=== PATIENT | female | born 1945 | race Caucasian/White ===

== ENCOUNTER 2021-03-17 15:59 | Emergency (ER) | payer MEDICARE, OTHER, SELFPAY ==
[2021-03-17 17:10] VITALS: BP 126/67; PULSE 88; RESP 16; TEMP 36.6; O2SAT 97; BMI 28.0
--- NOTE | 2021-03-17 17:10 | XR_ITS ---
PROCEDURE INFORMATION: Exam: XR Left Wrist Exam date and time: 03/17/2021 5:10 PM Age: 76 years old Clinical indication: Pain; Wrist; Bilateral TECHNIQUE: Imaging protocol: XR Left wrist. Views: 3 or more views. COMPARISON: No relevant prior studies available. FINDINGS: Bones/joints: There is no evidence of acute fracture. There is no evidence of joint malalignment or dislocation. Degenerative changes of the wrist present. Soft tissues: There are no soft tissue masses or fluid collections. IMPRESSION: 1. No evidence of acute fracture. 2. No evidence of acute dislocation. 3. Degenerative changes of the wrist present.
--- NOTE | 2021-03-17 17:46 | HMH.EDUTC ---
[facility] [place] Disposition Clinical Impression: Wrist pain Qualifiers: Laterality: left Qualified Code(s): M25.532 - Pain in left wrist Disposition: Home, Self-Care Condition on Discharge: Good Instructions: DI for Wrist Pain, How To Perform RICE (Rest, Ice, Compress, Elevate) Additional Instructions: *RICE, Rest the extremity, Ice 15-20 minutes 3-4 times daily, Compress- wear the steven wrap as discussed as much as possible to help reduce swelling and pain, Elevate the extremity when at rest *Steven wrap is for support and help control swelling, use it except in the shower. Be sure that is not to tight but not to loose either *Elevate when resting *Ibuprofen every 6-8 hours as needed for pain an inflammation. If need something more can take Tylenol in between doses of Ibuprofen to help Immediately follow up with your family doctor for new or worsening of symptoms, or no noticeable improvement over the next 3-5 days Follow up with your Family Doctor if no improvement or any worsening of symptoms Return if needed Straight to ER if any life threatening symptoms Referrals: Lala Bowedn [Primary Care Provider] - As needed Time of Disposition: 17:59 Medical Decision Making - Gumaro Inquiry Pt receiving controlled substance: No Gumaro was queried for this patient: No Vital Signs: 03/17/21 17:10 Temperature 97.8 F Temperature Source Oral Pulse Rate [Right Brachial] 88 Respiratory Rate 16 Blood Pressure [Right Arm] 126/67 Blood Pressure Mean [Right Arm] 86 Blood Pressure Source [Right Arm] Automatic Cuff Blood Pressure Position [Right Arm] Sitting 02 Sat by Pulse Oximetry 97 Oxygen Delivery Method Room Air - Radiology Data #1 Image(s): Wrist Image Reviewed: Yes I have reviewed radiologist's interpretation IMPRESSION: 1. No evidence of acute fracture. 2. No evidence of acute dislocation. 3. Degenerative changes of the wrist present. [facility] [place] HPI - General Stated complaint: swollen/painful L wrist no accident Time Seen by Provider: 03/17/21 17:46 Mode of Arrival: Ambulatory Source of Information: Patient Limitations: No Limitations Description of Symptoms (Recalled from Triage Doc. by RN): PATIENT C/O PAIN TO LEFT WRIST SINCE LAST NIGHT. NO KNOWN INJURY HEENT Symptoms (Recalled from RN notes): No Resp Symptoms (Recalled from RN notes): No Skin Symptoms (Recalled from RN notes): No MS Symptoms (Recalled from RN notes): Yes Functional Status (Recalled from RN notes): WNL - History of Present Illness Provider Complaint: Patient states that she noticed she was having a little pain in her left wrist last night States that she woke up this morning still having pain in her wrist and has continued to have pain all day today States that she doesnt remember doing anything to hurt but she may have bumped it or something that she dont remember - Related Data Allergies Allergy/AdvReac Type Severity Reaction Status Date / Time No Known Allergies Allergy Verified 03/17/21 17:35 - Worker's Comp Is this a Worker's Comp case?: No [facility] History - Hepatitis A Screen Drug use history?: No High risk sexual behaviors?: No History of sexually transmitted infection?: No Currently employed?: No Childcare worker?: No Do you have indoor plumbing?: Yes Do you have electricity?: Yes Attestation statement:: This patient has been screened for Hepatitis A risk factors. I have reviewed the patient's past medical history: Yes ROS Obtained: Yes All systems reviewed & no additional complaints, Yes Systems reviewed as appropriate & no additional complaints - Constitutional Constitutional: Reports system reviewed and no additional complaints, except as docu, Denies body ache, Denies chills, Denies fever(s) - Cardiovascular Cardiovascular: Reports system reviewed and no additional complaints, except as docu - Respiratory Respiratory: Reports system reviewed and no additional complaints, except as docu - Gastrointestinal Gastroi
[2021-03-17 18:00] VITALS: BP 126/67; PULSE 88; RESP 16; TEMP 36.6; O2SAT 97
== END 2021-03-17 18:09 | disposition home or self-care (01) ==
PROVIDERS: Emergency Provider Nurse Practitioner; PCP Nurse Practitioner Family
DX: M25.532 Pain in left wrist (principal)
CPT/HCPCS: G0463; 73110; 99202

== ENCOUNTER 2025-03-01 13:49 | Outpatient (CLI) | payer MEDICARE, OTHER, SELFPAY ==
--- OUTSIDE RECORDS SUMMARY | 2024-08-03 09:00 | XMS_ITS ---
Author Organization [facility] damir [facility] Address [address] [place] [address] Care Team Providers Care Real Estate Office Manager Name Role Phone Marquise Antonio Unavailable [phone] Encounters Encounter Location Date Provider Diagnosis [facility] Care [facility] [address] [place] [address] 08/03/2024 Antonio Camarillo Plan Of Treatment Next Appt Details Provider Name:Antonio Camarillo, 04/05/2025 01:40:00 PM[facility] [address], [place], [address], Progress Notes * Stef MITCHELL ADOB:1945 (80 yo F)Acc No.[id number]:08/03/2024 progress note Patient: Stef ROD Provider: Miguel A Camarillo MD :1945 A ge:79 Y S ex:Female Date:08/03/2024 Address:[facility] [address] [facility] , [place], [place] Subjective: * Chief Complaints: * * Medical History: Objective: * Vitals: Assessment: Plan: * Treatment: * Billing Information: * Visit Code: * Procedure Codes: * Electronic signature of Jennifer Camarillo M.D. on 03/01/2025 at 01:55 PM EDT Sign off status: Pending * Provider: Miguel A Camarillo MD Date: 0 08/03/2024 Generated for Printi ng/Fasandrag/eTransmitting on: 0 03/01/2025 01:55 PM EDT
--- OUTSIDE RECORDS SUMMARY | 2024-12-07 10:20 | XMS_ITS ---
Author Organization [facility] damir [facility] Address [address] [place] [address] Care Team Providers Care Senior Art Director Name Role Phone Marquise Antonio Unavailable [phone] Encounters Encounter Location Date Provider Diagnosis [facility] Care [facility] [address] [place] [address] 12/07/2024 Antonio Camarillo Plan Of Treatment Next Appt Details Provider Name:Antonio Camarillo, 04/05/2025 01:40:00 PM, [facility] [address], [place], [address], Progress Notes * Stef MITCHELL ADOB:1945 (80 yo F)Acc No.[id number]:12/07/2024 progress note Patient: Stef ROD Provider: Miguel A Camarillo MD :1945 A ge:79 Y S ex:Female Date:12/07/2024 Address:[facility] [address] [facility] , [place], [place] Subjective: * Chief Complaints: * * Medical History: Objective: * Vitals: Assessment: Plan: * Treatment: * Billing Information: * Visit Code: * Procedure Codes: * Electronic signature of Jennifer Camarillo M.D. on 03/01/2025 at 01:55 PM EDT Sign off status: Pending * Provider: Miguel A Camarillo MD Date: 0 12/07/2024 Generated for Printi ng/Fasandrag/eTransmitting on: 0 03/01/2025 01:55 PM EDT
--- OUTSIDE RECORDS SUMMARY | 2025-01-23 04:20 | XMS_ITS ---
Author Organization [facility] Address [address] [address] Care Team Providers Care Embedded Firmware Developer Name Role Phone Antonio Camarillo [phone] Medications Medication SIG (Take, Route, Frequency, Duration) Notes Start Date End Date Status Loperamide HCl 2 MG 1 capsule as needed Orally Four times a day Active Lipitor 40 MG 1 tablet Orally Once a day Active Magnesium 400 MG as directed Orally Active Lomotil 2.5-0.025 MG 1 tablet as needed Orally Four times a day Active Levocetirizine Dihydrochloride 5 MG 1 tablet in the evening Orally Once a day; Duration: 30 day(s) Active Gabapentin 600 MG 1 tablet Orally twice a day Active Ferrous Sulfate 325 (65 Fe) MG 1 tablet Orally Once a day; Duration: 30 day(s) Active Lantus SoloStar 100 UNIT/ML Subcutaneous Active Escitalopram Oxalate 10 MG 1 tablet Orally Once a day; Duration: 30 day(s) Active Ergocalciferol 34869 UNIT 1 capsule Orally weekly; Duration: 90 days Sundays *Pick strength-form from [employer] for eRX* Active Calcium 600 MG 1 tablet with meals Orally Once a day Active Budesonide 3 MG 2 capsules Orally Once a day Active ClobetaPlus Cream *Reorder from [employer] for eRx and Interaction Alerts* Active Ciprofloxacin HCl 500 MG 1 tablet Orally Once daily; Duration: 10 days 10/18/2023 Active Eliquis 2.5 MG 1 tablet Orally twice a day Active Allergy Relief 10 MG 1 tablet Orally Once a day; Duration: 30 day(s) Active Albuterol Sulfate HFA 108 (90 Base) MCG/ACT 1 puff as needed Inhalation every 4 hrs Active Aspirin 81 MG 1 tablet Orally Once a day; Duration: 30 day(s) Active Amiodarone HCl 100 MG 1 tablet Orally Once a day; Duration: 30 day(s) 07/16/2022 Active Vitamin B-6 100 MG 1 tablet Orally Once a day; Duration: 30 day(s) Active rOPINIRole HCl 0.5 MG 1 tablet 1 to 3 hours before bedtime Orally Once a day; Duration: 30 day(s) Active Pantoprazole Sodium 20 MG TAKE 1 TABLET EVERY DAY IN THE EVENING Active Synthroid 100 MCG 1 tablet on an empty stomach in the morning Orally Once a day Active Ozempic (2 MG/DOSE) 8 MG/3ML as directed Subcutaneous Sundays Active NovoLOG FlexPen 100 UNIT/ML Subcutaneous Active Nitroglycerin 0.4 MG Sublingual Active Metoprolol Succinate 25 MG 1 capsule Orally Once a day; Duration: 30 day(s) Active Encounters Encounter Location Date Provider Diagnosis [facility] [address] [place] [address] 01/23/2025 Antonio Camarillo Plan Of Treatment Next Appt Details Provider Name:Antonio Camarillo, 04/05/2025 01:40:00 PM, [address] [facility] [address], [place], [address], Progress Notes * Stef MITCHELL ADOB:1945 (80 yo F)Acc No.[id number]:01/23/2025 progress note Patient: Stef ROD Provider: Miguel A Camarillo MD :1945 A ge:79 Y S ex:Female Date:01/23/2025 Address:[address] [place] [address] , [facility] Subjective: * Chief Complaints: * * Medical History: * Medications: T aking Albuterol Sulfate HFA 108 (90 Base) MCG/ACT Aerosol Solution 1 puff as needed Inhalation every 4 hrs , Taking Allergy Relief 10 MG Tablet 1 tablet Orally Once a day , Taking Amiodarone HCl 100 MG Tablet 1 tablet Orally Once a day , Taking Aspirin 81 MG Tablet Chewable 1 tablet Orally Once a day , Taking Budesonide 3 MG Capsule Delayed Release Particles 2 capsules Orally Once a day , Taking Calcium 600 MG Tablet 1 tablet with meals Orally Once a day , Taking Ciprofloxacin HCl 500 MG Tablet 1 tablet Orally Once daily , Taking ClobetaPlus Cream , Notes to Pharmacist: *Reorder from [facility] for eRx and Interaction Alerts*, Taking Eliquis 2.5 MG Tablet 1 tablet Orally twice a day , Taking Ergocalciferol 12038 UNIT Capsule 1 capsule Orally weekly , Notes to Pharmacist: Sundays *Pick strength-form from [facility] for eRX*, Taking Escitalopram Oxalate 10 MG Tablet 1 tablet Orally Once a day , Taking Ferrous Sulfate 325 (65 Fe) MG Tablet 1 tablet Orally Once a day , Taking Gabapentin 600 MG Tablet 1 tablet Orally twice a day , Taking Lantus SoloStar 100 UNIT/ML Solution Pen- injector Subcutaneous , Taking Levocetirizine Dihydrochloride 5 MG Tablet 1 tablet in the evening Orally Once a day , Taking Lipitor 40 MG Tablet 1 tablet Orally Once a day , Taking Loperamide HCl 2 MG Capsule 1 capsule as needed Orally Four times a day , Taking Lomotil 2.5-0.025 MG Tablet 1 tablet as needed Orally Four times a day , Taking Magnesium 400 MG Capsule as directed Orally , Taking Metoprolol Succinate 25 MG Capsule ER 24 Hour Sprinkle 1 capsule Orally Once a day , Taking Nitroglycerin 0.4 MG Tablet Sublingual Sublingual , Taking NovoLOG FlexPen 100 UNIT/ML Solution Pen-injector Subcutaneous , Taking Ozempic (2 MG/DOSE) 8 MG/3ML Solution Pen- injector as directed Subcutaneous , Notes to Pharmacist: Sundays, Taking Pantoprazole Sodium 20 MG Tablet Delayed Release TAKE 1 TABLET EVERY DAY IN THE EVENING , Taking rOPINIRole HCl 0.5 MG Tablet 1 tablet 1 to 3 hours before bedtime Orally Once a day , Taking Synthroid 100 MCG Tablet 1 tablet on an empty stomach in the morning Orally Once a day , Taking Vitamin B-6 100 MG Tablet 1 tablet Orally Once a day Objective: * Vitals: Assessment: Plan: * Treatment: * Billing Information: * Visit Code: * Procedure Codes: * Electronic signature of Jennifer Camarillo M.D. on 03/01/2025 at 01:54 PM EDT Sign off status: Pending * Provider: Miguel A Camarillo MD Date: 0 01/23/2025 Generated for Db hunter/Giovanna/Ahsanitting on: 0 03/01/2025 01:54 PM EDT
--- OUTSIDE RECORDS SUMMARY | 2025-02-04 23:44 | XMS_ITS | Encounter Summary ---
Author Organization [facility] Address [address] [place] [address] Care Team Providers Care Cloth Doubling Machine Operator Name Role Phone Robb Cartagena MD Primary Care Provider [phone] Sophia Horne MD Unavailable [phone] Zheng Iglesias MD Unavailable Kristian Prado MD Unavailable [phone] Antonio Camarillo MD Unavailable [phone] Meera Ruiz HARNESSMAKER APPRENTICE Unavailable [phone] Asad Arevalo MD Unavailable [phone] Oscar Murphy MD Unavailable [phone] Maria C Parra Unavailable [phone] Reason for Referral * Consultation (Routine) - Authorized Specialty Diagnoses / Procedures Referred By Contac t Referred To Contact Physical Therapy Diagnoses Closed bilateral fracture of pubic rami, initial encounter (CMS/[facility]) Closed fracture of sacrum, unspecified portion of sacrum, initial encounter ([facility]) Rg Lua MD [address] [place] [address] Phone: tel: fax: [facility] [address] [place] [address] Phone: tel: Referral ID Status Reason Start Date Expiration Date Visits Requested Visits Authorized [id number] Authorized Consult and Treat 02/07/2025 08/09/2026 1 1 * Consultation (Routine) - Authorized Specialty Diagnoses / Procedures Referred By Contac t Referred To Contact Internal Medicine Diagnoses Closed bilateral fracture of pubic rami, initial encounter ([facility]) Closed fracture of sacrum, unspecified portion of sacrum, initial encounter ([facility]) Rg Lua MD [address] [place] [address] Phone: tel: fax: [facility] [address] [place] [address] Phone: tel: fax: Referral ID Status Reason Start Date Expiration Date Visits Requested Visits Authorized [id number] Authorized Specialty Services Required 02/07/2025 08/09/2026 1 1 * Consultation (Routine) - Authorized Specialty Diagnoses / Procedures Referred By Dario t Referred To Contact Family Medicine Diagnoses Closed bilateral fracture of pubic rami, initial encounter ([facility]) Closed fracture of sacrum, unspecified portion of sacrum, initial encounter ([facility]) Rg Lua MD [address] [place] [address] Phone: tel: fax: Referral ID Status Reason Start Date Expiration Date V isits Requested Visits Authorized [id number] Authorized 02/07/2025 08/09/2026 1 1 * Home Health (Routine) - Authorized Specialty Diagnoses / Procedures Referred By Contac t Referred To Contact Home Health Services / Case Management Diagnoses Closed bilateral fracture of pubic rami, initial encounter ([facility]) Rg Lua MD [address] [place] [address] Phone: tel: fax: Referral ID Status Reason Start Date Expiration Date Visits Requested Visits Authorized [id number] Authorized Specialty Services Required 02/07/2025 08/09/2026 999 999 Reason for Visit * Reason Comments Pelvic Pain * Auth/Cert (Routine) Specialty Diagnoses / Procedures Referred By Contac t Referred To Contact Diagnoses History of pelvic fracture Closed bilateral fracture of pubic rami, initial encounter ([facility]) Closed fracture of sacrum, unspecified portion of sacrum, initial encounter ([facility]) Fall on 01/19 Pelvic fracture with hematoma Vinicio Lowe MD [address] [place] [address] Phone: tel: fax: [facility] [address] [place] [address] Phone: tel: Referral ID Status Reason Start Date Expiration Date Visits Re quested Visits Authorized [id number] 1 1 Encounter Details Date Type Department Care Team (Latest Contact Info) Description 02/04/2025 11:44 PM EDT - 02/07/2025 3:14 PM EDT Hospital Encounter [facility] [address] [place] [address] Herb Moreira MD [address] [place] [id number] Sunil Abdi MD [address] [place] [address] Vinicio Lowe MD [address] [place] [address] Rg Lua MD [address] [place] [address] Closed bilateral fracture of pubic rami, initial encounter ([facility]) (Primary Dx); Closed fracture of sacrum, unspecified portion of sacrum, initial encounter ([facility]) Discharge Disposition: Home or Self Care Social History Tobacco Use Types Packs/Day Years Used Date Smoking Tobacco: Former Cigarettes 967 - 1991 Passive Smoke Exposure: Never Smokeless Tobacco: Never Alcohol Use Standard Drinks/Week Comments No 0 (1 standard drink = 0.6 oz pur e alcohol) PHQ-2 Answer Date Recorded Patient Health Questionnaire-2 Score 0 07/24/2024 Humiliation, Afraid, Rape, and Kick questionnair e Answer Date Recorded Within the last year, have y ou been afraid of your partner or ex-partner? No 02/07/2025 Within the last year, have y ou been humiliated or emotionally abused in other ways by your partner or ex-partner? No Within the last year, have y ou been kicked, hit, slapped, or otherwise physically hurt by your partner or ex-partner? No 02/07/2025 Within the last year, have y ou been raped or forced to have any kind of sexual activity by your partner or ex-partner? No 02/07/2025 Hunger Vital Sign Answer Date Recorded Within the past 12 months, y ou worried that your food would run out before you got the money to buy more. Never true 02/08/20 25 Within the past 12 months, t he food you bought just didn't last and you didn't have money to get more. Never true 02/07/2025 PRAPARE - Transportation Answer Date Re corded In the past 12 months, has l ack of transportation kept you from medical appointments or from getting medications? No 04/2025 In the past 12 months, has l ack of transportation kept you from meetings, work, or from getting things needed for daily living? No 02/07/2025 Housing Stability Vital Sign Answer Wong e Recorded In the last 12 months, was t here a time when you were not able to pay the mortgage or rent on time? No 02/07/2025 In the past 12 months, how m any times have you moved where you were living? 0 02/07/2025 At any time in the past 12 m [facility], were you homeless or living in a halfway (including now)? No 02/07/2025 CAGE ASSESSMENT Answer Date Recorded Cage unable to access Not on file 02/05/2025 Cage max number of drinks Not on file 2024 Cage Beverages a week Not on file 02/05/2025 Have you ever felt you should CUT down on your d rinking? 0 02/05/2025 Have you been ANNOYED by people criticizing your drinking? 0 02/05/2025 Have you felt GUILTY about your drinking? 0 02/05/2025 Have you had a drink first t marycarmen in the morning ([employer]) to steady your nerves or to get rid of a hangover? 0 02/05/2025 CAGE Questionnaire Score 0 025 Utilities Answer Date Recorded In the past 12 months has th [employer], gas, oil, or water company threatened to shut off services in your home? No 02/07/2025 PHQ-2A Answer Date Recorded Depression Risk 0 06/02/2024 Comments No Sex and Gender Information Value Date Recorded Sex Assigned at Female 02/05/2025 4:17 PM EDT Legal Sex Female 8:16 PM EDT Gender Identity Female 02/05/2025 4:17 PM EDT Sexual Orientation Not on file documented as of this encounter Last Filed Vital Signs Vital Sign Reading Time Taken Comments Blood Pressure 134/68 02/07/2025 11:57 AM EDT Pulse 63 02/07/2025 11:57 AM EDT Temperature 36.3 C (97.3 F) 02/07/2025 11:57 AM EDT Respiratory Rate 18 02/06/2025 3:12 AM EDT Oxygen Saturation 94% 02/07/2025 11:57 AM EDT Inhaled Oxygen Concentration - - Weight 68 kg (150 lb) 02/05/2025 4:05 PM EDT Height 175.3 cm (5' 9 ) 02/04/2025 11:52 PM EDT Body Mass Index 22.15 02/04/2025 11:52 PM EDT documented in this encounter Functional Status * Calculated C-SSRS Risk Score (Lifetime/Recent) Answer Date of Assessment Author No Risk Indicated 02/07/2025 8:00 AM EDT Micheline Stokes RN * Question Answer Date of Assessment Author 1. Wish to be (Past 1 Month) No 025 8:00 AM EDT Micheline Stokes RN 2. Non-Specific Active Suici tia Thoughts (Past 1 Month) No 02/07/2025 8:00 AM EDT Christiano Stokes RN 6. Suicidal Behavior (Lifetime) No 5 8:00 AM EDT Micheline Stokes RN documented as of this encounter Discharge Instructions * Discharge Instructions* Rg Lua MD - 02/07/2025 1:50 PM EDT Please take all of your medications as prescribed Please use Tylenol 650 mg ER every 8 hours for pain. You can use Oxycodone every 6 hours, 5 mg for break through pain Dont lift heavy weight and dont bend. As advised, if you have a fall and you have persistent swelling or bleeding and since you are taking Eliquis, please reach out to nearest ED Please engage yourself into physical therapy Please make sure to follow up with outpatient physical therapy Please make sure to follow up with your PCP. Orthopedics and other subspeciality as appropriate If you are having sudden pain,febrile illness, chills or weakness, please come to nearest ED as soon as possible or call 911 documented in this encounter Medications at Time of Discharge Accu-Chek FastClix Lancets misc 1 acetaminophen (Tylenol 8 Hour) 650 MG ER tablet Take 1 tablet by mouth every 8 hours as needed for mild pain. Do not crush, chew, or split. 120 tablet 2 5 06/07/20 25 albuterol 108 (90 Base) MCG/ACT inhaler Inhale 2 puffs every 6 hours as needed. 1 amiodarone (Pacerone) 100 MG tabletIndications:L ongstanding persistent atrial fibrillation (CMS/HCC) TAKE 1 TABLET ONE TIME DAILY 90 tablet 3 5 atorvastatin (Lipitor) 40 MG tabletIndications:M ixed hyperlipidemia TAKE 1 TABLET EVERY DAY 90 tablet 3 5 biotin 1000 MCG tablet Take 1 tablet by mouth daily. budesonide EC (Entocort EC) 3 MG 24 hr capsule Take 2 capsules by mouth daily. 4 calcium citrate (Calcitrate) 950 (200 Ca) MG tabletIndications:A ge-related osteoporosis without current pathological fracture Take 1 tablet (950 mg) by mouth 1 (one) time each day. 90 tablet 3 4 cetirizine (ZyrTEC) 10 MG tabletIndications:N on-seasonal allergic rhinitis, unspecified trigger Take 1 tablet (10 mg) by mouth 1 (one) time each day. 90 tablet 3 4 clobetasol (Temovate) 0.05 % cream APPLY TOPICALLY TO AFFECTED AREA 2 TIMES A WEEK NEEDED 30 g 11 4 diphenoxylate-atrop ine (Lomotil) 2.5-0.025 MG tabletIndications:D iarrhea, unspecified type Take 1 tablet by mouth every 6 (six) hours if needed for diarrhea. 90 tablet 3 4 Droplet Pen [place] 32G X 4 MM [facility] Eliquis 2.5 MG tabletIndications:L ongstanding persistent atrial fibrillation (CMS/HCC) TAKE 1 TABLET TWICE DAILY 180 tablet 3 5 ergocalciferol 1.25 MG (17471 UT) capsuleIndications: Malignant neoplasm of upper-outer quadrant of right breast in female, estrogen receptor positive Take 1 capsule (50,000 Units) by mouth 1 (one) time per week. 12 capsule 3 4 escitalopram (Lexapro) 10 MG tabletIndications:D epressive disorder Take 1 tablet (10 mg) by mouth 1 (one) time each day. 90 tablet 3 4 ferrous sulfate 325 (65 Fe) MG tabletIndications:H istory of iron deficiency anemia Take 1 tablet (325 mg) by mouth 1 (one) time each day with breakfast. 90 tablet 3 4 fluticasone (Flonase) 50 MCG/ACT nasal spray Administer 2 sprays into each nostril daily. Shake gently. Before first use, prime pump. After use, clean tip and replace cap. 16 g 6 5 08/06/19 26 gabapentin (Neurontin) 600 MG tablet Take 1 tablet by mouth 2 times a day. glucagon (Baqsimi Two Pack) 3 MG/DOSE powder Nasal Powder USE 1 DOSE IN 1 NOSTRIL FOR LOW BLOOD SUGAR, THEN SEEK MEDICAL HELP . REPEAT DOSE AFTER 15 MINS IF NO RESPONSE 2 each 3 4 glucose blood (Accu-Chek SmartView) test strip 9 insulin aspart (NovoLOG FLEXPEN) 100 UNIT/ML injection penIndications:Type 2 diabetes mellitus with diabetic neuropathy, with long-term current use of insulin ([facility]) Inject subcutaneous 10 units BID w/ meals plus 1:50>150 SS, max dose 50u/day 45 mL 3 4 insulin glargine (Lantus SoloStar) 100 UNIT/ML injection penIndications:Type 2 diabetes mellitus with diabetic neuropathy, with long-term current use of insulin ([facility]) Inject 15 Units under the skin every night. 15 mL 3 4 05/16/20 25 Jardiance 10 MGIndications:Type 2 diabetes mellitus with diabetic neuropathy, with long-term current use of insulin (CMS/[facility]) TAKE 1 TABLET ONE TIME DAILY 90 tablet 3 5 levothyroxine (Synthroid, Levoxyl) 100 MCG tabletIndications:A cquired hypothyroidism Take 1 tablet (100 mcg) by mouth 1 (one) time each day. 90 tablet 3 4 loperamide (Imodium) 2 MG capsule Take 1 capsule by mouth daily as needed for diarrhea. 1 LORazepam (Ativan) 0.5 MG tablet Take 1 tablet (0.5 mg) by mouth 3 (three) times a day if needed for anxiety. 270 tablet 1 4 magnesium oxide (Mag-Ox) 400 (240 Mg) MG tablet Take 1 tablet by mouth daily. metoprolol succinate XL (Toprol-XL) 25 MG 24 hr tabletIndications:P rimary hypertension TAKE 1 TABLET EVERY DAY 90 tablet 3 5 naloxone (Narcan) 4 mg/0.1 mL nasal spray 1. Give 1 spray in nostril for no/slow breathing or cannot wake after opioid use 2. Call 911 3. Repeat in other nostril if symptoms continue 1 each 5 nitroglycerin (Nitrostat) 0.[address] 1 tablet under the tongue. PRN 8 pantoprazole (ProtoNix) 20 MG EC tabletIndications:G astroesophageal reflux disease without esophagitis Take 1 tablet (20 mg) by mouth 1 (one) time each day. 90 tablet 3 4 pyridoxine (B-6) 100 MG tablet Take 1 tablet by mouth daily. rOPINIRole (Requip) 0.5 MG tabletIndications:R estless leg syndrome TAKE 1 TABLET (0.5 MG) BY MOUTH 1 (ONE) TIME EACH DAY IN THE EVENING. 90 tablet 3 5 Semaglutide, 2 MG/DOSE, (Ozempic, 2 MG/DOSE,) 8 MG/3ML solution pen-injector Inject 2 mg under the skin 1 (one) time per week. 9 mL 3 4 05/16/20 25 oxyCODONE (Roxicodone) 5 MG immediate release tablet Take 1 tablet by mouth every 6 hours as needed for severe pain for up to 5 days. 20 tablet 5 02/15/20 25 documented as of this encounter Miscellaneous Notes * Care Plan - Micheline Stokes RN - 02/07/2025 2:15 PM EDT Problem: Adult Inpatient Plan of Care Goal: Plan of Care Review Outcome: Ongoing, Progressing Flowsheets (Taken 02/07/2025 1411) Progress: improving Outcome Evaluation: Patient and family understood the plan of care of the shift Plan of Care Reviewed With: patient family Goal: Patient-Specific Goal (Individualized) Outcome: Ongoing, Progressing Flowsheets (Taken 02/07/2025 0800) Patient/Family-Specific Goals (Include Timeframe): pt will report pain level of less than 2 during the shift Individualized Care Needs: pain mangement Anxieties, Fears or Concerns: pain Goal: Absence of Hospital-Acquired Illness or Injury Outcome: Ongoing, Progressing Intervention: Identify and Manage Fall Risk Flowsheets (Taken 02/07/2025 1400) Safety Promotion/Fall Prevention: activity supervised assistive device/personal items within reach clutter-free environment maintained fall prevention program maintained lighting adjusted mobility aid in reach nonskid shoes/slippers when out of bed room organization consistent safety round/check completed toileting scheduled Intervention: Prevent Skin Injury Flowsheets Taken 02/07/2025 1411 Skin Protection: incontinence pads utilized Taken 02/07/2025 1400 Body Position: weight shifting Intervention: Prevent and Manage VTE (Venous Thromboembolism) Risk Flowsheets (Taken 02/07/2025 0800) VTE Prevention/Management: SCDs (sequential compression devices) off education provided Intervention: Prevent Infection Flowsheets (Taken 02/07/2025 1411) Infection Prevention: hand hygiene promoted equipment surfaces disinfected environmental surveillance performed personal protective equipment utilized Goal: Optimal Comfort and Wellbeing Outcome: Ongoing, Progressing Intervention: Monitor Pain and Promote Comfort Flowsheets (Taken 02/07/2025 1402) Pain Management Interventions: medication (see MAR) Intervention: Provide Person-Centered Care Flowsheets (Taken 02/07/2025 1411) Trust Relationship/Rapport: care explained emotional support provided empathic listening provided questions encouraged reassurance provided Goal: Readiness for Transition of Care Outcome: Ongoing, Progressing Intervention: Mutually Develop Transition Plan Flowsheets (Taken 02/07/2025 1411) Discharge Facility/Level of Care Needs: 1-Home or Self Care Equipment Needed After Discharge: none Equipment Currently Used at Home: walker, rollator Anticipated Changes Related to Illness: none Transportation Anticipated: family or friend will provide Transportation Concerns: none Current Discharge Risk: lives alone Concerns to be Addressed: no discharge needs identified Readmission Within the Last 30 Days: no previous admission in last 30 days Patient/Family Anticipated Services at Transition: none Patient/Family Anticipates Transition to: home with family Problem: Fall Injury Risk Goal: Absence of Fall and Fall-Related Injury Outcome: Ongoing, Progressing Intervention: Identify and Manage Contributors Flowsheets (Taken 02/07/2025 1411) Medication Review/Management: medications reviewed Self-Care Promotion: BADL personal objects within reach Intervention: Promote Injury-Free Environment Flowsheets (Taken 02/07/2025 1400) Safety Promotion/Fall Prevention: activity supervised assistive device/personal items within reach clutter-free environment maintained fall prevention program maintained lighting adjusted mobility aid in reach nonskid shoes/slippers when out of bed room organization consistent safety round/check completed toileting scheduled Problem: Skin Injury Risk Increased Goal: Skin Health and Integrity Outcome: Ongoing, Progressing Intervention: Optimize Skin Protection Flowsheets Taken 02/07/2025 1411 Pressure Reduction Techniques: frequent weight shift encouraged Skin Protection: incontinence pads utilized Taken 02/07/2025 1400 Activity Management: activity encouraged Taken 02/07/2025 0800 Head of Bed (HOB) Positioning: HOB elevated Intervention: Promote and Optimize Oral Intake Flowsheets (Taken 02/07/2025 1411) Oral Nutrition Promotion: physical activity promoted Nutrition Interventions: frequent small meals provided * Discharge Summary - Rg Lua MD - 02/07/2025 2:04 PM EDT Hospitalization Admit Date/Time: 02/04/2025 11:44 PM Admitting Attending: Vinicio Lowe Discharge Date: 02/07/2025 Discharge Attending Physician: Rg Lua MD PCP name and Address: Robb Cartagena MD [address] [place] [address] / [facility] [id number] Referring provider name and address: Isabel Munguia MD [address] [id number] Chief Concern, Brief History of Present Illness, and Hospital Course Stef Mitchell is a 79 y.o. female presenting after a prior fall with pelvic fracture on January 17. She had been admitted to an outside hospital following that fall, with imaging that showed bilateral superior and inferior pubic rami fractures. However, she was sent home at the time. She now reports increasing pain over the past day. She describes pain in the front of her pelvis that goes down her left leg, is sharp, and worse with standing. She did not have any remaining pain medications available at home. She was evaluated by our Trauma surgery and Orthopedic surgery teams, who are anticipating non-operative management. She had conservative management with Pain control and participated in physical therapy really well. She was stable at discharge Surgeries and Procedures None Medication List .. Accu-Chek FastClix Lancets misc Accu-Chek SmartView test strip Generic drug: glucose blood acetaminophen 650 MG ER tablet Commonly known as: Tylenol 8 Hour Take 1 tablet by mouth every 8 hours as needed for mild pain. Do not crush, chew, or split. albuterol 108 (90 Base) MCG/ACT inhaler Inhale 2 puffs every 6 hours as needed. amiodarone 100 MG tablet Commonly known as: Pacerone TAKE 1 TABLET ONE TIME DAILY atorvastatin 40 MG tablet Commonly known as: Lipitor TAKE 1 TABLET EVERY DAY Baqsimi Two Pack 3 MG/DOSE powder Nasal Powder Generic drug: glucagon USE 1 DOSE IN 1 NOSTRIL FOR LOW BLOOD SUGAR, THEN SEEK MEDICAL HELP . REPEAT DOSE AFTER 15 MINS IF NO RESPONSE biotin 1000 MCG tablet Take 1 tablet by mouth daily. budesonide EC 3 MG 24 hr capsule Commonly known as: Entocort EC Take 2 capsules by mouth daily. calcium citrate 950 (200 Ca) MG tablet Commonly known as: Calcitrate Take 1 tablet (950 mg) by mouth 1 (one) time each day. cetirizine 10 MG tablet Commonly known as: ZyrTEC Take 1 tablet (10 mg) by mouth 1 (one) time each day. clobetasol 0.05 % cream Commonly known as: Temovate APPLY TOPICALLY TO AFFECTED AREA 2 TIMES A WEEK NEEDED diphenoxylate-atropine 2.5-0.025 MG tablet Commonly known as: Lomotil Take 1 tablet by mouth every 6 (six) hours if needed for diarrhea. Droplet Pen [place] 32G X 4 MM misc Generic drug: Insulin Pen Needle Eliquis 2.5 MG tablet Generic drug: apixaban TAKE 1 TABLET TWICE DAILY ergocalciferol 1.25 MG (08613 UT) capsule Commonly known as: Vitamin D-2 Take 1 capsule (50,000 Units) by mouth 1 (one) time per week. escitalopram 10 MG tablet Commonly known as: Lexapro Take 1 tablet (10 mg) by mouth 1 (one) time each day. ferrous sulfate 325 (65 Fe) MG tablet Take 1 tablet (325 mg) by mouth 1 (one) time each day with breakfast. fluticasone 50 MCG/ACT nasal spray Commonly known as: Flonase Administer 2 sprays into each nostril daily. Shake gently. Before first use, prime pump. After use,clean tip and replace cap. gabapentin 600 MG tablet Commonly known as: Neurontin Take 1 tablet by mouth 2 times a day. Jardiance 10 MG Generic drug: empagliflozin TAKE 1 TABLET ONE TIME DAILY Lantus SoloStar 100 UNIT/ML injection pen Generic drug: insulin glargine Inject 15 Units under the skin every night. levothyroxine 100 MCG tablet Commonly known as: Synthroid, Levoxyl Take 1 tablet (100 mcg) by mouth 1 (one) time each day. loperamide 2 MG capsule Commonly known as: Imodium Take 1 capsule by mouth daily as needed for diarrhea. LORazepam 0.5 MG tablet Commonly known as: Ativan Take 1 tablet (0.5 mg) by mouth 3 (three) times a day if needed for anxiety. magnesium oxide 400 (240 Mg) MG tablet Commonly known as: Mag-Ox Take 1 tablet by mouth daily. metoprolol succinate XL 25 MG 24 hr tablet Commonly known as: Toprol-XL TAKE 1 TABLET EVERY DAY naloxone 4 mg/0.1 mL nasal spray Commonly known as: Narcan 1. Give 1 spray in nostril for no/slow breathing or cannot wake after opioid use 2. Call 911 3. Repeat in other nostril if symptoms continue nitroglycerin 0.4 MG SL tablet Commonly known as: Nitrostat Place 1 tablet under the tongue. PRN NovoLOG FLEXPEN 100 UNIT/ML injection pen Generic drug: insulin aspart Inject subcutaneous 10 units BID w/ meals plus 1:50>150 SS, max dose 50u/day oxyCODONE 5 MG immediate release tablet Commonly known as: Roxicodone Take 1 tablet by mouth every 6 hours as needed for severe pain for up to 5 days. Ozempic (2 MG/DOSE) 8 MG/3ML solution pen-injector Generic drug: semaglutide Inject 2 mg under the skin 1 (one) time per week. pantoprazole 20 MG EC tablet Commonly known as: ProtoNix Take 1 tablet (20 mg) by mouth 1 (one) time each day. pyridoxine 100 MG tablet Commonly known as: B-6 Take 1 tablet by mouth daily. rOPINIRole 0.5 MG tablet Commonly known as: Requip TAKE 1 TABLET (0.5 MG) BY MOUTH 1 (ONE) TIME EACH DAY IN THE EVENING. Where to Get Your Medications These medications were sent to [facility] [place] [address] acetaminophen 650 MG ER tablet fluticasone 50 MCG/ACT nasal spray naloxone 4 mg/0.1 mL nasal spray oxyCODONE 5 MG immediate release tablet Discharge Diagnosis Medical Problems Active and Resolved Hospital Problems Hospital Atrial fibrillation ([facility]) Overview Addendum 12/23/2022 7:27 AM by Jamison Albert PA Resume home meds Holding anticoagulation in setting of bleed CTM rate control CAD (coronary artery disease) Overview Signed 12/23/2022 7:26 AM by Jamison Albert PA Resume home meds, outpatient management Hypertension Overview Signed 12/23/2022 7:27 AM by Jamison Albert PA Resume home meds Stage 3 chronic kidney disease ([facility]) Overview Signed 12/23/2022 7:25 AM by Jamison Albert PA Hx of Scr on admission 1.89 , continue IVF and CTM Baseline appears to be about 1.6 based on previous labs Type 2 diabetes mellitus with diabetic neuropathy, with long-term current use of insulin ([facility]) Overview Addendum 12/23/2022 7:28 AM by Jamison Albert PA CTM BG SSI Hypothyroidism Neuropathy * (Principal) History of pelvic fracture Closed bilateral fracture of pubic rami ([facility]) Post Discharge Instructions Please take all of your medications as prescribed Please use Tylenol 650 mg ER every 8 hours for pain. You can use Oxycodone every 6 hours, 5 mg for break through pain Dont lift heavy weight and dont bend. As advised, if you have a fall and you have persistent swelling or bleeding and since you are taking Eliquis, please reach out to nearest ED Please engage yourself into physical therapy Please make sure to follow up with outpatient physical therapy Please make sure to follow up with your PCP. Orthopedics and other subspeciality as appropriate If you are having sudden pain,febrile illness, chills or weakness, please come to nearest ED as soon as possible or call 911 Outpatient Follow-Up Future Appointments Date Time Provider Department Center 04/17/2025 11:30 AM [facility] 04/25/2025 12:00 PM CHAIR 2 [facility] 05/01/2025 11:40 AM Marla Hilton APRN [facility] 05/08/2025 2:40 PM Meera Ruiz APRN ENDOTFBNBR [facility] 07/18/2025 12:00 PM CHAIR 1 [facility] Test Results Pending At Discharge Pertinent Physical Exam At Time of Discharge Physical Exam Constitutional: General: She is not in acute distress. Appearance: She is not ill-appearing. HENT: Head: Normocephalic and atraumatic. Nose: Nose normal. Eyes: General: No scleral icterus. Cardiovascular: Rate and Rhythm: Normal rate and regular rhythm. Pulmonary: Effort: Pulmonary effort is normal. Abdominal: General: Bowel sounds are normal. There is no distension. Tenderness: There is no abdominal tenderness. Musculoskeletal: Right lower leg: No edema. Left lower leg: No edema. Skin: General: Skin is warm. Neurological: General: No focal deficit present. Mental Status: She is alert and oriented to person, place, and time. Mental status is at baseline. Psychiatric: Mood and Affect: Mood normal. Behavior: Behavior normal. Discharge Disposition/Condition Disposition: Home Condition: Stable (s/sx potential problems absent or manageable) I spent >30 minutes of patient care and instruction time in preparation for this discharge. * Progress Notes - Lalitha Jeffrey RN - 02/07/2025 11:59 AM EDT Case Management Discharge Note Stef Mitchell 79 y.o. female CSN: [id number] Admission: 02/04/2025 11:44 PM Primary Problem: History of pelvic fracture Primary Graphic Arts Instructor: Primary Caregiver: Self Assistance Available at Discharge: Current Outpatient/Agency/Support Group: DME, clinic(s) Availability of Care Givers (#Hours): 24 hours Family/Graphic Arts Instructor(s) Willingness Assessed to care for patient at home: Yes Family/Graphic Arts Instructor(s) Readiness Assessed to care for patient at home: Yes Housing Circumstances-Z Codes: Housing Circumstances (select all that apply): None Applicable Patient Referred to Financial or Community Resources: Discharge Facility/Level of Care Needs: Discharge Facility/Level of Care Needs: 1-Home or Self Care Patient's Choice of Community Agency(s): Patient/Family Anticipated Services at Transition: Patient/Family Anticipated Services at Transition: none DME/Equipment Needed after Discharge: Equipment Currently Used at Home: walker, rollator, walker, rolling, cane, straight, wheelchair, manual (owns DME, does not use at this time.) Equipment Needed After Discharge: none Readmission Within the Last 30 Days: Readmission Within the Last 30 Days: no previous admission in last 30 days Medicare Documentation: Medicare Second Notice?: Comment (patient is admitted as Observation status and IMM not indicated.) Follow-up: No follow-up provider specified. Discharge Transportation: Transportation Anticipated: family or friend will provide Transportation Home at Discharge: Family/Friend will Provide Has discharge transport been arranged?: No What day is the transport expected?: 02/07/25 Follow Up Transport: Transportation Needed to Follow up Appoinments: Family/Friend will Provide Additional Comments: POC reviewed with patient care team during morning huddle. Per attending MD, patient is medically ready to discharge home today. Current therapy recommendation are for both HHPT and OP PT. CM met with patient to discuss overall dc needs. Patient prefers Home Health PT. Referral sent to several [facility] ies near patient's home town. If no accepting HH, patient ok going to out patient PT clinic as well. Patient daughter will provide transportation home. Daughter lives next door to patient and is available to assist patient as needed. CM will continue to follow. Lalitha Jeffrey RN * Elisabeth Crain, PharmD - 02/07/2025 11:49 AM EDT Images from the original note were not included. [id number] Apixaban Brand Name(s): Eliquis? This branded product is no longer on the market. Generic alternatives may be available. IMPORTANT WARNING: If you have atrial fibrillation (a condition in which the heart beats irregularly, increasing the chance of clots forming in the body, and possibly causing strokes) and are taking apixaban to help prevent strokes or serious blood clots, you are at a higher risk of having a stroke after you stop taking this medication. Do not stop taking apixaban without talking to your doctor. Continue to take apixaban even if you feel well. Be sure to refill your prescription before you run out of medication so that you will not miss any doses of apixaban. If you need to stop taking apixaban, your doctor mayprescribe another anticoagulant ('blood thinner') to help prevent a blood clot from forming and causing you to have a stroke. If you have epidural or spinal anesthesia or a spinal puncture while taking a 'blood thinner' such as apixaban, you are at risk of having a blood clot form in or around your spine that could cause you to become paralyzed. Tell your doctor if you have an epidural catheter that is left in your body or have or have ever had repeated epidural or spinal punctures, spinal deformity, or spinal surgery. Tell your doctor and pharmacist if you are taking any of the following: anagrelide (Agrylin??); aspirin and other nonsteroidal anti-inflammatory drugs (NSAIDs) such as ibuprofen (Advil??, Motrin??, others), indomethacin (Indocin??, Tivorbex??), ketoprofen, and naproxen (Aleve??, Anaprox??, others); cilostazol (Pletal??); clopidogrel (Plavix??); dipyridamole (Persantine??); eptifibatide (Integrilin??); heparin; prasugrel (Effient??); ticagrelor (Brilinta??); ticlopidine; tirofiban (Aggrastat??), and warfarin (Coumadin??, Jantoven??). If you experience any of the following symptoms, call your doctor immediately: muscle weakness (especially in your legs and feet), numbness or tingling (especially in your legs), or loss of control of your bowels or bladder. Your doctor or pharmacist will give you the ice rink attendant's patient information sheet (Medication Guide) when you begin treatment with apixaban and each time you refill your prescription. Read the information carefully and ask your doctor or pharmacist if you have any questions. You can also visit the Food and Drug Administration (FDA) website (https://www.fda.gov/Drugs/DrugSafety/nmo844389.htm) or the ice rink attendant's website to obtain the Medication Guide. Talk to your doctor about the risks of taking apixaban. WHY is this medicine prescribed? Apixaban is used to help prevent strokes or blood clots in people who have atrial fibrillation (a condition in which the heart beats irregularly, increasing the chance of clots forming in the body and possibly causing strokes) that is not caused by heart valve disease. Apixaban is also used to prevent deep vein thrombosis (DVT; a blood clot, usually in the leg) and pulmonary embolism (PE; a bloodclot in the lung) in people who are having hip replacement or knee replacement surgery. Apixaban isalso used to treat DVT and PE and may be continued to prevent DVT and PE from happening again afterthe initial treatment is completed. Apixaban is in a class of medications called factor Xa inhibitors. It works by blocking the action of a certain natural substance that helps blood clots to form. HOW should this medicine be used? Apixaban comes as a tablet to take by mouth. It is usually taken with or without food twice a day. When apixaban is taken to prevent DVT and PE after hip or knee replacement surgery, the first dose should be taken at least 12 to 24 hours after surgery. Apixaban is usually taken for 35 days after a hip replacement surgery and for 12 days after knee replacement surgery. Take apixaban at around the same times every day. Follow the directions on your prescription label carefully, and ask your doctor or pharmacist to explain any part you do not understand. Take apixaban exactly as directed. Do nottake more or less of it or take it more often than prescribed by your doctor. If you are unable to swallow the tablets, you can crush them and mix with water, apple juice, or applesauce. Swallow the mixture right after you prepare it. Apixaban can also be given in certain types of feeding tubes. Ask your doctor if you should take this medication in your feeding tube. Follow your doctor's directions carefully. Continue to take apixaban even if you feel well. Do not stop taking apixaban without talking to your doctor. If you stop taking apixaban, your risk of a blood clot may increase. Are there OTHER USES for this medicine? This medication may be prescribed for other uses; ask your doctor or pharmacist for more information. What SPECIAL PRECAUTIONS should I follow? Before taking apixaban, ?? tell your doctor and pharmacist if you are allergic to apixaban, any other medications, or any of the ingredients in apixaban tablets. Ask your pharmacist or check the Medication Guide for a list of the ingredients. ?? Tell your doctor and pharmacist what prescription and nonprescription medications, vitamins, nutritional supplements, and herbal products you are taking or plan to take while taking apixaban. Yourdoctor may need to change the doses of your medications or monitor you carefully for side effects. ?? The following nonprescription or herbal products may interact with apixaban: Helmetta's wort; aspirin; NSAIDs (such as ibuprofen [Advil??, Motrin??] and naproxen [Aleve??, Naprosyn??]). Be sure tolet your doctor and pharmacist know that you are taking these medications before you start taking apixaban. Do not start any of these medications while taking apixaban without discussing with your healthcare provider. ?? you should know that apixaban may interact with certain medications that may be used to treat you if you have a stroke or other medical emergency. In case of an emergency, you or a family member should tell the doctor or emergency room staff who treat you that you are taking apixaban. ?? tell your doctor if you have an artificial heart valve or if you have heavy bleeding anywhere inyour body that cannot be stopped. Your doctor will probably tell you not to take apixaban. ?? tell your doctor if you have or have ever had any type of bleeding problem, antiphospholipid syndrome (APS; a condition that causes blood clots), or kidney or liver disease. ?? tell your doctor if you are , plan to become , or are . If you become while taking apixaban, call your doctor. ?? if you are having surgery, including dental surgery, tell the doctor or dentist that you are taking apixaban. Your doctor may tell you to stop taking apixaban before the surgery or procedure. If you need to stop taking apixaban because you are having surgery, your doctor may prescribe a different medication to prevent blood clots during this time. Your doctor will tell you when you should start taking apixaban again after your surgery. Follow these directions carefully. ?? Call your doctor right away if you fall or injure yourself, especially if you hit your head. Your doctor may need to check you. What SPECIAL DIETARY instructions should I follow? Unless your doctor tells you otherwise, continue your normal diet. What should I do IF I FORGET to take a dose? Take the missed dose as soon as you remember it. However, if it is almost time for the next dose, skip the missed dose and continue your regular dosing schedule. Do not take a double dose to make up for a missed one. What SIDE EFFECTS can this medicine cause? Some side effects can be serious. If you experience any of these symptoms, call your doctor immediately or get emergency medical treatment: ?? bleeding gums ?? nosebleeds ?? heavy vaginal bleeding ?? red, pink, or brown urine ?? red or black, tarry stools ?? coughing up or vomiting blood or material that looks like coffee grounds ?? swelling or joint pain ?? headache ?? rash ?? chest pain or tightness ?? swelling of the face or tongue ?? trouble breathing ?? wheezing ?? feeling dizzy or faint Apixaban prevents blood from clotting normally, so it may take longer than usual for you to stop bleeding if you are cut or injured. This medication may also cause you to bruise or bleed more easily.Call your doctor right away if bleeding or bruising is unusual, severe, or cannot be controlled. Apixaban may cause other side effects. Call your doctor if you have any unusual problems while taking this medication. If you experience a serious side effect, you or your doctor may send a report to the Food and Drug Administration's (FDA) MedWatch Adverse Event Reporting program online (https://www.fda.gov/Safety/MedWatch) or by phone ( ). What should I know about STORAGE and DISPOSAL of this medication? Keep this medication in the container it came in, tightly closed, and out of reach of children. Store it at room temperature and away from light, excess heat and moisture (not in the bathroom). Dispose of unneeded medications in a way so that pets, children, and other people cannot take them.Do not flush this medication down the toilet. Use a medicine take-back program. Talk to your pharmacist about take-back programs in your community. Visit the FDA's Safe Disposal of Medicines website h ttps://goo.gl/c4Rm4p for more information. Keep all medication out of sight and reach of children as many containers are not child-resistant. Always lock safety caps. Place the medication in a safe location - one that is up and away and out of their sight and reach. https://www.[employer]daway.org What should I do in case of OVERDOSE? In case of overdose, call the poison control helpline at . Information is also available online at https://www.poisonhelp.org/help. If the victim has collapsed, had a seizure, has trouble breathing, or can't be awakened, immediately call emergency services at 911. Symptoms of overdose may include the following: ?? unusual bleeding or bruising ?? red, brown, or pink urine ?? red or black, tarry stools ?? coughing up or vomiting blood or material that looks like coffee grounds What OTHER INFORMATION should I know? Keep all appointments with your doctor. Do not let anyone else take your medication. Ask your pharmacist any questions you have about refilling your prescription. Keep a written list of all of the prescription and nonprescription (azxi-uyi-kkbyfig) medicines, vitamins, minerals, and dietary supplements you are taking. Bring this list with you each time you visit a doctor or if you are admitted to the hospital. You should carry the list with you in case of miguel rgencies. This report on medications is for your information only, and is not considered individual patient advice. Because of the changing nature of drug information, please consult your physician or pharmacist about specific clinical use. The [employer] represents that the information provided hereunder was formulated with a reasonable standard of care, and in conformity with professional standards in the field. The [employer] makes no representations or warranties, express or implied, including, but not limited to, any implied warranty of merchantability and/or fitness for a particular purpose, with respect to such information and specifically disclaims all such warranties. Users are advised that decisions regarding drug therapy are complex medical decisions requiring the independent, informed decision of an appropriate health healthcare associate, and the information is provided for informational purposes only. The entire monograph for a drug should be reviewed for a thorough understanding of the drug's actions, uses and side effects. The [employer] does not endorse or recommend the use of any drug.The information is not a substitute for medical care. AHFS?? Patient Medication Information?. ?? Copyright, 2023. The [employer]??, [address], [address], [place], [place]. All Rights Reserved. Duplication for commercial use must be authorized by [facility]. Selected Revisions: September 16, 2024. AHFS?? Patient Medication Information?. ?? Copyright, 2024 * Progress Notes - Henry Roque MD - 02/07/2025 11:30 AM EDT ORTHOPAEDIC SURGERY PROGRESS NOTE 02/07/2025 SUBJECTIVE No acute events overnight. Doing well. Pain controlled. Tolerating diet. No nausea, vomiting, fevers or chills. Patient ambulating around the room with walker. States that her pain in her pelvis continues to improve. OBJECTIVE PHYSICAL EXAMINATION Body mass index is 22.15 kg/m??. Vitals: 02/07/25 0728 BP: (!) 158/81 Pulse: 64 Resp: Temp: 36.4 ??C (97.6 ??F) SpO2: 92% No acute distress Non labored breathing Peripheral perfusion intact FOCUSED MUSCULOSKELETAL EXAM: FOCUSED MUSCULOSKELETAL EXAM right lower extremity Inspection: skin intact, no obvious deformity Motor Exam: TA, GSC, EHL, FHL intact Sensory Exam: SILT DP, SP, Benoit, Sa, and Tib nerve distributions Vascular Exam: Palpable DP pulse, Cap refill <2 seconds, Toes WWP Compartment soft and compressible No pain with passive stretch of the toes left lower extremity Inspection: skin intact, no obvious deformity Motor Exam: TA, GSC, EHL, FHL intact Sensory Exam: SILT DP, SP, Benoit, Sa, and Tib nerve distributions Vascular Exam: Palpable DP pulse, Cap refill <2 seconds, Toes WWP Compartment soft and compressible No pain with passive stretch of the toes ASSESSMENT AND PLAN Stef Mitchell is a 79 y.o. female patient with Closed subacute traumatic bilateral inferior pubic rami fractures Closed subacute right pubic root fracture Closed subacute left parasymphyseal fracture Closed subacute S4 fracture Patient evaluated today for tertiary exam. Reported pain on exam in cervical spine, right shoulder and left elbow. Xrs obtained showed no acute fracture. - DVT prophylaxis - Pain control - PT/OT recommendations: HWA - Disposition: Per primary team - Follow up: OSH Mobility Orders Mobility Protocol: General - Mobility Guidelines Extremity Precautions: Extremity Precautions Extremity: LLE RLE Mobility Restrictions (LLE): Protected Weight Bearing Type of Brace (LLE): None Mobility Restrictions (RLE): Protected Weight Bearing Type of Brace (RLE): None Other mobility precautions: No other precautions required Narendra Roque MD PGY-1, Orthopaedic Surgery [facility] Cosigned by Ben García MD at 2025 11:13 AM EDT * Progress Notes - Lalitha Jeffrey RN - 02/07/2025 7:23 AM EDT Case Management Adult Initial Progress Note Stef Mitchell 79 y.o. female CSN: [id number] Admission: 02/04/2025 11:44 PM Primary Problem: History of pelvic fracture Concrete Smoother reviewed chart and spoke with patient to complete this Initial Case Management Assessment. PCP: Robb Cartagena MD, last office visit approximately 1 year ago. Emergency Contact: Extended Emergency Contact Information Primary Emergency Contact: yessenia reyes Mobile Relation: Daughter Preferred language: Georgian Medical Affairs Manager needed? No Insurance: Primary Visit Coverage Payer Plan Sponsor Code Group Number Group Name HU[employer]NA MEDICARE HU[employer] MEDICARE [id number] [employer] [employer] Primary Visit Coverage Subscriber Subscriber ID Subscriber Name Subscriber SSN Subscriber Address [id number] STEF MITCHELL Denis [id number] [place] [id number] Patient information: Primary Caregiver: Self Support System: Immediate family Daily Living Activities: Functional Status: Independent Living Arrangements: Spouse/Significant other Type of Residence: Private residence, Single Level [address] [facility] [address] Smoker in the Home?: No Current DME: Equipment Currently Used at Home: walker, rolling, walker, rollator, cane, straight, wheelchair, manual (Owns all DME, does not currently use.) Income Information: Income Source: Retired Income/Expense Information: Income meets expenses Housing Circumstances-Z Codes: Housing Circumstances (select all that apply): None Applicable Patient Referred to: Anticipated Discharge Date: TBD pending medical needs. Patient's Discharge Goal: Patient/Family Anticipates Transition to: inpatient rehabilitation facility Assistance Available at Discharge: Current Outpatient/Agency/Support Group: inpatient rehabilitation facility Discharge Transport: Transportation Anticipated: family or friend will provide Follow Up Transport: Home Health / Home Infusion / Outpatient Dialysis Services: Living Will/Advance Directive/Power of Roofer Metal /Guardian: Unable to assess: No Have you reviewed your Advance Directive and is it valid for this stay?: No Advance Directive: Patient would like information Information Provided on Healthcare Directives: Other (Comment) (Will let day shift/social service assistant know need) Pre-existing DNR/DNI Order: No Patient Requests Assistance: Yes, referral made to social service assistant Additional Comments: Pt confirmed address, EC, PCP, and insurance. Pt lives part-time in a with her significant other. Pt states she lives in a one level home with 3 steps for entry. Patients daughter lives next door andwill be available to assist patient if should be needed. Pt is retired and is able to drive herselfto appointments, daughter will transport home. Pt denies HH, O2, and HD. She owns DME but not currently needed. Patient receives infusion for bones every 3 months at [facility]. Patient denies POA/LW. Role of the catalytic case operator explained to patient and daughter, both verbalizes understanding. Case management will continue to follow. Lalitha Jeffrey RN * Care Plan - Stephanie Linn RN - 02/06/2025 9:23 PM EDT Problem: Adult Inpatient Plan of Care Goal: Plan of Care Review Outcome: Ongoing, Progressing Flowsheets (Taken 02/06/20252117) Progress: improving Outcome Evaluation: Patient will be free of falls throughout shift Plan of Care Reviewed With: patient Goal: Patient-Specific Goal (Individualized) Outcome: Ongoing, Progressing Flowsheets Taken 02/06/20252117 by Stephanie Linn RN Individualized Care Needs: Fall prevention Anxieties, Fears or Concerns: Patient concerned about availability of walker Taken 02/06/2025 1012 by Benita Garcia RN Patient/Family-Specific Goals (Include Timeframe): Patient will remain free from falls and injury during shift Note: Only bariatric walkers available at this time per [employer]. Goal: Absence of Hospital-Acquired Illness or Injury Outcome: Ongoing, Progressing Intervention: Prevent Skin Injury Flowsheets (Taken 02/06/20252117) Body Position: weight shifting Skin Protection: protective footwear used Intervention: Prevent and Manage VTE (Venous Thromboembolism) Risk Flowsheets (Taken 02/06/20252117) VTE Prevention/Management: education provided Goal: Optimal Comfort and Wellbeing Outcome: Ongoing, Progressing Intervention: Provide Person-Centered Care Flowsheets (Taken 02/06/20252117) Trust Relationship/Rapport: care explained choices provided emotional support provided Goal: Readiness for Transition of Care Outcome: Ongoing, Progressing Intervention: Mutually Develop Transition Plan Flowsheets (Taken 02/06/20252117) Equipment Needed After Discharge: walker, standard Equipment Currently Used at Home: none Current Outpatient/Agency/Support Group: inpatient rehabilitation facility Anticipated Changes Related to Illness: none Transportation Anticipated: family or friend will provide Transportation Concerns: none Concerns to be Addressed: home safety Readmission Within the Last 30 Days: current reason for admission unrelated to previous admission Patient/Family Anticipated Services at Transition: none Patient/Family Anticipates Transition to: inpatient rehabilitation facility * Progress Notes - Henry Roque MD - 02/06/2025 3:23 PM EDT ORTHOPAEDIC SURGERY PROGRESS NOTE 02/06/2025 SUBJECTIVE No acute events overnight. Doing well. Pain controlled. Tolerating diet. No nausea, vomiting, fevers or chills. Patient ambulating around the room with walker. States that she has baseline pain due to metastatic cancer and radiation, but is improved. OBJECTIVE PHYSICAL EXAMINATION Body mass index is 22.15 kg/m??. Vitals: 02/06/25 1155 BP: 127/71 Pulse: 60 Resp: Temp: 36.4 ??C (97.6 ??F) SpO2: 96% No acute distress Non labored breathing Peripheral perfusion intact FOCUSED MUSCULOSKELETAL EXAM: Clavicles non-tender to palpation bilaterally without crepitus Cervical neck tender to palpation on exam Pelvis exam limited by pain and deferred due to known fractures RIGHT UPPER EXTREMITY Inspection: skin intact, no deformity, soft compartments, no pain with passive stretch of digits, tender to palpation along shoulder joint, non-tender to palpation otherwise Range of motion: Full/painless/stable at shoulder, elbow, and wrist Motor: 5/5 motor strength with shoulder ER/IR, Deltoid, Biceps, Triceps, Wrist flexion, Wrist extension, Finger flexion, Finger extension, Finger abduction, EPL, FPL Sensation: Sensation intact to light touch in axillary, radial, median, and ulnar nerve distributions Vascular: 2+ radial pulse, capillary refill <2 seconds, digits warm and well perfused LEFT UPPER EXTREMITY Inspection: skin intact, no deformity, soft compartments, no pain with passive stretch of digits, tender to palpation along elbow joint, non-tender to palpation otherwise Range of motion: Full/painless/stable at shoulder, elbow, and wrist Motor: 5/5 motor strength with ER/IR, Deltoid, Biceps, Triceps, Wrist flexion, Wrist extension, Finger flexion, Finger extension, Finger abduction, EPL, FPL Sensation: Sensation intact to light touch in axillary, radial, median, and ulnar nerve distributions Vascular: 2+ radial pulse, capillary refill <2 seconds, digits warm and well perfused RIGHT LOWER EXTREMITY Inspection: skin intact, no deformity, soft compartments, no pain with passive stretch of digits, non-tender to palpation Range of motion: Full/painless/stable at hip, knee, and ankle Motor: 5/5 motor strength with TA, GSC, EHL, FHL. HAbd, HF, KE, KF limited due to pain in pelvis Sensation: Sensation intact to light touch in superficial and deep peroneal, saphenous, sural, and tibial nerve distributions Vascular: 2+ dorsalis pedis and posterior tibialis pulses, capillary refill <2 seconds, digits warm and well perfused LEFT LOWER EXTREMITY Inspection: skin intact, no deformity, soft compartments, no pain with passive stretch of digits, non-tender to palpation Range of motion: Full/painless/stable at hip, knee, and ankle Motor: 5/5 motor strength with TA, GSC, EHL, FHL HAbd, HF, KE, KF limited due to pain in pelvis Sensation: Sensation intact to light touch in superficial and deep peroneal, saphenous, sural, and tibial nerve distributions Vascular: 2+ dorsalis pedis and posterior tibialis pulses, capillary refill <2 seconds, digits warm and well perfused ASSESSMENT AND PLAN Stef Mitchell is a 79 y.o. female patient with Closed subacute traumatic bilateral inferior pubic rami fractures Closed subacute right pubic root fracture Closed subacute left parasymphyseal fracture Closed subacute S4 fracture Patient evaluated today for tertiary exam. Reported pain on exam in cervical spine, right shoulder and left elbow. Xrs obtained showed no acute fracture. - DVT prophylaxis - Pain control - PT/OT recommendations: HWA - Disposition: Per primary team - Follow up: OSH Mobility Orders Mobility Protocol: General - Mobility Guidelines Extremity Precautions: Extremity Precautions Extremity: LLE RLE Mobility Restrictions (LLE): Protected Weight Bearing Type of Brace (LLE): None Mobility Restrictions (RLE): Protected Weight Bearing Type of Brace (RLE): None Other mobility precautions: No other precautions required Narendra Roque MD PGY-1, Orthopaedic Surgery [facility] Cosigned by Ben García MD at 2025 11:13 AM EDT * Consults - Maripsoa Moe RD - 02/06/2025 10:31 AM EDTAssociated Order(s): IP CONSULT TO NUTRITION SERVICES Adult Nutrition Evaluation Note Stef Mitchell 79 y.o. female CSN: [id number] Room/Bed 720/720A Nutrition evaluation type: assessment Reason for evaluation: nurse consult Hospital course: 79 y.o. female presenting after a prior fall with pelvic fracture on January 17. Plan for non-operative management per surgical services. Past medical/ surgical history: Past Medical History[1] Surgical History[2] Social history: former tobacco use Additional comments: Met with pt and family at bedside. Denied appetite changes. Chronic diarrhea, bowel regimen in place. UBW ~150#, denied wt changes. Denied issues with chew/swallow. Vitals and Basic Assessment: BP: 127/71 Temp: 36.4 ??C (97.6 ??F) Oxygen Therapy: None (Room air) [place] Coma Scale Score: 15 Cesar Scale Score: 18 GI Symptoms: Diarrhea (pt endorses chronic diarrhea since end of radiation treatments in 2019.) Edema: Right lower extremity, Left lower extremity Skin: traumatic face wound Allergies: NKFA Medications: Current Scheduled Medications[3] Current Continuous Medications[4] Current PRN Medications[5] Meds were reviewed: Yes Labs: Lab Results Component Value Date GLUCOSE 195 (H) 02/06/2025 CALCIUM 8.7 (L) 02/06/2025 NA 135 (L) 02/06/2025 K 3.8 02/06/2025 CO2 24 02/06/2025 CL 102 02/06/2025 BUN 20 02/06/2025 CREATININE 1.58 (H) 02/06/2025 PHOS 2.2 (L) 02/05/2025 MG 2.0 02/05/2025 HGBA1C 6.7 (H) 07/24/2024 Anthropometrics: Height: 175.3 cm (5' 9 ) Weight: 68 kg (150 lb) BMI (Calculated): 22.14 Weight Evaluation: Normal (BMI 18.5-24.9) [place] Body Weight (kg): 65.9 Percent [place] Body Weight: 103 Wt Readings from Last 10 Encounters: 02/05/25 68 kg (150 lb) 01/17/25 68 kg (150 lb) 11/08/24 74.3 kg (163 lb 12.8 oz) 08/16/24 69 kg (152 lb 1.9 oz) 07/24/24 67 kg (147 lb 11.3 oz) 07/24/24 66.6 kg (146 lb 13.2 oz) 06/02/24 70.3 kg (155 lb) 05/17/24 70.7 kg (155 lb 13.8 oz) 05/16/24 72.5 kg (159 lb 13.3 oz) 04/24/24 70.7 kg (155 lb 12.8 oz) Estimated Needs: Kcal/ K.3-1.5 x MSJ (1214) Kcal Provided: 6983-6148 Kcal Needs Based On: MSJ/HB/[place] Gm Protein/ Kg : 0.8-1.0 Protein Provided: 54-68 Protein Needs Based On: Current weight Fluid Provided: 1 ml/kcal or per MD team Current Nutrition Intake: Diet Order: Adult Diet Diet Texture: Regular Adult Carbohydrate Restriction: Consistent CHO 2 (6198-4600 Angel, 80 g/meal) Percent Meals Eaten (%): Establishing Diet Experience and Nutrition History: Diet Education Provided: Will monitor Pertinent home medications: Albuterol, Lipitor, Budesonide, Calcitrate, Lomotil, Eliquis, Ergocalciferol, Ferrous Sulfate, Insulin, Jardiance, Synthroid, Imodium, Mag-Ox, Toprol-XL, Nitrostat, Protonix, Vit B6, Ozempic Congregational needs: None Nutrition Focused Physical Exam: Physical exam performed on (date): 02/06 Temples (muscles): None Clavicle (muscle): None Shoulder (muscle): None Orbital (fat): None Triceps (fat): None Assessment of Malnutrition: Malnutrition Identified: No Nutrition Problem: Decreased nutrient needs carbohydrates related to impaired nutrient utilization as evidenced by T2DM. Status of Nutrition Diagnosis: New Nutrition Interventions and Recommendations: Continue Regular, CCHO2 diet as tolerated. Rec MVI with mineral supplementation daily. Rec obtaining weight 1x/week. Monitor and replace electrolytes PRN. Noted low Phos Continue insulin regimen per MD team. Nutrition Monitoring and Goals: - Will monitor PO intake, weight status, lab results, GI tolerance, and skin integrity. - Pt will tolerate >75% avg of meal intakes. - Pt will maintain weight this admission. - Electrolytes WNL. - Glucose <180 mg/dL this admission. 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 ASCVD (arteriosclerotic cardiovascular disease) COVID-19 2019 novel coronavirus?infected pneumonia (NCIP) Essential (primary) hypertension HTN (hypertension) H/O heart artery stent Hyperlipidemia, unspecified Hyperlipidemia Hypomagnesemia 07/22/2018 Hypoparathyroidism Hypothyroidism, unspecified Hypothyroidism Lung nodule 2023 Malignant neoplasm of vulva, unspecified (CMS/HCC) Vulvar cancer Malnutrition (CMS/HCC) 07/22/2018 Other specified health status Non-smoker Personal history of antineoplastic chemotherapy History of chemotherapy Personal history of diseases of the blood and blood-forming organs and certain disorders involving the immune mechanism History of anemia Personal history of irradiation History of radiation therapy Personal history of malignant neoplasm of breast History of malignant neoplasm of breast Personal history of malignant neoplasm of breast History of breast cancer Personal history of malignant neoplasm of other female genital organs History of cancer of vulva Personal history of malignant neoplasm of other parts of uterus History of endometrial cancer Personal history of other diseases of the circulatory system History of coronary artery disease Personal history of other diseases of the circulatory system History of hypertension 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 History of polycystic kidney disease Sacral pain 05/12/2018 Short stature (child) Sleep apnea, obstructive 2016 Type 2 diabetes mellitus without complications Diabetes mellitus [2] Past Surgical History: Procedure Laterality Date BACK SURGERY BIOPSY, THYROID N/A thyroid biopsy from [facility] BREAST LUMPECTOMY N/A lumpectomy from [facility] BREAST LUMPECTOMY N/A Lumpectomy from [facility] CARDIAC CATHETERIZATION 2004 CARPAL TUNNEL RELEASE N/A carpal tunnel surgery from [facility] CHOLECYSTECTOMY HYSTERECTOMY N/A Hysterectomy from [facility] OTHER SURGICAL HISTORY N/A Revision Of Total Knee Arthroplasty, All Components from [facility] SKIN BIOPSY N/A Skin biopsy from [facility] SKIN CANCER EXCISION N/A Skin cancer excision from [facility] SKIN GRAFT N/A Skin graft from [facility] SKIN LESION EXCISION N/A Skin lesion excision from [facility] TOTAL ABDOMINAL HYSTERECTOMY W/ BILATERAL SALPINGOOPHORECTOMY N/A CYRUS-BSO (total abdominal hysterectomy and bilateral salpingo-oophorectomy) from [facility] TOTAL KNEE ARTHROPLASTY N/A Knee surgery from [facility] VULVA SURGERY N/A Vulva surgery from [facility] VULVECTOMY N/A Vulvectomy from [facility] [3] acetaminophen, 1,000 mg, Oral, 3 times per day amiodarone, 100 mg, Oral, Daily atorvastatin, 40 mg, Oral, Daily [START ON 02/07/2025] budesonide EC, 3 mg, Oral, Daily cetirizine, 10 mg, Oral, Daily enoxaparin, 30 mg, Subcutaneous, BID ergocalciferol, 50,000 Units, Oral, Weekly escitalopram, 10 mg, Oral, Daily ferrous sulfate, 324 mg, Oral, Daily with breakfast fluticasone, 2 spray, Each Nostril, Daily gabapentin, 400 mg, Oral, BID insulin glargine-yfgn, 10 Units, Subcutaneous, Nightly insulin lispro, 0-5 Units, Subcutaneous, TID with meals insulin lispro, 0-3 Units, Subcutaneous, Twice at night Insulin Lispro, 5 Units, Subcutaneous, TID with meals levothyroxine, 100 mcg, Oral, Daily loperamide, 2 mg, Oral, Daily magnesium oxide, 400 mg, Oral, Daily metoprolol succinate XL, 25 mg, Oral, Daily Oyster Shell Calcium, 1,000 mg, Oral, Daily pantoprazole, 40 mg, Oral, Daily psyllium, 1 packet, Oral, Daily pyridoxine, 50 mg, Oral, Daily rOPINIRole, 0.5 mg, Oral, q PM sodium chloride, 10 mL, Intravenous, q12h [4] [5] PRN medications: albuterol, glucose OR dextrose 10 % OR dextrose 10 % OR glucagon (human recombinant), diphenoxylate-atropine, LORazepam, oxyCODONE OR oxyCODONE, [COMPLETED] Insert peripheral IV AND [COMPLETED] Saline lock IV AND sodium chloride AND sodium chloride * Progress Notes - Miguel Michael - 02/06/2025 10:30 AM EDT Physical Therapy Evaluation/Discharge Patient Name: Stef Mitchell Today's Date: 02/06/2025 PT Discharge Recommendations: Home with assistance, Home health PT, Outpatient PT (patient preference) Equipment Recommended: Patient owns appropriate equipment History Stef Mitchell is 79 y.o. y/o female admitted 02/04/2025 for work-up of History of pelvic fracture. Problem List Active Hospital Problems Diagnosis Date Noted History of pelvic fracture 02/05/2025 Atrial fibrillation ([facility]) 06/25/2018 CAD (coronary artery disease) 06/25/2018 Hypertension 06/25/2018 Procedures Past Medical History Patient has a past medical history of Adrenal suppression ([facility]), Atherosclerotic heart disease of [place] coronary artery without angina pectoris, COVID-19, Essential (primary) hypertension, H/O heart artery stent, Hyperlipidemia, unspecified, Hypomagnesemia (07/22/2018), Hypoparathyroidism, Hypothyroidism, unspecified, Lung nodule (2023), Malignant neoplasm of vulva, unspecified ([facility]HCC), Malnutrition ([facility]/HCC) (07/22/2018), Other specified health status, Personal history of antineoplasticchemotherapy, Personal history of diseases of the blood and blood-forming organs and certain disorders involving the immune mechanism, Personal history of irradiation, Personal history of malignant neoplasm of breast, Personal history of malignant neoplasm of breast, Personal history of malignant neoplasm of other female genital organs, Personal history of malignant neoplasm of other parts of uterus, Personal history of other diseases of the circulatory system, Personal history of other diseases of the circulatory system, 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 Past Surgical History Patient has a past surgical history that includes Hysterectomy (N/A); Other surgical history (N/A);Breast lumpectomy (N/A); Skin lesion excision (N/A); biopsy, thyroid (N/A); Carpal tunnel release (N/A); Total knee arthroplasty (N/A); Breast lumpectomy (N/A); Skin biopsy (N/A); Skin cancer excision (N/A); Skin graft (N/A); Total abdominal hysterectomy w/ bilateral salpingoophorectomy (N/A); Vulva surgery (N/A); Vulvectomy (N/A); Cholecystectomy; Back surgery; and Cardiac catheterization (2004). Precautions Left Lower Extremity Weight Bearing Status: Protected weight-bearing as tolerated Right Lower Extremity Weight Bearing Status: Protected weight-bearing as tolerated Medical Precautions: Fall precautions Subjective Patient agreeable to PT session. Participants in Care Family/Caregiver Present: Yes Family/Caregiver: Adult Daughter Presentation Oxygen Oxygen Therapy: None (Room air) Lines and Tubes Lines and Tubes: Intravenous access Pre-Session RN and patient gave consent for PT treatment session. Patient received Lines intact. Patient in the bathroom allowed to get up with daughters assistance Post-Session Patient positioned for comfort and pressure relief at end of session, all needs met. Lines intact, RN notified, Call light in reach, Sitting in chair, Head of bed elevated. up ad linda with daughter Home Living/Set-up Lives With: Significant other Home Type: House Home Adaptive Equipment: Rollator, Rolling walker, Cane Home Layout: One level Bathroom: Tub/Shower: Walk-in shower, Built-in shower seat Bathroom: Toilet: Standard Bathroom: Accessibility: Accessible Prior Level of Function Receives Help From: No assist required prior to admission Level of Mobility: Ambulatory- household only Mobility [place]: Independent gait with device History of Falls: Yes ADL Performance: Needs assistance Home Management Skills: Needs assist Patient/Family Goals full recovery Objective Pain Pain Score (0-10): no limiting pain reported Delirium Screening [place] Agitation Sedation Scale (RASS): Alert and calm Confusion Assessment Method-ICU (CAM-ICU/PCAM-ICU) Feature 3: Altered Level of Consciousness: Negative Cognition Cognition Overall Cognitive Status: Within Functional Limits Arousal/Alertness: Appropriate responses to stimuli Mood/Behavior: Alert Orientation Level: Oriented X4 Method of Communication: Verbal Right Upper Extremity Examination RUE ROM Assessment RUE Assessment: Within Functional Limits Manual Muscle Testing - RUE: Within functional limits Left Upper Extremity Examination LUE ROM Assessment LUE Assessment: Within Functional Limits Manual Muscle Testing - LUE: Within functional limits Right Lower Extremity Examination RLE ROM Assessment RLE Assessment: Within Functional Limits Manual Muscle Testing - RLE: Within functional limits Left Lower Extremity Examination LLE ROM Assessment LLE Assessment: Within Functional Limits Manual Muscle Testing - LLE: Within functional limits Therapeutic Activity (8 minutes) Pt performed transitional skills and standing activity to promote functional mobility and progress activity tolerance. Cuing and feedback provided throughout for safe and efficient movement patterns to maximize outcomes. Patient participating in therapeutic activities as described in detail in sections below. Bed Mobility Bed Mobility Exam: Sit to Supine Level of [place]: Stand-by assist Physical/Nonphysical Assist: Supervision Assistive Device: Bed rails Transfers Transfer Exam: Sit to stand Level of [place]: Stand-by assist Physical/Nonphysical Assist: Supervision Transfer Exam: Stand to Sit Level of [place]: Stand-by assist Physical/Nonphysical Assist: Supervision Ambulation Device: Rolling walker Assistance: Standby assist Distance : 15ft Ambulation Comments: no LOB, slowed speed, mild fatigue Extra skilled time required to discuss importance of daily mobility. Current activity and participation modifications and considerations to promote most safe mobility level upon discharge. Standardized Assessments [facility] 6-Clicks Mobility Assessment Difficulty patient has turning over in bed (including adjusting bedclothes, sheets, and blankets)?:None Difficulty patient has sitting down on and standing up from a chair with arms (wheelchair, bedside commode, etc.)?: None Difficulty patient has moving from lying on back to sitting on the side of the bed?: None How much help does the patient need moving to and from a bed to a chair (including a wheelchair)?: None How much help does the patient need to walk in hospital room?: A little How much help does the patient need climbing 3-5 steps with a railing?: A lot [facility] 6-Clicks Mobility Assessment Total : 21 Assessment Patient tolerates session without significant difficulty or adverse events. Patient demonstrates adequate functional mobility to discharge to previous living situation with assistance as needed. No further skilled acute care PT interventions required at this time. Recommend that patient continue tomobilize daily with staff air defense officer to prevent unwanted deconditioning while admitted . Could benefit fromoutpatient or home health PT if requested from patient. Diagnosis: history of pelvic fracture Eval Complexity History Profile: 1 - 2 personal factors and/or comorbidities Clinical Presentation: Stable and/or uncomplicated characteristics Clinical Decision Making: Low complexity PT Recommendations Discharge Destination: Home with assistance, Home health PT, Outpatient PT (patient preference) Discharge Equipment: Patient owns appropriate equipment Plan Patient no longer demonstrates need for inpatient physical therapy services. Patient to be discharged from physical therapy. Written by Miguel Michael on 02/06/25 at 1:18 PM. * Progress Notes - Ara Mina - 02/06/2025 10:29 AM EDT Occupational Therapy Evaluation/Discharge Patient Name: Stef Mitchell Today's Date: 02/06/2025 OT Discharge Recommendations: Home with assistance Equipment Recommended: Patient owns appropriate equipment History Stef Mitchell is 79 y.o. female admitted 02/04/2025 for work-up of History of pelvic fracture. Problem List Active Hospital Problems Diagnosis Date Noted Closed bilateral fracture of pubic rami ([facility]) 02/06/2025 History of pelvic fracture 02/05/2025 Atrial fibrillation ([facility]/HCC) 06/25/2018 CAD (coronary artery disease) 06/25/2018 Hypertension 06/25/2018 Procedures Past Medical History Patient has a past medical history of Adrenal suppression ([facility]), Atherosclerotic heart disease of [place] coronary artery without angina pectoris, COVID-19, Essential (primary) hypertension, H/O heart artery stent, Hyperlipidemia, unspecified, Hypomagnesemia (07/22/2018), Hypoparathyroidism, Hypothyroidism, unspecified, Lung nodule (2023), Malignant neoplasm of vulva, unspecified ([facility]), Malnutrition ([facility]CC) (07/22/2018), Other specified health status, Personal history of antineoplasticchemotherapy, Personal history of diseases of the blood and blood-forming organs and certain disorders involving the immune mechanism, Personal history of irradiation, Personal history of malignant neoplasm of breast, Personal history of malignant neoplasm of breast, Personal history of malignant neoplasm of other female genital organs, Personal history of malignant neoplasm of other parts of uterus, Personal history of other diseases of the circulatory system, Personal history of other diseases of the circulatory system, 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 Past Surgical History Patient has a past surgical history that includes Hysterectomy (N/A); Other surgical history (N/A);Breast lumpectomy (N/A); Skin lesion excision (N/A); biopsy, thyroid (N/A); Carpal tunnel release (N/A); Total knee arthroplasty (N/A); Breast lumpectomy (N/A); Skin biopsy (N/A); Skin cancer excision (N/A); Skin graft (N/A); Total abdominal hysterectomy w/ bilateral salpingoophorectomy (N/A); Vulva surgery (N/A); Vulvectomy (N/A); Cholecystectomy; Back surgery; and Cardiac catheterization (2004). Precautions Left Lower Extremity Weight Bearing Status: Protected weight-bearing as tolerated Right Lower Extremity Weight Bearing Status: Protected weight-bearing as tolerated Medical Precautions: Fall precautions Subjective Pt agreeable to OT eval. Participants in Care Family/Caregiver Present: Yes Family/Caregiver: Adult Daughter Medical Affairs Manager: Not Applicable Presentation Oxygen Therapy: None (Room air) Lines and Tubes: Intravenous access Pre-Session: Lines intact Pre-Session Comments: Patient in the bathroom allowed to get up with daughters assistance Post-Session: Lines intact, RN notified, Call light in reach, Sitting in chair, Head of bed elevated Post-Session Comments: up ad linda with daughter and all needs met Home Living/Set-up Lives With: Significant other Home Type: House Home Adaptive Equipment: Rollator, Rolling walker, Cane Home Layout: One level Bathroom: Tub/Shower: Walk-in shower, Built-in shower seat Bathroom: Toilet: Standard Bathroom: Accessibility: Accessible Prior Level of Function Receives Help From: No assist required prior to admission Level of Mobility: Ambulatory- household only Mobility Preston: Independent gait with device History of Falls: Yes ADL Performance: Needs assistance Home Management Skills: Needs assist Patient/Family Goals Statement Return home with assist Objective Pain No complaints of pain. They gave me pain meds. Delirium Screening Treadwell Agitation Sedation Scale (RASS): Alert and calm Confusion Assessment Method-ICU (CAM-ICU/PCAM-ICU) Feature 3: Altered Level of Consciousness: Negative Cognition Overall Cognitive Status: Within Functional Limits Arousal/Alertness: Appropriate responses to stimuli Mood/Behavior: Alert Orientation Level: Oriented X4 Single Step Commands: Consistently Multi-Step Commands: Consistently Method of Communication: Verbal Right Upper Extremity Examination RUE ROM Assessment RUE Assessment: Within Functional Limits Manual Muscle Testing - RUE: Within functional limits Left Upper Extremity Examination LUE ROM Assessment LUE Assessment: Within Functional Limits Manual Muscle Testing - LUE: Within functional limits Bed Mobility Bed Mobility Exam: Sit to Supine Level of Preston: Stand-by assist Physical/Nonphysical Assist: Supervision Assistive Device: Bed rails Transfers Transfer Exam: Sit to stand Level of Preston: Stand-by assist Physical/Nonphysical Assist: Supervision Assistive Device: Walker, rolling Transfer Exam: Stand to Sit Level of Preston: Stand-by assist Physical/Nonphysical Assist: Supervision Assistive Device: Walker, rolling Toilet Transfer Level of Preston: Stand-by assist Physical/Nonphysical Assist: Supervision, Verbal Cues Type of Transfer: Ambulation, To toilet Assistive Device: Walker, rolling Self-Care Interventions Self Care/Home Management (ADLs) Time Entry: 11 Self-Care Interventions: Pt was seen for evaluation in order to make sure pt is safe to return home. Pt was assessed for balance, activity tolerance, and flexibility demonstrating good participation and increased safety. OT gave cues for safety while using RW in the bathroom. Grooming Grooming Level of Assistance: Independent Grooming Where Assessed: Standing sinkside Grooming Interventions: To wash hands, face, and brush her hair while standing at sink side Bathing UE Bathing Level of Assistance: SBA, Setup LE Bathing Level of Assistance: SBA, Setup Bathing: Where Assessed: Standing sinkside Bathing Interventions: Pt was SBA to clean up following a bowel movement. UE Dressing UE Dressing Level of Assistance: SBA, Setup, Independent UE Dressing Interventions: To was able to manage gown during transitional movements Lower Extremity Dressing Adult Briefs Level of Assistance: Close supervision, Setup LE Dressing Interventions: Pt was able to don her depends while in the bathroom Toileting Toileting Level of Assistance: SBA, Setup Where Assessed: Toilet Standardized Assessments [facility] 6-Click Daily Activities Help from Other: Don/Doff Regular Lower Body Clothings: None Help From Other: Bathing: None Help From Other: Toileting: None Help From Other: Don/Doff Upper Body Clothings: None Help From Other: Grooming: None Help From Other: Eating Meals: None [facility] 6 Click - Daily Activities Score: 24 Assessment Pt demonstrated the ability to complete her ADL's with SBA to IND. Pt was SBA for all functional transfers at RW level. Pt does not require further skilled OT services at this time. OT Findings: Barriers to Discharge: Comorbidities Eval Complexity Occupational Profile: Expanded review of medical/therapy records and additional review of physical,cognitive, or psychosocial history Clinical Decision Making: Low Overall Eval complexity: Low OT Recommendations Discharge Destination: Home with assistance Discharge Equipment: Patient owns appropriate equipment Plan Patient no longer demonstrates need for inpatient occupational therapy services. Patient to be discharged from occupational therapy. Written by Ara Mina on 02/06/25 at 1:55 PM. * Care Plan - Benita Garcia RN - 02/06/2025 10:20 AM EDT Problem: Adult Inpatient Plan of Care Goal: Plan of Care Review Outcome: Ongoing, Progressing Flowsheets (Taken 02/06/2025 101) Plan of Care Reviewed With: patient Goal: Patient-Specific Goal (Individualized) Outcome: Ongoing, Progressing Flowsheets (Taken 02/06/20251011) Patient/Family-Specific Goals (Include Timeframe): Patient will remain free from falls and injury during shift Individualized Care Needs: Safety Anxieties, Fears or Concerns: Addressed Goal: Absence of Hospital-Acquired Illness or Injury Outcome: Ongoing, Progressing Intervention: Identify and Manage Fall Risk Flowsheets (Taken 02/06/2025 101) Safety Promotion/Fall Prevention: activity supervised Intervention: Prevent Skin Injury Flowsheets (Taken 02/06/20251011) Body Position: weight shifting Skin Protection: protective footwear used Intervention: Prevent and Manage VTE (Venous Thromboembolism) Risk Flowsheets (Taken 02/06/2025 101) VTE Prevention/Management: education provided Intervention: Prevent Infection Flowsheets (Taken 02/06/20251011) Infection Prevention: single patient room provided Goal: Optimal Comfort and Wellbeing Outcome: Ongoing, Progressing Intervention: Monitor Pain and Promote Comfort Flowsheets (Taken 02/06/2025 101) Pain Management Interventions: pain management plan reviewed with patient/caregiver Intervention: Provide Person-Centered Care Flowsheets (Taken 02/06/20251011) Trust Relationship/Rapport: care explained choices provided Goal: Readiness for Transition of Care Outcome: Ongoing, Progressing Intervention: Mutually Develop Transition Plan Flowsheets (Taken 02/06/2025 101) Transportation Anticipated: family or friend will provide Transportation Concerns: none Patient/Family Anticipates Transition to: home Problem: Fall Injury Risk Goal: Absence of Fall and Fall-Related Injury Outcome: Ongoing, Progressing Intervention: Identify and Manage Contributors Flowsheets (Taken 02/06/2025 1012) Medication Review/Management: medications reviewed Self-Care Promotion: BADL personal routines maintained Intervention: Promote Injury-Free Environment Flowsheets (Taken 02/06/2025 101) Safety Promotion/Fall Prevention: activity supervised Problem: Skin Injury Risk Increased Goal: Skin Health and Integrity Outcome: Ongoing, Progressing Intervention: Optimize Skin Protection Flowsheets (Taken 02/06/2025 101) Activity Management: activity adjusted per tolerance Pressure Reduction Techniques: frequent weight shift encouraged heels elevated off bed Skin Protection: protective footwear used Head of Bed (HOB) Positioning: (HOBdjusted as patient wishes) other (see comments) Intervention: Promote and Optimize Oral Intake Flowsheets (Taken 02/06/2025 101) Oral Nutrition Promotion: physical activity promoted rest periods promoted social interaction promoted Nutrition Interventions: food preferences provided * Assessment & Plan Note - Rosio Yoder MD - 02/06/2025 8:55 AM EDT Associated Problem(s): History of pelvic fracture Fall 01/17 OSH ED 01/19 - presented and discharged home without ORT eval or follow up OSH ED 02/04 - present due to increased pain and extremity numbness with heart palpitations. Numbnessnow resolved after nitroglycerin. Ortho non op management * Assessment & Plan Note - Rosio Yoder MD - 02/06/2025 8:55 AM EDT Associated Problem(s): Atrial fibrillation (CMS/HCC) Anginal symptoms on 02/03-02/04 at home * Assessment & Plan Note - Rosio Yoder MD - 02/06/2025 8:55 AM EDT Associated Problem(s): CAD (coronary artery disease) Home medications * Assessment & Plan Note - Rosio Yoder MD - 02/06/2025 8:55 AM EDT Associated Problem(s): Hypertension Home medications * Progress Notes - gR Lua MD - 02/06/2025 8:45 AM EDT Subjective Patient examined at bedside She reports improvement in her condition She should that when she went discharge last time, he was only given Tylenol at home. Initially when she was taking her Tylenol, her hip pain and pelvic pain or very much controlled but as her medications ran out, her condition got worse. She states that once she is at home she is very mobile, moves around and that when she experiences pain. She denied any febrile illness, chills, chest pain, shortness of breath, abdominal pain, nausea or vomiting. She had no other acute concerns and complaints. She said it was a mechanical fall. Review of Systems Constitutional: Negative for activity change, appetite change, chills, fatigue and fever. Respiratory: Negative for cough, choking, chest tightness and shortness of breath. Cardiovascular: Negative for chest pain. Gastrointestinal: Negative for blood in stool, constipation, diarrhea and nausea. Musculoskeletal: Positive for arthralgias (pelvic pain and hip pain on movement) and gait problem (due to pain). Negative for back pain. Neurological: Negative for dizziness, syncope, weakness and light-headedness. Psychiatric/Behavioral: Negative for agitation and confusion. The patient is not nervous/anxious. Objective Vitals Temp: [36.3 ??C (97.3 ??F)-36.7 ??C (98 ??F)] 36.4 ??C (97.5 ??F) Heart Rate: [60-71] 65 Resp: [18] 18 BP: (108-155)/(57-82) 151/82 Patient examined at bedside. Labs and charts reviewed. Vitals reviewed. Patient resting comfortably on her bed, saturating well on room air She has facial contusions from her fall She is also accompanied by her daughter who was at bedside She not in any stress. Physical Exam Constitutional: General: She is not in acute distress. Appearance: Normal appearance. She is well-developed. She is not ill-appearing. HENT: Head: Comments: Facial contusion due to fall noted on right side Eyes: General: No scleral icterus. Cardiovascular: Rate and Rhythm: Normal rate. Pulmonary: Effort: Pulmonary effort is normal. Abdominal: General: Bowel sounds are normal. There is no distension. Tenderness: There is no abdominal tenderness. Musculoskeletal: General: No swelling. Right lower leg: No edema. Left lower leg: No edema. Skin: General: Skin is warm and dry. Neurological: General: No focal deficit present. Mental Status: She is alert and oriented to person, place, and time. Mental status is at baseline. Psychiatric: Mood and Affect: Mood normal. Behavior: Behavior normal. Assessment & Plan 79W with pelvic fracture in December, here with worsened pain but plan for non- operative management persurgical services. Principal Problem: History of pelvic fracture Active Problems: Atrial fibrillation (CMS/HCC) CAD (coronary artery disease) Hypertension Stage 3 chronic kidney disease ([facility]) Type 2 diabetes mellitus with diabetic neuropathy, with long-term current use of insulin ([facility]) Hypothyroidism Neuropathy Closed bilateral fracture of pubic rami ([facility]/HCC) Pelvic fracture No New fractures Orthopedic and Trauma Surgery following better Continue conservative management. Continue pain control Atrial fibrillation CAD Hypertension Continue rate and rhythm controlled. Continue anticoagulation with Eliquis Continue with Lipitor Type 2 diabetes mellitus with neuropathy Neuropathy Continue insulin. Continue gabapentin-adjust renal dosage Stage III CKD Appears to be stable, baseline creatinine around 1.5-1.8 Avoid nephrotoxic drugs Hypothyroidism Continue levothyroxine Medically Ready for Discharge:Anticipated in 2-4 Days * Care Plan - Claudette Mallory - 02/06/2025 1:32 AM EDT Problem: Adult Inpatient Plan of Care Goal: Plan of Care Review Outcome: Ongoing, Progressing Flowsheets (Taken 02/06/2025125) Progress: improving Outcome Evaluation: Patient will remain free from fall and injury with use of call light, bed alarmand other safety intervention during my shift Plan of Care Reviewed With: patient Problem: Adult Inpatient Plan of Care Goal: Patient-Specific Goal (Individualized) Outcome: Ongoing, Progressing Flowsheets (Taken 02/05/20251999) Patient/Family-Specific Goals (Include Timeframe): Patient will remain free from fall and injury during my shift. Individualized Care Needs: Safety Anxieties, Fears or Concerns: Addressed Problem: Adult Inpatient Plan of Care Goal: Absence of Hospital-Acquired Illness or Injury Intervention: Identify and Manage Fall Risk Flowsheets (Taken 02/06/2025125) Safety Promotion/Fall Prevention: activity supervised assistive device/personal items within reach clutter-free environment maintained fall prevention program maintained lighting adjusted mobility aid in reach nonskid shoes/slippers when out of bed room organization consistent safety round/check completed toileting scheduled Goal: Optimal Comfort and Wellbeing Intervention: Provide Person-Centered Care Flowsheets (Taken 02/06/2025125) Trust Relationship/Rapport: care explained emotional support provided thoughts/feelings acknowledged Problem: Fall Injury Risk Goal: Absence of Fall and Fall-Related Injury Intervention: Identify and Manage Contributors Flowsheets (Taken 02/06/2025125) Medication Review/Management: medications reviewed Self-Care Promotion: independence encouraged BADL personal objects within reach BADL personal routines maintained adaptive equipment use encouraged Intervention: Promote Injury-Free Environment Flowsheets (Taken 02/06/2025125) Safety Promotion/Fall Prevention: activity supervised assistive device/personal items within reach clutter-free environment maintained fall prevention program maintained lighting adjusted mobility aid in reach nonskid shoes/slippers when out of bed room organization consistent safety round/check completed toileting scheduled Problem: Skin Injury Risk Increased Goal: Skin Health and Integrity Intervention: Promote and Optimize Oral Intake Flowsheets (Taken 02/06/2025125) Oral Nutrition Promotion: adaptive equipment use encouraged rest periods promoted * Discharge Instr - Activity - Wade Quach, RN - 02/05/2025 8:07 PM EDT Move around as you are able. Do not drive while taking narcotic medications. Use assistive equipment as instructed. Protected weight bearing as tolerated through both legs. * Consults - Trent Newton - 02/05/2025 6:40 PM EDT Pastoral Care Note Visited patient and family per spiritual care consult. Patient shared concerns regading to pelvic fracture and possible long stay at hospital. Offered a compassonate listening presence and validationof feelings. Provided spiritual and emotional support. Patient and family are aware of the pastoralcare availability. Referral From: Spiritual consult Pastoral Care Provided For: Patient, Child(anayeli) Patient Profile: Consult Reasons: Initial visit, New Admission, Urgent referral Spiritual Assessment: Support Systems/ Spiritual Resources: Sonia, Family Spiritual Needs: Emotional support, Spiritual support Spiritual Issues: Global/ social concern, Family concerns Interventions: Interventions Provided: Affirm acceptance and gratitude, Emotional support, Family support, Identify mandaeism/ spiritual coping, Spiritual support, Supportive Listening, Introduced Patient/Family toChaplain Services Pastoral Care Outcomes: Patient Outcomes: Is knowledgeable about [employer], Gratitude, Identifies spiritual or mandaeism practices as helpful, Expresses being seen and heard, Appreciative of Commercial Intern Support * H&P - Vinicio Lowe MD - 02/05/2025 12:21 PM EDTAssociated Order(s): Consult to Hospital Medicine Images from the original note were not included. Consult to Hospital Medicine Consult performed by: Vinicio Lowe MD Consult ordered by: Sunil Abdi MD Subjective Chief complaint Pelvic pain due to fracture History Of Present Illness Stef Mitchell is a 79 y.o. female presenting after a prior fall with pelvic fracture on January 17. She had been admitted to an outside hospital following that fall, with imaging that showed bilateral superior and inferior pubic rami fractures. However, she was sent home at the time. She now reports increasing pain over the past day. She describes pain in the front of her pelvis that goes down her left leg, is sharp, and worse with standing. She did not have any remaining pain medications available at home. She was evaluated by our Trauma surgery and Orthopedic surgery teams, who are anticipating non-operative management. Medical/Surgical/Social/Family History I have reviewed and updated the patient history. Travel History Relevant International Travel History: Travel Screening Question Response Have you been in contact with someone who was sick? No / Unsure Do you have any of the following new or worsening symptoms? None of these Have you traveled internationally or domestically in the last month? No Travel History Travel since 01/06/25 No documented travel since 01/06/25 Relevant Domestic Travel History: na Immunizations Not reviewed Allergies Lisinopril Outpatient medications in system Home Medications[1] Medications ordered for hospitalization Current Scheduled Medications[2] Current Continuous Medications[3] Current PRN Medications[4] Objective Review of Systems Constitutional: Positive for chills. Negative for fever. HENT: Negative for rhinorrhea and sore throat. Respiratory: Positive for cough. Negative for shortness of breath. Gastrointestinal: Positive for diarrhea (Chronic) and nausea. Musculoskeletal: Pelvic pain Neurological: Negative for weakness. All other systems reviewed and are negative. Physical Exam Vitals and nursing note reviewed. Constitutional: General: She is not in acute distress. Appearance: Normal appearance. She is ill-appearing (Chronically ill appearing). HENT: Head: Normocephalic and atraumatic. Nose: Nose normal. No congestion or rhinorrhea. Mouth/Throat: Pharynx: No oropharyngeal exudate or posterior oropharyngeal erythema. Eyes: General: No scleral icterus. Conjunctiva/sclera: Conjunctivae normal. Pupils: Pupils are equal, round, and reactive to light. Cardiovascular: Rate and Rhythm: Normal rate and regular rhythm. Pulses: Normal pulses. Heart sounds: Normal heart sounds. No murmur heard. No friction rub. No gallop. Pulmonary: Effort: Pulmonary effort is normal. Breath sounds: Normal breath sounds. Abdominal: General: Bowel sounds are normal. Palpations: Abdomen is soft. Tenderness: There is no abdominal tenderness. There is no rebound. Musculoskeletal: General: No swelling. Right lower leg: No edema. Left lower leg: No edema. Skin: Coloration: Skin is not jaundiced. Findings: Bruising (On face (R>L)) present. No erythema or rash. Neurological: General: No focal deficit present. Mental Status: She is alert. Mental status is at baseline. Motor: No weakness (Moving all extremities). Psychiatric: Mood and Affect: Mood normal. Behavior: Behavior normal. Thought Content: Thought content normal. Last Recorded Vitals Blood pressure 120/66, pulse 77, temperature 36.8 ??C (98.2 ??F), temperature source Oral, resp. rate (!) 27, height 1.753 m (5' 9 ), weight 72 kg (158 lb 11.7 oz), SpO2 93%. Results Review {Vanishing Link Review Results :[id number] I have reviewed the latest lab and imaging results. CBC without leukocytosis, and with mild anemia Coagulation tests/INR normal Renal function panel with hypokalemia Magnesium level at goal Liver tests unremarkable Assessment & Plan History of pelvic fracture 79W with pelvic fracture in December, here with worsened pain but plan for non- operative management persurgical services. Pelvic fracture sustained in December CT pelvis showed the bilateral mildly displaced inferior pubic ramus fractures, left superior pubisramus fracture, and possible right superior pubic ramus fracture Trauma and Ortho consulted, anticipate non-operative management Mobility: Protected weight bearing BLEs PT/OT consulted Pain control Chronic diarrhea (she reports since 2018, sometimes with incontinence): On Entocort per home regimen Plus Psyllium, Imodium, Lomotil PRN Hypokalemia: Trend and replete CAD with history of stents in 2004: Aspirin, atorvastatin AFib: On home amiodarone and metoprolol - Resume apixaban after confirming no surgical plans DM2: Continue insulin regimen, monitor FSGs, adjust regimen as needed CKD: Continue to monitor Hypothyroidism: Levothyroxine History of breast cancer and endometrial cancer Venous thromboembolism prophylaxis Patient on Eliquis tablet enoxaparin currently held Diet Dietary Orders (From admission, onward) Start Ordered 02/05/25 1215 Adult diet Diet texture: Regular; Carbohydrate restriction: Consistent Carb 2 (80 gm max/meal) Diet effective now References: IDDSI Diet Texture Guide Question Answer Comment Diet texture Regular Carbohydrate restriction: Consistent Carb 2 (80 gm max/meal) 02/05/25 1221 Code Status Full Code High complexity: Pelvic fracture impairing ability to ambulate/perform ADLs (threat to bodily function) Discussed management with ER regarding plan for non-operative management Unique labs reviewed: >3 unique labs as discussed above [1] (Not in a hospital admission) [2] amiodarone, 100 mg, Oral, Daily atorvastatin, 40 mg, Oral, Daily budesonide EC, 6 mg, Oral, Daily cetirizine, 10 mg, Oral, Daily enoxaparin, 30 mg, Subcutaneous, BID ergocalciferol, 50,000 Units, Oral, Weekly escitalopram, 10 mg, Oral, Daily [START ON 02/06/2025] ferrous sulfate, 324 mg, Oral, Daily with breakfast fluticasone, 2 spray, Each Nostril, Daily gabapentin, 600 mg, Oral, BID hydroCHLOROthiazide, 12.5 mg, Oral, Daily insulin glargine-yfgn, 10 Units, Subcutaneous, Nightly insulin lispro, 0-5 Units, Subcutaneous, TID with meals insulin lispro, 0-3 Units, Subcutaneous, Twice at night Insulin Lispro, 5 Units, Subcutaneous, TID with meals levothyroxine, 100 mcg, Oral, Daily loperamide, 2 mg, Oral, Daily magnesium oxide, 400 mg, Oral, Daily metoprolol succinate XL, 25 mg, Oral, Daily Oyster Shell Calcium, 1,000 mg, Oral, Daily pantoprazole, 40 mg, Oral, Daily psyllium, 1 packet, Oral, Daily pyridoxine, 50 mg, Oral, Daily rOPINIRole, 0.5 mg, Oral, q PM sodium chloride, 10 mL, Intravenous, q12h [3] [4] PRN medications: albuterol, glucose OR dextrose 10 % OR dextrose 10 % OR glucagon (human recombinant), diphenoxylate-atropine, LORazepam, Insert peripheral IV AND Saline lock IV AND sodium chloride AND sodium chloride * H&P - Corona Hooper MD - 02/05/2025 10:19 AM EDTAssociated Order(s): Consult to Trauma Surgery Trauma Alert? No Consult to Trauma Surgery Consult performed by: Corona Hooper MD Consult ordered by: Sunil Abdi MD Reason for consult: Subacute pelvic fractures Time of Consultation: 8:09 AM Time of Trauma Evaluation: 9:30 AM Arrival Date: 02/04/2025 Arrival Time: 11:44 Referring Hospital: : [facility] [place] Injury Date: 01/17/2025 Injury Time: Daytime Transport Mode: Mode of Arrival: Ambulance Mechanism of Injury Fall Distance Ground Level Farm Related Injury: no Work Related Injury: no History Of Present Illness Stef Mitchell is a 79 y.o. female with PMH of T2DM, CAD s/p stent on eliquis, afib with recent angina, hypothyroidism, CKD, and metastatic vulvar, breast, and endometrial cancer s/p chemoradiation and resection who presents to the ED as transfer from [facility] for worsening pelvic pain. On 01/17 she was walking down a grassy ill when she tripped and fell and immediately and pain in lower back and hips. She was able to continue walking after the fall. She denies presyncopal, chest pain, sweats, vision changes or syncope associated with event. She presented to ED on 620 where she was not evaluated by Orthopedic surgery and simply discharged after x-rays revealed closed pelvic fx per family without follow up. Over the next week until 02/04, family encouraged patient to keep active. She started walking with the rollator since the fall. She denies recurrent falls or trauma. Yesterday 02/04 she presented to outside ED for increased pain. She denies new weakness. She endorses oneday of fevers and chills which resolved today. She had been eating well prior to presentation. Currently she feels well. She is accompanied by 2 male family members. She denies numbness and tingling in her extremities. She denies weakness in her upper and lower extremities. She desires a diet.She hopes to avoid surgical management. Old Chart Reviewed: yes Loss of Consciousness: no Past Medical History She has a past medical history of Adrenal suppression (CMS/HCC), Atherosclerotic heart disease of [place] coronary artery without angina pectoris, COVID-19, Essential (primary) hypertension, H/O heartartery stent, Hyperlipidemia, unspecified, Hypomagnesemia (07/22/2018), Hypoparathyroidism, Hypothyroidism, unspecified, Lung nodule (2023), Malignant neoplasm of vulva, unspecified (CMS/HCC), Malnutrition (CMS/HCC) (07/22/2018), Other specified health status, Personal history of antineoplastic chemotherapy, Personal history of diseases of the blood and blood-forming organs and certain disorders involving the immune mechanism, Personal history of irradiation, Personal history of malignant neopla sm of breast, Personal history of malignant neoplasm of breast, Personal history of malignant neoplasm of other female genital organs, Personal history of malignant neoplasm of other parts of uterus,Personal history of other diseases of the circulatory system, Personal history of other diseases ofthe circulatory system, 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 Reviewed as documented above Surgical History She has a past surgical history that includes Hysterectomy (N/A); Other surgical history (N/A); Breast lumpectomy (N/A); Skin lesion excision (N/A); biopsy, thyroid (N/A); Carpal tunnel release (N/A); Total knee arthroplasty (N/A); Breast lumpectomy (N/A); Skin biopsy (N/A); Skin cancer excision (N/A); Skin graft (N/A); Total abdominal hysterectomy w/ bilateral salpingoophorectomy (N/A); Vulva surgery (N/A); Vulvectomy (N/A); Cholecystectomy; Back surgery; and Cardiac catheterization (2004). Reviewed as documented above Family History Family History[1] Reviewed as documented above Social History She reports that she quit smoking about 33 years ago. Her smoking use included cigarettes. She started smoking about 58 years ago. She has a 25 pack-year smoking history. She has never been exposed to tobacco smoke. She has never used smokeless tobacco. She reports that she does not drink alcohol and does not use drugs. Tobacco: former, not currently EtOH: denies Illicits: denies Lives: [place] Employment: Retired [facility] Review[facility] as documented above Medications Current Medications[2] Reviewed as documented above Occupational History Occupational history[3] Employer: No address on file. Reviewed as documented above Immunizations not reviewed VACCINE / DOSE DATE DATE Flu Tetanus 04/23/2001 12/23/2022 Pneumovax 06/05/2015 Shingles Review of Systems Relevant review of systems was obtained as able and is negative unless stated above in HPI. Physical Exam GEN: no apparent distress female HENT: normocephalic, atraumatic, no obvious lacerations or abrasions EYES: pupils 4mm, equal, round, reactive to light, extraocular motion intact EARS: no hemotympanum, no lacerations FACE: no step off, lacerations, avulsions, or gross deformities. Right malar cheek lightening ecchymosis NOSE: =no septal hematoma, no lacerations, no blood per nares ORAL: no malocclusion, no lacerations NECK: no acute fracture of mal-alignment of cervical spine, no c-collar in place, trachea midline, no masses or lacerations RESP: symmetric chest expansion, breath sounds present bilaterally, no tenderness to the chest wall, no lacerations or abrasions CV: appears well perfused, normocardic rate, 2+ and symmetric radial and DPs ABD: soft, non-tender, non-distended, no penetrating wounds, no abrasions, no seat belt sign BACK: Not assessed PELVIS: stable, tenderness to palpation (left pelvis > right pelvis) EXT: no apparent deformities, stength/tone grossly normal : deferred NEURO: alert and oriented to person, place and time, GCS 4 (Spontaneously) /5 (Oriented) /6 (Obeys Commands) , appropriate logical answers PSYCH: appropriate mood and affect Last Recorded Vitals Blood pressure 101/55, pulse 65, temperature 36.8 ??C (98.2 ??F), temperature source Oral, resp. rate 16, height 1.753 m (5' 9 ), weight 72 kg (158 lb 11.7 oz), SpO2 91%. Mandeep Mandeep Coma Scale Best Eye Response: Spontaneous Best Verbal Response: Oriented Best Motor Response: Follows commands [place] Coma Scale Score: 15 Intubated No Recent Results Labs in last 18 hours CBC WBC 6.44 Hb 10.6 (L) Plt 197 Hct 32.5 (L) ANC ?? INR 1.1, PTT ??, Anti-Xa ?? BMP Na 143 Cl 104 BUN 10 Glu 132 (H) K 3.3 (L) Co2 27 Cr 1.10 Ca 8.8 (L) iCa ?? Mg 2.0, Phos 2.2 (L) Lactate ?? LFT AST 14 AlkPhos 117 T Prot 6.2 (L) ALK 11 Bili 0.7 Alb ?? D.Bili ?? Radiology FAST:Not Done Images associated: N/A Images personally reviewed and consistent with the following: Plain Films: XR R Knee, Hips bilateral, L knee, R femur, L femur CT Scans: CT Bony Pelvis Angiography: none Impression: Closed subacute traumatic bilateral inferior pubic rami fractures Closed subacute right pubic root fracture Closed subacute left parasymphyseal fracture Closed subacute S4 fracture Assessment & Plan History of pelvic fracture Present on Admission: Not Applicable Fall 01/17 OSH ED 01/19 - presented and discharged home without ORT eval or follow up OSH ED 02/04 - present due to increased pain and extremity numbness with heart palpitations. Numbnessnow resolved after nitroglycerin. Ortho non op management Atrial fibrillation (CMS/HCC) Present on Admission: Yes Anginal symptoms on 02/03-02/04 at home CAD (coronary artery disease) Present on Admission: Yes Home medications Hypertension Present on Admission: Yes Home medications Fall 01/17. OSH 01/19 presentation and discharge where pelvic fx noted. 02/04 OSH presentation for worsening pelvic pain without new trauma. Of note, pelvic fx repaired by [facility] 2018 s/p pathologic fracture due to radiation. Maintains ability to walk without new weakness albeit with increased pain. Today CT and XR demonstrate all subacute fractures without new fractures but slight displacement. AFVSS on RA. GCS 15, oriented. Recommended plan: ORT: anticipate non-op Mobility per ORT: Protected weight-bearing bilateral lower extremities PT/OT MMPC CC2 diet SSI Disposition: Admit to Fragility Fx as all fractures are subacute and no new trauma and related to her weakened bone stock s/p chemoradiation for pelvic cancer in 2018. Discussed following consult with Dr. Yoder, Trauma Surgery Attending. Corona Hooper MD [facility] Shun [1] Family History Problem Relation Name Age of Onset Diabetes Mother Cary Colon cancer Mother Veronice FH: colon cancer Heart disease Mother Cary Cancer Mother Cary Diabetes type II Mother Cary Heart attack Father Heart attack Brother Father Narvaez Heart failure Brother Father Wm Narvaez Stomach cancer Maternal Grandmother Winnie Narvaez. Brother FH: stomach cancer Heart failure Maternal Grandmother Winnie Narvaez. Brother Heart attack Other [2] Current Facility-Administered Medications Medication Dose Route Frequency Provider Last Rate Last Admin acetaminophen (Tylenol) tablet 1,000 mg 1,000 mg Oral 3 times per day Vinicio Lowe MD 1,000 mg at02/05/25 1321 albuterol 108 (90 Base) MCG/ACT inhaler 2 puff 2 puff Inhalation q6h PRN Vinicio Lowe MD amiodarone (Pacerone) tablet 100 mg 100 mg Oral Daily Vinicio Lowe MD 100 mg at 02/05/25 1319 atorvastatin (Lipitor) tablet 40 mg 40 mg Oral Daily Vinciio Lowe MD 40 mg at 02/05/25 1320 budesonide EC (Entocort EC) 24 hr capsule 6 mg 6 mg Oral Daily Vinicio Lowe MD 6 mg at 02/05/25 1324 cetirizine (ZyrTEC) tablet 10 mg 10 mg Oral Daily Vinicio Lowe MD 10 mg at 02/05/25 1322 glucose (Glutose) 40 % oral gel 15-30 grams of glucose 15-30 grams of glucose Sublingual q15 min PRN Vinicio Lowe MD Or dextrose 10 % (D10W) bolus 125 mL 125 mL Intravenous q15 min PRN Vinicio Lowe MD Or dextrose 10 % (D10W) bolus 250 mL 250 mL Intravenous q15 min PRN Vinicio Lowe MD Or glucagon (human recombinant) injection 1 mg 1 mg Intramuscular q15 min PRN Vinicio Lowe MD diphenoxylate-atropine (Lomotil) 2.5-0.025 MG per tablet 1 tablet 1 tablet Oral 4x daily PRN Vinicio Lowe MD enoxaparin (Lovenox) syringe 30 mg 30 mg Subcutaneous BID Vinicio Lowe MD 30 mg at 02/05/25 1317 ergocalciferol (Vitamin D-2) capsule 50,000 Units 50,000 Units Oral Weekly Mynor, Vinicio A, MD 50,000Units at 02/05/25 1323 escitalopram (Lexapro) tablet 10 mg 10 mg Oral Daily Vinicio Lowe MD 10 mg at 02/05/25 1320 [START ON 02/06/2025] ferrous sulfate EC tablet 324 mg 324 mg Oral Daily with breakfast Vinicio Lowe MD fluticasone (Flonase) nasal spray 2 spray 2 spray Each Nostril Daily Vinicio Lowe MD 2 spray at 02/05/25 1317 gabapentin (Neurontin) capsule 600 mg 600 mg Oral BID Vinicio Lowe MD 600 mg at 02/05/25 1322 hydroCHLOROthiazide (HYDRODiuril) tablet 12.5 mg 12.5 mg Oral Daily Vinicio Lowe MD 12.5 mg at 02/05/25 1322 insulin glargine-yfgn 100 UNIT/ML injection 10 Units 10 Units Subcutaneous Nightly Vinicio Lowe MD insulin lispro (Admelog) 100 units/mL injection - Correction - Standard Dose 0-5 Units SubcutaneousTID with meals Vinicio Lowe MD insulin lispro (Admelog) injection - Correction - Nighttime Dose 0-3 Units Subcutaneous Twice at night Vinicio Lowe MD Insulin Lispro (Admelog, HumaLOG) 100 UNIT/ML injection 5 Units 5 Units Subcutaneous TID with mealsVinicio Lowe MD 5 Units at 02/05/25 1316 levothyroxine (Synthroid, Levoxyl) tablet 100 mcg 100 mcg Oral Daily Vinicio Lowe MD 100 mcg at 02/05/25 1321 loperamide (Imodium A-D) tablet 2 mg 2 mg Oral Daily Vinicio Lowe MD 2 mg at 02/05/25 1319 LORazepam (Ativan) tablet 0.5 mg 0.5 mg Oral TID PRN Vinicio Lowe MD magnesium oxide (Mag-Ox) tablet 400 mg 400 mg Oral Daily Vinicio Lowe MD 400 mg at 02/05/25 1321 metoprolol succinate XL (Toprol-XL) 24 hr tablet 25 mg 25 mg Oral Daily Vinicio Lowe MD 25 mg at 02/05/25 1323 oxyCODONE (Roxicodone) immediate release tablet 5 mg 5 mg Oral q4h PRN Vinicio Lowe MD Or oxyCODONE (Roxicodone) immediate release tablet 10 mg 10 mg Oral q4h PRN Vinicio Lowe MD Oyster Shell Calcium tablet 1,000 mg 1,000 mg Oral Daily Vinicio Lowe MD 1,000 mg at 02/05/25 1324 pantoprazole (Protonix) EC tablet 40 mg 40 mg Oral Daily Vinicio Lowe MD 40 mg at 02/05/25 1320 psyllium (Metamucil) 60 % packet 1 packet 1 packet Oral Daily Vinicio Lowe MD 1 packet at 02/05/25 1325 pyridoxine (Vitamin B-6) tablet 50 mg 50 mg Oral Daily Vinicio Lowe MD 50 mg at 02/05/25 1321 rOPINIRole (Requip) tablet 0.5 mg 0.5 mg Oral q PM Vinicio Lowe MD sodium chloride 0.9 % flush 10 mL 10 mL Intravenous q12h Vinicio Lowe MD 10 mL at 02/05/25 1316 And sodium chloride 0.9 % flush 10 mL 10 mL Intravenous PRN Vinicio Lowe MD Current Outpatient Medications Medication Sig Dispense Refill Accu-Chek FastClix Lancets misc albuterol 108 (90 Base) MCG/ACT inhaler Inhale 2 puffs every 6 (six) hours if needed. amiodarone (Pacerone) 100 MG tablet TAKE 1 TABLET ONE TIME DAILY 90 tablet 3 atorvastatin (Lipitor) 40 MG tablet TAKE 1 TABLET EVERY DAY 90 tablet 3 biotin 1000 MCG tablet Take 1 tablet (1,000 mcg) by mouth 1 (one) time each day. budesonide EC (Entocort EC) 3 MG 24 hr capsule Take 2 capsules (6 mg) by mouth 1 (one) time each day. calcium citrate (Calcitrate) 950 (200 Ca) MG tablet Take 1 tablet (950 mg) by mouth 1 (one) time each day. 90 tablet 3 cetirizine (ZyrTEC) 10 MG tablet Take 1 tablet (10 mg) by mouth 1 (one) time each day. 90 tablet 3 cholecalciferol (Vitamin D3) 25 MCG (1000 UT) tablet Take 1 tablet (1,000 Units) by mouth 1 (one) time each day. 90 tablet 3 clobetasol (Temovate) 0.05 % cream APPLY TOPICALLY TO AFFECTED AREA 2 TIMES A WEEK NEEDED 30 g 11 diphenoxylate-atropine (Lomotil) 2.5-0.025 MG tablet Take 1 tablet by mouth every 6 (six) hours if needed for diarrhea. 90 tablet 3 Droplet Pen [place] 32G X 4 MM misc Eliquis 2.5 MG tablet TAKE 1 TABLET TWICE DAILY 180 tablet 3 ergocalciferol 1.25 MG (18481 UT) capsule Take 1 capsule (50,000 Units) by mouth 1 (one) time per week. 12 capsule 3 escitalopram (Lexapro) 10 MG tablet Take 1 tablet (10 mg) by mouth 1 (one) time each day. 90 tablet3 ferrous sulfate 325 (65 Fe) MG tablet Take 1 tablet (325 mg) by mouth 1 (one) time each day with breakfast. 90 tablet 3 fluticasone (Flonase) 50 MCG/ACT nasal spray Administer 2 sprays into each nostril 1 (one) time each day. Shake gently. Before first use, prime pump. After use, clean tip and replace cap. 16 g 6 gabapentin (Neurontin) 600 MG tablet Take 1 tablet (600 mg) by mouth 2 (two) times a day. 180 tablet 1 glucagon (Baqsimi Two Pack) 3 MG/DOSE powder Nasal Powder USE 1 DOSE IN 1 NOSTRIL FOR LOW BLOOD SUGAR, THEN SEEK MEDICAL HELP . REPEAT DOSE AFTER 15 MINS IF NO RESPONSE 2 each 3 glucose blood (Accu-Chek SmartView) test strip hydroCHLOROthiazide (Microzide) 12.5 MG capsule Take 1 capsule (12.5 mg) by mouth 1 (one) time eachday in the morning. 90 capsule 3 ibandronate (Boniva) 3 MG/3ML solution Infuse 3 mL (3 mg) into a venous catheter 1 (one) time. insulin aspart (NovoLOG FLEXPEN) 100 UNIT/ML injection pen Inject subcutaneous 10 units BID w/ meals plus 1:50>150 SS, max dose 50u/day 45 mL 3 insulin glargine (Lantus SoloStar) 100 UNIT/ML injection pen Inject 15 Units under the skin every night. 15 mL 3 Jardiance 10 MG TAKE 1 TABLET ONE TIME DAILY 90 tablet 3 levothyroxine (Synthroid, Levoxyl) 100 MCG tablet Take 1 tablet (100 mcg) by mouth 1 (one) time each day. 90 tablet 3 loperamide (Imodium) 2 MG capsule Take 1 capsule (2 mg) by mouth 1 (one) time each day. LORazepam (Ativan) 0.5 MG tablet Take 1 tablet (0.5 mg) by mouth 3 (three) times a day if needed for anxiety. 270 tablet 1 Lutein 20 MG capsule TAKE 1 CAPSULE Daily magnesium oxide (Mag-Ox) 400 (240 Mg) MG tablet Take 1 tablet (400 mg) by mouth 1 (one) time each day. metoprolol succinate XL (Toprol-XL) 25 MG 24 hr tablet TAKE 1 TABLET EVERY DAY 90 tablet 3 nitroglycerin (Nitrostat) 0.[address] 1 tablet (0.4 mg) under the tongue. PRN pantoprazole (ProtoNix) 20 MG EC tablet Take 1 tablet (20 mg) by mouth 1 (one) time each day. 90 tablet 3 potassium chloride CR (Klor-Con M20) 20 MEQ ER tablet pyridoxine (B-6) 100 MG tablet Take 1 tablet (100 mg) by mouth 1 (one) time each day. rOPINIRole (Requip) 0.5 MG tablet TAKE 1 TABLET (0.5 MG) BY MOUTH 1 (ONE) TIME EACH DAY IN THE EVENING. 90 tablet 3 Semaglutide, 2 MG/DOSE, (Ozempic, 2 MG/DOSE,) 8 MG/3ML solution pen-injector Inject 2 mg under the skin 1 (one) time per week. 9 mL 3 [3] Cosigned by Rosio Yoder MD at 02/06/2025 8:55 AM EDT Associated attestation - Rosio Yoder MD - 02/06/2025 8:55 AM EDT I discussed the case with the resident/fellow and agree with the findings and plan as documented. Rosio Yoder MD, FACS biofuels manager Trauma Acute Care Surgery * Consults - Floyd Hernandez MD - 02/05/2025 5:47 AM EDTAssociated Order(s): IP CONSULT TO ORTHOPAEDICS ORTHOPAEDIC SURGERY TRAUMA CONSULT NOTE Consult Received: 5322 Patient Examined: 0435 CHIEF COMPLAINT AND REASON FOR VISIT Pelvic Pain HISTORY OF PRESENT ILLNESS Stef Mitchell is a 79 y.o. female with PMH of T2DM, CAD s/p stent, hypothyroidism, CKD, and metastatic vulvar, breast, and endometrial cancer s/p chemoradiation and resection who presents to the EDas transfer from [facility] for worsening pelvic pain. Patient states she fell on 01/17/25 while walking down a grassy incline. She was able to ambulate at that time and did not present to OSH until 01/19/25. Scans at that time showed bilateral superior and inferior pubic rami fractures.She was sent home at that time with a walker without follow-up. She presented the evening of 02/04 toO with untolerable pelvic pain that now radiates down her left groin area. New scans showed worsening displacement of the fractures. She has still been able to ambulate but less than initially after her injury due to pain and deconditioning. She does report baseline bowel incontinence due to prior radiation. She denies paresthesias or numbness her bilateral lower extremities. Patient previouslyunderwent right sacral cement placement in [address] Gonsalez following a sacral fracture. Prior to her fall, patient ambulating without assistive devices in his cook and care for herself. Since falling she has been using a Rollator to get around the house and has been having extensive help from her daughter for daily activity Reactions to Metal: Denies MRSA Hx: History of cellulitis bilateral lower extemities Prior DVT/PE: Last DVT was in 1978 Anticoagulants: On Eliquis, last dose night of 02/04. PAST MEDICAL HISTORY Past Medical History[1] MEDICATIONS Current Medications[2] ALLERGIES Allergies[3] PAST SURGICAL HISTORY Surgical History[4] FAMILY HISTORY Reviewed, Noncontributory. SOCIAL HISTORY Tobacco: denies EtOH: denies Illicits: denies Lives: [place] Employment: Retired REVIEW OF SYSTEMS 14 point review of systems conducted and was otherwise negative except for mentioned in HPI PHYSICAL EXAMINATION General Physical Exam Constitutional No acute distress, Vitals as below Head Normocephalic and atraumatic, appropriate dentition Cardiovascular Peripheral perfusion intact, pulses as below Pulmonary/Chest Good respiratory effort, symmetric chest expansion, no respiratory difficulty appreciated Neurological Alert and oriented to person, place, and time Psychiatric Normal mood and affect, behavior and judgment Skin No rashes or lesions except as mentioned below, no masses Eyes EOMI, Sclera anicteric Abdomen Soft, nontender, nondistended Body mass index is 23.44 kg/m??. VITALS: Visit Vitals BP (!) 154/85 (BP Location: Left arm, Patient Position: Sitting) Pulse 73 Temp 36.7 ??C (98.1 ??F) (Oral) Resp 15 Ht 1.753 m (5' 9 ) Wt 72 kg (158 lb 11.7 oz) LMP (LMP Unknown) SpO2 95% BMI 23.44 kg/m?? OB Status Hysterectomy Smoking Status Former BSA 1.87 m?? FOCUSED MUSCULOSKELETAL EXAM: Clavicles non-tender to palpation bilaterally without crepitus Pelvis stable to AP and lateral compression RIGHT UPPER EXTREMITY Inspection: skin intact, no deformity, soft compartments, no pain with passive stretch of digits, non-tender to palpation Range of motion: Full/painless/stable at shoulder, elbow, and wrist Motor: motor intact with shoulder ER/IR, Deltoid, Biceps, Triceps, Wrist flexion, Wrist extension, Finger flexion, Finger extension, Finger abduction, EPL, FPL Sensation: Sensation intact to light touch in superficial and deep peroneal, saphenous, sural, and tibial nerve distributions Vascular: 2+ radial pulse, capillary refill <2 seconds, digits warm and well perfused LEFT UPPER EXTREMITY Inspection: skin intact, no deformity, soft compartments, no pain with passive stretch of digits, non-tender to palpation Range of motion: Full/painless/stable at shoulder, elbow, and wrist Motor: motor intact with ER/IR, Deltoid, Biceps, Triceps, Wrist flexion, Wrist extension, Finger flexion, Finger extension, Finger abduction, EPL, FPL Sensation: Sensation intact to light touch in superficial and deep peroneal, saphenous, sural, and tibial nerve distributions Vascular: 2+ radial pulse, capillary refill <2 seconds, digits warm and well perfused RIGHT LOWER EXTREMITY Inspection: skin intact, no deformity, soft compartments, no pain with passive stretch of digits, non-tender to palpation Range of motion: Full/painless/stable at hip, knee, and ankle Motor: motor intact with HAbd, HF, KE, KF, TA, GSC, EHL, FHL Sensation: Sensation intact to light touch in superficial and deep peroneal, saphenous, sural, and tibial nerve distributions Vascular: 2+ dorsalis pedis and posterior tibialis pulses, capillary refill <2 seconds, digits warm and well perfused LEFT LOWER EXTREMITY Inspection: skin intact, no deformity, soft compartments, no pain with passive stretch of digits, non-tender to palpation Range of motion: Full/painless/stable at hip, knee, and ankle Motor: motor intact with HAbd, HF, KE, KF, TA, GSC, EHL, FHL Sensation: Sensation intact to light touch in superficial and deep peroneal, saphenous, sural, and tibial nerve distributions Vascular: 2+ dorsalis pedis and posterior tibialis pulses, capillary refill <2 seconds, digits warm and well perfused IMAGING CT scan of the bony pelvis shows bilateral inferior pubic rami fractures with subacute and healing appearing right pubic root fracture and a subacute left parasymphyseal fracture with subacute sacralfracture. ASSESSMENT AND PLAN Stef Mitchell is a 79 y.o. female patient with Closed subacute traumatic bilateral inferior pubic rami fractures Closed subacute right pubic root fracture Closed subacute left parasymphyseal fracture Closed subacute S4 fracture - Weight bearing restrictions: Protected weight-bearing bilateral lower extremities - ED orthopaedic procedures: None - Pain control per ED/Primary - Anticipate non-operative management - PT/OT Follow-up: Patient may follow up with outside provider for whom she is established with these injuries, pending clinical course. Dispo: Recommend admit per institutional protocol Floyd Hernandez MD Orthopaedic Surgery PGY-3 [facility] Orthopaedic Trauma Service Pager: [phone] Orthopaedic Recon/Spine/Foot and Ankle Service Pager: [phone] [1] Past Medical History: Diagnosis Date Adrenal suppression (CMS/HCC) Atherosclerotic heart disease of [place] coronary artery without angina pectoris ASCVD (arteriosclerotic cardiovascular disease) COVID-19 2019 novel coronavirus?infected pneumonia (NCIP) Essential (primary) hypertension HTN (hypertension) H/O heart artery stent Hyperlipidemia, unspecified Hyperlipidemia Hypomagnesemia 07/22/2018 Hypoparathyroidism Hypothyroidism, unspecified Hypothyroidism Lung nodule 2023 Malignant neoplasm of vulva, unspecified (CMS/HCC) Vulvar cancer Malnutrition (CMS/HCC) 07/22/2018 Other specified health status Non-smoker Personal history of antineoplastic chemotherapy History of chemotherapy Personal history of diseases of the blood and blood-forming organs and certain disorders involving the immune mechanism History of anemia Personal history of irradiation History of radiation therapy Personal history of malignant neoplasm of breast History of malignant neoplasm of breast Personal history of malignant neoplasm of breast History of breast cancer Personal history of malignant neoplasm of other female genital organs History of cancer of vulva Personal history of malignant neoplasm of other parts of uterus History of endometrial cancer Personal history of other diseases of the circulatory system History of coronary artery disease Personal history of other diseases of the circulatory system History of hypertension 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 Current Outpatient Medications: Accu-Chek FastClix Lancets [facility] [place], , Disp: , Rfl: albuterol 108 (90 Base) MCG/ACT inhaler, Inhale 2 puffs every 6 (six) hours if needed., Disp: , Rfl: amiodarone (Pacerone) 100 MG tablet, TAKE 1 TABLET ONE TIME DAILY, Disp: 90 tablet, Rfl: 3 atorvastatin (Lipitor) 40 MG tablet, TAKE 1 TABLET EVERY DAY, Disp: 90 tablet, Rfl: 3 biotin 1000 MCG tablet, Take 1 tablet (1,000 mcg) by mouth 1 (one) time each day., Disp: , Rfl: budesonide EC (Entocort EC) 3 MG 24 hr capsule, Take 2 capsules (6 mg) by mouth 1 (one) time each day., Disp: , Rfl: calcium citrate (Calcitrate) 950 (200 Ca) MG tablet, Take 1 tablet (950 mg) by mouth 1 (one) time each day., Disp: 90 tablet, Rfl: 3 cetirizine (ZyrTEC) 10 MG tablet, Take 1 tablet (10 mg) by mouth 1 (one) time each day., Disp: 90 tablet, Rfl: 3 cholecalciferol (Vitamin D3) 25 MCG (1000 UT) tablet, Take 1 tablet (1,000 Units) by mouth 1 (one) time each day., Disp: 90 tablet, Rfl: 3 clobetasol (Temovate) 0.05 % cream, APPLY TOPICALLY TO AFFECTED AREA 2 TIMES A WEEK NEEDED, Disp: 30 g, Rfl: 11 diphenoxylate-atropine (Lomotil) 2.5-0.025 MG tablet, Take 1 tablet by mouth every 6 (six) hours ifneeded for diarrhea., Disp: 90 tablet, Rfl: 3 Droplet Pen [place] 32G X 4 MM [facility] [place], , Disp: , Rfl: Eliquis 2.5 MG tablet, TAKE 1 TABLET TWICE DAILY, Disp: 180 tablet, Rfl: 3 ergocalciferol 1.25 MG (80268 UT) capsule, Take 1 capsule (50,000 Units) by mouth 1 (one) time per week., Disp: 12 capsule, Rfl: 3 escitalopram (Lexapro) 10 MG tablet, Take 1 tablet (10 mg) by mouth 1 (one) time each day., Disp: 90 tablet, Rfl: 3 ferrous sulfate 325 (65 Fe) MG tablet, Take 1 tablet (325 mg) by mouth 1 (one) time each day with breakfast., Disp: 90 tablet, Rfl: 3 fluticasone (Flonase) 50 MCG/ACT nasal spray, Administer 2 sprays into each nostril 1 (one) time each day. Shake gently. Before first use, prime pump. After use, clean tip and replace cap., Disp: 16 g, Rfl: 6 gabapentin (Neurontin) 600 MG tablet, Take 1 tablet (600 mg) by mouth 2 (two) times a day., Disp: 180 tablet, Rfl: 1 glucagon (Baqsimi Two Pack) 3 MG/DOSE powder Nasal Powder, USE 1 DOSE IN 1 NOSTRIL FOR LOW BLOOD SUGAR, THEN SEEK MEDICAL HELP . REPEAT DOSE AFTER 15 MINS IF NO RESPONSE, Disp: 2 each, Rfl: 3 glucose blood (Accu-Chek SmartView) test strip, , Disp: , Rfl: hydroCHLOROthiazide (Microzide) 12.5 MG capsule, Take 1 capsule (12.5 mg) by mouth 1 (one) time each day in the morning., Disp: 90 capsule, Rfl: 3 ibandronate (Boniva) 3 MG/3ML solution, Infuse 3 mL (3 mg) into a venous catheter 1 (one) time., Disp: , Rfl: insulin aspart (NovoLOG FLEXPEN) 100 UNIT/ML injection pen, Inject subcutaneous 10 units BID w/ meals plus 1:50>150 SS, max dose 50u/day, Disp: 45 mL, Rfl: 3 insulin glargine (Lantus SoloStar) 100 UNIT/ML injection pen, Inject 15 Units under the skin every night., Disp: 15 mL, Rfl: 3 Jardiance 10 MG, TAKE 1 TABLET ONE TIME DAILY, Disp: 90 tablet, Rfl: 3 levothyroxine (Synthroid, Levoxyl) 100 MCG tablet, Take 1 tablet (100 mcg) by mouth 1 (one) time each day., Disp: 90 tablet, Rfl: 3 loperamide (Imodium) 2 MG capsule, Take 1 capsule (2 mg) by mouth 1 (one) time each day., Disp: , Rfl: LORazepam (Ativan) 0.5 MG tablet, Take 1 tablet (0.5 mg) by mouth 3 (three) times a day if needed for anxiety., Disp: 270 tablet, Rfl: 1 Lutein 20 MG capsule, TAKE 1 CAPSULE Daily, Disp: , Rfl: magnesium oxide (Mag-Ox) 400 (240 Mg) MG tablet, Take 1 tablet (400 mg) by mouth 1 (one) time each day., Disp: , Rfl: metoprolol succinate XL (Toprol-XL) 25 MG 24 hr tablet, TAKE 1 TABLET EVERY DAY, Disp: 90 tablet, Rfl: 3 nitroglycerin (Nitrostat) 0.4 MG SL tablet, Place 1 tablet (0.4 mg) under the tongue. PRN, Disp: , Rfl: pantoprazole (ProtoNix) 20 MG EC tablet, Take 1 tablet (20 mg) by mouth 1 (one) time each day., Disp: 90 tablet, Rfl: 3 potassium chloride CR (Klor-Con M20) 20 MEQ ER tablet, , Disp: , Rfl: pyridoxine (B-6) 100 MG tablet, Take 1 tablet (100 mg) by mouth 1 (one) time each day., Disp: , Rfl: rOPINIRole (Requip) 0.5 MG tablet, TAKE 1 TABLET (0.5 MG) BY MOUTH 1 (ONE) TIME EACH DAY IN THE EVENING., Disp: 90 tablet, Rfl: 3 Semaglutide, 2 MG/DOSE, (Ozempic, 2 MG/DOSE,) 8 MG/3ML solution pen-injector, Inject 2 mg under theskin 1 (one) time per week., Disp: 9 mL, Rfl: 3 [3] Allergies Allergen Reactions Lisinopril Cough and Other - please document in the comment field lisinopril [4] Past Surgical History: Procedure Laterality Date BACK SURGERY BIOPSY, THYROID N/A thyroid biopsy from [facility] BREAST LUMPECTOMY N/A lumpectomy from [facility] BREAST LUMPECTOMY N/A Lumpectomy from [facility] CARDIAC CATHETERIZATION 2004 CARPAL TUNNEL RELEASE N/A carpal tunnel surgery from [facility] CHOLECYSTECTOMY HYSTERECTOMY N/A Hysterectomy from [facility] OTHER SURGICAL HISTORY N/A Revision Of Total Knee Arthroplasty, All Components from [facility] SKIN BIOPSY N/A Skin biopsy from [facility] SKIN CANCER EXCISION N/A Skin cancer excision from [facility] SKIN GRAFT N/A Skin graft from [facility] SKIN LESION EXCISION N/A Skin lesion excision from [facility] TOTAL ABDOMINAL HYSTERECTOMY W/ BILATERAL SALPINGOOPHORECTOMY N/A CYRUS-BSO (total abdominal hysterectomy and bilateral salpingo-oophorectomy) from [facility] TOTAL KNEE ARTHROPLASTY N/A Knee surgery from [facility] VULVA SURGERY N/A Vulva surgery from [facility] VULVECTOMY N/A Vulvectomy from [facility] Cosigned by Hayden Hager DO at 02/07/2025 7:36 AM EDT * ED Provider Notes - Ron Mcallister DO - 02/04/2025 11:44 PM EDT - HPI Chief Complaint Patient presents with Pelvic Pain Patient is an 79-year-old female who presents from an outside hospital in [facility] with a previous comminuted pelvic fracture that has worsened in severity. She had a fall on the 15 of January was seen at an outside hospital admitted for a day and then discharge. Since she has been discharge the pain has continued to worsen and then she went to the hospital today because of the pain is new onset numbness in the hands. She was scanned at the outside hospital which showed no acute intracranial abnormalities on head CT, mild pleural effusion on CT angio of the chest. And a worsening of the displacement of the inferior pubic rami bilaterally, with a new hematoma on the left. The patient currently complains of pelvic pain with movement. She still has some numbness in her hands bilaterally.She complains of mild neck pain and decreased range of motion. She denies any difficulty urinating and pain with urination. She complains of chronic diarrhea from previous radiation in 2019 for vulvar cancer. Patient also complains of some pain with inhalation in the left side. Patient History Past Medical History[1] Surgical History[2] Family History[3] Social History[4] Allergies: Allergies[5] Physical Exam ED Triage Vitals [02/04/25 2352] Temp Heart Rate Resp BP 36.6 ??C (97.9 ??F) 89 18 (!) 146/78 SpO2 Temp Source Heart Rate Source Patient Position 98 % Oral Monitor Sitting BP Location FiO2 (%) Left arm -- Physical Exam Vitals and nursing note reviewed. Constitutional: General: She is not in acute distress. Appearance: She is well-developed. HENT: Head: Comments: Patient has a bruise on her right cheek from fall. Nose: Nose normal. Eyes: Extraocular Movements: Extraocular movements intact. Conjunctiva/sclera: Conjunctivae normal. Pupils: Pupils are equal, round, and reactive to light. Neck: Comments: She has mild tenderness lateral aspects of her neck. Cardiovascular: Rate and Rhythm: Normal rate and regular rhythm. Heart sounds: Normal heart sounds. No murmur heard. Pulmonary: Effort: Pulmonary effort is normal. No respiratory distress. Breath sounds: Normal breath sounds. Abdominal: General: Abdomen is flat. Palpations: Abdomen is soft. Tenderness: There is abdominal tenderness. Comments: She complains of mild tenderness suprapubically Musculoskeletal: General: No swelling. Cervical back: Neck supple. Tenderness present. Comments: Patient struggles to let her legs due to pain in her pelvis. She has tenderness on her pelvis Skin: General: Skin is warm and dry. Capillary Refill: Capillary refill takes less than 2 seconds. Neurological: General: No focal deficit present. Mental Status: She is alert and oriented to person, place, and time. Mental status is at baseline. Cranial Nerves: No cranial nerve deficit. Sensory: No sensory deficit. Motor: No weakness. Comments: Patient has no sensory deficits. Has no muscle weakness. Psychiatric: Mood and Affect: Mood normal. Behavior: Behavior normal. Thought Content: Thought content normal. Judgment: Judgment normal. EASI ?? Total Score: 0 Mandeep Coma Scale Score: 15 Mini Nutritional Screening Score : 10 TRST Assessment Total: 4 ED Course & MDM - Assessment: 79 y.o. female presents to ED with complaint of pelvic fracture. On initial arrival the patient didnot seem to be in pain whatsoever. During the physical exam she was in some pain with movement. However when she is at rest she experiences no pain. The symptoms of numbness in her hands seems most likely to be from her pre-existing carpal tunnel syndrome and not an intracranial abnormality given the negative CT scan of the outside hospital. Outside hospital potassium was low so we rechecked it here. Reordered x-ray imaging prior to consulting ortho. Upon exiting the end of my shift patient had off to the oncoming fever shows a moderate. Pending admit to ortho and Trauma no pressure. Or for we had to wait for sensitivities pelvis to different orthotics she will patient. And when we fall to trauma. Transfer of care said that this time to oncoming physician. Differential Diagnosis: Pelvic fracture, carpal tunnel syndrome, stroke, femur fracture, pleural effusion In order to fully explore the differential diagnosis the following treatments and tests were ordered: All Other Orders Ordered Status Ordering Provider 02/05/25 030 XR Femur Right 2+ Views Once In process RON MCALLISTER 02/05/25 0305 XR Knee Left 3 Views Once In process RON MCALLISTER 02/05/25 030 XR Knee Right 3 + Views Once In process RON MCALLISTER 02/05/25 0305 XR Femur Left 2+ Views Once In process RON MCALLISTER 02/05/25 0305 Once Canceled RON MCALLISTER 02/05/25 0305 XR Hips Bilateral W or WO Pelvis 3-4 Views Once In process RON MCALLISTER 02/05/25 0305 Once Canceled RON MCALLISTER 02/05/25 0305 Once Canceled RON MCALLISTER 02/05/25 0301 Magnesium STAT In process RON MCALLISTER Denis 02/05/25 0301 Phosphorus STAT In process RON MCALLISTER Denis 02/05/25 0301 EKG now - STAT (adult) Once Preliminary result RON MCALLISTER Denis 02/05/25 0301 Hepatitis C Antibody - ED Once In process RON MCALLISTER Denis 02/05/25 0301 ED Protocol - HIV 1/2 Antibody/Antigen Screen Once In process RON MCALLISTER 02/05/25 030 ED HIV 1/2 Antibody/Antigen Screen w/Reflex to HIV 1/2 Differentiation PROCEDURE ONCE In process ROSAIROJEFF RON A 02/05/25 0301 CBC STAT Final result ROSARIOJEFF RON Denis 02/05/25 0301 CMP STAT In process ROSARIOJEFF RON A 02/05/25 030 PT-INR STAT Final result RON MCALLISTER Denis 02/05/25 030 Anti Xa Level Unfractionated Heparin STAT Final result RON MCALLISTER ED Course as of 02/05/25 0651 WedFeb 05, 2025 032 EKG now - STAT (adult) No ST changes, normal rate, normal rhythm, 1 PVC noted. [SH] 0359 CBC(!) Mild anemia non actionable [SH] 0359 PT-INR(!) PT mildly elevated [SH] 0408 Potassium(!): 3.3 Potassium increase from previous reading at outside hospital slightly below normal [SH] 0409 Phosphorus(!) Phosphorus mildly decreased [SH] 0419 In reviewing outside hospital records head CT shows no acute intracranial pathology, CT angio chest shows a small pleural effusion, and a pelvis shows worsening of the displacement in the pubic fractures bilaterally and a new hematoma [SH] 0435 I spoke with ortho and they want a CT bony pelvis and to admit to Trauma [SH] 0443 I spoke with Trauma and they will admit her. They said it will be a while so maybe at the shift change. They went away for the image to come back. [SH] ED Course User Index [SH] Ron Mcallister, DO Clinical Impressions as of 02/05/25 0651 Other closed fracture of right pubis with delayed healing, subsequent encounter Social Determinates of Health Risks (including Economic Stability, Education and level of understanding, Healthcare access and quality and concerning social factors): Poor health literacy Ultimately, this patient was was signed out to the oncoming provider (Signed Out) Patient care assumed by oncoming provider, Dr. Abdi, at shift change, tentative plan at the time of sign-out was wait for ortho to see the patient and then call to admit to trauma . 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 ASCVD (arteriosclerotic cardiovascular disease) COVID-19 2019 novel coronavirus?infected pneumonia (NCIP) Essential (primary) hypertension HTN (hypertension) H/O heart artery stent Hyperlipidemia, unspecified Hyperlipidemia Hypomagnesemia 07/22/2018 Hypoparathyroidism Hypothyroidism, unspecified Hypothyroidism Lung nodule 2023 Malignant neoplasm of vulva, unspecified (CMS/HCC) Vulvar cancer Malnutrition (CMS/HCC) 07/22/2018 Other specified health status Non-smoker Personal history of antineoplastic chemotherapy History of chemotherapy Personal history of diseases of the blood and blood-forming organs and certain disorders involving the immune mechanism History of anemia Personal history of irradiation History of radiation therapy Personal history of malignant neoplasm of breast History of malignant neoplasm of breast Personal history of malignant neoplasm of breast History of breast cancer Personal history of malignant neoplasm of other female genital organs History of cancer of vulva Personal history of malignant neoplasm of other parts of uterus History of endometrial cancer Personal history of other diseases of the circulatory system History of coronary artery disease Personal history of other diseases of the circulatory system History of hypertension 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 History of polycystic kidney disease Sacral pain 05/12/2018 Short stature (child) Sleep apnea, obstructive 2017 Type 2 diabetes mellitus without complications Diabetes mellitus [2] Past Surgical History: Procedure Laterality Date BACK SURGERY BIOPSY, THYROID N/A thyroid biopsy from [facility] BREAST LUMPECTOMY N/A lumpectomy from [facility] BREAST LUMPECTOMY N/A Lumpectomy from [facility] CARDIAC CATHETERIZATION 2004 CARPAL TUNNEL RELEASE N/A carpal tunnel surgery from [facility] CHOLECYSTECTOMY HYSTERECTOMY N/A Hysterectomy from [facility] OTHER SURGICAL HISTORY N/A Revision Of Total Knee Arthroplasty, All Components from [facility] SKIN BIOPSY N/A Skin biopsy from [facility] SKIN CANCER EXCISION N/A Skin cancer excision from [facility] SKIN GRAFT N/A Skin graft from [facility] SKIN LESION EXCISION N/A Skin lesion excision from [facility] TOTAL ABDOMINAL HYSTERECTOMY W/ BILATERAL SALPINGOOPHORECTOMY N/A CYRUS-BSO (total abdominal hysterectomy and bilateral salpingo-oophorectomy) from [facility] TOTAL KNEE ARTHROPLASTY N/A Knee surgery from [facility] VULVA SURGERY N/A Vulva surgery from [facility] VULVECTOMY N/A Vulvectomy from [facility] [3] Family History Problem Relation Name Age of Onset Diabetes Mother Cary Colon cancer Mother Cary FH: colon cancer Heart disease Mother Cary Cancer Mother Cary Diabetes type II Mother Cary Heart attack Father Heart attack Brother Father Wm Narvaez Heart failure Brother Father Wm Narvaez Stomach cancer Maternal Grandmother Winnie Narvaez. Brother FH: stomach cancer Heart failure Maternal Grandmother Winnie Narvaez. Brother Heart attack Other [4] Tobacco Use Smoking status: Former Current packs/day: 0.00 Average packs/day: 1 pack/day for 25.0 years (25.0 ttl pk-yrs) Types: Cigarettes Start date: 1966 Quit date: 1991 Years since quittin.5 Passive exposure: Never Smokeless tobacco: Never Vaping Use Vaping status: Never Used Substance Use Topics Alcohol use: No Drug use: Never [5] Allergies Allergen Reactions Lisinopril Cough and Other - please document in the comment field lisinopril Ron Mcallister DO Resident 02/05/25 0653 Cosigned by Herb Moreira MD at 02/05/2025 7:02 AM EDT Associated attestation - Herb Moreira MD - 02/05/2025 7:02 AM EDT I saw and evaluated the patient with the resident/fellow. I discussed the case with the resident/fellow and agree with the findings and plan as documented. * ED Triage Notes - MervinMeme - 02/04/2025 11:44 PM EDT Patient had a ground level fall on 01/12 and is reporting increased left pelvic pain. Known pelvic fx from that fall. AO. Resp even and unlabored. Healing bruising on her right face. * Progress Notes - Chris Abdi, DO - 02/04/2025 11:44 PM EDT Images from the original note were not included. ED TRANSFER OF CARE NOTE Transferring provider: Felipe I received sign-out and accepted care of this patient from the previous ED providers caring for this patient. I reviewed the patient's history, exam, work- up, and treatment plan up to this point. Please see the primary ED Provider Note for complete elements of the history, physical exam, and ED course. PERTINENT HISTORY: In brief, Stef Mitchell is a 79 y.o. female with persistent hip pain and difficulty with ambulation secondary to pain. She was recently admitted to an outside hospital for pelvicfractures in the setting of a fall. In our emergency department we had diagnosed her with bilateralpubic ramus fractures. Orthopedics was consulted and evaluated the patient and recommended no surgical intervention. At the time of shift change I had an interactive discussion with the trauma surgery service who evaluated the patient in the emergency department. They felt that because her fall was 4 weeks ago thatshe did not necessitate admission to the trauma surgery service and recommended medical admission. I have had an interactive discussion with the Internal Medicine Service who has agreed to evaluate the patient in the emergency department. After our discussion and their evaluation they have agreed to admit the patient to their service and accept primary responsibility of the patient moving forward ED Medication Administration from 02/04/2025 2156 to 02/05/2025 1207 Date/Time Order Dose Route Action 02/05/2025 0526 EDT morphine PF 4 mg 4 mg Intravenous Given 02/05/2025 1024 EDT acetaminophen (Tylenol) tablet 650 mg 650 mg Oral Given 02/05/2025 1024 EDT methocarbamol (Robaxin) tablet 1,500 mg 1,500 mg Oral Given 02/05/2025 1024 EDT oxyCODONE (Roxicodone) immediate release tablet 5 mg 5 mg Oral Given ED COURSE: ED Course as of 02/05/25 1207 WedFeb 05, 2025 0327 EKG now - STAT (adult) No ST changes, normal rate, normal rhythm, 1 PVC noted. [SH] 0359 CBC(!) Mild anemia non actionable [SH] 0359 PT-INR(!) PT mildly elevated [SH] 0408 Potassium(!): 3.3 Potassium increase from previous reading at outside hospital slightly below normal [SH] 0409 Phosphorus(!) Phosphorus mildly decreased [SH] 0419 In reviewing outside hospital records head CT shows no acute intracranial pathology, CT angio chest shows a small pleural effusion, and a pelvis shows worsening of the displacement in the pubic fractures bilaterally and a new hematoma [SH] 0435 I spoke with ortho and they want a CT bony pelvis and to admit to Trauma [SH] 0443 I spoke with Trauma and they will admit her. They said it will be a while so maybe at the shift change. They went away for the image to come back. [SH] ED Course User Index [SH] Ron Mcallister DO Clinical Impressions as of 02/05/25 1207 Closed bilateral fracture of pubic rami, initial encounter (CMS/[facility]) Closed fracture of sacrum, unspecified portion of sacrum, initial encounter ([facility]) Ultimately, this patient Was admitted (Admission) The primary encounter diagnosis was Closed bilateral fracture of pubic rami, initial encounter ([facility]). A diagnosis of Closed fracture of sacrum, unspecified portion of sacrum, initial encounter ([facility]) was also pertinent to this visit.. Patient believed to require admission for thelisted diagnoses. The Internal Medicine service was consulted for admission and was agreeable to admit to Acute Floor (Med/Surg). ED Prescriptions None Disposition Admit - Chris Abdi DO Cosigned by Sunil Abdi MD at 02/05/2025 12:43 PM EDT Associated attestation - Sunil Abdi MD - 02/05/2025 12:43 PM EDT I saw and evaluated the patient with the resident/fellow. I discussed the case with the resident/fellow and agree with the findings and plan as documented. documented in this encounter Plan of Treatment Upcoming Encounters Date Type Department Care Team (Late st Contact Info) Description 04/06/2025 9:20 AM EDT Office Visit [facility] [address] [place] [address] (1), Chepe Cobian Fellow 04/17/2025 11:30 AM EDT Clinical Support [facility] [place] [address] [place] [address] 04/25/2025 12:00 PM EDT Appointment [facility] [address] [place] [address] 05/01/2025 11:40 AM EDT Office Visit [facility] [place] [address], [address] [place] [address] Marla Hilton APRN [address] [place] [address] 05/16/2025 1:10 PM EDT Office Visit [facility] [address] [place] [id number] Trent Moon MD [address] [place] [address] Scheduled Referrals Name Type Priority Associated Diagnoses Order Schedule Discharge Ambulatory referral to NON [facility] Outpatient Referral Routine Closed bilateral fracture of pubic rami, initial encounter ([facility]) 1 Occurrences starting 02/07/2025 until 08/11/2026 Ambulatory referral to External PCP Outpatient Referral Routine Closed bilateral fracture of pubic rami, initial encounter ([facility]) Closed fracture of sacrum, unspecified portion of sacrum, initial encounter ([facility]) 1 Occurrences starting 02/07/2025 until 08/11/2026 Ambulatory [facility] Physical Activity & Nutrition Outpatient Referral Routine Closed bilateral fracture of pubic rami, initial encounter ([facility] [facility] Closed fracture of sacrum, unspecified portion of sacrum, initial encounter ([facility] 1 Occurrences starting 02/07/2025 until 02/07/2026 Discharge Ambulatory referral to Physical Therapy Outpatient Referral Routine Closed bilateral fracture of pubic rami, initial encounter ([facility] Closed fracture of sacrum, unspecified portion of sacrum, initial encounter ([facility] 1 Occurrences starting 02/07/2025 until 08/11/2026 documented as of this encounter Procedures Procedure Name Priority Date/Time Associated Diagnosis Comments POCT GLUCOSE METER UNSOLICITED RESULTS Routine 02/07/2025 11:58 AM EDT POCT GLUCOSE METER UNSOLICITED RESULTS Routine 02/07/2025 8:02 AM EDT CBC WITH AUTO DIFFERENTIAL Routine 02/07/2025 2:46 AM EDT BASIC METABOLIC PANEL, PLASMA Routine 02/07/2025 2:46 AM EDT POCT GLUCOSE METER UNSOLICITED RESULTS Routine 02/06/2025 7:55 PM EDT POCT GLUCOSE METER UNSOLICITED RESULTS Routine 02/06/2025 5:16 PM EDT POCT GLUCOSE METER UNSOLICITED RESULTS Routine 02/06/2025 11:57 AM EDT XR ELBOW LEFT 3+ VIEWS Routine 10:56 AM EDT XR SHOULDER RIGHT 2+ VIEWS Routine 02/06/2025 10:56 AM EDT XR CERVICAL SPINE 2 OR 3 VIEWS Routine 02/06/2025 10:56 AM EDT POCT GLUCOSE METER UNSOLICITED RESULTS Routine 02/06/2025 7:34 AM EDT CBC W/O DIFFERENTIAL Routine 02/06/2025 3:39 AM EDT COMPREHENSIVE METABOLIC PANEL, PLASMA Routine 02/06/2025 3:39 AM EDT POCT GLUCOSE METER UNSOLICITED RESULTS Routine 02/05/2025 7:48 PM EDT POCT GLUCOSE METER UNSOLICITED RESULTS Routine 02/05/2025 3:55 PM EDT POCT GLUCOSE METER UNSOLICITED RESULTS Routine 02/05/2025 12:[address] BONY PELVIS STAT 02/05/2025 4:59 AM EDT XR HIPS BILATERAL W OR WO PELVIS 3-4 VIEWS STAT 02/05/2025 4:27 AM EDT XR KNEE RIGHT 3 VIEWS STAT 02/05/2025 4:27 AM EDT XR KNEE LEFT 3 VIEWS STAT 02/05/2025 4:27 AM EDT XR FEMUR RIGHT 2+ VIEWS STAT 02/06/20 4:27 AM EDT XR FEMUR LEFT 2+ VIEWS STAT 4:27 AM EDT ED HIV 1/2 ANTIBODY/ANTIGEN SCREEN WITH REFLEX TO HIV I/II DIFFERENTIATION STAT 02/05/2025 3:21 AM EDT ED PROTOCOL HIV 1/2 ANTIBODY/ANTIGEN SCREEN W/REFLEX TO HIV 1/2 ANTIBODY DIFFERENTIATION STAT 02/05/2025 3:21 AM EDT HEPATITIS C ANTIBODY - ED W/REFLEX TO HCV QUANT PCR STAT 02/05/2025 3:21 AM EDT PROTHROMBIN TIME(PT) / INR STAT 02/05/2025 3:21 AM EDT ANTI XA LEVEL UNFRACTIONATED HEPARIN STAT 02/05/2025 3:21 AM EDT CBC W/O DIFFERENTIAL STAT 02/05/2025 3:21 AM EDT PHOSPHORUS, PLASMA STAT 02/05/2025 3: 21 AM EDT MAGNESIUM, PLASMA STAT 02/05/2025 3:2 1 AM EDT COMPREHENSIVE METABOLIC PANEL, PLASMA STAT 02/05/2025 3:21 AM EDT ECG ADULT STAT 02/05/2025 3:04 AM EDT documented in this encounter Results * (ABNORMAL) POCT glucose meter (02/07/2025 11:58 AM EDT) POCT Glucose 125(H) 74 - 99 mg/dL 02/07/2025 12:00 PM EDT [facility] Comment:Accuracy of a glucos e result obtained from a capillary whole blood specimen relies upon adequate, non-compromised capillary blood flow. If the capillary glucose result is not consistent with the patient's clinical signs and symptoms, glucose testing should be repeated with either an arterial or venous sample on the glucometer or sent to the main labortory for testing. Comment 02/07/2025 12:00 PM EDT [facility] Digital Sales Director ID Juanjo Lozano 02/07/2025 12:00 PM EDT [facility] Device ID [id number] 02/07/2025 12:00 PM EDT [facility] Specimen Type POC Capillary 02/07/2025 12:00 PM EDT [facility] Blood Capillary blood specimen / Unknown 02/07/2025 11:58 AM EDT 02/07/2025 12:00 PM EDT us Rg Lua MD LAB POINT OF CARE TE ST DOCKED DEVICE UNSOLICITED RESULTS Final Result [facility] [address] [place] [address] * (ABNORMAL) POCT glucose meter (02/07/2025 8:02 AM EDT) [facility] POCT Glucose 138(H) 74 - 99 mg/dL 02/07/2025 8:04 AM EDT [facility] Comment:Accuracy of a glucos e result obtained from a capillary whole blood specimen relies upon adequate, non-compromised capillary blood flow. If the capillary glucose result is not consistent with the patient's clinical signs and symptoms, glucose testing should be repeated with either an arterial or venous sample on the glucometer or sent to the main labortory for testing. Comment 02/07/2025 8:04 AM EDT [facility] Digital Sales Director ID [email or web address] 02/07/2025 8:04 AM EDT [facility] Device ID [id number] 02/07/2025 8:04 AM EDT [facility] Specimen Type POC Capillary 02/07/2025 8:04 AM EDT [facility] Blood Capillary blood specimen / Unknown 02/07/2025 8:02 AM EDT 02/07/2025 8:04 AM EDT us Rg Lua MD LAB POINT OF CARE TE ST DOCKED DEVICE UNSOLICITED RESULTS Final Result Performing Organization Address City/State/[place] Co de Phone Number [facility] [address] [place] [address] * (ABNORMAL) CBC and differential (02/07/2025 2:46 AM EDT) [facility] WBC Count 8.12 3.70 - 10.30 10*3/uL LAB HEMATOLOGY METHOD 02/07/2025 3:31 AM EDT [facility] RBC Count 3.10(L) 3.90 - 5.20 10*6/uL LAB HEMATOLOGY METHOD 02/07/2025 3:31 AM EDT [facility] HGB 10.0(L) 11.2 - 15.7 g/dL LAB HEMATOLOGY METHOD 02/07/2025 3:31 AM EDT [facility] HCT 31.5(L) 34.0 - 45.0 % LAB HEMATOLOGY METHOD 02/07/2025 3:31 AM EDT [facility] Platelet Count 180 155 - 369 10*3/uL LAB HEMATOLOGY METHOD 02/07/2025 3:31 AM EDT [facility] MCV 102(H) 79 - 98 fL LAB HEMATOLOGY METHOD 02/07/2025 3:31 AM EDT [facility] MCH 32.3(H) 26.0 - 32.0 pg LAB HEMATOLOGY METHOD 02/07/2025 3:31 AM EDT [facility] MCHC 31.7 30.7 - 35.5 g/dL LAB HEMATOLOGY METHOD 02/07/2025 3:31 AM EDT [facility] RDW 13.3 11.5 - 14.5 % LAB HEMATOLOGY METHOD 02/07/2025 3:31 AM EDT [facility] MPV 9.9 8.8 - 12.5 fL LAB HEMATOLOGY METHOD 02/07/2025 3:31 AM EDT [facility] nRBC 0.0 <=0.0 per 100 WBCs LAB HEMATOLOGY METHOD 02/07/2025 3:31 AM EDT [facility] Differential Type Automated LAB HEMATOLOGY METHOD 02/07/2025 3:31 AM EDT [facility] Neutrophils % 77 % LAB HEMATOLOGY METHOD 02/07/2025 3:31 AM EDT [facility] Lymphocytes % 13 % LAB HEMATOLOGY METHOD 02/07/2025 3:31 AM EDT [facility] Monocytes % 7 % LAB HEMATOLOGY METHOD 02/07/2025 3:31 AM EDT [facility] Eosinophils % 1 % LAB HEMATOLOGY METHOD 02/07/2025 3:31 AM EDT [facility] Basophils % 1 % LAB HEMATOLOGY METHOD 02/07/2025 3:31 AM EDT [facility] Immature Granulocytes % 1 % LAB HEMATOLOGY METHOD 02/07/2025 3:31 AM EDT [facility] Neutrophils Absolute 6.31(H) 1.60 - 6.10 10*3/uL LAB HEMATOLOGY METHOD 02/07/2025 3:31 AM EDT [facility] Lymphocytes Absolute 1.02(L) 1.20 - 3.90 10*3/uL LAB HEMATOLOGY METHOD 02/07/2025 3:31 AM EDT [facility] Monocytes Absolute 0.59 0.30 - 0.90 10*3/uL LAB HEMATOLOGY METHOD 02/07/2025 3:31 AM EDT [facility] Eosinophils Absolute 0.06 0.00 - 0.50 10*3/uL LAB HEMATOLOGY METHOD 02/07/2025 3:31 AM EDT [facility] Basophils Absolute 0.06 0.00 - 0.10 10*3/uL LAB HEMATOLOGY METHOD 02/07/2025 3:31 AM EDT [facility] Immature Granulocytes Absolute 0.08(H) 0.00 - 0.06 10*3/uL LAB HEMATOLOGY METHOD 02/07/2025 3:31 AM EDT [facility] Blood Venous blood specimen / Unknown Venipuncture / Unknown 02/07/2025 2:46 AM EDT 02/07/2025 3:21 AM EDT Narrative [facility] - 02/07/2025 3:31 AM EDT Therapeutic decision making should be based on absolute values, rather than percentages. us Rg Lua MD LAB BLOOD ORDERABLES Final Re sult [facility] [address] [place] [id number] * (ABNORMAL) Basic metabolic panel (02/07/2025 2:46 AM EDT) Glucose, Plasma 145(H) 74 - 99 mg/dL 02/07/2025 3:48 AM EDT [facility] BUN, Plasma 22 8 - 23 mg/dL 02/07/2025 3:48 AM EDT [facility] Creatinine, Plasma 1.48(H) 0.60 - 1.10 mg/dL 02/07/2025 3:48 AM EDT [facility] BUN/Creatinine Ratio 15 02/07/2025 3:48 AM EDT [facility] Sodium, Plasma 139 136 - 145 mmol/L 02/07/2025 3:48 AM EDT [facility] Potassium, Plasma 3.4(L) 3.6 - 4.9 mmol/L 02/07/2025 3:48 AM EDT [facility] Chloride, Plasma 105 97 - 107 mmol/L 02/07/2025 3:48 AM EDT [facility] CO2, Plasma 25 22 - 29 mmol/L 02/07/2025 3:48 AM EDT [facility] Anion Gap 9 6 - 16 mmol/L 02/07/2025 3:48 AM EDT [facility] Total Calcium, Plasma 8.6(L) 8.9 - 10.2 mg/dL 02/07/2025 3:48 AM EDT [facility] eGFRcr 35.7 mL/min/1.7 3m*2 02/07/2025 3:48 AM EDT [facility] Comment:Reported eGFRcr in m L/min/1.73m2 is based the CKD-EPI 2020 equation that does not use a race coefficient. Blood Venous blood specimen / Unknown Venipuncture / Unknown 02/07/2025 2:46 AM EDT 02/07/2025 3:24 AM EDT us Rg Lua MD LAB BLOOD ORDERABLES Final Re sult Performing Organization Address [facility]/[place] Co de Phone Number [facility] [address] [place] [address] * (ABNORMAL) POCT glucose meter (02/06/2025 7:55 PM EDT) [facility] POCT Glucose 191(H) 74 - 99 mg/dL 02/06/2025 7:56 PM EDT [facility] Comment:Accuracy of a glucos e result obtained from a capillary whole blood specimen relies upon adequate, non-compromised capillary blood flow. If the capillary glucose result is not consistent with the patient's clinical signs and symptoms, glucose testing should be repeated with either an arterial or venous sample on the glucometer or sent to the main labortory for testing. Comment 02/06/2025 7:56 PM EDT [facility] Digital Sales Director ID [email or web address] 02/06/2025 7:56 PM EDT [facility] Device ID [id number] 02/06/2025 7:56 PM EDT [facility] Specimen Type POC Capillary 02/06/2025 7:56 PM EDT [facility] Blood Capillary blood specimen / Unknown 02/06/2025 7:55 PM EDT 02/06/2025 7:56 PM EDT us Rg Lua MD LAB POINT OF CARE TE ST DOCKED DEVICE UNSOLICITED RESULTS Final Result Performing Organization Address City/[facility]/ZIP Co de Phone Number [facility] [address] [place] [address] * (ABNORMAL) POCT glucose meter (02/06/2025 5:16 PM EDT) [facility] POCT Glucose 193(H) 74 - 99 mg/dL 02/06/2025 5:17 PM EDT [facility] Comment:Accuracy of a glucos e result obtained from a capillary whole blood specimen relies upon adequate, non-compromised capillary blood flow. If the capillary glucose result is not consistent with the patient's clinical signs and symptoms, glucose testing should be repeated with either an arterial or venous sample on the glucometer or sent to the main labortory for testing. Comment 02/06/2025 5:17 PM EDT [facility] Digital Sales Director ID Christine Torrez 5:17 PM EDT [facility] Device ID [id number] 02/06/2025 5:17 PM EDT [facility] Specimen Type POC Capillary 02/06/2025 5:17 PM EDT [facility] Blood Capillary blood specimen / Unknown 02/06/2025 5:16 PM EDT 02/06/2025 5:17 PM EDT Rg Lua MD LAB POINT OF CARE TE ST DOCKED DEVICE UNSOLICITED RESULTS Final Result Performing Organization Address City/State/[place] Co de Phone Number [facility] [address] [place] [address] * (ABNORMAL) POCT glucose meter (02/06/2025 11:57 AM EDT) [facility] POCT Glucose 141(H) 74 - 99 mg/dL 02/06/2025 11:59 AM EDT [facility] Comment:Accuracy of a glucos e result obtained from a capillary whole blood specimen relies upon adequate, non-compromised capillary blood flow. If the capillary glucose result is not consistent with the patient's clinical signs and symptoms, glucose testing should be repeated with either an arterial or venous sample on the glucometer or sent to the main labortory for testing. Comment 02/06/2025 11:59 AM EDT [facility] Digital Sales Director ID Christine Torrez 11:59 AM EDT [facility] Device ID [id number] 02/06/2025 11:59 AM EDT [facility] Specimen Type POC Capillary 02/06/2025 11:59 AM EDT [facility] Blood Capillary blood specimen / Unknown 02/06/2025 11:57 AM EDT 02/06/2025 11:59 AM EDT us Rg Lua MD LAB POINT OF CARE TE ST DOCKED DEVICE UNSOLICITED RESULTS Final Result [facility] [address] [place] [address] * XR Elbow Left 3+ Views (02/06/2025 10:56 AM EDT) Anatomical Region Laterality Modality Upper Extremities, Elbow Left Digital Radiography Impressions 02/06/2025 11:03 AM EDT 1. Unchanged moderate degenerative disc findings at C3-C4. Crowned dens associated with calcium pyrophosphate crystal deposition at C1-C2 is better appreciated on prior CT. 2. Chronic right rotator cuff tear. 3. Small olecranon enthesophyte. Otherwise normal evaluation of the left elbow. CRITICAL RESULT: No. COMMUNICATION: Per this written report. Drafted by Asad Hansen MD on 02/06/2025 10:57 AM Final report signed by Asad Hansen MD on 02/06/2025 11:03 AM Narrative 02/06/2025 11:03 AM EDT CLINICAL INDICATION: pain on exam TECHNIQUE: XR CERVICAL SPINE 2 OR 3 VIEWS, XR SHOULDER RIGHT 2+ VIEWS, XR ELBOW LEFT 3+ VIEWS COMPARISON: Right shoulder radiograph dated December 23, [address] of the cervical spine dated December 22, 2022 FINDINGS: 2 views of the cervical spine show disc space narrowing and disc calcification at C3-C4. Hypertrophic degenerative changes in the facets from C4-C5 through C6-C7. No fracture or bone destruction. Prevertebral soft tissues are normal. Surgical clips in the left paratracheal neck soft tissues. Atherosclerotic calcification in the bilateral carotid artery. Prominence of interstitial markings in the bilateral upper lung. 3 views of the right shoulder show findings of chronic rotator cuff tear with superior subluxation of the humeral head such that it abuts the undersurface of the acromion with remodeling of the undersurface of the acromion. 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 Surgical clips in the right axilla. 3 views of the left elbow show normal joint space and alignment. No fracture or effusion. Soft tissues are normal. Small olecranon enthesophyte. Procedure Note Asad Hansen MD - 02/06/2025 CLINICAL INDICATION: pain on exam TECHNIQUE: XR CERVICAL SPINE 2 OR 3 VIEWS, XR SHOULDER RIGHT 2+ VIEWS, XR ELBOW LEFT3+ VIEWS COMPARISON: Right shoulder radiograph dated December 23, [address] of the cervical spinedated December 22, 2022 FINDINGS: 2 views of the cervical spine show disc space narrowing and disccalcification at C3-C4. Hypertrophic degenerative changes in the facetsfrom C4-C5 through C6-C7. No fracture or bone destruction. Prevertebralsoft tissues are normal. Surgical clips in the left paratracheal neck softtissues. Atherosclerotic calcification in the bilateral carotid artery.Prominence of interstitial markings in the bilateral upper lung. 3 views of the right shoulder show findings of chronic rotator cuff tearwith superior subluxation of the humeral head such that it abuts theundersurface of the acromion with remodeling of the undersurface of theacromion. Osteoarthritis of the acromioclavicular joint and superiorglenohumeral joint. Surgical clips in the right axilla. 3 views of the left elbow show normal joint space and alignment. Nofracture or effusion. Soft tissues are normal. Small olecranonenthesophyte. IMPRESSION: 1.Unchanged moderate degenerative disc findings at C3-C4. Crowned densassociated with calcium pyrophosphate crystal deposition at C1-C2 isbetter appreciated on prior CT. 2.Chronic right rotator cuff tear. 3.Small olecranon enthesophyte. Otherwise normal evaluation of the leftelbow. CRITICAL RESULT: No. COMMUNICATION: Per this written report. Drafted by Asad Hansen MD on 02/06/2025 10:57 AM Final report signed by Asad Hansen MD on 02/06/2025 11:03 AM Rg Lua MD IMG XR PROCEDURES Final Resul t * XR Cervical Spine 2 or 3 Views (02/06/2025 10:56 AM EDT) Anatomical Region Laterality Modality Spine, C-spine Digital Radiogra phy Impressions 02/06/2025 11:03 AM EDT 1. Unchanged moderate degenerative disc findings at C3-C4. Crowned dens associated with calcium pyrophosphate crystal deposition at C1-C2 is better appreciated on prior CT. 2. Chronic right rotator cuff tear. 3. Small olecranon enthesophyte. Otherwise normal evaluation of the left elbow. CRITICAL RESULT: No. COMMUNICATION: Per this written report. Drafted by Asad Hansen MD on 02/06/2025 10:57 AM Final report signed by Asad Hansen MD on 02/06/2025 11:03 AM Narrative 02/06/2025 11:03 AM EDT CLINICAL INDICATION: pain on exam TECHNIQUE: XR CERVICAL SPINE 2 OR 3 VIEWS, XR SHOULDER RIGHT 2+ VIEWS, XR ELBOW LEFT 3+ VIEWS COMPARISON: Right shoulder radiograph dated December 23, [address] of the cervical spine dated December 22, 2022 FINDINGS: 2 views of the cervical spine show disc space narrowing and disc calcification at C3-C4. Hypertrophic degenerative changes in the facets from C4-C5 through C6-C7. No fracture or bone destruction. Prevertebral soft tissues are normal. Surgical clips in the left paratracheal neck soft tissues. Atherosclerotic calcification in the bilateral carotid artery. Prominence of interstitial markings in the bilateral upper lung. 3 views of the right shoulder show findings of chronic rotator cuff tear with superior subluxation of the humeral head such that it abuts the undersurface of the acromion with remodeling of the undersurface of the acromion. 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 Surgical clips in the right axilla. 3 views of the left elbow show normal joint space and alignment. No fracture or effusion. Soft tissues are normal. Small olecranon enthesophyte. Procedure Note Asad Hansen MD - 02/06/2025 CLINICAL INDICATION: pain on exam TECHNIQUE: XR CERVICAL SPINE 2 OR 3 VIEWS, XR SHOULDER RIGHT 2+ VIEWS, XR ELBOW LEFT3+ VIEWS COMPARISON: Right shoulder radiograph dated December 23, [address] of the cervical spinedated December 22, 2022 FINDINGS: 2 views of the cervical spine show disc space narrowing and disccalcification at C3-C4. Hypertrophic degenerative changes in the facetsfrom C4-C5 through C6-C7. No fracture or bone destruction. Prevertebralsoft tissues are normal. Surgical clips in the left paratracheal neck softtissues. Atherosclerotic calcification in the bilateral carotid artery.Prominence of interstitial markings in the bilateral upper lung. 3 views of the right shoulder show findings of chronic rotator cuff tearwith superior subluxation of the humeral head such that it abuts theundersurface of the acromion with remodeling of the undersurface of theacromion. Osteoarthritis of the acromioclavicular joint and superiorglenohumeral joint. Surgical clips in the right axilla. 3 views of the left elbow show normal joint space and alignment. Nofracture or effusion. Soft tissues are normal. Small olecranonenthesophyte. IMPRESSION: 1.Unchanged moderate degenerative disc findings at C3-C4. Crowned densassociated with calcium pyrophosphate crystal deposition at C1-C2 isbetter appreciated on prior CT. 2.Chronic right rotator cuff tear. 3.Small olecranon enthesophyte. Otherwise normal evaluation of the leftelbow. CRITICAL RESULT: No. COMMUNICATION: Per this written report. Drafted by Asad Hansen MD on 02/06/2025 10:57 AM Final report signed by Asad Hansen MD on 02/06/2025 11:03 AM Rg Lua MD IMG XR PROCEDURES Final Resul t * XR Shoulder Right 2+ Views (02/06/2025 10:56 AM EDT) Anatomical Region Laterality Modality Upper Extremities, Shoulder Right Digi jerrica Radiography Impressions 02/06/2025 11:03 AM EDT 1. Unchanged moderate degenerative disc findings at C3-C4. Crowned dens associated with calcium pyrophosphate crystal deposition at C1-C2 is better appreciated on prior CT. 2. Chronic right rotator cuff tear. 3. Small olecranon enthesophyte. Otherwise normal evaluation of the left elbow. CRITICAL RESULT: No. COMMUNICATION: Per this written report. Drafted by Asad Hansen MD on 02/06/2025 10:57 AM Final report signed by Asad Hansen MD on 02/06/2025 11:03 AM Narrative 02/06/2025 11:03 AM EDT CLINICAL INDICATION: pain on exam TECHNIQUE: XR CERVICAL SPINE 2 OR 3 VIEWS, XR SHOULDER RIGHT 2+ VIEWS, XR ELBOW LEFT 3+ VIEWS COMPARISON: Right shoulder radiograph dated December 23, [address] of the cervical spine dated December 22, 2022 FINDINGS: 2 views of the cervical spine show disc space narrowing and disc calcification at C3-C4. Hypertrophic degenerative changes in the facets from C4-C5 through C6-C7. No fracture or bone destruction. Prevertebral soft tissues are normal. Surgical clips in the left paratracheal neck soft tissues. Atherosclerotic calcification in the bilateral carotid artery. Prominence of interstitial markings in the bilateral upper lung. 3 views of the right shoulder show findings of chronic rotator cuff tear with superior subluxation of the humeral head such that it abuts the undersurface of the acromion with remodeling of the undersurface of the acromion. 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 Surgical clips in the right axilla. 3 views of the left elbow show normal joint space and alignment. No fracture or effusion. Soft tissues are normal. Small olecranon enthesophyte. Procedure Note Asad Hansen MD - 02/06/2025 CLINICAL INDICATION: pain on exam TECHNIQUE: XR CERVICAL SPINE 2 OR 3 VIEWS, XR SHOULDER RIGHT 2+ VIEWS, XR ELBOW LEFT3+ VIEWS COMPARISON: Right shoulder radiograph dated December 23, [address] of the cervical spinedated December 22, 2022 FINDINGS: 2 views of the cervical spine show disc space narrowing and disccalcification at C3-C4. Hypertrophic degenerative changes in the facetsfrom C4-C5 through C6-C7. No fracture or bone destruction. Prevertebralsoft tissues are normal. Surgical clips in the left paratracheal neck softtissues. Atherosclerotic calcification in the bilateral carotid artery.Prominence of interstitial markings in the bilateral upper lung. 3 views of the right shoulder show findings of chronic rotator cuff tearwith superior subluxation of the humeral head such that it abuts theundersurface of the acromion with remodeling of the undersurface of theacromion. Osteoarthritis of the acromioclavicular joint and superiorglenohumeral joint. Surgical clips in the right axilla. 3 views of the left elbow show normal joint space and alignment. Nofracture or effusion. Soft tissues are normal. Small olecranonenthesophyte. IMPRESSION: 1.Unchanged moderate degenerative disc findings at C3-C4. Crowned densassociated with calcium pyrophosphate crystal deposition at C1-C2 isbetter appreciated on prior CT. 2.Chronic right rotator cuff tear. 3.Small olecranon enthesophyte. Otherwise normal evaluation of the leftelbow. CRITICAL RESULT: No. COMMUNICATION: Per this written report. Drafted by Asad Hansen MD on 02/06/2025 10:57 AM Final report signed by Asad Hansen MD on 02/06/2025 11:03 AM us Rg Lua MD IMG XR PROCEDURES Final Resul t * (ABNORMAL) POCT glucose meter (02/06/2025 7:34 AM EDT) POCT Glucose 140(H) 74 - 99 mg/dL 02/06/2025 7:36 AM EDT [facility] Comment:Accuracy of a glucos e result obtained from a capillary whole blood specimen relies upon adequate, non-compromised capillary blood flow. If the capillary glucose result is not consistent with the patient's clinical signs and symptoms, glucose testing should be repeated with either an arterial or venous sample on the glucometer or sent to the main labortory for testing. Comment 02/06/2025 7:36 AM EDT [facility] Digital Sales Director ID Christine Torrez 7:36 AM EDT [facility] Device ID [id number] 02/06/2025 7:36 AM EDT [facility] Specimen Type POC Capillary 02/06/2025 7:36 AM EDT [facility] Blood Capillary blood specimen / Unknown 02/06/2025 7:34 AM EDT 02/06/2025 7:36 AM EDT us Vinicio Lowe MD LAB POINT OF CARE TE ST DOCKED DEVICE UNSOLICITED RESULTS Final Result [facility] [address] [place] [address] * (ABNORMAL) Comprehensive Metabolic Panel, Plasma (02/06/2025 3:39 AM EDT) [facility] Glucose, Plasma 195(H) 74 - 99 mg/dL 02/06/2025 5:05 AM EDT [facility] BUN, Plasma 20 8 - 23 mg/dL 02/06[facility]25 [facility] Creatinine, Plasma 1.58(H) 0.60 - 1.10 mg/dL 02/06/2025 5:05 AM EDT [facility] BUN/Creatinine Ratio 13 02/06[facility]2025 [facility] Sodium, Plasma 135(L) 136 - 145 mmol/L 02/06/2025 5:[facility] Potassium, Plasma 3.8 3.6 - 4.9 mmol/L 02/06/2025 5:05 AM [facility] Chloride, Plasma 102 97 - 107 mmol/L 02/06/2025 5:05 AM [facility] CO2, Plasma 24 22 - 29 mmol/L 02/06/2025 5:05 [facility] Anion Gap 9 6 - 16 mmol/L 02/06/2025 5:05 AM [facility] Total Calcium, Plasma 8.7(L) 8.9 - 10.2 mg/dL 02/06/2025 5:05 AM [facility] Total Protein 5.6(L) 6.3 - 7.9 g/dL 02/06/2025 5:05 AM [facility] Albumin, Plasma 3.0(L) 3.5 - 5.2 g/dL 02/06/2025 5:05 [facility] AST, Plasma 14 10 - 35 U/L 02/06/2025 5:05 AM [facility] ALT, Plasma <5(L) 10 - 35 U/L 02/06/2025 5:05 AM [facility] Alkaline Phosphatase, Plasma 115 46 - 142 U/L 02/06/2025 5:05 AM [facility] Total Bilirubin, Plasma 0.4 0.2 - 1.1 mg/dL 02/06/2025 5:05 AM EDT [facility] eGFRcr 33.0 mL/min/1.7 3m*2 02/06/2025 5:05 AM EDT [facility] Comment:Reported eGFRcr in m L/min/1.73m2 is based the CKD-EPI 2020 equation that does not use a race coefficient. Blood Venous blood specimen / Unknown Venipuncture / Unknown 02/06/2025 3:39 AM EDT 02/06/2025 4:29 AM EDT Yesi Meeks MD LAB BLOOD ORDERABLES Final Re sult [facility] [address] [place] [address] * (ABNORMAL) CBC W/O Differential (02/06/2025 3:39 AM EDT) WBC Count 8.32 3.70 - 10.30 10*3/uL LAB HEMATOLOGY METHOD 02/06/2025 4:33 AM EDT [facility] RBC Count 3.07(L) 3.90 - 5.20 10*6/uL LAB HEMATOLOGY METHOD 02/06/2025 4:33 AM EDT [facility] HGB 10.0(L) 11.2 - 15.7 g/dL LAB HEMATOLOGY METHOD 02/06/2025 4:33 AM EDT [facility] HCT 31.7(L) 34.0 - 45.0 % LAB HEMATOLOGY METHOD 02/06/2025 4:33 AM EDT [facility] Platelet Count 181 155 - 369 10*3/uL LAB HEMATOLOGY METHOD 02/06/2025 4:33 AM EDT [facility] MCV 103(H) 79 - 98 fL LAB HEMATOLOGY METHOD 02/06/2025 4:33 AM EDT [facility] MCH 32.6(H) 26.0 - 32.0 pg LAB HEMATOLOGY METHOD 02/06/2025 4:33 AM EDT [facility] MCHC 31.5 30.7 - 35.5 g/dL LAB HEMATOLOGY METHOD 02/06/2025 4:33 AM EDT [facility] RDW 13.7 11.5 - 14.5 % LAB HEMATOLOGY METHOD 02/06/2025 4:33 AM EDT [facility] MPV 10.2 8.8 - 12.5 fL LAB HEMATOLOGY METHOD 02/06/2025 4:33 AM EDT [facility] nRBC 0.0 <=0.0 per 100 WBCs LAB HEMATOLOGY METHOD 02/06/2025 4:33 AM EDT [facility] Blood Venous blood specimen / Unknown Venipuncture / Unknown 02/06/2025 3:39 AM EDT 02/06/2025 4:30 AM EDT us Yesi Meeks MD LAB BLOOD ORDERABLES Final Re sult Performing Organization Address City/[facility]/ZIP Co de Phone Number [facility] [address] [place] [address] * (ABNORMAL) POCT glucose meter (02/05/2025 7:48 PM EDT) POCT Glucose 173(H) 74 - 99 mg/dL 02/05/2025 7:50 PM EDT [facility] Comment:Accuracy of a glucos e result obtained from a capillary whole blood specimen relies upon adequate, non-compromised capillary blood flow. If the capillary glucose result is not consistent with the patient's clinical signs and symptoms, glucose testing should be repeated with either an arterial or venous sample on the glucometer or sent to the main labortory for testing. Comment 02/05/2025 7:50 PM EDT [facility] Digital Sales Director ID Luiz Parr 025 7:50 PM EDT [facility] Device ID [id number] 02/05/2025 7:50 PM EDT [facility] Specimen Type POC Capillary 02/05/2025 7:50 PM EDT [facility] Blood Capillary blood specimen / Unknown 02/05/2025 7:48 PM EDT 02/05/2025 7:50 PM EDT us Vinicio Lowe MD LAB POINT OF CARE TE ST DOCKED DEVICE UNSOLICITED RESULTS Final Result Performing Organization Address City/[facility]/ZIP Co de Phone Number [facility] [address] [place] [address] * (ABNORMAL) POCT glucose meter (02/05/2025 3:55 PM EDT) POCT Glucose 186(H) 74 - 99 mg/dL 02/05/2025 3:57 PM EDT [facility] Comment:Accuracy of a glucos e result obtained from a capillary whole blood specimen relies upon adequate, non-compromised capillary blood flow. If the capillary glucose result is not consistent with the patient's clinical signs and symptoms, glucose testing should be repeated with either an arterial or venous sample on the glucometer or sent to the main labortory for testing. Comment 02/05/2025 3:57 PM EDT [facility] Digital Sales Director ID Christine Torrez 3:57 PM EDT [facility] Device ID [id number] 02/05/2025 3:57 PM EDT [facility] Specimen Type POC Capillary 02/05/2025 3:57 PM EDT [facility] Blood Capillary blood specimen / Unknown 02/05/2025 3:55 PM EDT 02/05/2025 3:57 PM EDT Vinicio Lowe MD LAB POINT OF CARE TE ST DOCKED DEVICE UNSOLICITED RESULTS Final Result Performing Organization Address City/State/[place] Co de Phone Number [facility] [address] [place] [address] * (ABNORMAL) POCT glucose meter (02/05/2025 12:49 PM EDT) [facility] POCT Glucose 136(H) 74 - 99 mg/dL 02/05/2025 12:51 PM EDT [facility] Comment:Accuracy of a glucos e result obtained from a capillary whole blood specimen relies upon adequate, non-compromised capillary blood flow. If the capillary glucose result is not consistent with the patient's clinical signs and symptoms, glucose testing should be repeated with either an arterial or venous sample on the glucometer or sent to the main labortory for testing. Comment 02/05/2025 12:51 PM EDT [facility] Digital Sales Director ID Ashlyn Cardona 025 12:51 PM EDT [facility] Device ID [id number] 02/05/2025 12:51 PM EDT [facility] Specimen Type POC Capillary 02/05/2025 12:51 PM EDT [facility] Blood Capillary blood specimen / Unknown 02/05/2025 12:49 PM EDT 02/05/2025 12:51 PM EDT us Vinicio Lowe MD LAB POINT OF CARE TE ST DOCKED DEVICE UNSOLICITED RESULTS Final Result [facility] [address] [place] [address] * CT Bony Pelvis (02/05/2025 4:59 AM EDT) Anatomical Region Laterality Modality Pelvis Computed Tomogra phy Impressions 02/05/2025 6:11 AM EDT Bilateral inferior pubic rami fractures. Left superior pubic ramus fracture and possible right superior pubic ramus fracture. Fluid collection directly posterior to the pubic symphysis likely represents hematoma. Attending comment: Also sacral fracture at the S4 level. CRITICAL RESULT: No. COMMUNICATION: Per this written report. By electronically signing this report, I, the attending physician, attest that I have personally reviewed the images/data for the above examination(s) and agree with the final edited report. Drafted by Donato Rodriguez MD on 02/05/2025 5:26 AM Final report signed by Khanh Fishman MD on 02/05/2025 6:11 AM Narrative 02/05/2025 6:11 AM EDT CLINICAL INDICATION: Pelvic fracture TECHNIQUE: Multiple axial CT images were obtained through level of pelvis per CT Bony Pelvis protocol. The axial CT data set was used to generate high resolution reformatted images in the coronal and sagittal planes to facilitate diagnostic accuracy and treatment planning. Total DLP (Dose-Length Product): 499.14 mGy.cm. Please note: The reported value represents the total of one or more individual components during the CT acquisition on this date and at this time, and as such, the same value may appear in more than one CT report depending on the interpreting/reporting physicians. COMPARISON: None. FINDINGS: Bilateral mildly displaced inferior pubic ramus fractures. Left superior pubic ramus fracture. Possible right superior pubic ramus fracture. 31 mm fluid collection posterior to the left side of the pubic symphysis. No femoral fracture. Contrast material within the bladder. Calcified aortic atherosclerosis. Procedure Note Khanh Fishman MD - 02/05/2025 CLINICAL INDICATION: Pelvic fracture TECHNIQUE: Multiple axial CT images were obtained through level of pelvis per CT BonyPelvis protocol. The axial CT data set was used to generate highresolution reformatted images in the coronal and sagittal planes tofacilitate diagnostic accuracy and treatment planning. Total DLP (Dose-Length Product): 499.14 mGy.cm. Please note: The reportedvalue represents the total of one or more individual components during theCT acquisition on this date and at this time, and as such, the same valuemay appear in more than one CT report depending on theinterpreting/reporting physicians. COMPARISON: None. FINDINGS: Bilateral mildly displaced inferior pubic ramus fractures. Left superiorpubic ramus fracture. Possible right superior pubic ramus fracture. 31 mmfluid collection posterior to the left side of the pubic symphysis. Nofemoral fracture. Contrast material within the bladder. Calcified aorticatherosclerosis. IMPRESSION: Bilateral inferior pubic rami fractures. Left superior pubic ramus fracture and possible right superior pubic ramusfracture. Fluid collection directly posterior to the pubic symphysis likelyrepresents hematoma. Attending comment: Also sacral fracture at the S4 level. CRITICAL RESULT: No. COMMUNICATION: Per this written report. By electronically signing this report, I, the attending physician, attestthat I have personally reviewed the images/data for the aboveexamination(s) and agree with the final edited report. Drafted by Donato Rodriguez MD on 02/05/2025 5:26 AM Final report signed by Khanh Fishman MD on 02/05/2025 6:11 AM us Herb Moreira MD IMG CT PROCEDURES Final Resul t * XR Hips Bilateral W or WO Pelvis 3-4 Views (02/05/2025 4:27 AM EDT) Anatomical Region Laterality Modality Hip, Pelvis Bilateral Digital Radiogra phy Impressions 02/05/2025 4:48 AM EDT Mildly displaced bilateral superior and inferior pubic rami fractures. No acute fracture or dislocation of the right femur or knee. No acute fracture or dislocation of the left femur or knee. CRITICAL RESULT: No. COMMUNICATION: Per this written report. Preliminary report signed by Ivy Tay MD on 02/05/2025 4:32 AM By electronically signing this report, I, the attending physician, attest that I have personally reviewed the images/data for the above examination(s) and agree with the final edited report. Drafted by Ivy Tay MD on 02/05/2025 4:28 AM Final report signed by Khanh Fishman MD on 02/05/2025 4:48 AM Narrative 02/05/2025 4:48 AM EDT CLINICAL INDICATION: pubic fracture TECHNIQUE: XR HIPS BILATERAL W OR WO PELVIS 3-4 VIEWS, XR KNEE RIGHT 3 VIEWS, XR KNEE LEFT 3 VIEWS, XR FEMUR RIGHT 2+ VIEWS, XR FEMUR LEFT 2+ VIEWS COMPARISON: Outside CT pelvis, 7 hours prior. FINDINGS: Bilateral hips: Mildly displaced bilateral superior and inferior pubic rami fractures. The femoral heads are seated within the acetabula bilaterally. No widening of the pubic symphysis. The sacroiliac joints are well aligned. Right femur: No acute fracture or dislocation. Vascular calcifications. Right knee: No acute fracture or dislocation. Moderate to severe tricompartmental osteoarthritis. Chondrocalcinosis within the medial lateral joint space. Trace suprapatellar fluid. Superior patellar enthesopathy. Left femur: No acute fracture or dislocation. Vascular calcifications. Left knee: No acute fracture or dislocation. Moderate tricompartmental osteoarthritis. No significant joint effusion. Patellar enthesopathy. Vascular calcifications. Procedure Note Khanh Fishman MD - 02/05/2025 CLINICAL INDICATION: pubic fracture TECHNIQUE: XR HIPS BILATERAL W OR WO PELVIS 3-4 VIEWS, XR KNEE RIGHT 3 VIEWS, XR KNEELEFT 3 VIEWS, XR FEMUR RIGHT 2+ VIEWS, XR FEMUR LEFT 2+ VIEWS COMPARISON: Outside CT pelvis, 7 hours prior. FINDINGS: Bilateral hips: Mildly displaced bilateral superior and inferior pubicrami fractures. The femoral heads are seated within the acetabulabilaterally. No widening of the pubic symphysis. The sacroiliac joints arewell aligned. Right femur: No acute fracture or dislocation. Vascular calcifications. Right knee: No acute fracture or dislocation. Moderate to severetricompartmental osteoarthritis. Chondrocalcinosis within the mediallateral joint space. Trace suprapatellar fluid. Superior patellarenthesopathy. Left femur: No acute fracture or dislocation. Vascular calcifications. Left knee: No acute fracture or dislocation. Moderate tricompartmentalosteoarthritis. No significant joint effusion. Patellar enthesopathy.Vascular calcifications. IMPRESSION: Mildly displaced bilateral superior and inferior pubic rami fractures. No acute fracture or dislocation of the right femur or knee. No acute fracture or dislocation of the left femur or knee. CRITICAL RESULT: No. COMMUNICATION: Per this written report. Preliminary report signed by Ivy Tay MD on 02/05/2025 4:32 AM By electronically signing this report, I, the attending physician, attestthat I have personally reviewed the images/data for the aboveexamination(s) and agree with the final edited report. Drafted by Ivy Tay MD on 02/05/2025 4:28 AM Final report signed by Khanh Fishman MD on 02/05/2025 4:48 AM us Herb Moreira MD IMG XR PROCEDURES Final Resul t * XR Knee Right 3 + Views (02/05/2025 4:27 AM EDT) Anatomical Region Laterality Modality Lower Extremities, Knee Right Digital Radiography Impressions 02/05/2025 4:48 AM EDT Mildly displaced bilateral superior and inferior pubic rami fractures. No acute fracture or dislocation of the right femur or knee. No acute fracture or dislocation of the left femur or knee. CRITICAL RESULT: No. COMMUNICATION: Per this written report. Preliminary report signed by Ivy Tay MD on 02/05/2025 4:32 AM By electronically signing this report, I, the attending physician, attest that I have personally reviewed the images/data for the above examination(s) and agree with the final edited report. Drafted by Ivy Tay MD on 02/05/2025 4:28 AM Final report signed by Khanh Fishman MD on 02/05/2025 4:48 AM Narrative 02/05/2025 4:48 AM EDT CLINICAL INDICATION: pubic fracture TECHNIQUE: XR HIPS BILATERAL W OR WO PELVIS 3-4 VIEWS, XR KNEE RIGHT 3 VIEWS, XR KNEE LEFT 3 VIEWS, XR FEMUR RIGHT 2+ VIEWS, XR FEMUR LEFT 2+ VIEWS COMPARISON: Outside CT pelvis, 7 hours prior. FINDINGS: Bilateral hips: Mildly displaced bilateral superior and inferior pubic rami fractures. The femoral heads are seated within the acetabula bilaterally. No widening of the pubic symphysis. The sacroiliac joints are well aligned. Right femur: No acute fracture or dislocation. Vascular calcifications. Right knee: No acute fracture or dislocation. Moderate to severe tricompartmental osteoarthritis. Chondrocalcinosis within the medial lateral joint space. Trace suprapatellar fluid. Superior patellar enthesopathy. Left femur: No acute fracture or dislocation. Vascular calcifications. Left knee: No acute fracture or dislocation. Moderate tricompartmental osteoarthritis. No significant joint effusion. Patellar enthesopathy. Vascular calcifications. Procedure Note Khanh Fishman MD - 02/05/2025 CLINICAL INDICATION: pubic fracture TECHNIQUE: XR HIPS BILATERAL W OR WO PELVIS 3-4 VIEWS, XR KNEE RIGHT 3 VIEWS, XR KNEELEFT 3 VIEWS, XR FEMUR RIGHT 2+ VIEWS, XR FEMUR LEFT 2+ VIEWS COMPARISON: Outside CT pelvis, 7 hours prior. FINDINGS: Bilateral hips: Mildly displaced bilateral superior and inferior pubicrami fractures. The femoral heads are seated within the acetabulabilaterally. No widening of the pubic symphysis. The sacroiliac joints arewell aligned. Right femur: No acute fracture or dislocation. Vascular calcifications. Right knee: No acute fracture or dislocation. Moderate to severetricompartmental osteoarthritis. Chondrocalcinosis within the mediallateral joint space. Trace suprapatellar fluid. Superior patellarenthesopathy. Left femur: No acute fracture or dislocation. Vascular calcifications. Left knee: No acute fracture or dislocation. Moderate tricompartmentalosteoarthritis. No significant joint effusion. Patellar enthesopathy.Vascular calcifications. IMPRESSION: Mildly displaced bilateral superior and inferior pubic rami fractures. No acute fracture or dislocation of the right femur or knee. No acute fracture or dislocation of the left femur or knee. CRITICAL RESULT: No. COMMUNICATION: Per this written report. Preliminary report signed by Ivy Tay MD on 02/05/2025 4:32 AM By electronically signing this report, I, the attending physician, attestthat I have personally reviewed the images/data for the aboveexamination(s) and agree with the final edited report. Drafted by Ivy Tay MD on 02/05/2025 4:28 AM Final report signed by Khanh Fishman MD on 02/05/2025 4:48 AM us Herb Moreira MD IMG XR PROCEDURES Final Resul t * XR Knee Left 3 Views (02/05/2025 4:27 AM EDT) Anatomical Region Laterality Modality Lower Extremities, Knee Left Digital Radiography Impressions 02/05/2025 4:48 AM EDT Mildly displaced bilateral superior and inferior pubic rami fractures. No acute fracture or dislocation of the right femur or knee. No acute fracture or dislocation of the left femur or knee. CRITICAL RESULT: No. COMMUNICATION: Per this written report. Preliminary report signed by Ivy Tay MD on 02/05/2025 4:32 AM By electronically signing this report, I, the attending physician, attest that I have personally reviewed the images/data for the above examination(s) and agree with the final edited report. Drafted by Ivy Tay MD on 02/05/2025 4:28 AM Final report signed by Khanh Fishman MD on 02/05/2025 4:48 AM Narrative 02/05/2025 4:48 AM EDT CLINICAL INDICATION: pubic fracture TECHNIQUE: XR HIPS BILATERAL W OR WO PELVIS 3-4 VIEWS, XR KNEE RIGHT 3 VIEWS, XR KNEE LEFT 3 VIEWS, XR FEMUR RIGHT 2+ VIEWS, XR FEMUR LEFT 2+ VIEWS COMPARISON: Outside CT pelvis, 7 hours prior. FINDINGS: Bilateral hips: Mildly displaced bilateral superior and inferior pubic rami fractures. The femoral heads are seated within the acetabula bilaterally. No widening of the pubic symphysis. The sacroiliac joints are well aligned. Right femur: No acute fracture or dislocation. Vascular calcifications. Right knee: No acute fracture or dislocation. Moderate to severe tricompartmental osteoarthritis. Chondrocalcinosis within the medial lateral joint space. Trace suprapatellar fluid. Superior patellar enthesopathy. Left femur: No acute fracture or dislocation. Vascular calcifications. Left knee: No acute fracture or dislocation. Moderate tricompartmental osteoarthritis. No significant joint effusion. Patellar enthesopathy. Vascular calcifications. Procedure Note Khanh Fishman MD - 02/05/2025 CLINICAL INDICATION: pubic fracture TECHNIQUE: XR HIPS BILATERAL W OR WO PELVIS 3-4 VIEWS, XR KNEE RIGHT 3 VIEWS, XR KNEELEFT 3 VIEWS, XR FEMUR RIGHT 2+ VIEWS, XR FEMUR LEFT 2+ VIEWS COMPARISON: Outside CT pelvis, 7 hours prior. FINDINGS: Bilateral hips: Mildly displaced bilateral superior and inferior pubicrami fractures. The femoral heads are seated within the acetabulabilaterally. No widening of the pubic symphysis. The sacroiliac joints arewell aligned. Right femur: No acute fracture or dislocation. Vascular calcifications. Right knee: No acute fracture or dislocation. Moderate to severetricompartmental osteoarthritis. Chondrocalcinosis within the mediallateral joint space. Trace suprapatellar fluid. Superior patellarenthesopathy. Left femur: No acute fracture or dislocation. Vascular calcifications. Left knee: No acute fracture or dislocation. Moderate tricompartmentalosteoarthritis. No significant joint effusion. Patellar enthesopathy.Vascular calcifications. IMPRESSION: Mildly displaced bilateral superior and inferior pubic rami fractures. No acute fracture or dislocation of the right femur or knee. No acute fracture or dislocation of the left femur or knee. CRITICAL RESULT: No. COMMUNICATION: Per this written report. Preliminary report signed by Ivy Tay MD on 02/05/2025 4:32 AM By electronically signing this report, I, the attending physician, attestthat I have personally reviewed the images/data for the aboveexamination(s) and agree with the final edited report. Drafted by Ivy Tay MD on 02/05/2025 4:28 AM Final report signed by Khanh Fishman MD on 02/05/2025 4:48 AM us Herb Moreira MD IMG XR PROCEDURES Final Resul t * XR Femur Right 2+ Views (02/05/2025 4:27 AM EDT) Anatomical Region Laterality Modality Lower Extremities, Femur Right Digital Radiography Impressions 02/05/2025 4:48 AM EDT Mildly displaced bilateral superior and inferior pubic rami fractures. No acute fracture or dislocation of the right femur or knee. No acute fracture or dislocation of the left femur or knee. CRITICAL RESULT: No. COMMUNICATION: Per this written report. Preliminary report signed by Ivy Tay MD on 02/05/2025 4:32 AM By electronically signing this report, I, the attending physician, attest that I have personally reviewed the images/data for the above examination(s) and agree with the final edited report. Drafted by Ivy Tay MD on 02/05/2025 4:28 AM Final report signed by Khanh Fishman MD on 02/05/2025 4:48 AM Narrative 02/05/2025 4:48 AM EDT CLINICAL INDICATION: pubic fracture TECHNIQUE: XR HIPS BILATERAL W OR WO PELVIS 3-4 VIEWS, XR KNEE RIGHT 3 VIEWS, XR KNEE LEFT 3 VIEWS, XR FEMUR RIGHT 2+ VIEWS, XR FEMUR LEFT 2+ VIEWS COMPARISON: Outside CT pelvis, 7 hours prior. FINDINGS: Bilateral hips: Mildly displaced bilateral superior and inferior pubic rami fractures. The femoral heads are seated within the acetabula bilaterally. No widening of the pubic symphysis. The sacroiliac joints are well aligned. Right femur: No acute fracture or dislocation. Vascular calcifications. Right knee: No acute fracture or dislocation. Moderate to severe tricompartmental osteoarthritis. Chondrocalcinosis within the medial lateral joint space. Trace suprapatellar fluid. Superior patellar enthesopathy. Left femur: No acute fracture or dislocation. Vascular calcifications. Left knee: No acute fracture or dislocation. Moderate tricompartmental osteoarthritis. No significant joint effusion. Patellar enthesopathy. Vascular calcifications. Procedure Note Khanh Fishman MD - 02/05/2025 CLINICAL INDICATION: pubic fracture TECHNIQUE: XR HIPS BILATERAL W OR WO PELVIS 3-4 VIEWS, XR KNEE RIGHT 3 VIEWS, XR KNEELEFT 3 VIEWS, XR FEMUR RIGHT 2+ VIEWS, XR FEMUR LEFT 2+ VIEWS COMPARISON: Outside CT pelvis, 7 hours prior. FINDINGS: Bilateral hips: Mildly displaced bilateral superior and inferior pubicrami fractures. The femoral heads are seated within the acetabulabilaterally. No widening of the pubic symphysis. The sacroiliac joints arewell aligned. Right femur: No acute fracture or dislocation. Vascular calcifications. Right knee: No acute fracture or dislocation. Moderate to severetricompartmental osteoarthritis. Chondrocalcinosis within the mediallateral joint space. Trace suprapatellar fluid. Superior patellarenthesopathy. Left femur: No acute fracture or dislocation. Vascular calcifications. Left knee: No acute fracture or dislocation. Moderate tricompartmentalosteoarthritis. No significant joint effusion. Patellar enthesopathy.Vascular calcifications. IMPRESSION: Mildly displaced bilateral superior and inferior pubic rami fractures. No acute fracture or dislocation of the right femur or knee. No acute fracture or dislocation of the left femur or knee. CRITICAL RESULT: No. COMMUNICATION: Per this written report. Preliminary report signed by Ivy Tay MD on 02/05/2025 4:32 AM By electronically signing this report, I, the attending physician, attestthat I have personally reviewed the images/data for the aboveexamination(s) and agree with the final edited report. Drafted by Ivy Tay MD on 02/05/2025 4:28 AM Final report signed by Khanh Fishman MD on 02/05/2025 4:48 AM us Herb Moreira MD IMG XR PROCEDURES Final Resul t * XR Femur Left 2+ Views (02/05/2025 4:27 AM EDT) Anatomical Region Laterality Modality Lower Extremities, Femur Left Digital Radiography Impressions 02/05/2025 4:48 AM EDT Mildly displaced bilateral superior and inferior pubic rami fractures. No acute fracture or dislocation of the right femur or knee. No acute fracture or dislocation of the left femur or knee. CRITICAL RESULT: No. COMMUNICATION: Per this written report. Preliminary report signed by Ivy Tay MD on 02/05/2025 4:32 AM By electronically signing this report, I, the attending physician, attest that I have personally reviewed the images/data for the above examination(s) and agree with the final edited report. Drafted by Ivy Tay MD on 02/05/2025 4:28 AM Final report signed by Khanh Fishman MD on 02/05/2025 4:48 AM Narrative 02/05/2025 4:48 AM EDT CLINICAL INDICATION: pubic fracture TECHNIQUE: XR HIPS BILATERAL W OR WO PELVIS 3-4 VIEWS, XR KNEE RIGHT 3 VIEWS, XR KNEE LEFT 3 VIEWS, XR FEMUR RIGHT 2+ VIEWS, XR FEMUR LEFT 2+ VIEWS COMPARISON: Outside CT pelvis, 7 hours prior. FINDINGS: Bilateral hips: Mildly displaced bilateral superior and inferior pubic rami fractures. The femoral heads are seated within the acetabula bilaterally. No widening of the pubic symphysis. The sacroiliac joints are well aligned. Right femur: No acute fracture or dislocation. Vascular calcifications. Right knee: No acute fracture or dislocation. Moderate to severe tricompartmental osteoarthritis. Chondrocalcinosis within the medial lateral joint space. Trace suprapatellar fluid. Superior patellar enthesopathy. Left femur: No acute fracture or dislocation. Vascular calcifications. Left knee: No acute fracture or dislocation. Moderate tricompartmental osteoarthritis. No significant joint effusion. Patellar enthesopathy. Vascular calcifications. Procedure Note Khanh Fishman MD - 02/05/2025 CLINICAL INDICATION: pubic fracture TECHNIQUE: XR HIPS BILATERAL W OR WO PELVIS 3-4 VIEWS, XR KNEE RIGHT 3 VIEWS, XR KNEELEFT 3 VIEWS, XR FEMUR RIGHT 2+ VIEWS, XR FEMUR LEFT 2+ VIEWS COMPARISON: Outside CT pelvis, 7 hours prior. FINDINGS: Bilateral hips: Mildly displaced bilateral superior and inferior pubicrami fractures. The femoral heads are seated within the acetabulabilaterally. No widening of the pubic symphysis. The sacroiliac joints arewell aligned. Right femur: No acute fracture or dislocation. Vascular calcifications. Right knee: No acute fracture or dislocation. Moderate to severetricompartmental osteoarthritis. Chondrocalcinosis within the mediallateral joint space. Trace suprapatellar fluid. Superior patellarenthesopathy. Left femur: No acute fracture or dislocation. Vascular calcifications. Left knee: No acute fracture or dislocation. Moderate tricompartmentalosteoarthritis. No significant joint effusion. Patellar enthesopathy.Vascular calcifications. IMPRESSION: Mildly displaced bilateral superior and inferior pubic rami fractures. No acute fracture or dislocation of the right femur or knee. No acute fracture or dislocation of the left femur or knee. CRITICAL RESULT: No. COMMUNICATION: Per this written report. Preliminary report signed by Ivy Tay MD on 02/05/2025 4:32 AM By electronically signing this report, I, the attending physician, attestthat I have personally reviewed the images/data for the aboveexamination(s) and agree with the final edited report. Drafted by Ivy Tay MD on 02/05/2025 4:28 AM Final report signed by Khanh Fishman MD on 02/05/2025 4:48 AM us Herb Moreira MD IMG XR PROCEDURES Final Resul t * ED HIV 1/2 Antibody/Antigen Screen w/Reflex to HIV 1/2 Differentiation (02/05/2025 3:21 AM EDT) [facility] HIV 1 & 2 Antibody/Antigen Screen Non Reactive Non Reactive 02/05/2025 4:23 AM EDT [facility] Comment:Screening for HIV 1 & 2 antibodies, and P24 antigen is NONREACTIVE. No confirmatory testing is required. Blood Venous blood specimen / Unknown Venipuncture / Unknown 02/05/2025 3:21 AM EDT 02/05/2025 3:33 AM EDT us Herb Moreira MD LAB BLOOD ORDERABLES Final Re sult Performing Organization Address [facility] Co de Phone Number [facility] [address] [place] [address] * Hepatitis C Antibody - ED (02/05/2025 3:21 AM EDT) Pathologist [facility] Hepatitis C Antibody Negative Negative 02/05/2025 4:23 AM EDT [facility] Blood Venous blood specimen / Unknown Venipuncture / Unknown 02/05/2025 3:21 AM EDT 02/05/2025 3:32 AM EDT us Herb Moreira MD LAB BLOOD ORDERABLES Final Re sult Performing Organization Address City/[facility]/ZIP Co de Phone Number [facility] [address] [place] [address] * (ABNORMAL) Phosphorus (02/05/2025 3:21 AM EDT) Phosphorus, Plasma 2.2(L) 2.5 - 4.5 mg/dL 02/05/2025 4:03 AM EDT [facility] Blood Venous blood specimen / Unknown Venipuncture / Unknown 02/05/2025 3:21 AM EDT 02/05/2025 3:32 AM EDT us Herb Moreira MD LAB BLOOD ORDERABLES Final Re sult [facility] [address] [place] [address] * Magnesium (02/05/2025 3:21 AM EDT) Magnesium, Plasma 2.0 1.9 - 2.4 mg/dL 02/05/2025 4:[address] [facility] Blood Venous blood specimen / Unknown Venipuncture / Unknown 02/05/2025 3:21 AM EDT 02/05/2025 3:32 AM EDT us Herb Moreira MD LAB BLOOD ORDERABLES Final Re sult [facility] [address] [place] [address] * Anti Xa Level Unfractionated Heparin (02/05/2025 3:21 AM EDT) Anti Xa Level Unfractionated Heparin <0.11 <1.00 IU/mL 02/05/2025 3:48 AM EDT [facility] Blood Venous blood specimen / Unknown Venipuncture / Unknown 02/05/2025 3:21 AM EDT 02/05/2025 3:27 AM EDT Narrative [facility] - 02/05/2025 3:48 AM EDT Therapeutic Range: UFH Full Dose and ACS/TN protocols*: 0.30 - 0.70 IU/mL UFH Low Dose protocol*: 0.25 - 0.50 IU/mL UFH prophylaxis: Not established Herb Moreira MD LAB BLOOD ORDERABLES Final Re sult [facility] [address] [place] [address] * (ABNORMAL) PT-INR (02/05/2025 3:21 AM EDT) Prothrombin Time 14.5(H) 12.0 - 14.3 sec 02/05/2025 3:39 AM EDT [facility] INR 1.1 0.9 - 1.1 02/05/2025 3:39 AM EDT [facility] Blood Venous blood specimen / Unknown Venipuncture / Unknown 02/05/2025 3:21 AM EDT 02/05/2025 3:27 AM EDT Narrative [facility] - 02/05/2025 3:39 AM EDT OPTIMAL INR RANGES FOR PATIENT ON ORAL ANTICOAGULANT THERAPY Prevention of venous thromboembolism INR 2.0 to 3.0 In patients with heart disease: Atrial fibrillation INR 2.0 to 3.0 Valvular heart disease INR 2.0 to 3.0 Tissue heart valves INR 2.0 to 3.0 Mechanical prosthetic valves INR 2.5 to 3.5 Prevention of recurrent TN INR 2.5 to 3.5 Herb Moreira MD LAB BLOOD ORDERABLES Final Re sult Performing Organization Address City/[facility]/ZIP Co de Phone Number [facility] [address] [place] [address] * (ABNORMAL) CMP (02/05/2025 3:21 AM EDT) Glucose, Plasma 132(H) 74 - 99 mg/dL 02/05/2025 4:03 AM EDT [facility] BUN, Plasma 10 8 - 23 mg/dL 02/05/2025 4:03 AM EDT [facility] Creatinine, Plasma 1.10 0.60 - 1.10 mg/dL 02/05/2025 4:03 AM EDT [facility] BUN/Creatinine Ratio 9 02/05/2025 4:03 AM EDT [facility] Sodium, Plasma 143 136 - 145 mmol/L 02/05/2025 4:03 AM EDT [facility] Potassium, Plasma 3.3(L) 3.6 - 4.9 mmol/L 02/05/2025 4:03 AM EDT [facility] Chloride, Plasma 104 97 - 107 mmol/L 02/05/2025 4:03 AM EDT [facility] CO2, Plasma 27 22 - 29 mmol/L 02/05/2025 4:03 AM EDT [facility] Anion Gap 12 6 - 16 mmol/L 02/05/2025 4:03 AM EDT [facility] Total Calcium, Plasma 8.8(L) 8.9 - 10.2 mg/dL 02/05/2025 4:03 AM EDT [facility] Total Protein 6.2(L) 6.3 - 7.9 g/dL 02/05/2025 4:03 AM EDT [facility] Albumin, Plasma 3.3(L) 3.5 - 5.2 g/dL 02/05/2025 4:03 AM EDT [facility] AST, Plasma 14 10 - 35 U/L 02/05/2025 4:03 AM EDT [facility] ALT, Plasma 11 10 - 35 U/L 02/05/2025 4:03 AM EDT [facility] Alkaline Phosphatase, Plasma 117 46 - 142 U/L 02/05/2025 4:03 AM EDT [facility] Total Bilirubin, Plasma 0.7 0.2 - 1.1 mg/dL 02/05/2025 4:03 AM EDT [facility] eGFRcr 50.9 mL/min/1.7 3m*2 02/05/2025 4:03 AM EDT [facility] Comment:Reported eGFRcr in m L/min/1.73m2 is based the CKD-EPI 2020 equation that does not use a race coefficient. Blood Venous blood specimen / Unknown Venipuncture / Unknown 02/05/2025 3:21 AM EDT 02/05/2025 3:32 AM EDT us Herb Moreira MD LAB BLOOD ORDERABLES Final Re sult [facility] [address] [place] [address] * (ABNORMAL) CBC (02/05/2025 3:21 AM EDT) WBC Count 6.44 3.70 - 10.30 10*3/uL LAB HEMATOLOGY METHOD 02/05/2025 3:29 AM EDT [facility] RBC Count 3.27(L) 3.90 - 5.20 10*6/uL LAB HEMATOLOGY METHOD 02/05/2025 3:29 AM EDT [facility] HGB 10.6(L) 11.2 - 15.7 g/dL LAB HEMATOLOGY METHOD 02/05/2025 3:29 AM EDT [facility] HCT 32.5(L) 34.0 - 45.0 % LAB HEMATOLOGY METHOD 02/05/2025 3:29 AM EDT [facility] Platelet Count 197 155 - 369 10*3/uL LAB HEMATOLOGY METHOD 02/05/2025 3:29 AM EDT [facility] MCV 99(H) 79 - 98 fL LAB HEMATOLOGY METHOD 02/05/2025 3:29 AM EDT [facility] MCH 32.4(H) 26.0 - 32.0 pg LAB HEMATOLOGY METHOD 02/05/2025 3:29 AM EDT [facility] MCHC 32.6 30.7 - 35.5 g/dL LAB HEMATOLOGY METHOD 02/05/2025 3:29 AM EDT [facility] RDW 13.5 11.5 - 14.5 % LAB HEMATOLOGY METHOD 02/05/2025 3:29 AM EDT [facility] MPV 8.9 8.8 - 12.5 fL LAB HEMATOLOGY METHOD 02/05/2025 3:29 AM EDT [facility] nRBC 0.0 <=0.0 per 100 WBCs LAB HEMATOLOGY METHOD 02/05/2025 3:29 AM EDT [facility] Blood Venous blood specimen / Unknown Venipuncture / Unknown 02/05/2025 3:21 AM EDT 02/05/2025 3:27 AM EDT Herb Moreira MD LAB BLOOD ORDERABLES Final Re sult [facility] [address] [place] [address] * EKG now - STAT (adult) (02/05/2025 3:04 AM EDT) EKG DIAGNOSIS CLASS Abnormal MUSE ECG Ventricular Rate 77 BPM MUSE ECG Atrial Rate 77 BPM MUSE ECG NC Interval 164 ms MUSE ECG QRSD Interval 84 ms MUSE ECG QT Interval 436 ms MUSE ECG QTC Interval 493 ms MUSE ECG P Goldsmith 58 degrees MUSE ECG R Goldsmith -15 degrees MUSE ECG T Wave Goldsmith 7 degrees MUSE ECG Diagnosis Sinus rhythm with occasional premature ventricular complexes MUSE ECG Diagnosis Septal infarct , age undetermined MUSE ECG Diagnosis QTcB >= 480 msec MUSE ECG Diagnosis Abnormal ECG MUSE ECG Diagnosis MUSE ECG Diagnosis Confirmed by Fredo Daniels ([id number]) on 02/05/2025 10:42:52 AM MUSE ECG 02/05/2025 3:04 AM EDT 02/05/2025 10:42 AM EDT Herb Moreira MD ECG ORDERABLES Final Result Performing Organization Address City/[facility]/ZIP Co de Phone Number MUSE ECG documented in this encounter Visit Diagnoses Diagnosis History of pelvic fracture- Primary Closed bilateral fracture of pubic rami, initial encounter ([facility]) Closed fracture of sacrum, unspecified portion of sacrum, initial encounter ([facility]) Atrial fibrillation ([facility]) Atrial fibrillation CAD (coronary artery disease) Coronary atherosclerosis of unspecified type of vessel, [place] or graft Hypertension Unspecified essential hypertension Closed bilateral fracture of pubic rami ([facility]) Stage 3 chronic kidney disease ([facility]) Type 2 diabetes mellitus with diabetic neuropathy, with long-term current use of insulin ([facility]) Hypothyroidism Unspecified hypothyroidism Neuropathy Mononeuritis of unspecified site documented in this encounter Admitting Diagnoses Diagnosis History of pelvic fracture Closed bilateral fracture of pubic rami ([facility]) documented in this encounter Administered Medications Inactive Administered Medications - up to 3 most recent administrations Medication Order MAR Action Action Date Dose Rate Site acetaminophen (Tylenol) tablet 1,000 mg 1,000 mg, Oral, User specified (3 times per day), First dose on Wed02/05/25 at 1400, Until Discontinued, Routine Given 02/07/2025 1:50 PM EDT 1,000 mg Given 02/07/2025 9:00 AM EDT 1,000 mg Given 02/06/2025 8:04 PM EDT 1,000 mg acetaminophen (Tylenol) tablet 650 mg 650 mg, Oral, Once, 1 dose, On Wed02/05/25 at 1015, STAT Given 02/05/2025 10:24 AM EDT 650 mg amiodarone (Pacerone) tablet 100 mg 100 mg, Oral, Daily, First dose on Wed02/05/25 at 1225, Until Discontinued Given 02/07/2025 9:13 AM EDT 100 mg Given 02/06/2025 8:46 AM EDT 100 mg Given 02/05/2025 1:19 PM EDT 100 mg apixaban (Eliquis) tablet 2.5 mg 2.5 mg, Oral, 2 times daily, First dose on Wed02/06/25 at 2100, Until Discontinued, Routine Given 02/07/2025 9:13 AM EDT 2.5 mg Given 02/06/2025 8:04 PM EDT 2.5 mg atorvastatin (Lipitor) tablet 40 mg 40 mg, Oral, Daily, First dose on Wed02/05/25 at 1225, Until Discontinued, Routine Given 02/07/2025 9:13 AM EDT 40 mg Given 02/06/2025 8:47 AM EDT 40 mg Given 02/05/2025 1:20 PM EDT 40 mg budesonide EC (Entocort EC) 24 hr capsule 3 mg 3 mg, Oral, Daily, First dose (after last modification) on Wed02/07/25 at 0900, Until Discontinued, Routine Given 02/07/2025 9:13 AM EDT 3 mg budesonide EC (Entocort EC) 24 hr capsule 6 mg 6 mg, Oral, Daily, First dose on Wed02/05/25 at 1225, Until Discontinued, Routine Given 02/06/2025 8:46 AM EDT 6 mg Given 02/05/2025 1:24 PM EDT 6 mg cetirizine (ZyrTEC) tablet 10 mg 10 mg, Oral, Daily, First dose on Wed02/05/25 at 1225, Until Discontinued, Routine Given 02/07/2025 9:13 AM EDT 10 mg Given 02/06/2025 8:48 AM EDT 10 mg Given 02/05/2025 1:22 PM EDT 10 mg dextrose 10 % (D10W) bolus 125 mL 125 mL, Intravenous, Every 15 min PRN, Starting on Wed02/05/25 at 1215, Until Wed02/07/25 at 1714, Administer over 15 Minutes, Routine, low blood sugar BG 51-89 mg/dL dextrose 10 % (D10W) bolus 250 mL 250 mL, Intravenous, Every 15 min PRN, Starting on Wed02/05/25 at 1215, Until Wed02/07/25 at 1714, Administer over 15 Minutes, Routine, PRN low blood sugar BG =/<50 mg/dL diphenoxylate-atropine (Lomotil) 2.5-0.025 MG per tablet 1 tablet 1 tablet, Oral, 4 times daily PRN, Starting on Wed02/05/25 at 1218, Until Wed02/07/25 at 1714, Routine, diarrhea enoxaparin (Lovenox) syringe 30 mg 30 mg, Subcutaneous, 2 times daily, First dose on Wed02/05/25 at 1225, Until Discontinued, Routine Given 02/06/2025 8:46 AM EDT 30 mg Left Lower Abdomen Given 02/05/2025 8:36 PM EDT 30 mg Ri ght Upper Arm (Back) Given 02/05/2025 1:17 PM EDT 30 mg Ri ght Lower Abdomen ergocalciferol (Vitamin D-2) capsule 50,000 Units 50,000 Units, Oral, Weekly, First dose on Wed02/05/25 at 1225, Until Discontinued, Routine Given 02/05/2025 1:23 PM EDT 50,000 Units escitalopram (Lexapro) tablet 10 mg 10 mg, Oral, Daily, First dose on Wed02/05/25 at 1225, Until Discontinued, Routine Given 02/07/2025 9:14 AM EDT 10 mg Given 02/06/2025 8:47 AM EDT 10 mg Given 02/05/2025 1:20 PM EDT 10 mg ferrous sulfate EC tablet 324 mg 324 mg, Oral, Daily with breakfast, First dose on Wed02/06/25 at 0800, Until Discontinued Given 02/07/2025 9:00 AM EDT 324 mg Given 02/06/2025 8:47 AM EDT 324 mg fluticasone (Flonase) nasal spray 2 spray 2 spray, Each Nostril, Daily, First dose on Wed02/05/25 at 1225, Until Discontinued, Routine Given 02/07/2025 9:16 AM EDT 2 sprays Given 02/06/2025 8:44 AM EDT 2 sprays Given 02/05/2025 1:17 PM EDT 2 sprays gabapentin (Neurontin) capsule 400 mg 400 mg, Oral, 2 times daily, First dose (after last modification) on Wed02/06/25 at 2100, Until Discontinued Given 02/07/2025 9:13 AM EDT 400 mg Given 02/06/2025 8:04 PM EDT 400 mg gabapentin (Neurontin) capsule 600 mg 600 mg, Oral, 2 times daily, First dose on Wed02/05/25 at 1225, Until Discontinued Given 02/06/2025 8:46 AM EDT 600 m g Given 02/05/2025 8:36 PM EDT 600 mg Given 02/05/2025 1:22 PM EDT 600 mg glucagon (human recombinant) injection 1 mg 1 mg, Intramuscular, Every 15 min PRN, Starting on Wed02/05/25 at 1215, Until Wed02/07/25 at 1714, Routine, low blood sugar per Hypoglycemia Prevention and Treatment protocol glucose (Glutose) 40 % oral gel 15-30 grams of glucose 15-30 grams of glucose, Sublingual, Every 15 min PRN, Starting on Wed02/05/25 at 1215, Until Wed02/07/25 at 1714, Routine, low blood sugar, per Hypoglycemia Prevention and Treatment protocol hydroCHLOROthiazide (HYDRODiuril) tablet 12.5 mg 12.5 mg, Oral, Daily, First dose on Wed02/05/25 at 1225, Until Discontinued Given 02/06/2025 8:47 AM EDT 12.5 mg Given 02/05/2025 1:22 PM EDT 12.5 mg insulin glargine-yfgn 100 UNIT/ML injection 10 Units 10 Units, Subcutaneous, Nightly, First dose on Wed02/05/25 at 2100, Until Discontinued, Routine Given 02/06/2025 8:04 PM EDT 10 Units Left Lower Abdomen Given 02/05/2025 8:36 PM EDT 10 Units Ri ght Lower Abdomen insulin glargine-yfgn 100 UNIT/ML injection 12 Units 12 Units, Subcutaneous, Nightly, First dose (after last modification) on Wed02/07/25 at 2100, Until Discontinued, Routine insulin lispro (Admelog) 100 units/mL injection - Correction - Standard Dose 0-5 Units, Subcutaneous, 3 times daily with meals, First dose on Wed02/05/25 at 1230, Until Discontinued, Routine Given 02/06/2025 5:19 PM EDT 1 Units Left Upper Arm (Back ) Insulin Lispro (Admelog, HumaLOG) 100 UNIT/ML injection 10 Units 10 Units, Subcutaneous, 3 times daily with meals, First dose (after last modification) on Wed02/07/25 at 0830, Until Discontinued, Routine Given 02/07/2025 1:30 PM EDT 10 Units Right Lower Abdomen Given 02/07/2025 9:16 AM EDT 10 Units Le ft Upper Abdomen Insulin Lispro (Admelog, HumaLOG) 100 UNIT/ML injection 5 Units 5 Units, Subcutaneous, 3 times daily with meals, First dose on Wed02/05/25 at 1230, Until Discontinued, Routine Given 02/06/2025 5:18 PM EDT 5 Units Left Upper Arm (Back ) Given 02/06/2025 1:41 PM EDT 5 Units Le ft Upper Arm (Back) Given 02/06/2025 8:54 AM EDT 5 Units Le ft Upper Arm (Back) levothyroxine (Synthroid, Levoxyl) tablet 100 mcg 100 mcg, Oral, Daily, First dose on Wed02/05/25 at 1225, Until Discontinued, Routine Given 02/07/2025 9:13 AM EDT 100 mcg Given 02/06/2025 8:47 AM EDT 100 mcg Given 02/05/2025 1:21 PM EDT 100 mcg loperamide (Imodium A-D) tablet 2 mg 2 mg, Oral, Daily, First dose on Wed02/05/25 at 1225, Until Discontinued Given 02/07/2025 9:13 AM EDT 2 mg Given 02/06/2025 8:47 AM EDT 2 mg Given 02/05/2025 1:19 PM EDT 2 mg magnesium oxide (Mag-Ox) tablet 400 mg 400 mg, Oral, Daily, First dose on Wed02/05/25 at 1225, Until Discontinued Given 02/07/2025 9:14 AM EDT 400 mg Given 02/06/2025 8:46 AM EDT 400 mg Given 02/05/2025 1:21 PM EDT 400 mg methocarbamol (Robaxin) tablet 1,500 mg 1,500 mg, Oral, Once, 1 dose, On Wed02/05/25 at 1015, STAT Given 02/05/2025 10:24 AM EDT 1,500 mg metoprolol succinate XL (Toprol-XL) 24 hr tablet 25 mg 25 mg, Oral, Daily, First dose on Wed02/05/25 at 1225, Until Discontinued, Routine Given 02/07/2025 9:13 AM EDT 25 mg Given 02/06/2025 8:47 AM EDT 25 mg Given 02/05/2025 1:23 PM EDT 25 mg morphine PF 4 mg 4 mg, Intravenous, Once, 1 dose, On Wed02/05/25 at 0520, STAT Given 02/05/2025 5:26 AM EDT 4 mg oxyCODONE (Roxicodone) immediate release tablet 10 mg 10 mg, Oral, Every 4 hours PRN, Starting on Wed02/07/25 at 0927, Until Wed02/07/25 at 1714, Routine, moderate pain Given 02/07/2025 2:02 PM EDT 10 mg oxyCODONE (Roxicodone) immediate release tablet 15 mg 15 mg, Oral, Every 4 hours PRN, Starting on Wed02/07/25 at 0927, Until Wed02/07/25 at 1714, Routine, severe pain oxyCODONE (Roxicodone) immediate release tablet 5 mg 5 mg, Oral, Once, 1 dose, On Wed02/05/25 at 1015, STAT Given 02/05/2025 10:24 AM EDT 5 mg oxyCODONE (Roxicodone) immediate release tablet 5 mg 5 mg, Oral, Every 4 hours PRN, Starting on Wed02/05/25 at 1225, Until Wed02/07/25 at 0928, Routine, moderate pain Given 02/07/2025 9:11 AM EDT 5 mg Given 02/07/2025 2:30 AM EDT 5 mg Given 02/06/2025 11:21 PM EDT 5 mg Oyster Shell Calcium tablet 1,000 mg 1,000 mg, Oral, Daily, First dose on Wed02/05/25 at 1225, Until Discontinued Given 02/07/2025 9:27 AM EDT 1,000 mg Given 02/06/2025 8:58 AM EDT 1,000 mg Given 02/05/2025 1:24 PM EDT 1,000 mg pantoprazole (Protonix) EC tablet 40 mg 40 mg, Oral, Daily, First dose on Wed02/05/25 at 1225, Until Discontinued Given 02/07/2025 9:14 AM EDT 40 mg Given 02/06/2025 8:47 AM EDT 40 mg Given 02/05/2025 1:20 PM EDT 40 mg psyllium (Metamucil) 60 % packet 1 packet 1 packet, Oral, Daily, First dose on Wed02/05/25 at 1225, Until Discontinued, Routine Given 02/07/2025 9:15 AM EDT 1 packet Given 02/06/2025 8:46 AM EDT 1 packet Given 02/05/2025 1:25 PM EDT 1 packet pyridoxine (Vitamin B-6) tablet 50 mg 50 mg, Oral, Daily, First dose on Wed02/05/25 at 1225, Until Discontinued Given 02/07/2025 9:13 AM EDT 50 mg Given 02/06/2025 9:42 AM EDT 50 mg Given 02/05/2025 1:21 PM EDT 50 mg rOPINIRole (Requip) tablet 0.5 mg 0.5 mg, Oral, Every evening, First dose on Wed02/05/25 at 1700, Until Discontinued, Routine Given 02/06/2025 5:17 PM EDT 0.5 mg Given 02/05/2025 5:14 PM EDT 0.5 mg sodium chloride 0.9 % flush 10 mL 10 mL, Intravenous, Every 12 hours, First dose on Wed02/05/25 at 1225, Until Discontinued, Routine Given 02/07/2025 1:51 PM EDT 10 mL Given 02/06/2025 11:26 PM EDT 10 mL Given 02/06/2025 1:48 PM EDT 10 mL sodium chloride 0.9 % flush 10 mL 10 mL, Intravenous, As needed, Starting on Wed02/05/25 at 1212, Until Wed02/07/25 at 1714, Routine, line care documented in this encounter Active and Recently Administered Medications Times are shown in EDT. Scheduled Medication Order 02/05/2025 02/06/2025 02/07/2025 acetaminophen (Tylenol) tablet 1,000 mg 1,000 mg, Oral, User specified (3 times per day), First dose on Wed02/05/25 at 1400, Until Discontinued, Routine 1321 (Given - Provider: Erna Cuevas RN)2035 (Given - Provider: Claudette Mallory) 0847 (Given - Provider: Benita Garcia, LEO)1341 (Given - Provider: Benita Garcia, LEO)2003 (Given - Provider: Stephanie Linn RN) 09 (Given - Provider: Micheline Stokes RN)1350 (Given - Provider: Micheline Stokes RN) acetaminophen (Tylenol) tablet 650 mg (COMPLETED) 650 mg, Oral, Once, 1 dose, On Wed02/05/25 at 1015, STAT 1024 (Given - Provider: Erna Cuevas RN) amiodarone (Pacerone) tablet 100 mg 100 mg, Oral, Daily, First dose on Wed02/05/25 at 1225, Until Discontinued 1319 (Given - Provider: Erna Cuevas RN) 0846 (Given - Provider: Benita Garcia, LEO) 0913 (Given - Provider: Micheline Stokes RN) apixaban (Eliquis) tablet 2.5 mg 2.5 mg, Oral, 2 times daily, First dose on Wed02/06/25 at 2100, Until Discontinued, Routine 2003 (Given - Provider: Stephanie Linn RN) 09 (Given - Provider: Micheline Stokes RN) atorvastatin (Lipitor) tablet 40 mg 40 mg, Oral, Daily, First dose on Wed02/05/25 at 1225, Until Discontinued, Routine 1320 (Given - Provider: Erna Cuevas RN) 0847 (Given - Provider: Benita Garcia RN) 0913 (Given - Provider: Micheline Stokes RN) budesonide EC (Entocort EC) 24 hr capsule 3 mg 3 mg, Oral, Daily, First dose (after last modification) on Wed02/07/25 at 0900, Until Discontinued, Routine 09 (Given - Provider: Micheline Stokes RN) budesonide EC (Entocort EC) 24 hr capsule 6 mg (CANCELED) 6 mg, Oral, Daily, First dose on Wed02/05/25 at 1225, Until Discontinued, Routine 1324 (Given - Provider: Erna Cuevas RN) 0846 (Given - Provider: Benita Garcia, LEO) cetirizine (ZyrTEC) tablet 10 mg 10 mg, Oral, Daily, First dose on Wed02/05/25 at 1225, Until Discontinued, Routine 1322 (Given - Provider: Erna Cuevas RN) 0848 (Given - Provider: Benita Garcia RN) 0913 (Given - Provider: Micheline Stokes RN) enoxaparin (Lovenox) syringe 30 mg (CANCELED) 30 mg, Subcutaneous, 2 times daily, First dose on Wed02/05/25 at 1225, Until Discontinued, Routine 1317 (Given - Provider: Erna Cuevas RN)203 (Given - Provider: Claudette Mallory) 0846 (Given - Provider: Benita Garcia RN) ergocalciferol (Vitamin D-2) capsule 50,000 Units 50,000 Units, Oral, Weekly, First dose on Wed02/05/25 at 1225, Until Discontinued, Routine 1323 (Given - Provider: Erna Cuevas RN) escitalopram (Lexapro) tablet 10 mg 10 mg, Oral, Daily, First dose on Wed02/05/25 at 1225, Until Discontinued, Routine 1320 (Given - Provider: Erna Cuevas RN) 0847 (Given - Provider: Benita Garcia RN) 0914 (Given - Provider: Micheline Stokes RN) ferrous sulfate EC tablet 324 mg 324 mg, Oral, Daily with breakfast, First dose on Wed02/06/25 at 0800, Until Discontinued 0847 (Given - Provider: Benita Garcia RN) 0900 (Given - Provider: Micheline Stokes RN) fluticasone (Flonase) nasal spray 2 spray 2 spray, Each Nostril, Daily, First dose on Wed02/05/25 at 1225, Until Discontinued, Routine 1317 (Given - Provider: Erna Cuevas RN) 0844 (Given - Provider: Benita Garcia, LEO) 0916 (Given - Provider: Micheline Stokes RN) gabapentin (Neurontin) capsule 400 mg 400 mg, Oral, 2 times daily, First dose (after last modification) on Wed02/06/25 at 2100, Until Discontinued 2003 (Given - Provider: Stephanie Linn, LEO) 0913 (Given - Provider: Micheline Stokes RN) gabapentin (Neurontin) capsule 600 mg (CANCELED) 600 mg, Oral, 2 times daily, First dose on Wed02/05/25 at 1225, Until Discontinued 132 (Given - Provider: Erna Cuevas RN)2035 (Given - Provider: Claudette Mallory) 0846 (Given - Provider: Benita Garcia RN) hydroCHLOROthiazide (HYDRODiuril) tablet 12.5 mg (CANCELED) 12.5 mg, Oral, Daily, First dose on Wed02/05/25 at 1225, Until Discontinued 132 (Given - Provider: Erna Cuevas RN) 0847 (Given - Provider: Benita Garcia, LEO) insulin glargine-yfgn 100 UNIT/ML injection 10 Units (CANCELED) 10 Units, Subcutaneous, Nightly, First dose on Wed02/05/25 at 2100, Until Discontinued, Routine 2035 (Given - Provider: Claudette Mallory) 2003 (Given - Provider: Stephanie Linn, LEO) insulin glargine-yfgn 100 UNIT/ML injection 12 Units 12 Units, Subcutaneous, Nightly, First dose (after last modification) on Wed02/07/25 at 2100, Until Discontinued, Routine insulin lispro (Admelog) 100 units/mL injection - Correction - Standard Dose 0-5 Units, Subcutaneous, 3 times daily with meals, First dose on Wed02/05/25 at 1230, Until Discontinued, Routine 1251 (Not Given - Provider: Erna Cuevas RN - Reason: Order parameters not met)1730 (Canceled Entry - Provider: Automatic Discharge Provider - Comment: Automatically canceled at discontinue of medication order) 0853 (Not Given - Provider: Benita Garcia RN - Reason: Order parameters not met)1342 (Not Given - Provider: Benita Garcia RN - Reason: Order parameters not met)1719 (Given - Provider: Benita Garcia, LEO) 0916 (Not Given - Provider: Micheline Stokes RN - Reason: Order parameters not met)1351 (Not Given - Provider: Micheline Stokes RN - Reason: Order parameters not met) insulin lispro (Admelog) injection - Correction - Nighttime Dose 0-3 Units, Subcutaneous, 2 times nightly (2099 & 0300), First dose on Wed02/05/25 at 2100, Until Discontinued, Routine 2020 (Not Given - Provider: Claudette Mallory - Reason: Order parameters not met) 022 (Not Given - Provider: Claudette Mallory - Reason: Order parameters not met)2005 (Not Given - Provider: Stephanie Linn RN - Reason: Order parameters not met - Comment: blood sugar below 250) 021 (Not Given - Provider: Stephanie Linn RN - Reason: Order parameters not met - Comment: Blood sugar below 250) Insulin Lispro (Admelog, HumaLOG) 100 UNIT/ML injection 10 Units 10 Units, Subcutaneous, 3 times daily with meals, First dose (after last modification) on Wed02/07/25 at 0830, Until Discontinued, Routine 0916 (Given - Provider: Micheline Stokes RN)1330 (Given - Provider: Micheline Stokes RN) Insulin Lispro (Admelog, HumaLOG) 100 UNIT/ML injection 5 Units (CANCELED) 5 Units, Subcutaneous, 3 times daily with meals, First dose on Wed02/05/25 at 1230, Until Discontinued, Routine 1316 (Given - Provider: Erna Cuevas RN)1730 (Due) 0854 (Given - Provider: Benita Garcia, LEO)1341 (Given - Provider: Benita Garcia, LEO)1718 (Given - Provider: Benita Garcia, LEO) levothyroxine (Synthroid, Levoxyl) tablet 100 mcg 100 mcg, Oral, Daily, First dose on Wed02/05/25 at 1225, Until Discontinued, Routine 1321 (Given - Provider: Erna Cuevas RN) 0847 (Given - Provider: Benita Garcia, LEO) 0913 (Given - Provider: Micheline Stokes RN) loperamide (Imodium A-D) tablet 2 mg 2 mg, Oral, Daily, First dose on Wed02/05/25 at 1225, Until Discontinued 1319 (Given - Provider: Erna Cuevas RN) 0847 (Given - Provider: Benita Garcia, LEO) 0913 (Given - Provider: Micheline Stokes RN) magnesium oxide (Mag-Ox) tablet 400 mg 400 mg, Oral, Daily, First dose on Wed02/05/25 at 1225, Until Discontinued 1321 (Given - Provider: Erna Cuevas RN) 0846 (Given - Provider: Benita Garcia, LEO) 0914 (Given - Provider: Micheline Stokes RN) methocarbamol (Robaxin) tablet 1,500 mg (COMPLETED) 1,500 mg, Oral, Once, 1 dose, On Wed02/05/25 at 1015, STAT 1024 (Given - Provider: Erna Cuevas RN) metoprolol succinate XL (Toprol-XL) 24 hr tablet 25 mg 25 mg, Oral, Daily, First dose on Wed02/05/25 at 1225, Until Discontinued, Routine 1323 (Given - Provider: Erna Cuevas RN) 0847 (Given - Provider: Benita Garcia RN) 0913 (Given - Provider: Micheline Stokes RN) morphine PF 4 mg (COMPLETED) 4 mg, Intravenous, Once, 1 dose, On Wed02/05/25 at 0520, STAT 0526 (Given - Provider: Meme Jeffries) oxyCODONE (Roxicodone) immediate release tablet 5 mg (COMPLETED) 5 mg, Oral, Once, 1 dose, On Wed02/05/25 at 1015, STAT 1024 (Given - Provider: Erna Cuevas RN) Oyster Shell Calcium tablet 1,000 mg 1,000 mg, Oral, Daily, First dose on Wed02/05/25 at 1225, Until Discontinued 1324 (Given - Provider: Erna Cuevas RN) 0858 (Given - Provider: Benita Garcia RN) 0927 (Given - Provider: Micheline Stokes, LEO) pantoprazole (Protonix) EC tablet 40 mg 40 mg, Oral, Daily, First dose on Wed02/05/25 at 1225, Until Discontinued 1320 (Given - Provider: Erna Cuevas RN) 0847 (Given - Provider: Benita Garcia, LEO) 0914 (Given - Provider: Micheline Stokes RN) psyllium (Metamucil) 60 % packet 1 packet 1 packet, Oral, Daily, First dose on Wed02/05/25 at 1225, Until Discontinued, Routine 1325 (Given - Provider: Erna Cuevas RN) 0846 (Given - Provider: Benita Garcia RN) 0915 (Given - Provider: Micheline Stokes RN) pyridoxine (Vitamin B-6) tablet 50 mg 50 mg, Oral, Daily, First dose on Wed02/05/25 at 1225, Until Discontinued 1321 (Given - Provider: Erna Cuevas RN) 0942 (Given - Provider: Benita Garcia, LEO) 0913 (Given - Provider: Micheline Stokes RN) rOPINIRole (Requip) tablet 0.5 mg 0.5 mg, Oral, Every evening, First dose on Wed02/05/25 at 1700, Until Discontinued, Routine 1714 (Given - Provider: Benita Garcia, LEO) 1717 (Given - Provider: Benita Garcia, LEO) 1700 (Canceled Entry - Provider: Automatic Discharge Provider - Comment: Automatically canceled at discontinue of medication order) sodium chloride 0.9 % flush 10 mL(Linked Group 1) 10 mL, Intravenous, Every 12 hours, First dose on Wed02/05/25 at 1225, Until Discontinued, Routine 1316 (Given - Provider: Erna Cuevas RN) 0339 (Given - Provider: Claudette Mallory)1348 (Given - Provider: Benita Garcia, LEO)2326 (Given - Provider: Stephanie Linn RN) 1351 (Given - Provider: Micheline Stokes, LEO) PRN Medication Order 02/05/2025 02/06/2025 02/07/2025 albuterol 108 (90 Base) MCG/ACT inhaler 2 puff 2 puff, Inhalation, Every 6 hours PRN, Starting on Wed02/05/25 at 1219, Until Wed02/07/25 at 1714, Routine, wheezing, shortness of breath dextrose 10 % (D10W) bolus 125 mL(Linked Group 2) 125 mL, Intravenous, Every 15 min PRN, Starting on Wed02/05/25 at 1215, Until Wed02/07/25 at 1714, Administer over 15 Minutes, Routine, low blood sugar BG 51-89 mg/dL dextrose 10 % (D10W) bolus 250 mL(Linked Group 2) 250 mL, Intravenous, Every 15 min PRN, Starting on Wed02/05/25 at 1215, Until Wed02/07/25 at 1714, Administer over 15 Minutes, Routine, PRN low blood sugar BG =/<50 mg/dL diphenoxylate-atropine (Lomotil) 2.5-0.025 MG per tablet 1 tablet 1 tablet, Oral, 4 times daily PRN, Starting on Wed02/05/25 at 1218, Until Wed02/07/25 at 1714, Routine, diarrhea glucagon (human recombinant) injection 1 mg(Linked Group 2) 1 mg, Intramuscular, Every 15 min PRN, Starting on Wed02/05/25 at 1215, Until Wed02/07/25 at 1714, Routine, low blood sugar per Hypoglycemia Prevention and Treatment protocol glucose (Glutose) 40 % oral gel 15-30 grams of glucose(Linked Group 2) 15-30 grams of glucose, Sublingual, Every 15 min PRN, Starting on Wed02/05/25 at 1215, Until Wed02/07/25 at 1714, Routine, low blood sugar, per Hypoglycemia Prevention and Treatment protocol LORazepam (Ativan) tablet 0.5 mg 0.5 mg, Oral, 3 times daily PRN, Starting on Wed02/05/25 at 1219, Until Wed02/07/25 at 1714, Routine, anxiety 1404 (Not Given - Provider: Micheline Stokes RN - Reason: Order parameters not met) oxyCODONE (Roxicodone) immediate release tablet 10 mg(Linked Group 3) 10 mg, Oral, Every 4 hours PRN, Starting on Wed02/07/25 at 0927, Until Wed02/07/25 at 1714, Routine, moderate pain 1402 (Given - Provid er: Micheline Stokes, RN) oxyCODONE (Roxicodone) immediate release tablet 15 mg(Linked Group 3) 15 mg, Oral, Every 4 hours PRN, Starting on Wed02/07/25 at 0927, Until Wed02/07/25 at 1714, Routine, severe pain 1402 (See Alternativ e - Provider: Micheline Stokes RN) oxyCODONE (Roxicodone) immediate release tablet 5 mg (CANCELED) 5 mg, Oral, Every 4 hours PRN, Starting on Wed02/05/25 at 1225, Until Wed02/07/25 at 0928, Routine, moderate pain 2006 (Not Given - Provider: Stephanie Linn RN - Reason: Patient/family refused)2321 (Given - Provider: Stephanie Linn, RN) 0230 (Given - Provider: Stephanie Linn, RN)0911 (Given - Provider: Micheline Stokes RN) sodium chloride 0.9 % flush 10 mL(Linked Group 1) 10 mL, Intravenous, As needed, Starting on Wed02/05/25 at 1212, Until Wed02/07/25 at 1714, Routine, line care Linked Groups Order Group 1: Insert peripheral IV (COMPLETED) Once, On Wed02/05/25 at 1213, For 1 occurrence And Saline lock IV (COMPLETED) Once, On Wed02/05/25 at 1213, For 1 occurrence And sodium chloride 0.9 % flush 10 mLJump to med 10 mL, Intravenous, Every 12 hours, First dose on Wed02/05/25 at 1225, Until Discontinued, Routine And sodium chloride 0.9 % flush 10 mLJump to med 10 mL, Intravenous, As needed, Starting on Wed02/05/25 at 1212, Until Wed02/07/25 at 1714, Routine, line care Group 2: glucose (Glutose) 40 % oral gel 15-30 grams of glucoseJump to med 15-30 grams of glucose, Sublingual, Every 15 min PRN, Starting on Wed02/05/25 at 1215, Until Wed02/07/25 at 1714, Routine, low blood sugar, per Hypoglycemia Prevention and Treatment protocol Or dextrose 10 % (D10W) bolus 125 mLJump to med 125 mL, Intravenous, Every 15 min PRN, Starting on Wed02/05/25 at 1215, Until Wed02/07/25 at 1714, Administer over 15 Minutes, Routine, low blood sugar BG 51-89 mg/dL Or dextrose 10 % (D10W) bolus 250 mLJump to med 250 mL, Intravenous, Every 15 min PRN, Starting on Wed02/05/25 at 1215, Until Wed02/07/25 at 1714, Administer over 15 Minutes, Routine, PRN low blood sugar BG =/<50 mg/dL Or glucagon (human recombinant) injection 1 mgJump to med 1 mg, Intramuscular, Every 15 min PRN, Starting on Wed02/05/25 at 1215, Until Wed02/07/25 at 1714, Routine, low blood sugar per Hypoglycemia Prevention and Treatment protocol Group 3: oxyCODONE (Roxicodone) immediate release tablet 10 mgJump to med 10 mg, Oral, Every 4 hours PRN, Starting on Wed02/07/25 at 0927, Until Wed02/07/25 at 171, Routine, moderate pain Or oxyCODONE (Roxicodone) immediate release tablet 15 mgJump to med 15 mg, Oral, Every 4 hours PRN, Starting on Wed02/07/25 at 09, Until Wed02/07/25 at 1714, Routine, severe pain documented in this encounter Additional Health Concerns Assessment Noted Time A fall risk assessment has been complete d for the patient 01/17/2025 10:49 AM EDT A Body Mass Index follow-up plan has been documented for the patient 02/07/2025 2:23 PM EDT documented as of this encounter Care Teams Cloth Doubling Machine Operator Relationship Specialty Start Date End Date Robb Cartagena MD [address] [place] [id number] PCP - General 02/10/21 Sophia Horne MD [address] [place] [phone] Referring Physician Hematology and Oncology 04/15/21 Zheng Iglesias MD [address] [facility] [address] [place], [place] [phone] Cardiology 07/24/24 Kristian Prado MD [address] [facility] [address] [place] [address] Consulting Physician Gynecologic Oncology 07/24/24 Antonio Camarillo MD [address] [place], [place] [phone] Nephrology 07/24/24 Meera Ruiz APRN [address] [facility] [address] [place] [address] Nurse Practitioner Endocrinology 07/24/24 Asad Arevalo MD [address] [place] [address] [address] [place] [address] Referring Physician Gastroenterology 07/24/24 Oscar Murphy MD [address] [facility] [address] [place] [address] Consulting Physician Nephrology 07/24/24 Maria C Parra PA [address] [place] [phone] Pulmonary Disease 07/24/24 documented as of this encounter
--- OUTSIDE RECORDS SUMMARY | 2025-02-14 14:30 | XMS_ITS | Encounter Summary ---
Author Organization [facility] Address [address] [place] [address] Care Team Providers Care Hr Assistant Name Role Phone Robb Cartagena MD Primary Care Provider [phone] Sophia Horne MD Unavailable [phone] Zheng Iglesias MD Unavailable Kristian Prado MD Unavailable [phone] Antonio Camarillo MD Unavailable [phone] Meera Ruiz SPRAY BOOTH OPERATOR Unavailable [phone] Asad Arevalo MD Unavailable [phone] Oscar Murphy MD Unavailable [phone] Maria C Parra Unavailable [phone] Encounter Details Date Type Department Care Team (Latest Contact Info) Description 02/14/2025 2:30 PM EDT - 02/14/2025 11:59 PM EDT [facility] [address] [place] [phone] Pain in pelvis Discharge Disposition: Home or Self Care Social History Tobacco Use Types Packs/Day Years Used Date Smoking Tobacco: Former Cigarettes - 1991 Passive Smoke Exposure: Never Smokeless [...] any time in the past 12 m [facility], were you homeless or living in a care home (including now)? No 02/07/2025 CAGE ASSESSMENT Answer [...] drink first t marycarmen in the morning (EYE-MORTGAGE LOAN COMPUTATION CLERK) to steady your nerves or to get rid of a hangover? 0 02/05/2025 CAGE Questionnaire Score 0 025 Utilities Answer Date Recorded In the past 12 months has th e [employer], gas, oil, or water [employer] threatened to shut off services in your home? No 02/07/2025 PHQ-2A Answer Date Recorded Depression Risk 0 06/02/2024 Comments No Sex and Gender Information Value Date Recorded Sex Assigned at Female 02/05/2025 4:17 PM EDT Legal Sex Female 8:16 PM EDT Gender Identity Female 02/05/2025 4:17 PM EDT Sexual Orientation Not on file documented as of this encounter Medications at Time of Discharge [...] Take 2 capsules by mouth daily. 4 calcitriol (Rocaltrol) 0.25 MCG capsule Take 1 capsule by mouth daily. 30 capsule 2 5 calcium citrate (Calcitrate) 950 (200 Ca) MG [...] diarrhea. 90 tablet 3 4 Droplet Pen [place] 32G X 4 MM misc 0 Eliquis 2.5 MG tabletIndications:L ongstanding persistent atrial fibrillation (CMS/HCC) TAKE 1 TABLET TWICE DAILY 180 tablet 3 5 ergocalciferol 1.25 MG (11142 UT) capsuleIndications: Malignant neoplasm of upper-outer quadrant [...] neuropathy, with long-term current use of insulin (CMS/HCC) Inject subcutaneous 10 units BID w/ meals plus 1:50>150 SS, max dose 50u/day 45 mL 3 4 insulin glargine (Lantus SoloStar) 100 UNIT/ML injection penIndications:Type 2 diabetes mellitus with diabetic neuropathy, with long-term current use of insulin ([facility]) Inject 15 Units under the skin every night. 15 mL 3 4 05/16/20 25 Jardiance 10 MGIndications:Type 2 diabetes mellitus with diabetic neuropathy, with long-term current use of insulin ([facility]) TAKE 1 TABLET ONE TIME DAILY 90 [...] week. 9 mL 3 4 05/16/20 25 documented as of this encounter Plan of Treatment Upcoming Encounters Date Type Department Care Team (Late st Contact Info) Description 04/06/2025 9:20 AM EDT Office Visit [facility] Endocrinology [address] [place] [phone] (1), Chepe Cobian Fellow 04/17/2025 11:30 AM EDT Clinical Support [facility] Laboratory Services [address] [facility], 1[address] [place] [address] 04/25/2025 12:00 PM EDT Appointment [facility] [address] [place] [phone] 05/01/2025 11:40 AM EDT Office Visit [facility] Bone & Mineral Metabolism [address] [facility], [address] [place] [address] Marla Hilton APRN [address] [facility] [address] [place] [address] 05/16/2025 1:10 PM EDT Office Visit [facility] Orthopaedic Surgery & Sports Medicine [address] [place] [phone] Trent Moon MD [address] [facility] [address] [place] [address] documented as of this encounter Procedures Procedure Name Priority Date/Time Associated Diagnosis Comments XR PELVIS 3+ VIEWS Routine 02/14/2025 2: 51 PM EDT Pain in pelvis documented in this encounter Results * XR Pelvis 3+ Views (02/14/2025 2:51 PM EDT) Anatomical Region Laterality Modality Body, Pelvis Digital Radiogra phy Impressions 02/14/2025 4:54 PM EDT Redemonstration of bilateral obturator ring fractures in grossly unchanged alignment. Known sacral fracture is not well-visualized. CRITICAL RESULT: No. COMMUNICATION: Per this written report. By electronically signing this report, I, the attending physician, attest that I have personally reviewed the images/data for the above examination(s) and agree with the final edited report. Drafted by Lyly Bailey MD on 02/14/2025 3:40 PM Final report signed by Amaury Gill on 02/14/2025 4:54 PM Narrative 02/14/2025 4:54 PM EDT CLINICAL INDICATION: pain TECHNIQUE: XR PELVIS 3+ VIEWS COMPARISON: CT pulmonary pelvis 02/05/2025. FINDINGS: Redemonstration of fracture of the left pubic bone/superior pubic ramus and the left inferior pubic ramus. Mildly displaced fractures of the right inferior pubic ramus and breakthrough acetabular junction. Known sacral fracture is not well- visualized likely grossly unchanged alignment. Femoral heads are well-seated within the acetabulum. 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 Procedure Note Amaury Gill MD - 02/14/2025 CLINICAL INDICATION: pain TECHNIQUE: XR PELVIS 3+ VIEWS COMPARISON: CT pulmonary pelvis 02/05/2025. FINDINGS: Redemonstration of fracture of the left pubic bone/superior pubic ramusand the left inferior pubic ramus. Mildly displaced fractures of the rightinferior pubic ramus and breakthrough acetabular junction. Known sacralfracture is not well-visualized likely grossly unchanged alignment.Femoral heads are well-seated within the acetabulum. Moderateosteoarthrosis of the hips similar prior. IMPRESSION: Redemonstration of bilateral obturator ring fractures in grossly unchangedalignment. Known sacral fracture is not well-visualized. CRITICAL RESULT: No. COMMUNICATION: Per this written report. By electronically signing this report, I, the attending physician, attestthat I have personally reviewed the images/data for the aboveexamination(s) and agree with the final edited report. Drafted by Lyly Bailey MD on 02/14/2025 3:40 PM Final report signed by Amaury Gill on 02/14/2025 4:54 PM us Trent Moon MD IMG XR PROCEDURES Final Result documented in this encounter Visit Diagnoses Diagnosis Pain in pelvis documented in this encounter Additional Health Concerns Assessment Noted Time A fall risk assessment has been complete d for the patient 02/14/2025 3:30 PM EDT A Body Mass Index follow-up plan has been documented for the patient 02/14/2025 4:01 PM EDT documented as of this encounter Care Teams Hr Assistant Relationship Specialty Start Date End Date Robb Cartagena MD [address] [place] [address] PCP - General 02/10/21 Sophia Horne MD [address] [place] [phone] Referring Physician Hematology and Oncology 04/15/21 Zheng Iglesias MD [address] [facility] [address] [place] [phone] Cardiology 07/24/24 Kristian Prado MD [address] [facility] [address] [place] [phone] Consulting Physician Gynecologic Oncology 07/24/24 Antonio Camarillo MD [address] [place], [place] [phone] Nephrology 07/24/24 Meera Ruiz APRN [address] [facility] [address] [place] [phone] Nurse Practitioner Endocrinology 07/24/24 Asad Arevalo MD [address] [place] [address] [address] [place], [place] [phone] Referring Physician Gastroenterology 07/24/24 Oscar Murphy MD [address] [facility] [address] [place] [address] Consulting Physician Nephrology 07/24/24 Maria C Parra PA [address] [facility] [address] [place] [address] Pulmonary Disease 07/24/24 documented as of this encounter
--- OUTSIDE RECORDS SUMMARY | 2025-02-14 15:20 | XMS_ITS | Encounter Summary ---
Author Organization [facility] Address [address] [place] [address] Care Team Providers Care Salvage Machine Operator Name Role Phone Robb Cartagena MD Primary Care Provider Sophia Horne MD Unavailable [phone] Zheng Iglesias MD Unavailable Kristian Prado MD Unavailable [phone] Antonio Camarillo MD Unavailable [phone] Meera Ruiz OR ASSISTANT Unavailable [phone] Asad Arevalo MD Unavailable [phone] Oscar Murphy MD Unavailable [phone] Maria C Parra Unavailable [phone] Reason for Visit * Reason Comments Consult * Consultation (Routine) - Closed Specialty Diagnoses / Procedures Referred By Contac t Referred To Contact Orthopaedic Surgery Diagnoses History of pelvic fracture Miguel Linn MD [address] [place] [address] Phone: tel: fax: Clifton Gonsalez MD [address] [facility] [address] [place] [address] Phone: tel: fax: Referral ID Status Reason Start Date Expiration Date V isits Requested Visits Authorized [id number] Closed Specialty Services Required 02/01/2025 08/03/2026 1 1 Encounter Details Date Type Department Care Team (Late st Contact Info) Description 02/14/2025 3:20 PM EDT Office Visit [facility] [address] [place] [address] Trent Moon MD [address] [place] [address] History of pelvic fracture (Primary Dx) Social History Tobacco Use Types Packs/Day Years Used Date Smoking Tobacco: Former Cigarettes 1 25 1 967 - 1991 Passive Smoke Exposure: Never [...] any time in the past 12 m [facility], were you homeless or living in a group home (including now)? No 02/07/2025 CAGE ASSESSMENT [...] drink first t marycarmen in the morning ([employer] REPRESENTATIVE) to steady your nerves or to get rid of a hangover? 0 02/05/2025 CAGE Questionnaire Score 0 025 Utilities Answer Date Recorded In the past 12 months has th e electric, gas, oil, or water company threatened to [...] Sign Reading Time Taken Comments Blood Pressure 123/72 02/14/2025 3:32 PM EDT Pulse 69 02/14/2025 3:32 PM EDT Temperature 36.6 C (97.9 F) 02/14/2025 3:32 PM EDT Respiratory Rate - - Oxygen Saturation 96% 02/14/2025 3:32 PM EDT Inhaled Oxygen Concentration - - Weight 68 kg (150 lb) 02/14/2025 3:32 PM EDT Height 175.3 cm (5' 9 ) 02/14/2025 3:32 PM EDT Body Mass Index 22.15 02/14/2025 3:32 PM EDT documented in this encounter Miscellaneous Notes * Patient Instructions - Simon Alexander MD - 02/14/2025 3:20 PM EDT Weight bear as tolerated. Please contact the clinic if you would like an order for physical or occupational therapy. You will have a follow-up visit scheduled for 3-months post injury. Please contactthe clinic if you would like to be seen sooner. * Progress Notes - Simon Alexander MD - 02/14/2025 3:20 PM EDT 02/14/2025 ORTHOPEDIC TRAUMA CLINIC NOTE Injury/Tx: HPI: Stef Jimenez 80 y.o. female with PMH of T2DM, CAD s/p stent, hypothyroidism, CKD, and metastaticvulvar, breast, and endometrial cancer s/p chemoradiation and resection, and recent fall on 01/17 with pelvic fractures. Patient was evaluated in the [facility] ED on 02/04/25 as a transfer from [facility] for pelvic fractures. CT scan identified bilateral inferior pubic rami fractures with subacute and healing appearing right pubic root fracture and a subacute left parasymphyseal fracture with subacute sacral fracture. The patient was advised that this was a non-operative injury and to follow-up inan outpatient setting. Today she presents ~4wks after initial injury. She reports that she has beenambulating without assistance, does not have new numbness/tingling distally, and her pain remains noticeable but stable. The patient has questions about expected course of injury, restrictions on weightbearing, and the possibility of receiving pain medication. PAST MEDICAL HISTORY: Past Medical History[1] Past Surgical History: Surgical History[2] Review of Systems: General: no fatigue, no weakness, no fevers, no chills, no night sweats Skin:no rashes, no sores, no lumps Head: no recent trauma Eyes:no blurring, no tearing, no itching Nose: no sneezing, no itching, no epistaxis Mouth: no hoarseness, no sore throat, no neck swelling Cardiac: no HTN, no palpitations, no dyspnea on exertion, no PND Respiratory: no shortness of air, no coughing, no wheezing, no sputum production GI: no loss of appetite, no nausea,no vomiting, no constipation, no diarrhea, no blood per rectum, no abdominal pain, no jaundice Urinary: no dysuria, no hematuria, no polyuria, no incontinence Vascular: no leg edema, no claudication Neurologic: no loss of sensation, no tingling, no numbness, no fainting, no blackouts, no seizures Family History: Family History[3] Medications: Current Medications[4] Allergies: Allergies[5] Social History Social History Occupational History Not on file Tobacco Use Smoking status: Former Current packs/day: 0.00 Average packs/day: 1 pack/day for 25.0 years (25.0 ttl pk-yrs) Types: Cigarettes Start date: 1966 Quit date: 1991 Years since quittin.5 Passive exposure: Never Smokeless tobacco: Never Vaping Use Vaping status: Never Used Substance and Sexual Activity Alcohol use: No Drug use: Never Sexual activity: Defer Vital signs: Visit Vitals BP 123/72 (BP Location: Right arm, Patient Position: Sitting, BP Cuff Size: Adult) Pulse 69 Temp 36.6 ??C (97.9 ??F) (Oral) Ht 1.753 m (5' 9 ) Wt 68 kg (150 lb) LMP (LMP Unknown) SpO2 96% BMI 22.15 kg/m?? OB Status Hysterectomy Smoking Status Former BSA 1.82 m?? Constitutional: Well developed. Well nourished. Psychologic: Mood is appropriate. Appropriate affect. Head and Face: Normocephalic. No obvious deformities. Eyes: Extraocular movements intact Pulmonary: Unlabored, normal effort. Cardiac: well perfused, extremities pink. Skin: No rashes on exposed skin surface. Neuro: No focal neuro deficit, normal coordination, normal muscle tone MUSCULOSKELETAL EXAM: Pelvis stable to AP and lateral compression RIGHT LOWER EXTREMITY Inspection: skin intact, no [...] <2 seconds, digits warm and well perfused IMAGING: I have personally reviewed, and interpreted the patients imaging: Bilateral mildly displaced inferior pubic ramus fractures. Left superior pubic ramus fracture. Right superior pubic ramus fracture. All appear to be stable when compared to imaging obtained on 02/05/25. ASSESSMENT: Stfe Jimenez is a 79 y.o. female patient with Closed subacute traumatic bilateral inferior pubic rami fractures Closed subacute right pubic root fracture Closed subacute left parasymphyseal fracture All injuries remain stable as observed on x-ray. PLAN: - No surgical intervention indicated at this time - Will follow-up in 3 months with repeat pelvic x-rays - Weight bearing restrictions: WBAT - Pain control per primary physician - Outpatient PT/OT Simon Alexander MD Orthopedic Surgery PGY-1 [facility] Personal Pager: [phone] [1] Past Medical History: Diagnosis Date Adrenal suppression (CMS/HCC) Atherosclerotic heart disease of [place] coronary artery without angina pectoris ASCVD (arteriosclerotic [...] SURGERY BIOPSY, THYROID N/A thyroid biopsy from [facility] BREAST LUMPECTOMY N/A lumpectomy from [facility] BREAST LUMPECTOMY N/A Lumpectomy from [facility] CARDIAC CATHETERIZATION 2004 CARPAL TUNNEL RELEASE N/A carpal tunnel surgery from [facility] CHOLECYSTECTOMY HYSTERECTOMY N/A Hysterectomy from [facility] OTHER SURGICAL HISTORY N/A Revision Of Total Knee Arthroplasty, All Components from [facility] SKIN BIOPSY N/A Skin biopsy from [facility] SKIN CANCER EXCISION N/A Skin cancer excision from [facility] SKIN GRAFT N/A Skin graft from [facility] SKIN LESION EXCISION N/A Skin lesion excision from [facility] TOTAL ABDOMINAL HYSTERECTOMY W/ BILATERAL SALPINGOOPHORECTOMY N/A CYRUS-BSO (total abdominal hysterectomy and bilateral salpingo-oophorectomy) from [facility] TOTAL KNEE ARTHROPLASTY N/A Knee surgery from [facility] VULVA SURGERY N/A Vulva surgery from [facility] VULVECTOMY N/A Vulvectomy from [facility] [3] Family History Problem Relation Name [...] Winnie Narvaez. Brother Heart attack Other [4] Current Outpatient Medications: Accu-Chek FastClix Lancets misc, , Disp: , Rfl: acetaminophen (Tylenol 8 Hour) 650 MG ER tablet, Take 1 tablet by mouth every 8 hours as needed formild pain. Do not crush, chew, or split., Disp: 120 tablet, Rfl: 2 albuterol 108 (90 Base) MCG/ACT inhaler, Inhale 2 puffs every 6 hours as needed., Disp: , Rfl: amiodarone (Pacerone) 100 MG tablet, TAKE 1 TABLET ONE TIME DAILY, Disp: 90 tablet, Rfl: 3 atorvastatin (Lipitor) 40 MG tablet, TAKE 1 TABLET EVERY DAY, Disp: 90 tablet, Rfl: 3 biotin 1000 MCG tablet, Take 1 tablet by mouth daily., Disp: , Rfl: budesonide EC (Entocort EC) 3 MG 24 hr capsule, Take 2 capsules by mouth daily., Disp: , Rfl: calcitriol (Rocaltrol) 0.25 MCG capsule, Take 1 capsule by mouth daily., Disp: 30 capsule, Rfl: 2 calcium citrate (Calcitrate) 950 (200 Ca) MG [...] Disp: 90 tablet, Rfl: 3 Droplet [place] 32G X 4 MM [facility] [place], , Disp: , Rfl: Eliquis 2.5 MG tablet, TAKE 1 TABLET TWICE DAILY, Disp: 180 tablet, Rfl: 3 ergocalciferol 1.25 MG (48542 UT) capsule, Take 1 capsule (50,000 Units) [...] spray, Administer 2 sprays into each nostril daily. Shake gently. Before first use, prime pump. After use, clean tip and replace cap., Disp: 16 g, Rfl: 6 gabapentin (Neurontin) 600 MG tablet, Take 1 tablet by mouth 2 times a day., Disp: , Rfl: glucagon (Baqsimi Two Pack) 3 MG/DOSE powder Nasal Powder, USE 1 DOSE IN 1 NOSTRIL FOR LOW BLOOD SUGAR, THEN SEEK MEDICAL HELP . REPEAT DOSE AFTER 15 MINS IF NO RESPONSE, Disp: 2 each, Rfl: 3 glucose blood (Accu-Chek SmartView) test strip, , Disp: , Rfl: insulin aspart (NovoLOG FLEXPEN) [...] (Imodium) 2 MG capsule, Take 1 capsule by mouth daily as needed for diarrhea., Disp: , Rfl: LORazepam (Ativan) 0.5 MG tablet, Take 1 tablet (0.5 mg) by mouth 3 (three) times a day if needed for anxiety., Disp: 270 tablet, Rfl: 1 magnesium oxide (Mag-Ox) 400 (240 Mg) MG tablet, Take 1 tablet by mouth daily., Disp: , Rfl: metoprolol succinate XL (Toprol-XL) 25 MG 24 hr tablet, TAKE 1 TABLET EVERY DAY, Disp: 90 tablet, Rfl: 3 naloxone (Narcan) 4 mg/0.1 mL nasal spray, 1. Give 1 spray in nostril for no/slow breathing or cannot wake after opioid use 2. Call 911 3. Repeat in other nostril if symptoms continue, Disp: 1 each, Rfl: 0 nitroglycerin (Nitrostat) 0.4 MG SL tablet, Place 1 tablet under the tongue. PRN, Disp: , Rfl: oxyCODONE (Roxicodone) 5 MG immediate release tablet, Take 1 tablet by mouth every 6 hours as needed for severe pain for up to 5 days., Disp: 20 tablet, Rfl: 0 pantoprazole (ProtoNix) 20 MG EC tablet, Take 1 tablet (20 mg) by mouth 1 (one) time each day., Disp: 90 tablet, Rfl: 3 pyridoxine (B-6) 100 MG tablet, Take 1 tablet by mouth daily., Disp: , Rfl: rOPINIRole (Requip) 0.5 MG tablet, TAKE 1 TABLET (0.5 MG) BY MOUTH 1 (ONE) TIME EACH DAY IN THE EVENING., Disp: 90 tablet, Rfl: 3 Semaglutide, 2 MG/DOSE, (Ozempic, 2 MG/DOSE,) 8 MG/3ML solution pen-injector, Inject 2 mg under theskin 1 (one) time per week., Disp: 9 mL, Rfl: 3 [5] Allergies Allergen Reactions Lisinopril Cough lisinopril Cosigned by Trent Moon MD at 02/16/2025 10:30 AM EDT Associated attestation - Trent Moon MD - 02/16/2025 10:30 AM EDT I saw and evaluated the patient with the resident/fellow. I discussed the case with the resident/fellow and agree with the findings and plan as documented. documented in this encounter Plan of Treatment Upcoming Encounters Date Type Department Care Team (Late st Contact Info) Description 04/06/2025 9:20 AM EDT Office Visit [facility] Endocrinology [address] [place] [address] (1), Chepe Cobian Fellow 04/17/2025 11:30 AM EDT Clinical Support [facility] Services [address] [place] [address] 04/25/2025 12:00 PM EDT Appointment [facility] [address] [facility] [address] [place] [address] 05/01/2025 11:40 AM EDT Office Visit [facility] [address], [address] [place] [address] Marla Hilton, OR ASSISTANT [address] [place] [address] 05/16/2025 1:10 PM EDT Office Visit [facility] [address] [place] [address] Trent Moon MD [address] [facility] [address] [place] [address] documented as of this encounter Visit Diagnoses Diagnosis History of pelvic fracture- Primary documented in this encounter Additional Health Concerns Assessment Noted Time A fall risk assessment has been complete d for the patient 02/14/2025 3:30 PM EDT A Body Mass Index follow-up plan has been documented for the patient 02/14/2025 4:01 PM EDT documented as of this encounter Care Teams Salvage Machine Operator Relationship Specialty Start Date End Date Robb Cartagena MD [address] [place] [id number] PCP - General 02/10/21 Sophia Horne MD [address] [place] [id number] Referring Physician Hematology and Oncology 04/15/21 Zheng Iglesias MD [address] [facility] [address] [place] [address] Cardiology 07/24/24 Kristian Prado MD [address] [facility] [address] [place] [address] Consulting Physician Gynecologic Oncology 07/24/24 Antonio Camarillo MD [address] [place] [address] Nephrology 07/24/24 Meera Ruiz APRN [address] [facility] [address] [place] [address] Nurse Practitioner Endocrinology 07/24/24 Asad Arevalo MD [address] [place] [address] [address] [place], [place] [id number] Referring Physician Gastroenterology 07/24/24 Oscar Murphy MD [address] [facility] [address] [place] [address] Consulting Physician Nephrology 07/24/24 Maria C Parra PA [address] [place] [address] Pulmonary Disease 07/24/24 documented as of this encounter
--- OUTSIDE RECORDS SUMMARY | 2025-03-01 13:54 | XMS_ITS | Patient Health Record ---
Author Organization [facility] Address [address] [place] [address] Care Team Providers Care Fire Extinguisher Mechanic Name Role Phone Antonio Camarillo [phone] Allergies No Known Allergies Reason For Referral No Information Medications Medication SIG (Take, Route, Frequency, Duration) Notes Start Date End Date Status Loperamide HCl 2 MG 1 capsule as needed Orally Four times a day Active Lipitor 40 MG 1 tablet Orally Once a day Active Magnesium 400 MG as directed Orally Active Lomotil 2.5-0.025 MG 1 tablet as needed Orally Four times a day Active Gabapentin 600 MG 1 tablet Orally twice a day Active Ferrous Sulfate 325 (65 Fe) MG 1 tablet Orally Once a day; Duration: 30 day(s) Active Levocetirizine Dihydrochloride 5 MG 1 tablet in the evening Orally Once a day; Duration: 30 day(s) Active Lantus SoloStar 100 UNIT/ML Subcutaneous Active Escitalopram Oxalate 10 MG 1 tablet Orally Once a day; Duration: 30 day(s) Active Ergocalciferol 86563 UNIT 1 capsule Orally weekly; Duration: 90 days Sundays *Pick strength-form from [employer] for eRX* Active Calcium 600 MG 1 tablet with meals Orally Once a day Active Budesonide 3 MG 2 capsules Orally Once a day Active ClobetaPlus Cream *Reorder from [employer] for eRx and Interaction Alerts* Active Ciprofloxacin HCl 500 MG 1 tablet Orally Once daily; Duration: 10 days 10/18/2023 Active Allergy Relief 10 MG 1 tablet Orally Once a day; Duration: 30 day(s) Active Albuterol Sulfate HFA 108 (90 Base) MCG/ACT 1 puff as needed Inhalation every 4 hrs Active Aspirin 81 MG 1 tablet Orally Once a day; Duration: 30 day(s) Active Amiodarone HCl 100 MG 1 tablet Orally Once a day; Duration: 30 day(s) 07/16/2022 Active rOPINIRole HCl 0.5 MG 1 tablet 1 to 3 hours before bedtime Orally Once a day; Duration: 30 day(s) Active Pantoprazole Sodium 20 MG TAKE 1 TABLET EVERY DAY IN THE EVENING Active Vitamin B-6 100 MG 1 tablet Orally Once a day; Duration: 30 day(s) Active Synthroid 100 MCG 1 tablet on an empty stomach in the morning Orally Once a day Active Nitroglycerin 0.4 MG Sublingual Active Eliquis 2.5 MG 1 tablet Orally twice a day Active Metoprolol Succinate 25 MG 1 capsule Orally Once a day; Duration: 30 day(s) Active Ozempic (2 MG/DOSE) 8 MG/3ML as directed Subcutaneous Sundays Active NovoLOG FlexPen 100 UNIT/ML Subcutaneous Active Problems Problem Type SNOMED Code ICD Code Onset Dates Problem Status W/U Status Risk Notes Problem Chronic kidney disease stage 3 (disorder) (958957956) Chronic kidney disease, stage 3 unspecified (N18.30) Active confirmed Problem Hyperlipidemia (76110553) Hyperlipidemia (E78.5) Active confirmed Problem Ulcerative colitis (31657550) Ulcerative colitis (K51.90) Active confirmed Problem Malignant hypertensive chronic kidney disease (747672220993965) 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) Active confirmed Problem Chronic kidney disease stage 3A (disorder) (788976935) Chronic kidney disease (CKD) stage G3a/A1, moderately decreased glomerular filtration rate (GFR) between 45-59 mL/min/1.73 square meter and albuminuria creatinine ratio less than 30 mg/g (N18.3) Active confirmed Problem Gastroesophageal reflux disease (325623221) GERD (gastroesophageal reflux disease) (K21.9) Active confirmed Problem Diabetic renal disease (817505332) 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) Active confirmed Problem Anemia of chronic renal failure (67171312) Anemia with chronic kidney disease (D63.1) Active confirmed Problem Lymphedema of leg (256558939) Lymphedema of leg (I89.0) Active confirmed Vital Signs Heart Rate 70 /min 04/24/2024 Temperature 97.4 degrees Fahrenheit 04/24/2024 Respiratory Rate 20 /min 04/24/2024 Height-cm 175.26 cm 04/24/2024 Oximetry 94 % 04/24/2024 Blood pressure diastolic 73 mm Hg 04/24/2024 Weight-kg 71.21 kg 04/24/2024 Height 69 in 04/24/2024 Blood pressure systolic 141 mm Hg 04/24/2024 Weight 157 lbs 04/24/2024 BMI 23.18 kg/m2 04/24/2024 Encounters Encounter Location Date Provider Diagnosis [facility] [address] [place] [address] 12/07/[address] [facility] [address] [place] [address] [address] [place] [address] 04/24/2024 Antonio Camarillo Chronic kidney disease, stage 3 unspecified N18.30 ; Hypertensive chronic kidney disease w stg 1-4/unsp chr kdny I12.9 ; Diabetes mellitus with kidney disease E11.21 ; Hyperlipidemia E78.5 and Anemia with chronic kidney disease D63.1 [facility] [address] [address] [address] [place] [address] 04/28/2024 Antonio Camarillo Assessments Encounter Date Diagnosis (ICD Code) Assessment Notes Treatment Notes Treatment Clinical Notes Section Notes 04/24/2024 Chronic kidney disease, stage 3 unspecified (ICD-10 - N18.30) I went over today's findings with Stef. Of course, I had to point out that her kidney function parameters have worsened considerably over the last 6 months and the only thing we can associate this with is her weight gain. However, she appears to be well-nourished and certainly not overweight. She also appears to be well-hydrated. We agreed not to make any significant changes in her medications but I would like to see her again in 3 months with repeat labs and she is agreeable. She knows full well that she must avoid certain medications such as NSAIDs. When her urine culture results are available we will contact her about appropriate treatment. 04/24/2024 Hypertensive chronic kidney disease w stg 1-4/unsp chr kdny (ICD-10 - I12.9) I went over today's findings with Stef. Of course, I had to point out that her kidney function parameters have worsened considerably over the last 6 months and the only thing we can associate this with is her weight gain. However, she appears to be well-nourished and certainly not overweight. She also appears to be well-hydrated. We agreed not to make any significant changes in her medications but I would like to see her again in 3 months with repeat labs and she is agreeable. She knows full well that she must avoid certain medications such as NSAIDs. When her urine culture results are available we will contact her about appropriate treatment. 04/24/2024 Diabetes mellitus with kidney disease (ICD-10 - E11.21) I went over today's findings with Stef. Of course, I had to point out that her kidney function parameters have worsened considerably over the last 6 months and the only thing we can associate this with is her weight gain. However, she appears to be well-nourished and certainly not overweight. She also appears to be well-hydrated. We agreed not to make any significant changes in her medications but I would like to see her again in 3 months with repeat labs and she is agreeable. She knows full well that she must avoid certain medications such as NSAIDs. When her urine culture results are available we will contact her about appropriate treatment. 04/24/2024 Hyperlipidemia (ICD-10 - E78.5) I went over today's findings with Stef. Of course, I had to point out that her kidney function parameters have worsened considerably over the last 6 months and the only thing we can associate this with is her weight gain. However, she appears to be well-nourished and certainly not overweight. She also appears to be well-hydrated. We agreed not to make any significant changes in her medications but I would like to see her again in 3 months with repeat labs and she is agreeable. She knows full well that she must avoid certain medications such as NSAIDs. When her urine culture results are available we will contact her about appropriate treatment. 04/24/2024 Anemia with chronic kidney disease (ICD-10 - D63.1) I went over today's findings with Stef. Of course, I had to point out that her kidney function parameters have worsened considerably over the last 6 months and the only thing we can associate this with is her weight gain. However, she appears to be well-nourished and certainly not overweight. She also appears to be well-hydrated. We agreed not to make any significant changes in her medications but I would like to see her again in 3 months with repeat labs and she is agreeable. She knows full well that she must avoid certain medications such as NSAIDs. When her urine culture results are available we will contact her about appropriate treatment. Plan Of Treatment Pending Test Test Name Order Date Hemoglobin A1c 04/24/2024 CBC, Platelet with No Differential 04/24 Comp. Metabolic Panel (14) 04/24/2024 Urinalysis 04/24/2024 PTH, Intact 03/20/2019 Vitamin D, 25 -hydroxy 03/20/2019 CBC WITH DIFF 10/18/2023 CBC WITH DIFF 04/19/2023 IRON, TIBC AND FERRITIN PANEL 01/11/2023 IRON, TIBC AND FERRITIN PANEL 10/18/2023 IRON, TIBC AND FERRITIN PANEL 05/30/2019 IRON, TIBC AND FERRITIN PANEL 01/12/2022 RENAL FUNCTION PANEL 07/15/2020 RENAL FUNCTION PANEL 07/13/2022 CMP14+eGFR 01/12/2022 CMP14+eGFR 01/11/2023 CMP14+eGFR 04/19/2023 CMP14+eGFR 10/18/2023 CMP14+eGFR 01/23/2020 CMP14+eGFR 07/10/2021 CMP14+eGFR 01/27/2021 CMP14+eGFR 05/30/2019 CMP14+eGFR 09/26/2019 CMP14+eGFR 09/12/2018 CMP14+eGFR 03/20/2019 CMP14+eGFR 02/28/2018 URINALYSIS COMPLETE 07/10/2021 URINALYSIS COMPLETE 09/26/2019 URINALYSIS COMPLETE 07/15/2020 URINALYSIS COMPLETE 01/27/2021 URINALYSIS COMPLETE 10/18/2023 URINALYSIS COMPLETE 04/19/2023 URINALYSIS COMPLETE 01/12/2022 URINALYSIS COMPLETE 07/13/2022 URINALYSIS COMPLETE 01/11/2023 CBC W AUTOMATED DIFFERENTIAL 01/11/2023 CBC W AUTOMATED DIFFERENTIAL 07/13/2022 CBC W AUTOMATED DIFFERENTIAL 01/27/2021 CBC W AUTOMATED DIFFERENTIAL 07/15/2020 CBC W AUTOMATED DIFFERENTIAL 07/10/2021 CBC W AUTOMATED DIFFERENTIAL 01/12/2022 CBC W AUTOMATED DIFFERENTIAL 09/12/2018 CBC W AUTOMATED DIFFERENTIAL 02/28/2018 CBC W AUTOMATED DIFFERENTIAL 03/20/2019 CBC W AUTOMATED DIFFERENTIAL 01/23/2020 CBC W AUTOMATED DIFFERENTIAL 09/26/2019 CBC W AUTOMATED DIFFERENTIAL 05/30/2019 HGB A1C (GLYCOHEMOGLOBIN) 05/30/2019 HGB A1C (GLYCOHEMOGLOBIN) 01/23/2020 HGB A1C (GLYCOHEMOGLOBIN) 02/28/2018 HGB A1C (GLYCOHEMOGLOBIN) 09/12/2018 HGB A1C (GLYCOHEMOGLOBIN) 01/12/2022 HGB A1C (GLYCOHEMOGLOBIN) 07/10/2021 HGB A1C (GLYCOHEMOGLOBIN) 07/15/2020 HGB A1C (GLYCOHEMOGLOBIN) 07/13/2022 HGB A1C (GLYCOHEMOGLOBIN) 01/11/2023 HGB A1C (GLYCOHEMOGLOBIN) 04/19/2023 Next Appt Details Provider Name:Antonio Camarillo, 04/05/2025 01:40:00 PM, [address] [facility] [address], [place], [address], Insurance Providers Payer Name Payer Address Payer Phone Subscriber Number Group Number Insured Name Patient Relationship to Insured Coverage Start Date Coverage End Date [employer] [address] [address] [place] [id number] Stef Jimenez Self - patient is the insured Medical (General) History Medical History History ICD Code Anemia associated with chronic renal alen lure D63.1 Chronic kidney disease, stage III (moder ate) N18.3 Hypertensive chronic kidney disease with stage 1 through stage 4 chronic kidney disease, or unspecified chronic kidney disease I12.9 Hyperlipidemia E78.5 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
--- OUTSIDE RECORDS SUMMARY | 2025-03-01 13:55 | XMS_ITS | Encounter Summary ---
Author Organization [facility] Address [address] [place] [address] Care Team Providers Care After School Program Teacher Name Role Phone Robb Cartagena MD Primary Care Provider Sophia Horne MD Unavailable [phone] Kirby Kern MD Unavailable [phone] Zheng Iglesias MD Unavailable Kristian Prado MD Unavailable [phone] Antonio Camarillo MD Unavailable [phone] Meera Ruiz CANDY COOKER HELPER Unavailable [phone] Asad Arevalo MD Unavailable [phone] Oscar Murphy MD Unavailable [phone] Maria C Parra Unavailable [phone] Encounter Details Date Type Department Care Team (Late st Contact Info) Description 02/03/2024 Orders Only External Location [address] [place] [address] Provider, External Social History Tobacco Use Types Packs/Day Years Used Date Smoking Tobacco: Former Cigarettes 967 - 1991 Passive Smoke Exposure: Never Smokeless Tobacco: Never Alcohol Use Standard Drinks/Week Comments No 0 (1 standard drink = 0.6 oz pur e alcohol) PHQ-2 Answer Date Recorded Patient Health Questionnaire-2 Score 0 01/24/2024 PHQ-2A Answer Date Recorded Depression Risk 0 01/24/2024 Comments No Sex and Gender Information Value Date Recorded Sex Assigned at Female 02/05/2025 4:17 PM EDT Legal Sex Female 8:16 PM EDT Gender Identity Female 02/05/2025 4:17 PM EDT Sexual Orientation Not on file documented as of this encounter Plan of Treatment Upcoming Encounters Date Type Department Care Team (Late st Contact Info) Description 04/06/2025 9:20 AM EDT Office Visit [facility] Endocrinology [address] [place] [address] (1), Chepe Cobian Fellow 04/17/2025 11:30 AM EDT Clinical Support [facility] Laboratory Services [address] 1st [place] [address] 04/25/2025 12:00 PM EDT Appointment [facility] [address] [place] [address] 05/01/2025 11:40 AM EDT Office Visit [facility] Bone & Mineral Metabolism [address], [address] [place] [address] Marla Hilton APRN [address] [place] [address] 05/16/2025 1:10 PM EDT Office Visit [facility] Orthopaedic Surgery & Sports Medicine [address], 1st [address] [place] [address] Trent Moon MD [address] [place] [address] documented as of this encounter Procedures Procedure Name Priority Date/Time Associated Diagnosis Comments CT MSK OUTSIDE IMAGES 02/03/2024 10:26 AM EDT documented in this encounter Results * CT MSK OUTSIDE IMAGES (02/03/2024 10:26 AM EDT) Anatomical Region Laterality Modality Computed Tomogra phy 02/03/2024 10:2 6 AM EDT us External Provider IMG CT PROCEDURES Final Result documented in this encounter Visit Diagnoses Not on filedocumented in this encounter Additional Health Concerns Assessment Noted Time A fall risk assessment has been complete d for the patient 01/24/2024 2:09 PM EDT A Body Mass Index follow-up plan has been documented for the patient 01/24/2024 4:04 PM EDT documented as of this encounter Care Teams After School Program Teacher Relationship Specialty Start Date End Date Robb Cartagena MD [address] [place] [address] PCP - General 02/10/21 Sophia Horne MD [address] [place] [address] Referring Physician Hematology and Oncology 04/15/21 Kirby Kern MD [address] [facility] [address] [place] [address] Consulting Physician Radiation Oncology 03/24/2207/23 Zheng Iglesias MD [address] [facility] [address] [place], [place] [phone] Cardiology 07/24/24 Kristian Prado MD [address] [facility] Jennifer Chawla [facility] [address] [place] [address] Consulting Physician Gynecologic Oncology 07/24/24 Antonio Camarillo MD [address] [place], [place] [phone] Nephrology 07/24/24 Meera Ruiz APRN [address] [facility] [address] [place] [address] Nurse Practitioner Endocrinology 07/24/24 Asad Arevalo MD [address] [place] [address] [address] [place] [address] Referring Physician Gastroenterology 07/24/24 Oscar Murphy MD [address] [facility] [address] [place] [address] Consulting Physician Nephrology 07/24/24 Maria C Parra PA [address] [facility] [address] [facility] [address] [place] [address] Pulmonary Disease 07/24/24 documented as of this encounter
--- OUTSIDE RECORDS SUMMARY | 2025-03-01 13:55 | XMS_ITS | Encounter Summary ---
Author Organization [facility] Address [address] [place] [address] Care Team Providers Care Marine Fisheries Technician Name Role Phone Robb Cartagena MD Primary Care Provider Sophia Horne MD Unavailable [phone] Kirby Kern MD Unavailable [phone] Zheng Iglesias MD Unavailable Kristian Prado MD Unavailable [phone] Antonio Camarillo MD Unavailable [phone] Meera Ruiz [employer] INTER[employer]IP Unavailable [phone] Asad Arevalo MD Unavailable [phone] Oscar Murphy MD Unavailable [phone] Maria C Parra Unavailable [phone] Reason for Visit * Reason Comments Med Refill Encounter Details Date Type Department Care Team (Late st Contact Info) Description 10/14/2022 Refill [facility] Nephrology, Bone & Mineral Metabolism [address] [facility] [place] [address] Oscar Murphy MD [address] [place] [address] Age-related osteoporosis without current pathological fracture Social History Tobacco Use Types Packs/Day Years Used Date Smoking Tobacco: Former Cigarettes 1 1 967 - 1991 Smokeless Tobacco: Never Alcohol Use Standard Drinks/Week Comments No 0 (1 standard drink = 0.6 oz pur e alcohol) PHQ-2 Answer Date Recorded Patient Health Questionnaire-2 Score 1 08/24/2022 Comments No Sex and Gender Information Value Date Recorded Sex Assigned at Female 02/05/2025 4:17 PM EDT Legal Sex Female 8:16 PM EDT Gender Identity Female 02/05/2025 4:17 PM EDT Sexual Orientation Not on file COVID-19 Exposure Response Date Recorded In the last 10 days, have yo u been in contact with someone who was confirmed or suspected to have Coronavirus/COVID-19? No / Unsure 10/06/2022 10:45 AM EST documented as of this encounter Miscellaneous Notes * Telephone Encounter - Mary Dill LPN - 10/14/2022 2:00 PM EDT Medication calcium citrate 950 mg tablet once daily refilled per protocol. #90 with 1 refill sent to [facility]. Follow up scheduled 01/08/23. documented in this encounter Plan of Treatment Upcoming Encounters Date Type Department Care Team (Late st Contact Info) Description 04/06/2025 9:20 AM EDT Office Visit [facility] Endocrinology [address] [place] [address] (1), Chepe Cobian Fellow 04/17/2025 11:30 AM EDT Clinical Support [facility] Laboratory Services [address] [facility], 1st [place] [address] 04/25/2025 12:00 PM EDT Appointment [facility] [address] [place] [address] 05/01/2025 11:40 AM EDT Office Visit [facility] Bone & Mineral Metabolism [address], [address] [place] [address] Marla Hilton APRN [address] [place] [address] 05/16/2025 1:10 PM EDT Office Visit [facility] Orthopaedic Surgery & Sports Medicine [address], 1st [address] [place] [address] Trent Moon MD [address] [facility] [address] [place] [address] documented as of this encounter Visit Diagnoses Diagnosis Age-related osteoporosis without current pathological fracture documented in this encounter Additional Health Concerns Assessment Noted Time A fall risk assessment has been complete d for the patient 10/06/2022 11:44 AM EST A Body Mass Index follow-up plan has been documented for the patient 10/06/2022 2:55 PM EST documented as of this encounter Care Teams Marine Fisheries Technician Relationship Specialty Start Date End Date Robb Cartagena MD [address] [place] [id number] PCP - General 02/10/21 Sophia Horne MD [address] [place] [address] Referring Physician Hematology and Oncology 04/15/21 Kirby Kern MD [address] [facility] [address] [place] [address] Consulting Physician Radiation Oncology 03/24/2207/23 Zheng Iglesias MD [address] [facility] [address] [place] [address] Cardiology 07/24/24 Kristian Prado MD [address] [facility] [facility] [address] [place] [address] Consulting Physician Gynecologic Oncology 07/24/24 Antonio Camarillo MD [address] [place] [address] Nephrology 07/24/24 Meera Ruiz APRN [address] [facility] [address] [place] [address] Nurse Practitioner Endocrinology 07/24/24 Asad Arevalo MD [address] [facility] [address] [place] [address] Referring Physician Gastroenterology 07/24/24 Oscar Murphy MD [address] [facility] [address] [place] [address] Consulting Physician Nephrology 07/24/24 Maria C Parra PA [address] [place] [address] Pulmonary Disease 07/24/24 documented as of this encounter
--- OUTSIDE RECORDS SUMMARY | 2025-03-01 13:55 | XMS_ITS | Encounter Summary ---
Author Organization [facility] Address [address] [place] [address] Care Team Providers Care Drafting Teacher Name Role Phone Per Patient, None Primary Care Provider [phone] Robb Cartagena MD Primary Care Provider [phone] Sophia Horne MD Unavailable [phone] Kirby Kern MD Unavailable [phone] Zheng Iglesias MD Unavailable Kristian Prado MD Unavailable [phone] Antonio Camarillo MD Unavailable [phone] Meera Ruiz APRN Unavailable [phone] Asad Arevalo MD Unavailable [phone] Oscar Murphy MD Unavailable [phone] Maria C Parra Unavailable [phone] Encounter Details Date Type Department Care Team (Late st Contact Info) Description 01/22/2021 Orders Only [facility] @ [facility] [address] [place] [address] Antonio Camarillo MD [address] [place] [address] Social History Tobacco Use Types Packs/Day Years Used Date Smoking Tobacco: Former Alcohol Use Standard Drinks/Week Comments No 0 (1 standard drink = 0.6 oz pur e alcohol) Comments Unknown Sex and Gender Information Value Date Recorded Sex Assigned at Female 02/05/2025 4:17 PM EDT Legal Sex Female 8:16 PM EDT Gender Identity Female 02/05/2025 4:17 PM EDT Sexual Orientation Not on file COVID-19 Exposure Response Date Recorded In the last month, have you been in contact with someone who was confirmed or suspected to have Coronavirus / COVID-19? No / Unsure 01/22/2021 11:04 AM EDT documented as of this encounter Plan of Treatment Upcoming Encounters Date Type Department Care Team (Late st Contact Info) Description 04/06/2025 9:20 AM EDT Office Visit [facility] Endocrinology [address] [place] [address] (1), Chepe Cobian Fellow 04/17/2025 11:30 AM EDT Clinical Support [facility] Laboratory Services [address] [facility] [facility], 1st [place] [address] 04/25/2025 12:00 PM EDT Appointment [facility]fusion [address] [place] [address] 05/01/2025 11:40 AM EDT Office Visit [facility] Bone & Mineral Metabolism [address] [facility] [facility], [address] [place] [address] Marla Hilton APRN [address] [facility] [facility] [address] [place] [address] 05/16/2025 1:10 PM EDT [facility] Medicine [address], 1st Floor [address] [place] [address] Trent Moon MD [address] [facility] 201 [place] [address] documented as of this encounter Procedures Procedure Name Priority Date/Time Associated Diagnosis Comments URINALYSIS WITH REFLEX MICROSCOPIC Routine 01/22/2021 10:47 AM EDT documented in this encounter Results * (ABNORMAL) Urinalysis with reflex microscopic (01/22/2021 10:47 AM EDT) External Urine Color Yellow [facility] External Urine Clarity Clear [facility] External Urine Glucose Normal NORMAL MG/DL [facility] External Urine Bilirubin Negative NEGATIVE MG/DL [facility] External Urine Ketone Negative NEGATIVE MG/DL [facility] External Urine Spec Grav 1.015 1.003 - 1.035 [facility] External Urine Blood 10(A) NEGATIVE /uL [facility] External Ph-Urine Dipstick 5 5.0 - 8.0 [facility] External Urine Protein Negative NEGATIVE MG/DL [facility] External Urine Urobilinogen Normal NORMAL MG/DL [facility] External Urine Nitrite Negative NEGATIVE [facility] External Urine Leukocyte Esterase 100(A) NEGATIVE /ul [facility] External Urine WBC > 30(A) 0-5/HPF [facility] External RBC-Urine 0-2 0-2/HPF [facility] External Squamous Epithelial Cells 0-5 0-5/HPF [facility] External Urine Bacteria 2+(A) /HPF [facility] Comment: @[email or web address] 01/22/2021 10:4 7 AM EDT 01/22/2021 12:58 PM EDT us Antonio Camarillo MD LAB URINE ORDERABLES Final Result Performing Organization Address [facility] Phone Number [facility] [address] [place] [address], documented in this encounter Visit Diagnoses Not on filedocumented in this encounter Care Teams Drafting Teacher Relationship Specialty Start Date End Date Per Patient, None, [address] [place], [place] [id number] PCP - General 01/22/21 02/09/21 Robb Cartagena MD [address] [place] [address] PCP - General 02/10/21 Sophia Horne MD [address] [place] [address] Referring Physician Hematology and Oncology 04/15/21 Kirby Kern MD [address] [facility] [address] [place] [address] Consulting Physician Radiation Oncology 03/24/2207/23 Zheng Iglesias MD 14[address] [facility] [address] [place] [address] Cardiology 07/24/24 Kristian Prado MD 800 [facility] [address] [place] [address] Consulting Physician Gynecologic Oncology 07/24/24 Antonio Camarillo MD [address] [place] [address] Nephrology 07/24/24 Meera Ruiz APRN 2195 [facility] 125 [place] [address] Nurse Practitioner Endocrinology 07/24/24 Asad Arevalo MD 991 [facility] 203 [place] [address] Referring Physician Gastroenterology 07/24/24 Oscar Murphy MD [address] [facility] 401 [place] [address] Consulting Physician Nephrology 07/24/24 Maria C Parra PA [address] [place] [address] Pulmonary Disease 07/24/24 documented as of this encounter
--- OUTSIDE RECORDS SUMMARY | 2025-03-01 13:55 | XMS_ITS | Encounter Summary ---
Author Organization [facility] Address [address] [place] [address] Care Team Providers Care Business Ethics Professor Name Role Phone Per Patient, None Primary Care Provider [phone] Robb Cartagena MD Primary Care Provider Sophia Horne MD Unavailable [phone] Kirby Kern MD Unavailable [phone] Zheng Iglesias MD Unavailable Kristian Prado MD Unavailable [phone] Antonio Camarillo MD Unavailable [phone] Meera Ruiz APRN Unavailable [phone] Asad Arevalo MD Unavailable [phone] Oscar Murphy MD Unavailable [phone] Maria C Parra Unavailable [phone] Encounter Details Date Type Department Care Team (Late st Contact Info) Description 01/22/2021 Orders Only [facility] at [address] [address] Antonio Camarillo MD [address] [place] [id number] Social History Tobacco Use Types Packs/Day Years [...] Description 04/06/2025 9:20 AM EDT Office Visit [facility] Endocrinology [address] [place] [address] (1), Chepe Cobian Fellow 04/17/2025 11:30 AM EDT Clinical Support [facility] Laboratory Services [address] [facility], 1st [place] [address] 04/25/2025 12:00 PM EDT Appointment [facility]fusion [address] [place] [address] 05/01/2025 11:40 AM EDT Office Visit [facility] Bone & Mineral Metabolism [address] [facility], [address] [place] [address] Marla Hilton APRN [address] [facility] [address] [place] [address] 05/16/2025 1:10 PM EDT Office Visit [facility] Orthopaedic Surgery & Sports Medicine [address], 1st Floor [address] [place] [address] Trent Moon MD [address] [facility] 201 [place] [address] documented as of this encounter Procedures Procedure Name Priority Date/Time Associated Diagnosis Comments RENAL FUNCTION PANEL, PLASMA Routine 01/22/2021 10:47 AM EDT documented in this encounter Results * (ABNORMAL) Renal Function Panel, Plasma (01/22/2021 10:47 AM EDT) External Glucose 128(H) 74 - 100 mg/dL [facility] External BUN 28(H) 6 - 20 mg/dL [facility] External Creatinine Blood 1.58(H) 0.50 - 0.95 mg/dL [facility] External BUN/Creat Ratio 18 10 - 20 (calc) [facility] External Sodium 141 136 - 145 mmol/L [facility] External Potassium 3.6 3.4 - 5.0 mmol/L [facility] External Chloride 102 98 - 107 mmol/L [facility] External Carbon Dioxide 28 22 - 31 mmol/L [facility] External Anion Gap (AG) 11 7 - 25 (calc) [facility] External Calcium 10.3(H) 8.6 - 10.2 mg/dL [facility] External Phosphorus 3.8 2.5 - 4.5 mg/dL [facility] External Albumin 4.2 3.5 - 5.2 g/dL [facility] External EGFR (If AFR/AM) 36(A) >=60 [facility] External Estimated GFR 31(A) >=60 [facility] Comment: NOTE Chronic kidney disease is defined as kidney damage for more than 3 months or a GFR less than 60 mL/min/1.73 m2 for greater than 3 months. This calculation has not been validated in women. For pediatric patients refer to National Kidney Foundation https://www.kidney.org/professionals/KDOQI/gfr_calculatorPed 01/22/2021 10:4 7 AM EDT 01/22/2021 10:52 AM EDT us Antonio Camarillo MD LAB BLOOD ORDERABLES Final Result [facility] [address] [place] [address], documented in this encounter Visit Diagnoses Not on filedocumented in this encounter Care Teams Business Ethics Professor Relationship Specialty Start Date End Date Per Patient, Florentino, [address] [place], [place] [phone] PCP - General 01/22/21 02/09/21 Robb Cartagena MD [address] [place], [place] [phone] PCP - General 02/10/21 Sophia Horne MD [address] [place] [address] Referring Physician Hematology and Oncology 04/15/21 Kirby Kern MD 800 [facility] [address] [place] [address] Consulting Physician Radiation Oncology 03/24/2207/23 Zheng Iglesias MD 1401 [facility] [address] [place], [place] [phone] Cardiology 07/24/24 Kristian Prado MD 800 [facility] [address] [place] [address] Consulting Physician Gynecologic Oncology 07/24/24 Antonio Camarillo MD [address] [place] [address] Nephrology 07/24/24 Meera Ruiz APRN 2195 [facility] [address] [place] [address] Nurse Practitioner Endocrinology 07/24/24 Asad Arevalo MD 991 [facility] 203 [place] [address] Referring Physician Gastroenterology 07/24/24 Oscar Murphy MD 135 [address] [facility] 401 [place] [address] Consulting Physician Nephrology 07/24/24 Maria C Parra PA [address] [facility] [address] [facility] [address] [place] [address] Pulmonary Disease 07/24/24 documented as of this encounter
--- OUTSIDE RECORDS SUMMARY | 2025-03-01 13:55 | XMS_ITS | Encounter Summary ---
Author Organization [facility] Address [address] [place] [address] Care Team Providers Care Clinical Informatics Educator Name Role Phone Per Patient, None Primary Care Provider [phone] Robb Cartagena MD Primary Care Provider Sophia Horne MD Unavailable [phone] Kirby Kern MD Unavailable [phone] Zheng Iglesias MD Unavailable Kristian Prado MD Unavailable [phone] Antonio Camarillo MD Unavailable [phone] Meera Ruiz DESK INTERVIEWER Unavailable [phone] Asad Arevalo MD Unavailable [phone] Oscar Murphy MD Unavailable [phone] Maria C Parra Unavailable [phone] Encounter Details Date Type Department Care Team (Late st Contact Info) Description 01/22/2021 Orders Only [facility] at [facility] [address] [place] [address] Sophia Horne MD [address] [address] Social History Tobacco Use Types Packs/Day Years [...] 9:20 AM EDT Office Visit [facility] Endocrinology [address] [place] [address] (1), Chepe Cobian Fellow 04/17/2025 11:30 AM EDT Clinical Support [facility] Laboratory Services [address] [facility], 1st [place] [address] 04/25/2025 12:00 PM EDT Appointment [facility] Infusion [address] [place] [address] 05/01/2025 11:40 AM EDT Office Visit [facility] Bone & Mineral Metabolism [address] [facility], [address] [place] [address] Marla Hilton APRN [address] [facility] [address] [place] [address] 05/16/2025 1:10 PM EDT Office [facility] Orthopaedic Surgery & Sports Medicine [address], 1st [address] [place] [address] Trent Moon MD [address] [facility] 201 [place] [address] documented as of this encounter Procedures Procedure Name Priority Date/Time Associated Diagnosis Comments HEMOGLOBIN A1C Routine 01/22/2021 10:40 AM EDT documented in this encounter Results * (ABNORMAL) Hemoglobin A1c (01/22/2021 10:40 AM EDT) External Glycosylated Hemoglobin (Hgb A1C) 6.1(H) 0.0 - 5.6 % [facility] External Estimated Average Glucose 128 mg/dl (calc) [facility] Comment: A1c values between 5.7% to 6.4% indicate prediabetes. Results 6.5% or greater is diagnostic of diabetes. [place] [employer] (diabetes.org) 01/22/2021 10:4 0 AM EDT 01/22/2021 10:59 AM EDT us Sophia Horne MD LAB BLOOD ORDERABLES Final Res ult [facility] [address] [place] [address], documented in this encounter Visit Diagnoses Not on filedocumented in this encounter Care Teams Clinical Informatics Educator Relationship Specialty Start Date End Date Per Patient, None, [address] [facility] [address] [place] [address] PCP - General 01/22/21 02/09/21 Robb Cartagena MD [address] [place] [address] PCP - General 02/10/21 Sophia Horne MD 800 [place] [address] Referring Physician Hematology and Oncology 04/15/21 Kirby Kern MD [address] [facility] [address] [place] [address] Consulting Physician Radiation Oncology 03/24/2207/23 Zheng Iglesias MD 1401 [facility] [address] [place], [place] [phone] Cardiology 07/24/24 Kristian Prado MD 800 [facility] [address] [place] [address] Consulting Physician Gynecologic Oncology 07/24/24 Antonio Camarillo MD [address] [place], [place] [phone] Nephrology 07/24/24 Meera Ruiz APRN 2195 [facility] [address] [place] [address] Nurse Practitioner Endocrinology 07/24/24 Asad Arevalo MD 991 [facility] 203 [place], [place] [address] Referring Physician Gastroenterology 07/24/24 Oscar Murphy MD [address] [facility] 401 [place] [address] Consulting Physician Nephrology 07/24/24 Maria C Parra PA [address] [place] [address] Pulmonary Disease 07/24/24 documented as of this encounter
--- OUTSIDE RECORDS SUMMARY | 2025-03-01 13:55 | XMS_ITS | Encounter Summary ---
Author Organization [facility] Address [address] [place] [address] Care Team Providers Care Pharmacy Affairs Assistant Name Role Phone Robb Cartagena MD Primary Care Provider Sophia Horne MD Unavailable [phone] Zheng Iglesias MD Unavailable Kristian Prado MD Unavailable [phone] Antonio Camarillo MD Unavailable [phone] Meera Ruiz TIMBER SELECTOR Unavailable [phone] Asad Arevalo MD Unavailable [phone] Oscar Murphy MD Unavailable [phone] Maria C Parra Unavailable [phone] Reason for Visit * Reason Onset Date Comments Med Refill 07/26/2024 Encounter Details Date Type Department Care Team (Late st Contact Info) Description 07/26/2024 Refill [facility] at [facility] [address] [place] [address] Sophia Horne MD [address] [address] History of iron deficiency anemia (Primary Dx); Age-related osteoporosis without current pathological fracture; Non-seasonal allergic rhinitis, unspecified trigger; Diarrhea, unspecified type; Malignant neoplasm of upper-outer quadrant of right breast in female, estrogen receptor positive (CMS/HCC); Depressive disorder; Essential hypertension; Acquired hypothyroidism; Gastroesophageal reflux disease without esophagitis; Restless leg syndrome Social History Tobacco Use Types Packs/Day Years Used Date Smoking Tobacco: Former Cigarettes 1 7 1991 Passive Smoke Exposure: Never Smokeless Tobacco: Never Alcohol Use Standard Drinks/Week Comments No 0 (1 standard drink = 0.6 oz pur e alcohol) PHQ-2 Answer Date Recorded Patient Health Questionnaire-2 Score 0 07/24/2024 PHQ-2A Answer Date Recorded Depression Risk 0 [...] Visit [facility] Endocrinology [facility]5 [place] [address] (1), Chepe Cobian Fellow 04/17/2025 11:30 AM EDT Clinical Support [facility] Laboratory Services [address] [facility], 1st [place] [address] 04/25/2025 12:00 PM EDT Appointment [facility] G Infusion 800 [facility] [address] [place] [address] 05/01/2025 11:40 AM EDT Office Visit [facility] Bone & Mineral Metabolism [address] [facility], [address] [place] [address] Marla Hilton APRN [address] [facility] [address] [place] [address] 05/16/2025 1:10 PM EDT Office Visit [facility] Orthopaedic Surgery & Sports Medicine [address], 1st Floor [address] [place] [address] Trent Moon MD [address] [facility] 201 [place] [address] documented as of this encounter Visit Diagnoses Diagnosis History of iron deficiency anemia- Primary Personal history of diseases of blood and blood-forming organs Age-related osteoporosis without current pathological fracture Non-seasonal allergic rhinitis, unspecified trigger Diarrhea, unspecified type Malignant neoplasm of upper-outer quadrant of right breast in female, estrogen receptor positive Depressive disorder Depressive disorder, not elsewhere classified Essential hypertension Unspecified essential hypertension Acquired hypothyroidism Unspecified hypothyroidism Gastroesophageal reflux disease without esophagitis Esophageal reflux Restless leg syndrome Restless legs syndrome (RLS) documented in this encounter Additional Health Concerns Assessment Noted Time A fall risk assessment has been complete d for the patient 07/24/2024 3:24 PM EST A Body Mass Index follow-up plan has been documented for the patient 07/24/2024 4:01 PM EST documented as of this encounter Care Teams Pharmacy Affairs Assistant Relationship Specialty Start Date End Date Robb Cartagena MD [address] [place] [address] PCP - General 02/10/21 Sophia Horne MD [address] [place] [address] Referring Physician Hematology and Oncology 04/15/21 Zheng Iglesias MD [address] [place] [address] [address] [place], [place] [phone] Cardiology 07/24/24 Kristian Prado MD 800 [facility] [address] [place] [address] Consulting Physician Gynecologic Oncology 07/24/24 Antonio Camarillo MD [address] [place], [place] [phone] Nephrology 07/24/24 Meera Ruiz APRN 2195 [facility] [address] [place] [address] Nurse Practitioner Endocrinology 07/24/24 Asad Arevalo MD [address] [place] [address] [address] [place] [address] Referring Physician Gastroenterology 07/24/24 Oscar Murphy MD [address] [facility] [address] [place] [address] Consulting Physician Nephrology 07/24/24 Maria C Parra PA [address] [place] [address] Pulmonary Disease 07/24/24 documented as of this encounter
--- OUTSIDE RECORDS SUMMARY | 2025-03-01 13:55 | XMS_ITS | Encounter Summary ---
Author Organization [facility] Address [address] [place] [address] Care Team Providers Care Esthetic Dermatologist Name Role Phone Robb Cartagena MD Primary Care Provider Sophia Horne MD Unavailable [phone] iKrby Kern MD Unavailable [phone] Zheng Iglesias MD Unavailable Kristian Prado MD Unavailable [phone] Antonio Camarillo MD Unavailable [phone] Meera Ruiz EMBEDDER Unavailable [phone] Asad Arevalo MD Unavailable [phone] Oscar Murphy MD Unavailable [phone] Maria C Parra Unavailable [phone] Reason for Visit * Reason Comments Med Refill Encounter Details Date Type Department Care Team (Late st Contact Info) Description 07/14/2022 Refill [facility] Nephrology, Bone & Mineral Metabolism [address] [facility] [address], [address] [place] [address] Oscar Murphy MD [address] [place] [address] Age-related osteoporosis without current pathological fracture Social History Tobacco Use Types Packs/Day Years Used Date Smoking Tobacco: Former Smokeless Tobacco: Never Alcohol Use Standard Drinks/Week Comments No 0 (1 standard drink = 0.6 oz pur e alcohol) PHQ-2 Answer Date Recorded Patient Health Questionnaire-2 Score 0 05/21/2022 Comments No Sex and Gender Information Value [...] suspected to have Coronavirus/COVID-19? No / Unsure 07/07/2022 10:47 AM EST documented as of this encounter Miscellaneous Notes * Telephone Encounter - Mary Dill LPN - 07/15/2022 8:24 AM EST Medication cholecalciferol 25 mcg tablet one tablet daily refilled per protocol. #90 with 1 refill sent to [facility]. Follow up scheduled 01/08/2023. documented in this encounter Plan of Treatment Upcoming Encounters Date Type Department Care Team (Late st Contact Info) Description 04/06/2025 9:20 AM EDT Office Visit [facility] Endocrinology [address] [place] [phone] (1), Chepe Cobian Fellow 04/17/2025 11:30 AM EDT Clinical Support [facility] Laboratory Services [address], 1st [place] [address] 04/25/2025 12:00 PM EDT Appointment [facility] [address] [place] [address] 05/01/2025 11:40 AM EDT Office Visit [facility] Bone & Mineral Metabolism [address], [address] [place] [address] Marla Hilton APRN [address] [place] [address] 05/16/2025 1:10 PM EDT Office Visit [facility] Orthopaedic Surgery & Sports Medicine [address], [address] [place] [address] Trent Moon MD [address] [facility] [address] [place] [address] documented as of this encounter Visit Diagnoses Diagnosis Age-related osteoporosis without current pathological fracture documented in this encounter Additional Health Concerns Assessment Noted Time A fall risk assessment has been complete d for the patient 07/07/2022 10:57 AM EST documented as of this encounter Care Teams Esthetic Dermatologist Relationship Specialty Start Date End Date Robb Cartagena MD [address] [place] [address] PCP - General 02/10/21 Sophia Horne MD [address] [place] [phone] Referring Physician Hematology and Oncology 04/15/21 Kirby Kern MD [address] [facility] [address] [place] [address] Consulting Physician Radiation Oncology 03/24/2207/23 Zheng Iglesias MD [address] [place] [address] [address] [place], [place] [id number] Cardiology 07/24/24 Kristian Prado MD [address] [facility] [address] [place] [phone] Consulting Physician Gynecologic Oncology 07/24/24 Antonio Camarillo MD [address] [place] [address] Nephrology 07/24/24 Meera Ruiz APRN [address] [facility] [address] [place] [address] Nurse Practitioner Endocrinology 07/24/24 Asad Arevalo MD [address] [place] [address] [address] [place] [address] Referring Physician Gastroenterology 07/24/24 Oscar Murphy MD [address] [facility] [address] [place] [address] Consulting Physician Nephrology 07/24/24 Maria C Parra PA [address] [facility] [address] [place] [address] Pulmonary Disease 07/24/24 documented as of this encounter
--- OUTSIDE RECORDS SUMMARY | 2025-03-01 13:55 | XMS_ITS | Encounter Summary ---
Author Organization [employer] ([place], [place], [place], [place]) Address [address] [place] [address] Care Team Providers Care Pitching Coach Name Role Phone Robb Cartagena MD Primary Care Provider [phone] Zheng Iglesias MD Unavailable Reason for Visit * Reason Comments Medication Refill Encounter Details Date Type Department Care Team (Late st Contact Info) Description 09/09/2022 Refill [facility] Cardiology [address] [place], [place] [phone] [place] [address] [place] [address] [address] [place] [address] Paroxysmal atrial fibrillation (HCC) Social History Tobacco Use Types Packs/Day Years Used Date Smoking Tobacco: Former Smokeless Tobacco: Never Alcohol Use Standard Drinks/Week Comments Never 0 (1 standard drink = 0.6 oz pur e alcohol) Comments Unknown Sex and Gender Information Value Date Recorded Sex Assigned at Not on file Legal Sex Female 1:29 PM CDT Gender Identity Not on file Sexual Orientation Not on file documented as of this encounter Plan of Treatment Not on file documented as of this encounter Visit Diagnoses Diagnosis Paroxysmal atrial fibrillation (HCC) Atrial fibrillation documented in this encounter Care Teams Pitching Coach Relationship Specialty Start Date End Date Robb Cartagena MD [address] [place] [address] PCP - General Family Medicine 9/29/22 Zheng Iglesias MD [address] [place] [address] Recovery Manager Cardiology 07/07/22 documented as of this encounter
--- OUTSIDE RECORDS SUMMARY | 2025-03-01 13:55 | XMS_ITS | Encounter Summary ---
Author Organization [employer] ([place], [place], [place], [place]) Address [address] [place] [address] Care Team Providers Care Mine Captain Name Role Phone Robb Cartagena MD Primary Care Provider [phone] Zheng Iglesias MD Unavailable Encounter Details Date Type Department Care Team (Late st Contact Info) Description 03/04/2022 Transcribed Document [facility] Family Medicine [address] [place] [address] ProviderGay MD [address] [place] [address] Social History Tobacco Use Types Packs/Day Years Used Date Smoking Tobacco: Never Assessed Family and Community Support Answer Wong e Recorded Help with Day to Day Activities Not on file 08/14/2023 Feeling Lonely or Isolated Not on file 08/14 Educational Attainment Answer Date Anjel rded Speak language other than Zambian at home Not on file 08/14/2023 Want help with school or training Not on file 08/14/2023 Substance Use Answer Date Recorded Used prescription meds for non-medical reasons N ot on file 08/14/2023 Used illegal drugs past 12 months Not on file 08/14/2023 Comments Unknown Sex and Gender Information Value Date Recorded Sex Assigned at Not on file Legal Sex Female 1:29 PM CDT Gender Identity Not on file Sexual Orientation Not on file documented as of this encounter Miscellaneous Notes * Cerner Conversion Note - Historical ProviderMD - 03/04/2022 3:01 PM CDT DATE OF SERVICE: 03/04/2022 LEXISCAN MYOVIEW PERFUSION STUDY INDICATION: Coronary artery disease. REFERRING PHYSICIAN: Dr. Robb Cartagena. RESTING ELECTROCARDIOGRAM: Sinus bradycardia, nonspecific ST-T wave changes. LEXISCAN STRESS: Standard Lexiscan stress protocol. Peak heart rate response of 75 beats per minute and blood pressure response to 146/78 mmHg were achieved. There is no chest discomfort. No arrhythmia. The stress electrocardiogram is negative for ischemic ST changes. 10.8 mCi of Myoview was administered prior to rest scan and 32.7 mCi prior to the post stress scan. MYOVIEW PERFUSION DATA: Reversible defect: There is moderate partially reversible defect involving basal, mid, distal anterior wall. Fixed defects: There is mild fixed defect involving the basal/mid anterior wall. Left ventricular function: Gated management of left ventricular systolic function post-stress 65%. No regional wall motion abnormality. IMPRESSION: Mixture of partially reversible and fixed defect involving the basal, mid, distal anterior wall, suggestive of mixed scar and ischemia in the left anterior descending territory. or chest wall attenuation with slight difference in positioning. Normal left ventricular systolic function post stress. /[id number] Zheng Iglesias MD SSL/AQ / SSL / MODL /[id number] CC: Robb Cartagena MD Electronically signed by [facility] Conversion Shoe Lining Fitter Cerner at 11/19/2022 3:18 PM CDT documented in this encounter Plan of Treatment Not on file documented as of this encounter Visit Diagnoses Not on filedocumented in this encounter Care Teams Mine Captain Relationship Specialty Start Date End Date Robb Caratgena MD [address] [place] [address] PCP - General Family Medicine 04/30/22 Zheng Iglesias MD [address] [facility] [place] [address] Sales Executive Insurance Cardiology 07/07/22 documented as of this encounter
--- OUTSIDE RECORDS SUMMARY | 2025-03-01 13:55 | XMS_ITS | Clinical Summary ---
Author Organization [facility] ([place], [place], [place], [place]) Address [address] [place] [address] Care Team Providers Care Nuclear Reactor Operator Name Role Phone Robb Cartagena MD Primary Care Provider [phone] Zheng Iglesias MD Unavailable Allergies No known active allergies Medications biotin 1 mg tablet Take 1,000 mcg by mouth. Active calcium citrate (CALCITRATE) 200 mg (950 mg) tablet 1 tablet (950 mg total) daily. 04/16/20 22 Active ferrous sulfate 325 (65 FE) MG tablet Take 1 tablet (325 mg total) by mouth. Active insulin aspart U-100 (NovoLOG) 100 unit/mL (3 mL) InPn Inject 12 units BID w/ meals plus titration as advised, Max tdd 50 units 03/16/20 22 Active LORazepam (ATIVAN) 0.5 MG tablet Take 1 tablet (0.5 mg total) by mouth. Active pantoprazole (PROTONIX) 20 MG tablet Take 1 tablet (20 mg total) by mouth. Active gabapentin (NEURONTIN) 600 MG tablet Take 1 tablet (600 mg total) by mouth 2 (two) times daily. Active nitroglycerin (NITROSTAT) 0.[address] 1 tablet (0.4 mg total) under the tongue every 5 (five) minutes as needed for chest pain Put 1 pill under tongue every 5min as needed for chest pain.No more than 3 doses in 15min.Call 911 if pain unrelieved 5min after 1st dose . Active rOPINIRole (REQUIP) 0.5 MG tablet Take 1 tablet (0.5 mg total) by mouth daily. Active levothyroxine (SYNTHROID, LEVOTHROID) 100 MCG tablet Take 1 tablet (100 mcg total) by mouth Every morning on an empty stomach. Active atorvastatin (LIPITOR) 40 MG tabletIndication s:Dyslipidemia Take 1 tablet (40 mg total) by mouth daily. 90 tablet 3 08/18/19 23 Active empagliflozin (JARDIANCE) 10 mg tabletIndication s:Coronary artery disease involving [place] coronary artery of [place] heart, unspecified whether angina present Take 1 tablet (10 mg total) by mouth daily. 30 tablet 11 08/18/19 23 Active metoprolol succinate (TOPROL-XL) 25 MG 24 hr tabletIndication s:Primary hypertension Take 1 tablet (25 mg total) by mouth daily. 90 tablet 3 08/18/19 23 Active ergocalciferol (ERGOCALCIFEROL) 1,250 mcg (50,000 unit) capsule ergocalciferol (vitamin D2) 1,250 mcg (50,000 unit) capsule Active insulin glargine (LANTUS, SEMGLEE) 100 unit/mL (3 mL) InPn Inject 30-40 units daily, titrate as advised, max dose 50u/day 03/16/20 22 Active apixaban (Eliquis) 2.5 mg Tab tabletIndication s:Paroxysmal atrial fibrillation (HCC),Coronary artery disease involving [place] coronary artery of [place] heart, unspecified whether angina present Take 1 tablet (2.5 mg total) by mouth 2 (two) times daily. 180 tablet 3 03/30/20 23 Active amiodarone (PACERONE) 200 MG tabletIndication s:Paroxysmal atrial fibrillation (HCC) Take 0.5 tablets (100 mg total) by mouth daily. 90 tablet 3 03/30/20 23 Active semaglutide (Ozempic) 2 mg/dose (8 mg/3 mL) pnijIndications: Coronary artery disease involving [place] coronary artery of [place] heart, unspecified whether angina present INJECT 2MG UNDER THE SKIN ONE TIME WEEKLY 9 mL 3 04/05/20 24 Active Active Problems Problem Noted Date Diagnosed Date Coronary artery disease invo lving [place] coronary artery of [place] heart, unspecified whether angina present 07/07/2022 Dyslipidemia 07/07/2022 Primary hypertension 07/07/2022 Paroxysmal atrial fibrillation 07/07/2022 Family History Medical History Relation Name Comments Heart attack Brother Heart attack Father Heart disease Mother Relation Name Status Comments Brother Father Mother Social History Tobacco Use Types Packs/Day Years Used Date Smoking Tobacco: Former Smokeless Tobacco: Never Tobacco Cessation:Counseling Given: Yes Alcohol Use Standard Drinks/Week Comments Never 0 (1 standard drink = 0.6 oz pur e alcohol) Family and Community Support Answer Wong e Recorded Help with Day to Day Activities Not on file 08/14/2023 Feeling Lonely or Isolated Not on file 08/14 Educational Attainment Answer Date Anjel rded Speak language other than Ukrainian at home Not on file 08/14/2023 Want [...] on file Sexual Orientation Not on file Last Filed Vital Signs Vital Sign Reading Time Taken Comments Blood Pressure 122/70 06/09/2024 3:25 PM EST Pulse 60 06/09/2024 3:25 PM EST Temperature - - Respiratory Rate - - Oxygen Saturation 98% 03/30/2023 11:36 AM EDT Inhaled Oxygen Concentration - - Weight 69.4 kg (153 lb) 06/09/2024 3:25 PM EST Height 175.3 cm (5' 9 ) 06/09/2024 3:25 PM EST Body Mass Index 22.59 06/09/2024 3:25 PM EST Plan of Treatment Health Maintenance Due Date Last Done Comments DXA SCAN 1945 Depression Screening (12+) 1956 Shingles Vaccine (Zoster) (1 of 2) 02/08/1994 Pneumococcal 50+ years (2 of 2 - PCV) 06/05/201610/2014 Respiratory Syncytial Virus (RSV) Adult or (1 - 1-dose 75+ series) 02/08/2019 Medicare Initial AWV G0438 08/03/2019 COVID-19 VACCINE ( - season) 2024 Falls Risk Screening 08/02/2024 Influenza Vaccine (#1) 2025 Tobacco Cessation Counseling and Screening (12+) 06/09/2025 06/09/2024 DTAP/TDAP/TD VACCINES (3 - Td or Tdap) 12/23/2032, 04/23/2001 Insurance [facility] MEDICARE PPO Advance Directives For more information, please contact: [phone] * Full Code (Latest Code Status on File) Date Activated Date Inactivated Comments 07/13/2022 6:50 AM 07/14/2022 5:01 AM Care Teams Nuclear Reactor Operator Relationship Specialty Start Date End Date Robb Cartagena MD [address] [place] [address] PCP - General Family Medicine 04/30/22 Zheng Iglesias MD [address] [place] [address] [address] [place] [address] Bundle Sorter Cardiology 07/07/22
--- OUTSIDE RECORDS SUMMARY | 2025-03-01 13:55 | XMS_ITS | Encounter Summary ---
Author Organization [facility] Address [address] [place] [address] Care Team Providers Care Jacquard Loom Heddles Tier Name Role Phone Per Patient, None Primary Care Provider [phone] Robb Cartagena MD Primary Care Provider Sophia Horne MD Unavailable [phone] Kirby Kern MD Unavailable [phone] Zheng Iglesias MD Unavailable Kristian Prado MD Unavailable [phone] Antonio Camarillo MD Unavailable [phone] Meera Ruiz TRANSFORMATION LEAD Unavailable [phone] Asad Arevalo MD Unavailable [phone] Oscar Murphy MD Unavailable [phone] Maria C Parra Unavailable [phone] Encounter Details Date Type Department Care Team (Late st Contact Info) Description 01/22/2021 Orders Only [facility] [address] [place] [address] Sophia Horne MD [address] [address] Social History Tobacco Use Types [...] Description 04/06/2025 9:20 AM EDT Office Visit [facility] Endocrinology [address] [place] [phone] (1), Chepe Cobian Fellow 04/17/2025 11:30 AM EDT Clinical Support [facility] Laboratory Services [address] [facility] 1st [place] [address] 04/25/2025 12:00 PM EDT Appointment [facility] Infusion [address] [place] [address] 05/01/2025 11:40 AM EDT Office Visit [facility] Bone & Mineral Metabolism [address] [facility], [address] [place] [address] Marla Hilton APRN [address] [facility] [address] [place] [address] 05/16/2025 1:10 PM EDT Office Visit [facility] Orthopaedic Surgery & Sports Medicine [address], 1[address] [place] [address] Trent Moon MD [address] [facility] [address] [place] [address] documented as of this encounter Procedures Procedure Name Priority Date/Time Associated Diagnosis Comments COMPREHENSIVE METABOLIC PANEL, PLASMA Routine 01/22/2021 10:40 AM EDT documented in this encounter Results * (ABNORMAL) Comprehensive Metabolic Panel, Plasma (01/22/2021 10:40 AM EDT) External Glucose 124(H) 74 - 100 mg/dL [facility] External BUN 27(H) 6 - 20 mg/dL [facility] External Creatinine Blood 1.54(H) 0.50 - 0.95 mg/dL [facility] External BUN/Creat Ratio 18 10 - 20 (calc) [facility] External Sodium 142 136 - 145 mmol/L [facility] External Potassium 3.6 3.4 - 5.0 mmol/L [facility] External Chloride 103 98 - 107 mmol/L [facility] External Carbon Dioxide 28 22 - 31 mmol/L [facility] External Anion Gap (AG) 11 7 - 25 (calc) [facility] External Calcium 10.4(H) 8.6 - 10.2 mg/dL [facility] External Total Protein 7.6 6.4 - 8.3 g/dL [facility] External Albumin 4.2 3.5 - 5.2 g/dL [facility] External Globulin 3.4 1.5 - 4.5 g/dL (calc) [facility] External Albumin/Globulin Ratio 1.2 1.1 - 2.5 (calc) [facility] External Bilirubin Total 0.4 0.1 - 1.2 mg/dL [facility] External Alkaline Phosphatase 78 35 - 106 U/L [facility] External AST (SGOT) 20 0 - 32 U/L [facility] External ALT (SGPT) 15 0 - 33 U/L [facility] External EGFR (If AFR/AM) 37(A) >=60 [facility] External Estimated GFR 32(A) >=60 [facility] Comment: NOTE Chronic kidney disease is defined as kidney damage for more than 3 months or a GFR less than 60 mL/min/1.73 m2 for greater than 3 months. This calculation has not been validated in women. For pediatric patients refer to [employer] https://www.kidney.org/professionals/KDOQI/gfr_calculatorPed 01/22/2021 10:4 0 AM EDT 01/22/2021 10:53 AM EDT Sophia Horne MD LAB BLOOD ORDERABLES Final Res ult [facility] [address] [place] [address], [place] [phone] documented in this encounter Visit Diagnoses Not on filedocumented in this encounter Care Teams Jacquard Loom Heddles Tier Relationship Specialty Start Date End Date Per Patient, None, [address] [place] [address] PCP - General 01/22/21 02/09/21 Robb Cartagena MD [address] [place] [id number] PCP - General 02/10/21 Sophia Horne MD [address] [place] [phone] Referring Physician Hematology and Oncology 04/15/21 Kirby Kern MD [address] [facility] [address] [place] [address] Consulting Physician Radiation Oncology 03/24/2207/23 Zheng Iglesias MD [address] [place] [address] [address] [place] [address] Cardiology 07/24/24 Kristian Prado MD [address] [facility] [address] [place] [address] Consulting Physician Gynecologic Oncology 07/24/24 Antonio Camarillo MD [address] [place], [place] [address] Nephrology 07/24/24 Meera Ruiz APRN [address] [facility] [address] [place] [address] Nurse Practitioner Endocrinology 07/24/24 Asad Arevalo MD [address] [place] [address] [address] [place], [place] [phone] Referring Physician Gastroenterology 07/24/24 Oscar Murphy MD [address] [facility] [address] [place] [address] Consulting Physician Nephrology 07/24/24 Maria C Parra PA [address] [facility] [address] [place] [address] Pulmonary Disease 07/24/24 documented as of this encounter
--- OUTSIDE RECORDS SUMMARY | 2025-03-01 13:55 | XMS_ITS | Encounter Summary ---
Author Organization [facility] Address [address] [place] [address] Care Team Providers Care Gallery Intern Name Role Phone Per Patient, None Primary Care Provider [phone] Robb Cartagena MD Primary Care Provider Sophia Horne MD Unavailable [phone] Kirby Kern MD Unavailable [phone] Zheng Iglesias MD Unavailable Kristian Prado MD Unavailable [phone] Antonio Camarillo MD Unavailable [phone] Meera Ruiz PLATFORM MILL SUPERVISOR Unavailable [phone] Asad Arevalo MD Unavailable [phone] Oscar Murphy MD Unavailable [phone] Maria C Parra Unavailable [phone] Encounter Details Date Type Department Care Team (Late st Contact Info) Description 01/22/2021 Orders Only Quintentxstephie [facility] [address] [place] [address] Sophia Horne MD [address] [address] Social History Tobacco Use Types [...] Description 04/06/2025 9:20 AM EDT Office Visit [facility] Endocrinology [address] [place] [address] (1), Chepe Cobian Fellow 04/17/2025 11:30 AM EDT Clinical Support [facility] Laboratory Services [address] [facility], 1st [place] [address] 04/25/2025 12:00 PM EDT Appointment PAV G Infusion [address] [place] [address] 05/01/2025 11:40 AM EDT Office Visit [facility] Bone & Mineral Metabolism [address] [facility], [address] [place] [address] Marla Hilton APRN [address] [facility] [address] [place] [address] 05/16/2025 1:10 PM EDT Office Visit [facility] Orthopaedic Surgery & Sports Medicine [address], 1st Floor [address] [place] [address] Trent Moon MD [address] [facility] 201 [place] [address] documented as of this encounter Procedures Procedure Name Priority Date/Time Associated Diagnosis Comments LIPID PROFILE, PLASMA Routine 01/22/2021 10:40 AM EDT documented in this encounter Results * Lipid Profile, Plasma (01/22/2021 10:40 AM EDT) External HDL Cholesterol 71 66 - 242 mg/dL [facility] External Triglycerides 70 0 - 149 mg/dL [facility] Comment: TRIGLYCERIDE RANGES NORMAL: < 150 BORDERLINE HIGH: 150 - 199 HIGH: 200 - 499 VERY HIGH: > OR = 500 External Cholesterol 152 0 - 199 mg/dL [facility] Comment: CHOLESTEROL (TOTAL) RANGES DESIRABLE: < 200 BORDERLINE: 200 - 239 HIGHER RISK: > 239 External LDL Cholesterol 67 0 - 99 mg/dl (calc) [facility] Comment: LDL CHOLESTEROL RANGES OPTIMAL: < 100 NEAR/ABOVE OPTIMAL: 100 - 129 BORDERLINE HIGH: 130 - 159 HIGH: 160 - 189 VERY HIGH: > OR = 190 01/22/2021 10:4 0 AM EDT 01/22/2021 10:53 AM EDT us Sophia Horne MD LAB BLOOD ORDERABLES Final Res ult Performing Organization Address City/State/[facility] Co de Phone Number [facility] [address] [place] [address], documented in this encounter Visit Diagnoses Not on filedocumented in this encounter Care Teams Gallery Intern Relationship Specialty Start Date End Date Per Patient, None, [address] [facility] [address] [place] [address] PCP - General 01/22/21 02/09/21 Robb Cartagena MD [address] [place] [address] PCP - General 02/10/21 Sophia Horne MD [address] [place] [address] Referring Physician Hematology and Oncology 04/15/21 Kirby Kern MD [address] [facility] [address] [place] [address] Consulting Physician Radiation Oncology 03/24/2207/23 Zheng Iglesias MD [address] [facility] [address] [place], [place] [phone] Cardiology 07/24/24 Kristian Prado MD [address] [place] [address] Consulting Physician Gynecologic Oncology 07/24/24 Antonio Camarillo MD [address]51 [place] [address] Nephrology 07/24/24 Meera Ruiz, VICKY [address] [facility] [address] [place] [address] Nurse Practitioner Endocrinology 07/24/24 Asad Arevalo MD 991 [facility] 203 [place], [place] [phone] Referring Physician Gastroenterology 07/24/24 Oscar Murphy MD [address] [facility] [address] [place] [address] Consulting Physician Nephrology 07/24/24 Maria C Parra PA [address] [place] [address] Pulmonary Disease 07/24/24 documented as of this encounter
--- OUTSIDE RECORDS SUMMARY | 2025-03-01 13:55 | XMS_ITS | Encounter Summary ---
Author Organization [facility] Address [address] [place] [address] Care Team Providers Care Boarding Specialist Name Role Phone Per Patient, None Primary Care Provider [phone] Robb Cartagena MD Primary Care Provider Sophia Horne MD Unavailable [phone] Kirby Kern MD Unavailable [phone] Zheng Iglesias MD Unavailable Kristian Prado MD Unavailable [phone] Antonio Camarillo MD Unavailable [phone] Meera Ruiz POISING INSPECTOR Unavailable [phone] Asad Arevalo MD Unavailable [phone] Oscar Murphy MD Unavailable [phone] Maria C Parra Unavailable [phone] Encounter Details Date Type Department Care Team (Late st Contact Info) Description 01/22/2021 Orders Only [facility] [address] [place] [address] Sophia Horne MD [address] [address] Social History Tobacco Use Types [...] Description 04/06/2025 9:20 AM EDT Office Visit [facility] Endocrinology [address] [place] [address] (1), Chepe Cobian Fellow 04/17/2025 11:30 AM EDT Clinical Support [facility] Laboratory Services [address] [facility], 1st [place] [address] 04/25/2025 12:00 PM EDT Appointment PAV G Infusion [address] [place] [address] 05/01/2025 11:40 AM EDT Office Visit [facility] Bone & Mineral Metabolism [address] [facility], [address] [place] [address] Marla Hilton APRN [address] [facility] [address] [place] [address] 05/16/2025 1:10 PM EDT Office Visit [facility] Orthopaedic Surgery & Sports Medicine [address], 1st Floor [address] [place] [address] Trent Moon MD [address] [facility] 201 [place] [address] documented as of this encounter Procedures Procedure Name Priority Date/Time Associated Diagnosis Comments CBC WITH AUTO DIFFERENTIAL Routine 01/22/2021 10:40 AM EDT documented in this encounter Results * (ABNORMAL) CBC and Differential (01/22/2021 10:40 AM EDT) External WBC 6.8 3.8 - 10.8 K/uL [facility] External Red Blood Cell (RBC) 3.62(L) 3.80 - 5.20 M/uL [facility] External Hemoglobin 11.6(L) 12.0 - 16.0 G/DL [facility] External Hematocrit 34.8(L) 35.0 - 47.0 % [facility] External MCV 96 80 - 100 fL [facility] External MCH 32 26 - 35 PG [facility] External MCHC 33 32 - 36 G/DL [facility] External RDW 15.3(H) 11.0 - 15.0 % [facility] External Mean Platelet Volume 8.1 6.2 - 10.5 fL [facility] External Platelets 174 130 - 400 K/uL [facility] External Neutrophil# 4.7 1.6 - 8.4 K/uL [facility] External Lymphocyte# 1.5 0.4 - 5.1 K/uL [facility] External Absolute Monocyte (Abs Ector) 0.4 0.0 - 1.2 K/uL [facility] External Eosinophils# 0.1 0.0 - 0.8 K/uL [facility] External Baso# 0.0 0.0 - 0.3 K/uL [facility] External Neutrophils % 69.6 42.0 - 78.0 % [facility] External Lymphocyte % 21.4 11.0 - 47.0 % [facility] External Monocyte % 6.4 0.0 - 11.0 % [facility] External Eosinophil% 2.1 0.0 - 7.0 % [facility] External Basophil % 0.5 0.0 - 3.0 % [facility] External Nucleated RBC%-Auto 0.1 0.0 - 0.9 % [facility] External Nucleated RBC Absolute 0.00 Not Estab. K/uL [facility] 01/22/2021 10:4 0 AM EDT 01/22/2021 10:59 AM EDT Sophia Horne MD LAB BLOOD ORDERABLES Final Res ult [facility] [address] [place] [address], documented in this encounter Visit Diagnoses Not on filedocumented in this encounter Care Teams Boarding Specialist Relationship Specialty Start Date End Date Per Patient, Florentino, [address] [place], [place] [phone] PCP - General 01/22/21 02/09/21 Robb Cartagena MD [address] [place] [phone] PCP - General 02/10/21 Sophia Horne MD [address] [place] [address] Referring Physician Hematology and Oncology 04/15/21 Kirby Kern MD [address] [facility] [address] [place] [address] Consulting Physician Radiation Oncology 03/24/2207/23 Zheng Iglesias MD [address] [place] [address] [address] [place] [phone] Cardiology 07/24/24 Kristian Prado MD [address] [facility] [address] [place] [address] Consulting Physician Gynecologic Oncology 07/24/24 Antonio Camarillo MD [address] [place], [place] [address] Nephrology 07/24/24 Meera Ruiz APRN [address] [facility] [address] [place] [address] Nurse Practitioner Endocrinology 07/24/24 Asad Arevalo MD [address] [place] [facility] 203 [place], [place] [phone] Referring Physician Gastroenterology 07/24/24 Oscar Murphy MD [address] [facility] [address] [place] [address] Consulting Physician Nephrology 07/24/24 Maria C Parra PA [address] [place] [address] Pulmonary Disease 07/24/24 documented as of this encounter
--- OUTSIDE RECORDS SUMMARY | 2025-03-01 13:55 | XMS_ITS | Encounter Summary ---
Author Organization [facility] Address [address] [place] [address] Care Team Providers Care Lease Administration Supervisor Name Role Phone Robb Cartagena MD Primary Care Provider Sophia Horne MD Unavailable [phone] Kirby Kern MD Unavailable [phone] Zheng Iglesias MD Unavailable Kristian Prado MD Unavailable [phone] Antonio Camarillo MD Unavailable [phone] Meera Ruiz ELECTRONEURODIAGNOSTIC TECHNOLOGIST Unavailable [phone] Asad Arevalo MD Unavailable [phone] Oscar Murphy MD Unavailable Maria C Parra Unavailable [phone] Reason for Visit * Reason Comments Med Refill Encounter Details Date Type Department Care Team (Late st Contact Info) Description 04/15/2022 Refill [facility] Nephrology, Bone & Mineral Metabolism [address] [facility], [address] [place] [address] Oscar Murphy MD [address] [place] [address] Age-related osteoporosis without current pathological fracture Social History Tobacco Use Types Packs/Day Years Used Date Smoking Tobacco: Former Smokeless Tobacco: Never Alcohol Use Standard Drinks/Week Comments No 0 (1 standard drink = 0.6 oz pur e alcohol) Comments No Sex and Gender Information Value [...] suspected to have Coronavirus/COVID-19? No / Unsure 04/13/2022 11:30 AM EDT documented as of this encounter Plan of Treatment Upcoming Encounters Date Type Department Care Team (Late st Contact Info) Description 04/06/2025 9:20 AM EDT Office Visit [facility] Endocrinology [address] [place] [phone] (1), Chepe Cobian Fellow 04/17/2025 11:30 AM EDT Clinical Support [facility] Laboratory Services [address] [facility], 1st [place] [address] 04/25/2025 12:00 PM EDT Appointment PAV G Infusion [address] [place] [address] 05/01/2025 11:40 AM EDT Office Visit [facility] [address] [facility], [address] [place] [address] Marla Hilton APRN [address] [facility] [address] [place] [address] 05/16/2025 1:10 PM EDT Office Visit [facility] Orthopaedic Surgery & Sports Medicine [address], 1st Floor [address] [place] [address] Trent Moon MD [address] [facility] [address] [place] [address] documented as of this encounter Visit Diagnoses Diagnosis Age-related osteoporosis without current pathological fracture documented in this encounter Additional Health Concerns Assessment Noted Time A fall risk assessment has been complete d for the patient 04/13/2022 11:41 AM EDT documented as of this encounter Care Teams Lease Administration Supervisor Relationship Specialty Start Date End Date Robb Cartagena MD [address] [place] [phone] PCP - General 02/10/21 Sophia Horne MD 800 [place] [address] Referring Physician Hematology and Oncology 04/15/21 Kirby Kern MD [address] [facility] [address] [place] [address] Consulting Physician Radiation Oncology 03/24/2207/23 Zheng Iglesias MD 14[address] [facility] [address] [place], [place] [address] Cardiology 07/24/24 Kristian Prado MD 800 [facility] [address] [place] [address] Consulting Physician Gynecologic Oncology 07/24/24 Antonio Camarillo MD 1451 [place], [place] [address] Nephrology 07/24/24 Meera Ruiz APRN 2[address] [facility] 125 [place] [address] Nurse Practitioner Endocrinology 07/24/24 Asad Arevalo MD [address] [place] [address] 203 [place] [address] Referring Physician Gastroenterology 07/24/24 Oscar Murphy MD [address] [facility] 401 [place] [address] Consulting Physician Nephrology 07/24/24 Maria C Parra PA [address] [facility] [address] [place] [address] Pulmonary Disease 07/24/24 documented as of this encounter
--- OUTSIDE RECORDS SUMMARY | 2025-03-01 13:55 | XMS_ITS | Encounter Summary ---
Author Organization [facility] Address [address] [place] [address] Care Team Providers Care Caustic Room Operator Name Role Phone Robb Cartagena MD Primary Care Provider Sophia Horne MD Unavailable [phone] Kirby Kern MD Unavailable [phone] Zheng Iglesias MD Unavailable Kristian Prado MD Unavailable [phone] Antonio Camarillo MD Unavailable [phone] Meera Ruiz CRITICAL CARE UNIT NURSE Unavailable [phone] Asad Arevalo MD Unavailable [phone] Oscar Murphy MD Unavailable [phone] Maria C Parra Unavailable [phone] Encounter Details Date Type Department Care Team (Late st Contact Info) Description 03/23/2024 Orders Only External Location 800 [place] [address] Provider, External Social History Tobacco Use Types [...] [facility] Endocrinology [address] [place] [address] (1), Chepe Cobian Fellow 04/17/2025 11:30 AM EDT Clinical Support [facility] Laboratory Services [address] [facility], 1st [place] [address] 04/25/2025 12:00 PM EDT Appointment PAV G Infusion [address] [place] [address] 05/01/2025 11:40 AM EDT Office Visit [facility] Bone & Mineral Metabolism [address], [address] [place] [address] Marla Hilton APRN [address] [place] [address] 05/16/2025 1:10 PM EDT Office Visit [facility] Orthopaedic Surgery & Sports Medicine [address], 1st Floor [address] [place] [address] Trent Moon MD [address] [place] [address] documented as of this encounter Procedures Procedure Name Priority Date/Time Associated Diagnosis Comments CT THORACIC OUTSIDE IMAGES 03/23/2024 6:03 PM EDT documented in this encounter Results * CT THORACIC OUTSIDE IMAGES (03/23/2024 6:03 PM EDT) Anatomical Region Laterality Modality Computed Tomogra phy 03/23/2024 6:03 PM EDT External Provider IMG CT PROCEDURES Final Result documented in this encounter Visit Diagnoses Not on filedocumented in this encounter Additional Health Concerns Assessment Noted Time A fall risk assessment has been complete d for the patient 02/22/2024 12:13 PM EDT A Body Mass Index follow-up plan has been documented for the patient 02/22/2024 12:57 PM EDT documented as of this encounter Care Teams Caustic Room Operator Relationship Specialty Start Date End Date Robb Cartagena MD [address] [place] [address] PCP - General 02/10/21 Sophia Horne MD 800 [place] [address] Referring Physician Hematology and Oncology 04/15/21 Kirby Kern MD 800 [facility] [address] [place] [address] Consulting Physician Radiation Oncology 03/24/2207/23 Zheng Iglesias MD [address] [facility] [address] [place] [phone] Cardiology 07/24/24 Kristian Prado MD 800 [facility] [place] [facility] [address] [place] [address] Consulting Physician Gynecologic Oncology 07/24/24 Antonio Camarillo MD 1451 [place], [place] [address] Nephrology 07/24/24 Meera Ruiz APRN [address] [facility] [address] [place] [address] Nurse Practitioner Endocrinology 07/24/24 Asad Arevalo MD [address] [place] [address] 203 [place], [place] [address] Referring Physician Gastroenterology 07/24/24 Oscar Murphy MD 135 E [facility] 401 [place] [address] Consulting Physician Nephrology 07/24/24 Maria C Parra PA [address] [facility] [address] [place] [address] Pulmonary Disease 07/24/24 documented as of this encounter
--- OUTSIDE RECORDS SUMMARY | 2025-03-01 13:55 | XMS_ITS | Encounter Summary ---
Author Organization [facility] Address [address] [place] [address] Care Team Providers Care Utility Appraiser Name Role Phone Per Patient, None Primary Care Provider [phone] Robb Cartagena MD Primary Care Provider [phone] Sophia Horne MD Unavailable [phone] Kirby Kern MD Unavailable [phone] Zheng Iglesias MD Unavailable Kristian Prado MD Unavailable [phone] Antonio Camarillo MD Unavailable [phone] Meera Ruiz APRN Unavailable [phone] Asad Arevalo MD Unavailable [phone] Oscar Murphy MD Unavailable [phone] Maria C Parra Unavailable [phone] Encounter Details Date Type Department Care Team (Late st Contact Info) Description 01/22/2021 Orders Only [facility] [address] [place] [address] Antonio Camarillo MD [address] [place] [address] Social History Tobacco Use Types Packs/Day Years [...] Visit [facility] Endocrinology [address] [place] [address] (1), Chepe Cobian Fellow 04/17/2025 11:30 AM EDT Clinical Support [facility] Laboratory Services [address] [facility], 1st [place] [address] 04/25/2025 12:00 PM EDT Appointment PAV G Infusion [address] [place] [address] 05/01/2025 11:40 AM EDT Office Visit [facility] Bone & Mineral Metabolism [address] [facility], [address] [place] [address] Marla Hilton APRN [address] [facility] [address] [place] [address] 05/16/2025 1:10 PM EDT Office Visit [facility] Orthopaedic Surgery & Sports Medicine [address], 1st Floor [address] [place] [address] Trent Moon MD [address] [facility] 201 [place] [address] documented as of this encounter Procedures Procedure Name Priority Date/Time Associated Diagnosis Comments CBC W/O DIFFERENTIAL Routine 01/22/2021 10:47 AM EDT documented in this encounter Results * (ABNORMAL) CBC W/O Differential (01/22/2021 10:47 AM EDT) External WBC 6.8 3.8 - 10.8 K/uL [facility] External Red Blood Cell (RBC) 3.64(L) 3.80 - 5.20 M/uL [facility] External Hemoglobin 11.6(L) 12.0 - 16.0 G/DL [facility] External Hematocrit 34.8(L) 35.0 - 47.0 % [facility] External MCV 96 80 - 100 fL [facility] External MCH 32 26 - 35 PG [facility] External MCHC 33 32 - 36 G/DL [facility] External RDW 15.5(H) 11.0 - 15.0 % [facility] External Mean Platelet Volume 8.1 6.2 - 10.5 fL [facility] External Platelets 176 130 - 400 K/uL [facility] 01/22/2021 10:4 7 AM EDT 01/22/2021 10:58 AM EDT Antonio Camarillo MD LAB BLOOD ORDERABLES Final Result Performing Organization Address City/State/[facility] Co de Phone Number [facility] [address] [place] [address], documented in this encounter Visit Diagnoses Not on filedocumented in this encounter Care Teams Utility Appraiser Relationship Specialty Start Date End Date Per Patient, None, [address] [facility] [address] [place] [address] PCP - General 01/22/21 02/09/21 Robb Cartagena MD [address] [place] [address] PCP - General 02/10/21 Sophia Horne MD [address] [place] [address] Referring Physician Hematology and Oncology 04/15/21 Kirby Kern MD 800 [facility] [address] [place] [address] Consulting Physician Radiation Oncology 03/24/2207/23 Zheng Iglesias MD [address] [facility] [address] [place] [address] Cardiology 07/24/24 Kristian Prado MD 800 [facility] [address] [place] [address] Consulting Physician Gynecologic Oncology 07/24/24 Antonio Camarillo MD 14[address] [place] [address] Nephrology 07/24/24 Meera Ruiz APRN 2[address] [facility] [address] [place] [address] Nurse Practitioner Endocrinology 07/24/24 Asad Arevalo MD [address] [place] [address] 203 [place] [address] Referring Physician Gastroenterology 07/24/24 Oscar Murphy MD [address] [facility] 401 [place] [address] Consulting Physician Nephrology 07/24/24 Maria C Parra PA [address] [place] [address] Pulmonary Disease 07/24/24 documented as of this encounter
--- OUTSIDE RECORDS SUMMARY | 2025-03-01 13:55 | XMS_ITS | Encounter Summary ---
Author Organization [facility] Address [address] [place] [address] Care Team Providers Care Non Acoustic Operator Name Role Phone Robb Cartagena MD Primary Care Provider Sophia Horne MD Unavailable [phone] Kirby Kern MD Unavailable [phone] Zheng Iglesias MD Unavailable Kristian Prado MD Unavailable [phone] Antonio Camarillo MD Unavailable [phone] Meera Ruiz PRESIDENT EDUCATIONAL INSTITUTION Unavailable [phone] Asad Aervalo MD Unavailable [phone] Oscar Murphy MD Unavailable [phone] Maria C Parra Unavailable [phone] Encounter Details Date Type Department Care Team (Late st Contact Info) Description 03/22/2024 Orders Only External Location [address] [place] [address] Provider, External Social History Tobacco Use Types [...] Description 04/06/2025 9:20 AM EDT Office Visit [facility] Endocrinology [address] [place] [place] [address] (1), Chepe Cobian Fellow 04/17/2025 11:30 AM EDT Clinical Support [facility] Laboratory Services [address] [facility], 1st [place] [address] 04/25/2025 12:00 PM EDT Appointment PAV G Infusion [address] [place] [address] 05/01/2025 11:40 AM EDT Office Visit [facility] Bone & Mineral Metabolism [address], [address] [place] [address] Marla Hilton APRN [address] [facility] [address] [place] [address] 05/16/2025 1:10 PM EDT Office Visit [facility] Orthopaedic Surgery & Sports Medicine [address], 1st Floor [address] [place] [address] Trent Moon MD [address] [place] [address] documented as of this encounter Procedures Procedure Name Priority Date/Time Associated Diagnosis Comments XR OUTSIDE IMAGES 03/22/2024 12:16 PM EDT documented in this encounter Results * XR OUTSIDE IMAGES (03/22/2024 12:16 PM EDT) Anatomical Region Laterality Modality Radiographic Arianna ging 03/22/2024 12:1 6 PM EDT us External Provider IMG XR PROCEDURES Final Result documented in this encounter Visit Diagnoses Not on filedocumented in this encounter Additional Health Concerns Assessment Noted Time A fall risk assessment has been complete d for the patient 02/22/2024 12:13 PM EDT A Body Mass Index follow-up plan has been documented for the patient 02/22/2024 12:57 PM EDT documented as of this encounter Care Teams Non Acoustic Operator Relationship Specialty Start Date End Date Robb Cartagena MD [address] [place] [address] PCP - General 02/10/21 Sophia Horne MD [address] [place] [address] Referring Physician Hematology and Oncology 04/15/21 Kirby Kern MD 800 [facility] [address] [place] [address] Consulting Physician Radiation Oncology 03/24/2207/23 Zheng Iglesias MD [address] [facility] [address] [place], [place] [address] Cardiology 07/24/24 Kristian Prado MD 800 [facility] [address] [place] [address] Consulting Physician Gynecologic Oncology 07/24/24 Antonio Camarillo MD [address] [place], [place] [address] Nephrology 07/24/24 Meera Ruiz APRN [address] [facility] [address] [place] [address] Nurse Practitioner Endocrinology 07/24/24 Asad Arevalo MD [address] [place] [address] 203 [place] [address] Referring Physician Gastroenterology 07/24/24 Oscar Murphy MD [address] [facility] [address] [place] [address] Consulting Physician Nephrology 07/24/24 Maria C Parra PA [address] [facility] [address] [place] [address] Pulmonary Disease 07/24/24 documented as of this encounter
--- OUTSIDE RECORDS SUMMARY | 2025-03-01 13:55 | XMS_ITS | Encounter Summary ---
Author Organization [facility] Address [address] [place] [address] Care Team Providers Care Entry Rep Name Role Phone Per Patient, None Primary Care Provider [phone] Robb Cartagena MD Primary Care Provider Sophia Horne MD Unavailable [phone] Kirby Kern MD Unavailable [phone] Zheng Iglesias MD Unavailable Kristian Prado MD Unavailable [phone] Antonio Camarillo MD Unavailable [phone] Meera Ruiz APRN Unavailable [phone] Asad Arevalo MD Unavailable [phone] Oscar Murphy MD Unavailable [phone] Maria C Parra Unavailable [phone] Encounter Details Date Type Department Care Team (Late st Contact Info) Description 01/22/2021 Orders Only [facility] at [address] [address] Antonio Camarillo MD [address] [id number] Social History Tobacco Use Types Packs/Day Years [...] 9:20 AM EDT Office Visit [facility] Endocrinology [address] [place] [address] (1), Chepe Cobian Fellow 04/17/2025 11:30 AM EDT Clinical Support [facility] Laboratory Services [address] [facility], 1st [place] [address] 04/25/2025 12:00 PM EDT Appointment P[facility] G Infusion [address] [place] [address] 05/01/2025 11:40 AM EDT Office Visit [facility] Bone & Mineral Metabolism [address] [facility], [address] [place] [address] Marla Hilton APRN [address] [facility] [address] [place] [address] 05/16/2025 1:10 PM EDT [facility] Visit [facility] Orthopaedic Surgery & Sports Medicine [address], 1st Floor [address] [place] [address] Trent Moon MD [address] [facility] [address] [place] [address] documented as of this encounter Procedures Procedure Name Priority Date/Time Associated Diagnosis Comments HEMOGLOBIN A1C Routine 01/22/2021 10:47 AM EDT documented in this encounter Results * (ABNORMAL) Hemoglobin A1c (01/22/2021 10:47 AM EDT) External Glycosylated Hemoglobin (Hgb A1C) 6.1(H) 0.0 - 5.6 % [facility] External Estimated Average Glucose 128 mg/dl (calc) [facility] Comment: A1c values between 5.7% to 6.4% indicate prediabetes. Results 6.5% or greater is diagnostic of diabetes. [employer] [employer] (diabetes.org) 01/22/2021 10:4 7 AM EDT 01/22/2021 10:58 AM EDT Antonio Camarillo MD LAB BLOOD ORDERABLES Final Result Performing Organization Address City/State/[facility] Co de Phone Number [facility] [address] [place] [address], documented in this encounter Visit Diagnoses Not on filedocumented in this encounter Care Teams Entry Rep Relationship Specialty Start Date End Date Per Patient, None, [address] [facility] [address] [place] [address] PCP - General 01/22/21 02/09/21 Robb Cartagena MD [address] [place] [address] PCP - General 02/10/21 Sophia Horne MD [address] [place] [address] Referring Physician Hematology and Oncology 04/15/21 Kirby Kern MD 800 [facility] [address] [place] [address] Consulting Physician Radiation Oncology 03/24/2207/23 Zheng Iglesias MD [address] [facility] [address] [place], [place] [address] Cardiology 07/24/24 Kristian Prado MD 800 [facility] [address] [place] [address] Consulting Physician Gynecologic Oncology 07/24/24 Antonio Camarillo MD [address] [place], [place] [address] Nephrology 07/24/24 Meera Ruiz APRN [address] [facility] [address] [place] [address] Nurse Practitioner Endocrinology 07/24/24 Asad Arevalo MD [address] [facility] 203 [place] [address] Referring Physician Gastroenterology 07/24/24 Oscar Murphy MD [address] [facility] [address] [place] [address] Consulting Physician Nephrology 07/24/24 Maria C Parra PA [address] [place] [address] Pulmonary Disease 07/24/24 documented as of this encounter
--- OUTSIDE RECORDS SUMMARY | 2025-03-01 13:55 | XMS_ITS ---
Author Organization [facility] Address [address] [place] [address] Care Team Providers Care Tractor Expert Name Role Phone Robb Cartagena MD Primary Care Provider Sophia Horne MD Unavailable [phone] Zheng Iglesias MD Unavailable Kristian Prado MD Unavailable [phone] Antonio Camarillo MD Unavailable [phone] Meera Ruiz CATERPILLAR TRACTOR OPERATOR Unavailable [phone] Asad Arevalo MD Unavailable [phone] Oscar Murphy MD Unavailable Maria C Parra Unavailable [phone] Active Problems Problem Noted Date Diagnosed Date Closed bilateral fracture of pubic rami 02/07/20 25 History of pelvic fracture 02/05/2025 Assessment & Plan (02/06/2025 8:55 AM EDT): Fall 01/17 OSH ED 01/19 - presented and discharged home without ORT eval or follow up OSH ED 02/04 - present due to increased pain and extremity numbness with heart palpitations. Numbness now resolved after nitroglycerin. Ortho non op management Sacral insufficiency fracture with routine heali ng 01/01/2024 Cortex (cerebral) contusion, no loss of consciousness, unspecified laterality, initial encounter 12/23/2022 Overview (12/23/2022): Swelling and hematoma within R zygomatic process/orbit Cool compress CTM swelling CTM H&H SAH (subarachnoid hemorrhage) 12/23/2022 Overview (12/23/2022): R parietotemporal SAH No change on repeat NSGY without acute interventions ABLA (acute blood loss anemia) 12/23/2022 Overview (12/23/2022): Hgb 9.1 on admission, likely chronic component CTM Multivitamin Concussion 12/23/2022 Overview (12/23/2022): Symptomatic treatment Follow up with outpatient neurosurgery for concerns in the future Spinal stenosis, lumbar region with neurogenic c laudication 09/09/2022 Gastroesophageal reflux disease without esophagi tis 07/09/2022 Overview (12/23/2022): Resume home meds as able Vitamin D deficiency 07/09/2022 Neuropathy 03/16/2022 Depressive disorder 07/20/2021 Overview (12/23/2022): Resume home meds Iron deficiency 03/19/2019 Pancytopenia 01/25/2019 Atrial fibrillation 06/25/2018 Overview (12/23/2022): Resume home meds Holding anticoagulation in setting of bleed CTM rate control Assessment & Plan (02/06/2025 8:55 AM EDT): Anginal symptoms on 02/03-02/04 at home CAD (coronary artery disease) 06/25/2018 Overview (12/23/2022): Resume home meds, outpatient management Assessment & Plan (02/06/2025 8:55 AM EDT): Home medications Hypertension 06/25/2018 Overview (12/23/2022): Resume home meds Assessment & Plan (02/06/2025 8:55 AM EDT): Home medications Assessment & Plan (02/07/2021 9:42 AM EDT): Reported bp at goal, continue current anti-hypertensives, did not tolerate ACEi per records Stage 3 chronic kidney disease 06/25/2018 Overview (12/23/2022): Hx of Scr on admission 1.89 , continue IVF and CTM Baseline appears to be about 1.6 based on previous labs Assessment & Plan (02/07/2021 9:40 AM EDT): Renally dose meds prn. Sees renal dr. rodas Osteoporosis 06/21/2018 Overview (12/23/2022): Outpatient management Impacts fracture risk Assessment & Plan (04/12/2021 7:17 PM EDT): Therapy plan entered for ibandronate IV Malignant neoplasm of vulva 11/09/2017 Cancer Staging:Clinical stage from 09/30/2012:FIGO Stage IB(cT1b, cN0, cM0) - Signed by Kristian Prado MD on 02/21/2021 Pathologic: Unsigned Overview (12/23/2022): Outpatient management Type 2 diabetes mellitus wit h diabetic neuropathy, with long-term current use of insulin 06/02/2016 Overview (12/23/2022): CTM BG SSI Assessment & Plan (02/07/2021 9:50 AM EDT): a1c below goal. Fear pt having more lows than catching. Reviewed tx for low and s/s . Advise driving safety. Increase fsbg to 4x. Decrease lantus by 20% to 32 units HS and novolog 12 units tid w/ meals. Continue victoza. Labs except umacr utd. rto 3m. Call sooner prn Hyperlipidemia 05/20/2015 Assessment & Plan (02/07/2021 9:38 AM EDT): Continue statin. 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 Other Current Plans Ibandronate (Boniva)* Plan Start Date:08/16/2024 Plan Provider:Oscar Murphy MD Linked Problems Age-related osteoporosis wit hout current pathological fracture Treatment Medications No medications scheduled. LINE CARE* Plan Start Date:10/20/2021 Plan Provider:Oscar Murphy MD Linked Problems Age-related osteoporosis wit hout current pathological fracture Treatment Medications No medications scheduled. Past Treatment and Therapy Plans Resolved Problems Problem Noted Date Diagnosed Date Resolved Date Hypomagnesemia 07/22/2018 12/23/2022 Malnutrition 07/22/2018 12/23/2022 Stress fracture of pelvis 06/21/2018 Sacral pain 05/12/2018 12/23/2022
--- OUTSIDE RECORDS SUMMARY | 2025-03-01 13:55 | XMS_ITS | Referral Summary ---
Author Organization [email or web address] ([place], [place], [place], [place]) Address [address] [place] [address] Care Team Providers Care Leasing Specialist Name Role Phone Robb Cartagena MD Primary Care Provider [phone] Zheng Iglesias MD Unavailable Allergies No known [...] 10 mg tabletIndication s:Coronary artery disease involving inupiat coronary artery of inupiat heart, unspecified whether angina present Take 1 [...] s:Paroxysmal atrial fibrillation (HCC),Coronary artery disease involving inupiat coronary artery of inupiat heart, unspecified whether angina present Take 1 tablet (2.5 mg total) by mouth 2 (two) times daily. 180 tablet 3 03/30/20 23 Active amiodarone (PACERONE) 200 MG tabletIndication s:Paroxysmal atrial fibrillation (HCC) Take 0.5 tablets (100 mg total) by mouth daily. 90 tablet 3 03/30/20 23 Active semaglutide (Ozempic) 2 mg/dose (8 mg/3 mL) pnijIndications: Coronary artery disease involving inupiat coronary artery of inupiat heart, unspecified whether angina present INJECT 2MG UNDER THE SKIN ONE TIME WEEKLY 9 mL 3 04/05/20 24 Active Active Problems Problem Noted Date Diagnosed Date Coronary artery disease invo lving inupiat coronary artery of inupiat heart, unspecified whether angina present 07/07/2022 Dyslipidemia 07/07/2022 Primary hypertension 07/07/2022 Paroxysmal atrial fibrillation 07/07/2022 Social History Tobacco Use Types Packs/Day Years [...] Date Anjel rded Speak language other than [place] at home Not on file 08/14/2023 Want [...] 06/09/2024 3:25 PM EST Plan of Treatment Not on file Insurance [facility] MEDICARE PPO Advance Directives For more information, please contact: [phone] * Full Code (Latest Code Status on File) Date Activated Date Inactivated Comments 07/13/2022 6:50 AM 07/14/2022 5:01 AM Care Teams Leasing Specialist Relationship Specialty Start Date End Date Robb Cartagena MD [address] [place] [address] PCP - General Family Medicine 04/30/22 [place] [address] [place] [address] [address] [place] [address] Video Presentation Operator Cardiology 07/07/22
--- OUTSIDE RECORDS SUMMARY | 2025-03-01 13:55 | XMS_ITS | Clinical Summary ---
Author Organization [facility] Address [address] [place] [address] Care Team Providers Care Fitter Welder Name Role Phone Robb Cartagena MD Primary Care Provider Social History Tobacco Use Types Packs/Day Years Used Date Smoking Tobacco: Never Assessed Abuse Screen Answer Date Recorded Unsafe at Home or Work/School Not on file Feels Threatened by Someone? Not on file 07/2023 Does Anyone Keep You from Co ntacting Others or Doint Things Outside the Home? Not on file 05/13/2023 Physical Sign of Abuse Present Not on file 1 Housing Stability Answer Date Recorded Current Living Arrangements Not on file 05/02 Potentially Unsafe Housing Conditions Not on mark e 05/13/2023 Family and Community Support Answer Wong e Recorded Help with Day-to-Day Activities Not on file 05/13/2023 Lonely or Isolated Not on file 05/13/2023 Employment Answer Date Recorded Do you want help finding or keeping work or a suly b? Not on file 05/13/2023 Disabilities Answer Date Recorded Concentrating, Remembering, or Making Decisions Difficulty Not on file 05/13/2023 Doing Errands Independently Difficulty Not on fi le 05/13/2023 Education Answer Date Recorded Help with school or training? Not on file Preferred Language Not on file 05/13/2023 Comments Unknown Sex and Gender Information Value Date Recorded Sex Assigned at Not on file Legal Sex Female 12:06 PM EDT Gender Identity Not on file Sexual Orientation Not on file Plan of Treatment Health Maintenance Due Date Last Done Comments ANNUAL PHYSICAL 1945 DXA SCAN 1945 TDAP/TD VACCINES (1 - Tdap) 02/08/1963 Pneumococcal Vaccine 50+ (1 of 1 - PCV) 02/08/1994 ZOSTER VACCINE (1 of 2) 02/08/1994 RSV Vaccine - Adults (1 - 1- dose 75+ series) 02/08/2019 COVID-19 Vaccine ( - 2023-2 5 season) 2024 INFLUENZA VACCINE 05/02/2025 HEMOGLOBIN A1C Discontinued 05/16/2024, 09/30, 10/08/2023, Additional history exists Insurance [facility] MEDICARE ADVANTAGE Care Teams Fitter Welder Relationship Specialty Start Date End Date Robb Cartagena MD [address] [place] [id number] PCP - General Family Medicine 04/21/18
--- OUTSIDE RECORDS SUMMARY | 2025-03-01 13:55 | XMS_ITS | Encounter Summary ---
Author Organization [facility] Address [address] [place] [address] Care Team Providers Care Deep Tissue Massage Therapist Name Role Phone Per Patient, None Primary Care Provider [phone] Robb Cartagena MD Primary Care Provider [phone] Sophia Horne MD Unavailable [phone] Kirby Kern MD Unavailable [phone] Zheng Iglesias MD Unavailable Kristian Prado MD Unavailable [phone] Antonio Camarillo MD Unavailable [phone] Meera Ruiz IT ADMINISTRATOR Unavailable [phone] Asad Arevalo MD Unavailable [phone] Oscar Murphy MD Unavailable [phone] Maria C Parra Unavailable [phone] Encounter Details Date Type Department Care Team (Late st Contact Info) Description 01/22/2021 Orders Only [facility] [address] [place] [address] Sophia Horne MD [address] [address] Social History Tobacco Use Types [...] Description 04/06/2025 9:20 AM EDT Office Visit [facility] Endocrinology [address] [place] [address] (1), Chepe Cobian Fellow 04/17/2025 11:30 AM EDT Clinical Support [facility] Laboratory Services [address] [facility], 1st [place] [address] 04/25/2025 12:00 PM EDT Appointment P[facility] G Infusion [address] [place] [address] 05/01/2025 11:40 AM EDT Office Visit [facility] Bone & Mineral Metabolism [address] [facility], [address] [place] [address] Marla Hilton APRN [address] [facility] [address] [place] [address] 05/16/2025 1:10 PM EDT Office Visit [facility] Orthopaedic Surgery & Sports Medicine [address], 1st Floor [address] [place] [address] Trent Moon MD [address] [facility] [address] [place] [address] documented as of this encounter Procedures Procedure Name Priority Date/Time Associated Diagnosis Comments TSH Routine 01/22/2021 10:40 AM EDT documented in this encounter Results * (ABNORMAL) Thyroid Stimulating Hormone, Plasma (01/22/2021 10:40 AM EDT) External Thyroid Stimulating Hormone (TSH) 4.940(H) 0.270 - 4.200 uIU/mL [facility] 01/22/2021 10:4 0 AM EDT 01/22/2021 10:53 AM EDT us Sophia Horne MD LAB BLOOD ORDERABLES Final Res ult [facility] [address] [place] [address], documented in this encounter Visit Diagnoses Not on filedocumented in this encounter Care Teams Deep Tissue Massage Therapist Relationship Specialty Start Date End Date Per Patient, Florentino, [address] [facility] [address] [place] [address] PCP - General 01/22/21 02/09/21 Robb Cartagena MD [address] [place] [address] PCP - General 02/10/21 Sophia Horne MD [address] [place] [address] Referring Physician Hematology and Oncology 04/15/21 Kirby Kern MD [address] [place] [address] Consulting Physician Radiation Oncology 03/24/2207/23 [place] [address] [place] [address] [address] [place] [address] Cardiology 07/24/24 Kristian Prado MD [address] [facility] [address] [place] [address] Consulting Physician Gynecologic Oncology 07/24/24 Antonio Camarillo MD [address] [place] [address] Nephrology 07/24/24 Meera Ruiz APRN 2[address] [facility] [address] [place] [address] Nurse Practitioner Endocrinology 07/24/24 Asad Arevalo MD [address] [place] [address] [address] [place], [place] [id number] Referring Physician Gastroenterology 07/24/24 Oscar Murphy MD [address] [facility] [address] [place] [address] Consulting Physician Nephrology 07/24/24 Maria C Parra PA [address] [place] [address] Pulmonary Disease 07/24/24 documented as of this encounter
--- OUTSIDE RECORDS SUMMARY | 2025-03-01 13:55 | XMS_ITS | Encounter Summary ---
Author Organization [facility] Address [address] [place] [address] Care Team Providers Care Academic Support Assistant Name Role Phone Per Patient, None Primary Care Provider [phone] Robb Cartagena MD Primary Care Provider Sophia Horne MD Unavailable [phone] Kirby Kern MD Unavailable [phone] Zheng Iglesias MD Unavailable Kristian Prado MD Unavailable [phone] Antonio Camarillo MD Unavailable [phone] Meera Ruiz RIB BENDER Unavailable [phone] Asad Arevalo MD Unavailable [phone] Oscar Murphy MD Unavailable [phone] Maria C Parra Unavailable [phone] Encounter Details Date Type Department Care Team (Late st Contact Info) Description 01/22/2021 Orders Only [facility] at [facility] [address] [place] [address] Sophia Horne MD [address] [address] Social History Tobacco Use Types [...] Description 04/06/2025 9:20 AM EDT Office Visit [facility] Endocrinology [address] [place] [address] (1), Chepe Cobian Fellow 04/17/2025 11:30 AM EDT Clinical Support [facility] Laboratory Services [address] [facility], 1st [place] [address] 04/25/2025 12:00 PM EDT Appointment [facility] Infusion [address] [place] [address] 05/01/2025 11:40 AM EDT Office Visit [facility] Bone & Mineral Metabolism [address] [facility], [address] [place] [address] Marla Hilton APRN [address] [facility] [address] [place] [address] 05/16/2025 1:10 PM EDT Office Visit [facility] Orthopaedic Surgery & Sports Medicine [address], 1[address] [place] [address] Trent Moon MD [address] [facility] 201 [place] [address] documented as of this encounter Procedures Procedure Name Priority Date/Time Associated Diagnosis Comments FREE T4, PLASMA Routine 01/22/2021 10:40 AM EDT documented in this encounter Results * Free T4, Plasma (01/22/2021 10:40 AM EDT) External Free T4 1.29 0.93 - 1.70 ng/dL [facility] 01/22/2021 10:4 0 AM EDT 01/22/2021 10:53 AM EDT us Sophia Horne MD LAB BLOOD ORDERABLES Final Res ult [facility] [address] [place] [address], documented in this encounter Visit Diagnoses Not on filedocumented in this encounter Care Teams Academic Support Assistant Relationship Specialty Start Date End Date Per Patient, None, [address] [facility] [address] [place], [place] [id number] PCP - General 01/22/21 02/09/21 Robb Cartagena MD [address] [place] [address] PCP - General 02/10/21 Sophia Horne MD 800 [place] [address] Referring Physician Hematology and Oncology 04/15/21 Kirby Kern MD [address] [facility] [address] [place] [address] Consulting Physician Radiation Oncology 03/24/2207/23 [place] [address] [place] [address] [address] [place] [address] Cardiology 07/24/24 Kristian Prado MD [address] [facility] [address] [place] [address] Consulting Physician Gynecologic Oncology 07/24/24 Antonio Camarillo MD [address] [place] [address] Nephrology 07/24/24 Meera Ruiz APRN [address] [facility] [address] [place] [address] Nurse Practitioner Endocrinology 07/24/24 Asad Arevalo MD [address] [facility] [address] [place], [place] [phone] Referring Physician Gastroenterology 07/24/24 Oscar Murphy MD [address] [facility] [address] [place] [address] Consulting Physician Nephrology 07/24/24 Maria C Parra PA [address] [place] [address] Pulmonary Disease 07/24/24 documented as of this encounter
--- OUTSIDE RECORDS SUMMARY | 2025-03-01 13:56 | XMS_ITS | Encounter Summary ---
Author Organization [facility] Address [address] [place] [address] Care Team Providers Care Refining Equipment Operator Name Role Phone Robb Cartagena MD Primary Care Provider Sophia Horne MD Unavailable [phone] Kirby Kern MD Unavailable Zheng Iglesias MD Unavailable Kristian Prado MD Unavailable [phone] Antonio Camarillo MD Unavailable [phone] Meera Ruiz AGED OR DISABLED CARER Unavailable [phone] Asad Arevalo MD Unavailable [phone] Oscar Murphy MD Unavailable [phone] Maria C Parra Unavailable [phone] Reason for Visit * Reason Comments Med Refill Encounter Details Date Type Department Care Team (Late st Contact Info) Description 03/03/2023 Refill [facility] Nephrology, Bone & Mineral Metabolism [address] [facility], [address] [place] [address] Oscar Murphy MD [address] [place] [address] Age-related osteoporosis without current pathological fracture Social History Tobacco Use Types Packs/Day Years Used Date Smoking Tobacco: Former Cigarettes 1 1 967 - 1991 Smokeless Tobacco: Never Alcohol Use Standard Drinks/Week Comments No 0 (1 standard drink = 0.6 oz pur e alcohol) PHQ-2 Answer Date Recorded Patient Health Questionnaire-2 Score 0 01/20/2023 Comments No Sex and Gender Information Value Date Recorded Sex Assigned at Female 02/05/2025 4:17 PM EDT Legal Sex Female 8:16 PM EDT Gender Identity Female 02/05/2025 4:17 PM EDT Sexual Orientation Not on file documented as of this encounter Miscellaneous Notes * Telephone Encounter - Mary Dill LPN - 03/03/2023 11:52 AM EDT Medication cholecalciferol 25 mcg tablet once daily refilled per protocol. #90 with 0 refills sent to [facility]. Follow up scheduled 04/28/23. documented in this encounter Plan of Treatment Upcoming Encounters Date Type Department Care Team (Late st Contact Info) Description 04/06/2025 9:20 AM EDT Office Visit [facility] Endocrinology [address] [place] [address] (1), Chepe Cobian Fellow 04/17/2025 11:30 AM EDT Clinical Support [facility] Laboratory Services [address] [facility], 1st [place] [address] 04/25/2025 12:00 PM EDT Appointment [facility] Infusion [address] [place] [address] 05/01/2025 11:40 AM EDT Office Visit [facility] Bone & Mineral Metabolism [address], [address] [place] [address] Marla Hilton APRN [address] [place] [address] 05/16/2025 1:10 PM EDT Office Visit [facility] Orthopaedic Surgery & Sports Medicine [address], 1st [address] [place] [address] Trent Moon MD [address] [facility] 201 [place] [address] documented as of this encounter Visit Diagnoses Diagnosis Age-related osteoporosis without current pathological fracture documented in this encounter Additional Health Concerns Assessment Noted Time A fall risk assessment has been complete d for the patient 03/01/2023 11:23 AM EDT A Body Mass Index follow-up plan has been documented for the patient 11/12/2022 9:59 AM EDT documented as of this encounter Care Teams Refining Equipment Operator Relationship Specialty Start Date End Date Robb Cartagena MD [address] [place] [address] PCP - General 02/10/21 Sophia Horne MD 800 [place] [address] Referring Physician Hematology and Oncology 04/15/21 Kirby Kern MD 800 [facility] [address] [place] [address] Consulting Physician Radiation Oncology 03/24/2207/23 [place] [address] [place] [address] [address] [place], [place] [phone] Cardiology 07/24/24 Kristian Prado MD 800 [facility] [facility] [address] [place] [address] Consulting Physician Gynecologic Oncology 07/24/24 Antonio Camarillo MD [address] [place], [place] [address] Nephrology 07/24/24 Meera Ruiz APRN 2[address] [facility] 125 [place] [address] Nurse Practitioner Endocrinology 07/24/24 Asad Arevalo MD [address] [place] [address] 203 [place] [address] Referring Physician Gastroenterology 07/24/24 Oscar Murphy MD [address] [facility] 401 [place] [address] Consulting Physician Nephrology 07/24/24 Maria C Parra PA [address] [facility] [address] [place] [address] Pulmonary Disease 07/24/24 documented as of this encounter
--- OUTSIDE RECORDS SUMMARY | 2025-03-01 13:56 | XMS_ITS | Encounter Summary ---
Author Organization [facility] Address [address] [place] [address] Care Team Providers Care Auto Damage Insurance Appraiser Name Role Phone Robb Cartagena MD Primary Care Provider Sophia Horne MD Unavailable [phone] Zheng Iglesias MD Unavailable Kristian Prado MD Unavailable [phone] Antonio Camarillo MD Unavailable [phone] Meera Ruiz CONTRACT POST OFFICE CLERK Unavailable [phone] Asad Arevalo MD Unavailable [phone] Oscar Murphy MD Unavailable [phone] Maria C Parra Unavailable [phone] Encounter Details Date Type Department Care Team (Late st Contact Info) Description 01/30/2025 Telephone P[facility] G Infusion 800 [facility] [address] [place] [address] Davina Roque, CONTRACT POST OFFICE CLERK [address] [address] Social History Tobacco Use Types Packs/Day Years [...] encounter Miscellaneous Notes * Telephone Encounter - Davina Roque APRN - 01/30/2025 2:43 PM EDT [facility] Pre-Infusion Screening Stef Jimenez has an appointment for Boniva injection on 01/31/2025. VICKY called patient to complete pre-infusion screening questions. Spoke with patient but unable to complete pre-infusion screening questions. She was unable to get her labs done, she has also had a fall and broken some bones . She wants to cancel. She will call back to once she gets her labs done. Interventions: Cancelled appointment. Duration of phone call: 1 minutes Davina Roque APRN [facility] documented in this encounter Plan of Treatment Upcoming Encounters Date Type Department Care Team (Late st Contact Info) Description 04/06/2025 9:20 AM EDT Office Visit [facility] Endocrinology [address] [place] [address] (1), Chepe Cobian Fellow 04/17/2025 11:30 AM EDT Clinical Support [facility] Laboratory Services [address], 1st [place] [address] 04/25/2025 12:00 PM EDT Appointment P[facility] G Infusion [address] [place] [address] 05/01/2025 11:40 AM EDT Office Visit [facility] Bone & Mineral Metabolism [address], [address] [place] [address] Marla Hilton APRN [address] [place] [address] 05/16/2025 1:10 PM EDT Office Visit [facility] Orthopaedic Surgery & Sports Medicine [address], 1st Floor [address] [place] [address] Trent Moon MD [address] [facility] 201 [place] [address] documented as of this encounter Visit Diagnoses Not on filedocumented in this encounter Additional Health Concerns Assessment Noted Time A fall risk assessment has been complete d for the patient 01/17/2025 10:49 AM EDT A Body Mass Index follow-up plan has been documented for the patient 11/08/2024 12:04 PM EDT documented as of this encounter Care Teams Auto Damage Insurance Appraiser Relationship Specialty Start Date End Date Robb Cartagena MD [address] [place] [address] PCP - General 02/10/21 Sophia Horne MD 800 [place] [address] Referring Physician Hematology and Oncology 04/15/21 [place] [address] [place] [address] [address] [place], [place] [address] Cardiology 07/24/24 Kristian Prado MD 800 [facility] [address] [place] [address] Consulting Physician Gynecologic Oncology 07/24/24 Antonio Camarillo MD 1451 [place] [address] Nephrology 07/24/24 Meera Ruiz APRN 2195 [facility] [address] [place] [address] Nurse Practitioner Endocrinology 07/24/24 Asad Arevalo MD [address] [facility] 203 [place], [place] [address] Referring Physician Gastroenterology 07/24/24 Oscar Murphy MD [address] [facility] [address] [place] [address] Consulting Physician Nephrology 07/24/24 Maria C Parra PA [address] [place] [address] Pulmonary Disease 07/24/24 documented as of this encounter
--- OUTSIDE RECORDS SUMMARY | 2025-03-01 13:56 | XMS_ITS | Encounter Summary ---
Author Organization [facility] Address [address] [place] [address] Care Team Providers Care Shoe Sprayer Name Role Phone Robb Cartagena MD Primary Care Provider [phone] Sophia Horne MD Unavailable [phone] Zheng Iglesias MD Unavailable Kristian Prado MD Unavailable [phone] Antonio Camarillo MD Unavailable [phone] Meera Ruiz GROUP ACCOUNT DIRECTOR Unavailable [phone] Asad Arevalo MD Unavailable [phone] Oscar Murphy MD Unavailable [phone] Maria C Parra Unavailable [phone] Encounter Details Date Type Department Care Team (Late st Contact Info) Description 01/22/2025 Orders Only [facility] Cancer Center at [facility] [address] [place] [address] Sophia Horne MD [address] [address] Malignant neoplasm of upper-outer quadrant of right breast in female, estrogen receptor positive; Type 2 diabetes mellitus with diabetic neuropathy, with long-term current use of insulin (CMS/HCC); Acquired hypothyroidism; Mixed hyperlipidemia Social History Tobacco Use Types Packs/Day Years Used Date Smoking Tobacco: Former Cigarettes 08 26 1 967 - 1991 Passive Smoke Exposure: [...] Description 04/06/2025 9:20 AM EDT [facility] [address] [place] [address] (1), Chepe Cobian Fellow 04/17/2025 11:30 AM EDT Clinical Support [facility] Laboratory Services [address] [facility], 1st [place] [address] 04/25/2025 12:00 PM EDT Appointment [facility] Infusion [address] [place] [address] 05/01/2025 11:40 AM EDT Office Visit [facility] Bone & Mineral Metabolism [address] [facility], [address] [place] [address] Marla Hilton APRN [address] [facility] [address] [place] [address] 05/16/2025 1:10 PM EDT Office Visit [facility] Orthopaedic Surgery & Sports Medicine [address], 1[address] [place] [address] Trent Moon MD [address] [facility] 201 [place] [address] documented as of this encounter Visit Diagnoses Diagnosis Malignant neoplasm of upper-outer quadrant of right breast in female, estrogen receptor positive Type 2 diabetes mellitus with diabetic neuropathy, with long-term current use of insulin (CMS/HCC) Acquired hypothyroidism Unspecified hypothyroidism Mixed hyperlipidemia documented in this encounter Additional Health Concerns Assessment Noted Time A fall risk assessment has been complete d for the patient 01/17/2025 10:49 AM EDT A Body Mass Index follow-up plan has been documented for the patient 11/08/2024 12:04 PM EDT documented as of this encounter Care Teams Shoe Sprayer Relationship Specialty Start Date End Date Robb Cartagena MD [address] [place] [address] PCP - General 02/10/21 Sophia Horne MD 800 [place] [address] Referring Physician Hematology and Oncology 04/15/21 Zheng Iglesias MD 14[address] [facility] [address] [place], [place] [address] Cardiology 07/24/24 Kristian Prado MD 800 [facility] [address] [place] [address] Consulting Physician Gynecologic Oncology 07/24/24 Antonio Camarillo MD 1451 [place], [place] [address] Nephrology 07/24/24 Meera Ruiz APRN 2195 [facility] 125 [place] [address] Nurse Practitioner Endocrinology 07/24/24 Asad Arevalo MD [address] [place] [address] [address] [place] [address] Referring Physician Gastroenterology 07/24/24 Oscar Murphy MD [address] [facility] [address] [place] [address] Consulting Physician Nephrology 07/24/24 Maria C Parra PA [address] [place] [address] Pulmonary Disease 07/24/24 documented as of this encounter
--- OUTSIDE RECORDS SUMMARY | 2025-03-01 13:56 | XMS_ITS | Patient Health Record ---
Author Organization [facility] Address [address] [facility] [address] [place] [address] Care Team Providers Care Insulation Manager Name Role Phone Robb Cartagena MD Primary Care Provider Antonio Billingsley Unavailable [phone] Chana Rainey Unavailable Unavailable Allergies No Known Allergies Reason For Referral No Information Medications Medication SIG (Take, Route, Frequency, Duration) Notes Start Date End Date Status ClobetaPlus Cream Ac tive Albuterol Sulfate HFA 108 (90 Base) MCG/ACT 1 puff as needed Inhalation every 4 hrs Active Aspirin 81 MG 1 tablet Orally Once a day; Duration: 30 day(s) Active Ciprofloxacin HCl 500 MG 1 tablet Orally Once daily; Duration: 10 days 10/18/2023 Active Ozempic (2 MG/DOSE) 8 MG/3ML as directed Subcutaneous Sundays Active Metoprolol Succinate 25 MG 1 capsule Ora lly Once a day; Duration: 30 day(s) Active Lantus SoloStar 100 UNIT/ML Subcutaneous Active NovoLOG FlexPen 100 UNIT/ML Subcutaneous Active Lipitor 40 MG 1 tablet Orally Once a day Active Synthroid 100 MCG 1 tablet on an empty stomach in the morning Orally Once a day Active Eliquis 2.5 MG 1 tablet Orally twic e a day Active Allergy Relief 10 MG 1 tablet Orally Onc e a day; Duration: 30 day(s) Active Nitroglycerin 0.4 MG Sublingual Active Gabapentin 600 MG 1 tablet Orally twic e a day Active rOPINIRole HCl 0.5 MG 1 tablet 1 to 3 ho urs before bedtime Orally Once a day; Duration: 30 day(s) Active Magnesium 400 MG as directed Orally Active Vitamin B-6 100 MG 1 tablet Orally Once a day; Duration: 30 day(s) Active Loperamide HCl 2 MG 1 capsule as needed Orally Four times a day Active Pantoprazole Sodium 20 MG TAKE 1 TABLET EVERY DAY IN THE EVENING Active Budesonide 3 MG 2 capsules Orally On ce a day Active Calcium 600 MG 1 tablet with meals Orally Once a day Active Ferrous Sulfate 325 (65 Fe) MG 1 tablet Orally Once a day; Duration: 30 day(s) Active Amiodarone HCl 100 MG 1 tablet Orally On ce a day; Duration: 30 day(s) 07/16/2022 Active Levocetirizine Dihydrochloride 5 MG 1 tablet in the evening Orally Once a day; Duration: 30 day(s) Active Ergocalciferol 52993 UNIT 1 capsule Oral ly weekly; Duration: 90 days Sundays Active Lomotil 2.5-0.025 MG 1 tablet as needed Orally Four times a day Active Escitalopram Oxalate 10 MG 1 tablet Oral ly Once a day; Duration: 30 day(s) Active Problems Problem Type SNOMED Code ICD Code Onset Dates Problem Status W/U Status Risk Notes Problem Gastroesophageal reflux disease (070604570) GERD (gastroesophageal reflux disease) (K21.9) Active confirmed Problem Anemia of chronic renal failure (91036457) Anemia with chronic kidney disease (D63.1) Active confirmed Problem Hyperlipidemia (68654578) Hyperlipidemia (E78.5) Active confirmed Problem Ulcerative colitis (15499703) Ulcerative colitis (K51.90) Active confirmed Problem Chronic kidney disease stage 3A (disorder) (182379098) Chronic kidney disease (CKD) stage G3a/A1, moderately decreased glomerular filtration rate (GFR) between 45-59 mL/min/1.73 square meter and albuminuria creatinine ratio less than 30 mg/g (N18.3) Active confirmed Problem 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 confirmed Problem 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) Active confirmed Problem Lymphedema of leg (494847256) Lymphedema of leg (I89.0) Active confirmed Problem Chronic kidney disease stage 3 (disorder) (081621626) Chronic kidney disease, stage 3 unspecified (N18.30) Active confirmed Encounters Encounter Location Date Provider Diagnosis [facility] [address] [facility] [address] [place] [address] 04/24/2024 Antonio Floydord Plan Of Treatment Pending Test Test Name Order Date PTH, Intact 03/20/2019 Vitamin D, 25 -hydroxy 03/20/2019 CBC WITH DIFF 04/19/2023 CBC WITH DIFF 10/18/2023 IRON, TIBC AND FERRITIN PANEL 10/18/2023 IRON, TIBC AND FERRITIN PANEL 01/11/2023 IRON, TIBC AND FERRITIN PANEL 01/12/2022 IRON, TIBC AND FERRITIN PANEL 05/30/2019 RENAL FUNCTION PANEL 07/13/2022 RENAL FUNCTION PANEL 07/15/2020 CMP14+eGFR 01/23/2020 CMP14+eGFR 04/19/2023 CMP14+eGFR 10/18/2023 CMP14+eGFR 07/10/2021 CMP14+eGFR 01/27/2021 CMP14+eGFR 01/12/2022 CMP14+eGFR 01/11/2023 CMP14+eGFR 05/30/2019 CMP14+eGFR 09/26/2019 CMP14+eGFR 09/12/2018 CMP14+eGFR 03/20/2019 CMP14+eGFR 02/28/2018 URINALYSIS COMPLETE 04/19/2023 URINALYSIS COMPLETE 07/13/2022 URINALYSIS COMPLETE 09/26/2019 URINALYSIS COMPLETE 01/12/2022 URINALYSIS COMPLETE 01/27/2021 URINALYSIS COMPLETE 07/10/2021 URINALYSIS COMPLETE 07/15/2020 URINALYSIS COMPLETE 10/18/2023 URINALYSIS COMPLETE 01/11/2023 CBC W AUTOMATED DIFFERENTIAL 07/15/2020 CBC W AUTOMATED DIFFERENTIAL 07/10/2021 CBC W AUTOMATED DIFFERENTIAL 01/27/2021 CBC W AUTOMATED DIFFERENTIAL 01/23/2020 CBC W AUTOMATED DIFFERENTIAL 07/13/2022 CBC W AUTOMATED DIFFERENTIAL 01/11/2023 CBC W AUTOMATED DIFFERENTIAL 09/12/2018 CBC W AUTOMATED DIFFERENTIAL 02/28/2018 CBC W AUTOMATED DIFFERENTIAL 03/20/2019 CBC W AUTOMATED DIFFERENTIAL 01/12/2022 CBC W AUTOMATED DIFFERENTIAL 09/26/2019 CBC W AUTOMATED DIFFERENTIAL 05/30/2019 HGB A1C (GLYCOHEMOGLOBIN) 05/30/2019 HGB A1C (GLYCOHEMOGLOBIN) 02/28/2018 HGB A1C (GLYCOHEMOGLOBIN) 09/12/2018 HGB A1C (GLYCOHEMOGLOBIN) 01/11/2023 HGB A1C (GLYCOHEMOGLOBIN) 04/19/2023 HGB A1C (GLYCOHEMOGLOBIN) 07/13/2022 HGB A1C (GLYCOHEMOGLOBIN) 01/12/2022 HGB A1C (GLYCOHEMOGLOBIN) 01/23/2020 HGB A1C (GLYCOHEMOGLOBIN) 07/15/2020 HGB A1C (GLYCOHEMOGLOBIN) 07/10/2021 Insurance Providers Payer Name Payer Address Payer Phone Subscriber Number Group Number Insured Name Patient Relationship to Insured Coverage Start Date Coverage End Date [employer] [address] [address] [place] [address] [id number] Stef Jimenez Self - patient is the [...]
--- OUTSIDE RECORDS SUMMARY | 2025-03-01 13:56 | XMS_ITS | Encounter Summary ---
Author Organization [facility] Address [address] [place] [address] Care Team Providers Care Senior Lead Software Engineer Name Role Phone Robb Cartagena MD Primary Care Provider Sophia Horne MD Unavailable [phone] Zheng Iglesias MD Unavailable Kristian Prado MD Unavailable [phone] Antonio Camarillo MD Unavailable [phone] Meera Ruiz PUMPING SUPERVISOR Unavailable [phone] Asad Arevalo MD Unavailable [phone] Oscar Murphy MD Unavailable [phone] Maria C Parra Unavailable [phone] Encounter Details Date Type Department Care Team (Late st Contact Info) Description 02/04/2025 Orders Only External Location [address] [place] [address] Provider, External Social History Tobacco Use Types [...] any time in the past 12 m [facility], were you homeless or living in a usp (including now)? No 02/07/2025 CAGE ASSESSMENT Answer [...] drink first t marycarmen in the morning ([employer]) to steady your nerves or to get [...] on file documented as of this encounter Functional Status * Calculated C-SSRS Risk Score (Lifetime/Recent) Answer Date of Assessment Author No Risk Indicated 02/07/2025 8:00 AM EDT Micheline Sotkes RN * Question Answer Date of Assessment Author 1. Wish to be (Past 1 Month) No 025 8:00 AM EDT Micheline Stokes RN 2. Non-Specific Active Suici tia Thoughts (Past 1 Month) No 02/07/2025 8:00 AM EDT Christiano Stokes RN 6. Suicidal Behavior (Lifetime) No 8:00 AM EDT Micheline Stokes RN documented as of this encounter Plan of Treatment Upcoming Encounters Date Type Department Care Team (Late st Contact Info) Description 04/06/2025 9:20 AM EDT Office Visit [facility] Endocrinology [address] [place] [phone] (1), Chepe Cobian Fellow 04/17/2025 11:30 AM EDT Clinical Support [facility] Laboratory Services [address] [place] [address] 04/25/2025 12:00 PM EDT Appointment [facility] [address] [place] [address] 05/01/2025 11:40 AM EDT Office Visit [facility] Bone & Mineral Metabolism [address], [address] [place] [address] Marla Hilton APRN [address] [place] [address] 05/16/2025 1:10 PM EDT Office Visit [facility] Orthopaedic Surgery & Sports Medicine [address] [place] [address] Trent Moon MD [address] [facility] [address] [place] [address] documented as of this encounter Procedures Procedure Name Priority Date/Time Associated Diagnosis Comments XR OUTSIDE IMAGES 02/04/2025 8:00 PM EDT documented in this encounter Results * XR OUTSIDE IMAGES (02/04/2025 8:00 PM EDT) Anatomical Region Laterality Modality Radiographic Arianna ging 02/04/2025 8:00 PM EDT External Provider IMG XR PROCEDURES Final Result documented in this encounter Visit Diagnoses Not on filedocumented in this encounter Additional Health Concerns Assessment Noted Time A fall risk assessment has been complete d for the patient 01/17/2025 10:49 AM EDT A Body Mass Index follow-up plan has been documented for the patient 02/07/2025 2:23 PM EDT documented as of this encounter Care Teams Senior Lead Software Engineer Relationship Specialty Start Date End Date Robb Cartagena MD [address] [place] [id number] PCP - General 02/10/21 Sophia Horne MD [address] [place] [address] Referring Physician Hematology and Oncology 04/15/21 Zheng Iglesias MD [address] [facility] [address] [place], [place] [id number] Cardiology 07/24/24 Kristian Prado MD [address] [facility] [address] [place] [address] Consulting Physician Gynecologic Oncology 07/24/24 Antonio Camarillo MD [address] [place] [address] Nephrology 07/24/24 Meera Ruiz APRN [address] [facility] [address] [place] [address] Nurse Practitioner Endocrinology 07/24/24 Asad Arevalo MD 1 [facility] [address] [place], [place] [id number] Referring Physician Gastroenterology 07/24/24 Oscar Murphy MD [address] [facility] [address] [place] [address] Consulting Physician Nephrology 07/24/24 Maria C Parra PA [address] [place] [address] Pulmonary Disease 07/24/24 documented as of this encounter
--- OUTSIDE RECORDS SUMMARY | 2025-03-01 13:56 | XMS_ITS | Clinical Summary ---
Author Organization [facility] Address [address] [place] [address] Care Team Providers Care Exhibit Specialist Name Role Phone Robb Cartagena MD Primary Care Provider Sophia Horne MD Unavailable [phone] Zheng Iglesias MD Unavailable Kristian Prado MD Unavailable [phone] Antonio Camarillo MD Unavailable [phone] Meera Ruiz OPERATIONS OFFICER AFLOAT Unavailable Asad Arevalo MD Unavailable Oscar Murphy MD Unavailable [phone] Maria C Parra Unavailable [phone] Allergies Active Allergy Reactions Criticality Noted Date Comments Lisinopril Cough Low 11/15/2009 lisinopril Medications glucose blood (Accu-Chek SmartView) test strip 08/18/19 19 Active nitroglycerin (Nitrostat) 0.[address] 1 tablet under the tongue. PRN 11/10/19 18 Active biotin 1000 MCG tablet Take 1 tablet by mouth daily. Active Droplet Pen [place] 32G X 4 MM misc 02/22/20 20 Active Accu-Chek FastClix Lancets misc 11/07/19 21 Active loperamide (Imodium) 2 MG capsule Take 1 capsule by mouth daily as needed for diarrhea. 10/12/19 21 Active magnesium oxide (Mag-Ox) 400 (240 Mg) MG tablet Take 1 tablet by mouth daily. Active pyridoxine (B-6) 100 MG tablet Take 1 tablet by mouth daily. Active albuterol 108 (90 Base) MCG/ACT inhaler Inhale 2 puffs every 6 hours as needed. 08/05/19 21 Active glucagon (Baqsimi Two Pack) 3 MG/DOSE powder Nasal Powder USE 1 DOSE IN 1 NOSTRIL FOR LOW BLOOD SUGAR, THEN SEEK MEDICAL HELP . REPEAT DOSE AFTER 15 MINS IF NO RESPONSE 2 each 3 09/13/19 24 Active budesonide EC (Entocort EC) 3 MG 24 hr capsule Take 2 capsules by mouth daily. 12/10/19 24 Active insulin glargine (Lantus SoloStar) 100 UNIT/ML injection penIndications:Ty pe 2 diabetes mellitus with diabetic neuropathy, with long-term current use of insulin (CMS/[facility]) Inject 15 Units under the skin every night. 15 mL 3 05/16/20 24 025 Active insulin aspart (NovoLOG FLEXPEN) 100 UNIT/ML injection penIndications:Ty pe 2 diabetes mellitus with diabetic neuropathy, with long-term current use of insulin (CMS/[facility]) Inject subcutaneous 10 units BID w/ meals plus 1:50>150 SS, max dose 50u/day 45 mL 3 05/16/20 24 Active Semaglutide, 2 MG/DOSE, (Ozempic, 2 MG/DOSE,) 8 MG/3ML solution pen-injector Inject 2 mg under the skin 1 (one) time per week. 9 mL 3 05/16/20 24 025 Active clobetasol (Temovate) 0.05 % cream APPLY TOPICALLY TO AFFECTED AREA 2 TIMES A WEEK NEEDED 30 g 11 06/15/20 24 Active calcium citrate (Calcitrate) 950 (200 Ca) MG tabletIndications :Age-related osteoporosis without current pathological fracture Take 1 tablet (950 mg) by mouth 1 (one) time each day. 90 tablet 3 07/26/20 24 Active cetirizine (ZyrTEC) 10 MG tabletIndications :Non-seasonal allergic rhinitis, unspecified trigger Take 1 tablet (10 mg) by mouth 1 (one) time each day. 90 tablet 3 07/26/20 24 Active diphenoxylate-atr opine (Lomotil) 2.5-0.025 MG tabletIndications :Diarrhea, unspecified type Take 1 tablet by mouth every 6 (six) hours if needed for diarrhea. 90 tablet 3 07/26/20 24 Active ergocalciferol 1.25 MG (48295 UT) capsuleIndication s:Malignant neoplasm of upper-outer quadrant of right breast in female, estrogen receptor positive Take 1 capsule (50,000 Units) by mouth 1 (one) time per week. 12 capsule 3 07/26/20 24 Active escitalopram (Lexapro) 10 MG tabletIndications :Depressive disorder Take 1 tablet (10 mg) by mouth 1 (one) time each day. 90 tablet 3 07/26/20 Active ferrous sulfate 325 (65 Fe) MG tabletIndications :History of iron deficiency anemia Take 1 tablet (325 mg) by mouth 1 (one) time each day with breakfast. 90 tablet 3 07/26/20 Active levothyroxine (Synthroid, Levoxyl) 100 MCG tabletIndications :Acquired hypothyroidism Take 1 tablet (100 mcg) by mouth 1 (one) time each day. 90 tablet 3 07/26/20 24 Active pantoprazole (ProtoNix) 20 MG EC tabletIndications :Gastroesophageal reflux disease without esophagitis Take 1 tablet (20 mg) by mouth 1 (one) time each day. 90 tablet 3 07/26/20 24 Active LORazepam (Ativan) 0.5 MG tablet Take 1 tablet (0.5 mg) by mouth 3 (three) times a day if needed for anxiety. 270 tablet 1 07/26/20 24 Active Eliquis 2.5 MG tabletIndications :Longstanding persistent atrial fibrillation (CMS/HCC) TAKE 1 TABLET TWICE DAILY 180 tablet 3 11/28/19 25 Active amiodarone (Pacerone) 100 MG tabletIndications :Longstanding persistent atrial fibrillation (CMS/HCC) TAKE 1 TABLET ONE TIME DAILY 90 tablet 3 11/28/19 25 Active rOPINIRole (Requip) 0.5 MG tabletIndications :Restless leg syndrome TAKE 1 TABLET (0.5 MG) BY MOUTH 1 (ONE) TIME EACH DAY IN THE EVENING. 90 tablet 3 12/07/19 25 Active metoprolol succinate XL (Toprol-XL) 25 MG 24 hr tabletIndications :Primary hypertension TAKE 1 TABLET EVERY DAY 90 tablet 3 12/28/19 25 Active atorvastatin (Lipitor) 40 MG tabletIndications :Mixed hyperlipidemia TAKE 1 TABLET EVERY DAY 90 tablet 3 01/16/20 25 Active Jardiance 10 MGIndications:Typ e 2 diabetes mellitus with diabetic neuropathy, with long-term current use of insulin ([facility]) TAKE 1 TABLET ONE TIME DAILY 90 tablet 3 01/25/20 25 Active gabapentin (Neurontin) 600 MG tablet Take 1 tablet by mouth 2 times a day. Active naloxone (Narcan) 4 mg/0.1 mL nasal spray 1. Give 1 spray in nostril for no/slow breathing or cannot wake after opioid use 2. Call 911 3. Repeat in other nostril if symptoms continue 1 each 02/08/20 25 Active acetaminophen (Tylenol 8 Hour) 650 MG ER tablet Take 1 tablet by mouth every 8 hours as needed for mild pain. Do not crush, chew, or split. 120 tablet 2 02/08/20 25 025 Active fluticasone (Flonase) 50 MCG/ACT nasal spray Administer 2 sprays into each nostril daily. Shake gently. Before first use, prime pump. After use, clean tip and replace cap. 16 g 6 02/08/20 25 026 Active calcitriol (Rocaltrol) 0.25 MCG capsule Take 1 capsule by mouth daily. 30 capsule 2 02/09/20 25 Active ibandronate (Boniva) 3 MG/3ML solution Infuse 3 mL (3 mg) into a venous catheter 1 (one) time. 11/08/19 21 025 Discontinu ed(Entered in Error) Lutein 20 MG capsule TAKE 1 CAPSULE Daily 11/10/19 18 025 Discontinu ed(Entered in Error) potassium chloride CR (Klor-Con M20) 20 MEQ ER tablet 12/23/19 23 025 Discontinu ed(Entered in Error) fluticasone (Flonase) 50 MCG/ACT nasal spray Administer 2 sprays into each nostril 1 (one) time each day. Shake gently. Before first use, prime pump. After use, clean tip and replace cap. 16 g 6 10/08/19 24 025 Discontinu ed(Entered in Error) cholecalciferol (Vitamin D3) 25 MCG (1000 UT) tabletIndications :Age-related osteoporosis without current pathological fracture,Vitamin D3 deficiency Take 1 tablet (1,000 Units) by mouth 1 (one) time each day. 90 tablet 3 01/28/20 24 025 Discontinu ed(Entered in Error) gabapentin (Neurontin) 600 MG tabletIndications :Neuropathy Take 1 tablet (600 mg) by mouth 2 (two) times a day. 180 tablet 1 07/24/20 24 025 Discontinu ed(Entered in Error) hydroCHLOROthiazi de (Microzide) 12.5 MG capsuleIndication s:Essential hypertension Take 1 capsule (12.5 mg) by mouth 1 (one) time each day in the morning. 90 capsule 3 07/26/20 24 025 Discontinu ed(Entered in Error) oxyCODONE (Roxicodone) 5 MG immediate release tablet Take 1 tablet by mouth every 6 hours as needed for severe pain for up to 5 days. 20 tablet 02/08/20 25 025 Active Problems Problem Noted Date Diagnosed Date [...] Signed by Sophia Horne MD on 07/18/2023 Resolved Problems Problem Noted Date Diagnosed Date Resolved Date Hypomagnesemia 07/22/2018 12/23/2022 Malnutrition 07/22/2018 12/23/2022 Stress fracture of pelvis 06/21/2018 Sacral pain 05/12/2018 12/23/2022 Encounters Date Type Department Care Team Description 02/14/2025 3:20 PM EDT Office Visit [facility] Orthopaedic Surgery & Sports Medicine [address], [address] [place] [phone] Trent Moon MD History of pelvic fracture (Primary Dx) 02/14/2025 2:30 PM EDT - 02/14/2025 11:59 PM EDT Hospital Encounter [facility] Radiology [address], [address]st [place] [address] Pain in pelvis Discharge Disposition: Home or Self Care 02/14/2025 Travel 02/08/2025 Telephone [facility] [address], [address] [place] [address] Merlyn Oneil, PharmD 02/08/2025 Telephone [facility] Infusion [address] [place] [phone] Brian Brady, RN Good Scheduling 02/06/2025 Travel 02/05/2025 Travel 02/04/2025 11:44 PM EDT - 02/07/2025 3:14 PM EDT Hospital Encounter [facility] [address] [place] [address] Herb Moreira MD Akpunonu, Peter Damian S, MD Troy, James A, MD Ishtiaq, Daniyal, MD Closed bilateral fracture of pubic rami, initial encounter ([facility]) (Primary Dx); Closed fracture of sacrum, unspecified portion of sacrum, initial encounter ([facility]) Discharge Disposition: Home or Self Care 02/04/2025 Travel 02/04/2025 Orders Only External Location [address] [place] [phone] Provider, External 02/04/2025 Orders Only External Location [address] [place] [phone] Provider, External 02/04/2025 Orders Only External Location [address] [place] [phone] Provider, External 02/04/2025 Orders Only External Location [address] [place] [address] Provider, External 01/30/2025 Telephone [facility] [address] [facility] [address] [place] [address] Davina Roque APRN 01/30/2025 Telephone [facility] Medicine Specialties [address] [place] [address] Maria C Parra PA 01/25/2025 Orders Only [facility] [place] [address], [address] [place] [address] Nicholas Shell, PharmD Osteoporosis without current pathological fracture, unspecified osteoporosis type (Primary Dx) 01/22/2025 Refill [facility] at [address] [place] [address] Sophia Horne MD Type 2 diabetes mellitus with diabetic neuropathy, with long-term current use of insulin ([facility]/HCC) 01/22/2025 Orders Only [facility] at [address] [place] [address] Sophia Horne MD Malignant neoplasm of upper-outer quadrant of right breast in female, estrogen receptor positive; Type 2 diabetes mellitus with diabetic neuropathy, with long-term current use of insulin ([facility]/HCC); Acquired hypothyroidism; Mixed hyperlipidemia 01/14/2025 Refill [facility] at [facility] [address] [place] [address] Sophia Horne MD Mixed hyperlipidemia 01/02/2025 Travel 01/01/2025 Telephone [facility] [place] [address], [address] [place] [address] ThomasChepe murphy 12/27/2024 [facility] [address], [address] [place] [address] ThomasChepe murphy 12/27/2024 [facility] at [address] [phone] Sophia Horne MD Primary hypertension 12/22/2024 [facility] [address], [address] [place] [address] Thomas, Chepe 12/21/2024 [facility] [address], [address] [place] [address] Thomas, Chepe 12/06/2024 [facility] at [address] [phone] Sophia Horne MD Restless leg syndrome from Last 3 Months Immunizations Immunization Administration Dates Next Due Pneumococcal Polysaccharide PPV23 06/05/2015 TD (adult), 2 Lf tetanus tox oid, preservative free, adsorbed 04/23/2001 Tdap 12/23/2022 Family History Medical History Relation Name Comments Heart attack Brother Father Narvaez Heart failure Brother Father Wm Narvaez Heart attack Father Heart failure Maternal Grandmother Winnie Narvaez. Brothe r Stomach cancer Maternal Grandmother Winnie Narvaez. Broth er FH: stomach cancer Cancer Mother Cayr Colon cancer Mother Cary FH: colon cance r Diabetes Mother Cary Diabetes type II Mother Cary Heart disease Mother Cary Heart attack Other Relation Name Status Comments Brother Father Wm Narvaez Father Maternal Grandmother Winnie Narvaez. Brother Mother Cary Other Social History Tobacco Use Types Packs/Day Years Used Date Smoking Tobacco: Former Cigarettes 1 25 1 967 - 1991 Passive Smoke Exposure: Never Smokeless Tobacco: Never Tobacco Cessation:Counseling Given: Not Answered Alcohol Use Standard Drinks/Week Comments No 0 [...] any time in the past 12 m [facility], were you homeless or living in a [place] health care facility (including now)? No 02/07/2025 CAGE ASSESSMENT Answer [...] drink first t marycarmen in the morning (EYE-AUTOMOTIVE TEACHER) to steady your nerves or to get [...] PM EDT Sexual Orientation Not on file Last Filed Vital Signs Vital Sign Reading Time Taken Comments Blood Pressure 123/72 02/14/2025 3:32 PM EDT Pulse 69 02/14/2025 3:32 PM EDT Temperature 36.6 C (97.9 F) 02/14/2025 3:32 PM EDT Respiratory Rate 18 02/06/2025 3:12 AM EDT Oxygen Saturation 96% 02/14/2025 3:32 PM EDT Inhaled Oxygen Concentration - - Weight 68 kg (150 lb) 02/14/2025 3:32 PM EDT Height 175.3 cm (5' 9 ) 02/14/2025 3:32 PM EDT Body Mass Index 22.15 02/14/2025 3:32 PM EDT Plan of Treatment Upcoming Encounters Date Type Department Care Team (Late st Contact Info) Description 04/06/2025 9:20 AM EDT Office Visit [facility] [address] [place] [phone] (1), Chepe Cobian Fellow 04/17/2025 11:30 AM EDT Clinical Support [facility] [place] [address] [place] [address] 04/25/2025 12:00 PM EDT Appointment [facility] [address] [facility] [address] [place] [address] 05/01/2025 11:40 AM EDT Office Visit [facility] [address], [address] [place] [address] Marla Hilton APRN [address] [place] [address] 05/16/2025 1:10 PM EDT Office Visit [facility] Orthopaedic Surgery & Sports Medicine [address] [place] [address] Trent Moon MD [address] [place] [address] Health Maintenance Due Date Last Done Comments [facility]-Medicare Annual Wellness (AWV) 1945 [facility]-Infant/Child/Adol SDOH Screenings 1945 ACS-SIDJK-14 Vaccine (#1) 02/08/1949 Diabetes: Dental Exam 02/08/1954 [facility]-Zoster Vaccines (1 of 2) 02/08/1963 [facility]-Pneumococcal Vaccine: 50+ Years (2 of 2 - PCV) 06/05/2016 06/05/2015 [facility]-RSV Vaccine: 60+ Years or (1 - 1-dose 75+ series) 02/08/2019 [facility]-Diabetes: Hemoglobin A1C 01/21/2025 07/24/2024, 05/16/2024, 01/17/2024, Additional history exists [facility]-Influenza Vaccine (#1) 2025 [facility]-Bone Density Scan 05/22/2025 05/22/2024 , 04/28/2023, 04/09/2022 [facility]-Depression Screening 07/24/2025 07/24/2024, 11/0 08/2023 [facility]- SDOH Screenings 08/10/2025 [facility]-Adult SDOH Screenings 08/10/2025 02/07/2025 [facility]-DTaP,Tdap,and Td Vaccines (2 - Td or Tdap) 12/23/2032 12/23/2022, 04/23/2001 HPV Vaccines Aged Out No longer eligi ble based on patient's age to complete this topic [facility]-HIB Vaccines Aged Out No longer e ligible based on patient's age to complete this topic [facility]-Hepatitis A Vaccines Aged Out No longer eligible based on patient's age to complete this topic [facility]-IPV Vaccines Aged Out No longer e ligible based on patient's age to complete this topic [facility]-Rotavirus Vaccines Aged Out No lo nger eligible based on patient's age to complete this topic Procedures Procedure Name Priority Date/Time Associated Diagnosis Comments XR PELVIS 3+ VIEWS Routine 02/14/2025 2: 51 PM EDT Pain in pelvis POCT GLUCOSE METER UNSOLICITED RESULTS Routine 02/07/2025 [...] 3+ VIEWS Routine 10:56 AM EDT XR CERVICAL SPINE 2 OR 3 VIEWS Routine 02/06/2025 10:56 AM EDT XR SHOULDER RIGHT 2+ VIEWS Routine 02/06/2025 10:56 AM EDT POCT GLUCOSE METER UNSOLICITED RESULTS Routine 02/06/2025 7:34 AM EDT COMPREHENSIVE METABOLIC PANEL, PLASMA Routine 02/06/2025 3:39 AM EDT CBC W/O DIFFERENTIAL Routine 02/06/2025 3:39 AM EDT POCT GLUCOSE [...] QUANT PCR STAT 02/05/2025 3:21 AM EDT PHOSPHORUS, PLASMA STAT 02/05/2025 3: 21 AM EDT MAGNESIUM, PLASMA STAT 02/05/2025 3:2 1 AM EDT ANTI XA LEVEL UNFRACTIONATED HEPARIN STAT 02/05/2025 3:21 AM EDT PROTHROMBIN TIME(PT) / INR STAT 02/05/2025 3:21 AM EDT COMPREHENSIVE METABOLIC PANEL, PLASMA STAT 02/05/2025 3:21 AM EDT CBC W/O DIFFERENTIAL STAT 02/05/2025 3:21 AM EDT ECG ADULT STAT 02/05/2025 3:[address] THORACIC OUTSIDE IMAGES 02/04/2025 9:[address] OUTSIDE IMAGES 02/04/2025 8:[address] OUTSIDE IMAGES 02/04/2025 8:1 2 PM EDT XR OUTSIDE IMAGES 02/04/2025 8:0 0 PM EDT VITAMIN D 25 HYDROXY Routine 01/02/2025 2:08 PM EDT Osteoporosis without current pathological fracture, unspecified osteoporosis type OSTEOCALCIN BY ECIA (SO) Routine 01/02/2025 2:08 PM EDT Osteoporosis without current pathological fracture, unspecified osteoporosis type C-TELOPEPTIDE Routine 01/02/2025 2:08 PM EDT Osteoporosis without current pathological fracture, unspecified osteoporosis type RENAL FUNCTION PANEL, PLASMA Routine 01/02/2025 2:08 PM EDT Osteoporosis without current pathological fracture, unspecified osteoporosis type BONE SPECIFIC ALKALINE PHOSPHATASE Routine 01/02/2025 2:08 PM EDT Osteoporosis without current pathological fracture, unspecified osteoporosis type N TELOPEPTIDE, CROSS-LINKED, SERUM (SO) Routine 01/02/2025 2:08 PM EDT Osteoporosis without current pathological fracture, unspecified osteoporosis type HEMOGLOBIN A1C STAT 07/24/2024 10:06 AM EST Malignant neoplasm of upper-outer quadrant of right breast in female, estrogen receptor positive (CMS/HCC) Type 2 diabetes mellitus with diabetic neuropathy, with long-term current use of insulin (CMS/HCC) DEXA BONE DENSITY Routine 05/22/2024 3:5 3 PM EDT Age-related osteoporosis without current pathological fracture from Last 3 Months or Most Recently Relevant to Health Maintenance Results * XR Pelvis 3+ Views (02/14/2025 [...] by Amaury Gill on 02/14/2025 4:54 PM Trent Moon MD IMG XR PROCEDURES Final Result * (ABNORMAL) POCT glucose meter (02/07/2025 11:58 AM EDT) Only the most recent of9 resultswithin the time period is included. POCT Glucose 125(H) 74 - 99 mg/dL [...] for testing. Comment 02/07/2025 12:00 PM EDT [facility]ARE [facility] Fruit Room Hand ID Juanjo Lozano 02/07/2025 12:00 PM EDT [employer] [facility] Device ID [id number] 02/07/2025 12:00 PM EDT HEALTH[facility]ARE LAB Specimen Type POC Capillary 02/07/2025 12:00 PM EDT [facility]ALTH[facility]ARE [facility] Blood Capillary blood specimen / Unknown 02/07/2025 11:58 AM EDT 02/07/2025 12:00 PM EDT us Rg Lua MD LAB POINT OF CARE TE ST DOCKED DEVICE UNSOLICITED RESULTS Final Result Performing Organization Address [facility]/State/ZIP Co de Phone Number HEALTHCARE LAB [address] [place] [address] * (ABNORMAL) CBC and differential (02/07/2025 2:46 AM EDT) WBC Count 8.12 3.70 - 10.30 10*3/uL LAB HEMATOLOGY METHOD 02/07/2025 3:31 AM EDT [facility] RBC Count 3.10(L) 3.90 - 5.20 10*6/uL LAB HEMATOLOGY METHOD 02/07/2025 3:31 AM EDT [facility] HGB 10.0(L) 11.2 - 15.7 g/dL LAB HEMATOLOGY METHOD 02/07/2025 3:31 AM EDT [facility] HCT 31.5(L) 34.0 - 45.0 % LAB HEMATOLOGY METHOD 02/07/2025 3:31 AM EDT [facility] Platelet Count 180 155 - 369 10*3/uL LAB HEMATOLOGY METHOD 02/07/2025 3:31 AM EDT [facility] MCV 102(H) 79 - 98 fL LAB HEMATOLOGY METHOD 02/07/2025 3:31 AM EDT [facility] MCH 32.3(H) 26.0 - 32.0 pg LAB HEMATOLOGY METHOD 02/07/2025 3:31 AM EDT [facility] MCHC 31.7 30.7 - 35.5 g/dL LAB HEMATOLOGY METHOD 02/07/2025 3:31 AM EDT [facility] RDW 13.3 11.5 - 14.5 % LAB HEMATOLOGY METHOD 02/07/2025 3:31 AM EDT [facility] MPV 9.9 8.8 - 12.5 fL LAB HEMATOLOGY METHOD 02/07/2025 3:31 AM EDT [facility] nRBC 0.0 <=0.0 per 100 WBCs LAB HEMATOLOGY METHOD 02/07/2025 3:31 AM EDT [facility] Differential Type Automated LAB HEMATOLOGY METHOD 02/07/2025 3:31 AM EDT [facility] Neutrophils % 77 % LAB HEMATOLOGY METHOD 02/07/2025 3:31 AM EDT [facility] Lymphocytes % 13 % LAB HEMATOLOGY METHOD 02/07/2025 3:31 AM EDT [facility] Monocytes % 7 % LAB HEMATOLOGY METHOD 02/07/2025 3:31 AM EDT [facility] Eosinophils % 1 % LAB HEMATOLOGY METHOD 02/07/2025 3:31 AM EDT HEALTH[facility]ARE LAB Basophils % 1 % LAB HEMATOLOGY METHOD 02/07/2025 3:31 AM EDT [facility] Immature Granulocytes % 1 % LAB HEMATOLOGY METHOD 02/07/2025 3:31 AM EDT [facility] Neutrophils Absolute 6.31(H) 1.60 - 6.10 10*3/uL LAB HEMATOLOGY METHOD 02/07/2025 3:31 AM EDT [facility] Lymphocytes Absolute 1.02(L) 1.20 - 3.90 10*3/uL LAB HEMATOLOGY METHOD 02/07/2025 3:31 AM EDT [facility] Monocytes Absolute 0.59 0.30 - 0.90 10*3/uL LAB HEMATOLOGY METHOD 02/07/2025 3:31 AM EDT [facility] Eosinophils Absolute 0.06 0.00 - 0.50 10*3/uL LAB HEMATOLOGY METHOD 02/07/2025 3:31 AM EDT [facility] Basophils Absolute 0.06 0.00 - 0.10 10*3/uL LAB HEMATOLOGY METHOD 02/07/2025 3:31 AM EDT [facility] Immature Granulocytes Absolute 0.08(H) 0.00 - 0.06 10*3/uL LAB HEMATOLOGY METHOD 02/07/2025 3:31 AM EDT [facility] Blood Venous blood specimen / Unknown Venipuncture / Unknown 02/07/2025 2:46 AM EDT 02/07/2025 3:21 AM EDT Narrative HEALTHCARE LAB - 02/07/2025 3:31 AM EDT Therapeutic decision making should be based on absolute values, rather than percentages. us Rg Lua MD LAB BLOOD ORDERABLES Final Re sult [facility] [address] [place] [address] * (ABNORMAL) Basic metabolic panel (02/07/2025 2:46 AM EDT) Glucose, Plasma 145(H) 74 - 99 mg/dL 02/07/2025 3:48 AM EDT [facility] BUN, Plasma 22 8 - 23 mg/dL 02/07/2025 3:48 AM EDT [facility] Creatinine, Plasma 1.48(H) 0.60 - 1.10 mg/dL 02/07/2025 3:48 AM EDT [facility] BUN/Creatinine Ratio 15 02/07/2025 3:48 AM EDT [facility] Sodium, Plasma 139 136 - 145 mmol/L 02/07/2025 3:48 AM EDT [facility] Potassium, Plasma 3.4(L) 3.6 - 4.9 mmol/L 02/07/2025 3:48 AM EDT [facility] Chloride, Plasma 105 97 - 107 mmol/L 02/07/2025 3:48 AM EDT [facility] CO2, Plasma 25 22 - 29 mmol/L 02/07/2025 3:48 AM EDT [facility] Anion Gap 9 6 - 16 mmol/L 02/07/2025 3:48 AM EDT [facility] Total Calcium, Plasma 8.6(L) 8.9 - 10.2 mg/dL 02/07/2025 3:48 AM EDT [facility] eGFRcr 35.7 mL/min/1.7 3m*2 02/07/2025 3:48 AM EDT [facility] Comment:Reported eGFRcr in m L/min/1.73m2 is based the CKD-EPI 2020 equation that does not use a race coefficient. Blood Venous blood specimen / Unknown Venipuncture / Unknown 02/07/2025 2:46 AM EDT 02/07/2025 3:24 AM EDT Rg Lua MD LAB BLOOD ORDERABLES Final Re sult [facility] [address] [place] [address] * XR Elbow Left 3+ Views (02/06/2025 [...] XR PROCEDURES Final Resul t * (ABNORMAL) CBC W/O Differential (02/06/2025 3:39 AM EDT) Only the most recent of2 resultswithin the time period is included. WBC Count 8.32 3.70 - 10.30 10*3/uL LAB HEMATOLOGY METHOD 02/06/2025 4:33 AM EDT [facility] RBC Count 3.07(L) 3.90 - 5.20 10*6/uL LAB HEMATOLOGY METHOD 02/06/2025 4:33 AM EDT [facility] HGB 10.0(L) 11.2 - 15.7 g/dL LAB HEMATOLOGY METHOD 02/06/2025 4:33 AM EDT [facility] HCT 31.7(L) 34.0 - 45.0 % LAB HEMATOLOGY METHOD 02/06/2025 4:33 AM EDT [facility] Platelet Count 181 155 - 369 10*3/uL LAB HEMATOLOGY METHOD 02/06/2025 4:33 AM EDT [facility] MCV 103(H) 79 - 98 fL LAB HEMATOLOGY METHOD 02/06/2025 4:33 AM EDT [facility] MCH 32.6(H) 26.0 - 32.0 pg LAB HEMATOLOGY METHOD 02/06/2025 4:33 AM EDT [facility] MCHC 31.5 30.7 - 35.5 g/dL LAB HEMATOLOGY METHOD 02/06/2025 4:33 AM EDT [facility] RDW 13.7 11.5 - 14.5 % LAB HEMATOLOGY METHOD 02/06/2025 4:33 AM EDT [facility] MPV 10.2 8.8 - 12.5 fL LAB HEMATOLOGY METHOD 02/06/2025 4:33 AM EDT [facility] nRBC 0.0 <=0.0 per 100 WBCs LAB HEMATOLOGY METHOD 02/06/2025 4:33 AM EDT [facility] Blood Venous blood specimen / Unknown Venipuncture / Unknown 02/06/2025 3:39 AM EDT 02/06/2025 4:30 AM EDT Yesi Meeks MD LAB BLOOD ORDERABLES Final Re sult [facility] [address] [place] [address] * (ABNORMAL) Comprehensive Metabolic Panel, Plasma (02/06/2025 3:39 AM EDT) Only the most recent of2 resultswithin the time period is included. Glucose, Plasma 195(H) 74 - 99 mg/dL 02/06/2025 5:05 AM [facility] BUN, Plasma 20 8 - 23 mg/dL 02/06/2025 5:05 AM [facility] Creatinine, Plasma 1.58(H) 0.60 - 1.10 mg/dL 02/06/2025 5:05 AM [facility] BUN/Creatinine Ratio 13 02/06/2025 5:05 AM [facility] Sodium, Plasma 135(L) 136 - 145 mmol/L 02/06/2025 5:05 AM [facility] Potassium, Plasma 3.8 3.6 - 4.9 mmol/L 02/06/2025 5:05 AM [facility] Chloride, Plasma 102 97 - 107 mmol/L 02/06/2025 5:05 AM [facility] CO2, Plasma 24 22 - 29 mmol/L 02/06/2025 5:05 AM [facility] Anion Gap 9 6 - 16 mmol/L 02/06/2025 5:05 AM [facility] Total Calcium, Plasma 8.7(L) 8.9 - 10.2 mg/dL 02/06/2025 5:05 AM [facility] Total Protein 5.6(L) 6.3 - 7.9 g/dL 02/06/2025 5:05 AM [facility] Albumin, Plasma 3.0(L) 3.5 - 5.2 g/dL 02/06/2025 5:05 AM [facility] AST, Plasma 14 10 - 35 U/L 02/06/2025 5:05 AM [facility] ALT, Plasma <5(L) 10 - 35 U/L 02/06/2025 5:05 AM [facility] Alkaline Phosphatase, Plasma 115 46 - 142 U/L 02/06/2025 5:05 AM [facility] Total Bilirubin, Plasma 0.4 0.2 - 1.1 mg/dL 02/06/2025 5:05 AM [facility] eGFRcr 33.0 mL/min/1.7 3m*2 02/06/2025 5:05 AM EDT [facility] Comment:Reported eGFRcr in m L/min/1.73m2 is based the CKD-EPI 2020 equation that does not use a race coefficient. Blood Venous blood specimen / Unknown Venipuncture / Unknown 02/06/2025 3:39 AM EDT 02/06/2025 4:29 AM EDT Yesi Meeks MD LAB BLOOD ORDERABLES Final Re sult [facility] [address] [place] [address] * CT Bony Pelvis (02/05/2025 4:59 AM [...] Khanh Fishman MD on 02/05/2025 6:11 AM Herb Moreira MD IMG CT PROCEDURES Final [...] the final edited report. Drafted by Ivy Tya MD on 02/05/2025 4:28 AM Final report [...] Khanh Fishman MD on 02/05/2025 4:48 AM Herb Moreira MD IMG XR PROCEDURES Final Resul t * ED HIV 1/2 Antibody/Antigen Screen w/Reflex to HIV 1/2 Differentiation (02/05/2025 3:21 AM EDT) Pathologist [facility] HIV 1 & 2 Antibody/Antigen Screen Non Reactive Non Reactive 02/05/2025 4:23 AM EDT [facility] Comment:Screening for HIV 1 & 2 antibodies, and P24 antigen is NONREACTIVE. No confirmatory testing is required. Blood Venous blood specimen / Unknown Venipuncture / Unknown 02/05/2025 3:21 AM EDT 02/05/2025 3:33 AM EDT Herb Moreira MD LAB BLOOD ORDERABLES Final Re sult [facility] [address] [place] [address] * Hepatitis C Antibody - ED (02/05/2025 3:21 AM EDT) Hepatitis C Antibody Negative Negative 02/05/2025 4:23 AM EDT [facility] Blood Venous blood specimen / Unknown Venipuncture / Unknown 02/05/2025 3:21 AM EDT 02/05/2025 3:32 AM EDT us Herb Moreira MD LAB BLOOD ORDERABLES Final Re sult Performing Organization Address [facility] Co de Phone Number [facility] [address] [place] [address] * (ABNORMAL) PT-INR (02/05/2025 3:21 AM EDT) Prothrombin Time 14.5(H) 12.0 - 14.3 sec 02/05/2025 3:39 AM EDT [facility] INR 1.1 0.9 - 1.1 02/05/2025 3:[address] [facility] Blood Venous blood specimen / Unknown Venipuncture / Unknown 02/05/2025 3:21 AM EDT 02/05/2025 3:27 AM EDT Narrative [facility] - 02/05/2025 3:39 AM EDT OPTIMAL INR RANGES FOR PATIENT ON ORAL ANTICOAGULANT THERAPY Prevention of venous thromboembolism INR 2.0 to 3.0 In patients with heart disease: Atrial fibrillation INR 2.0 to 3.0 Valvular heart disease INR 2.0 to 3.0 Tissue heart valves INR 2.0 to 3.0 Mechanical prosthetic valves INR 2.5 to 3.5 Prevention of recurrent UT INR 2.5 to 3.5 us Herb Moreira MD LAB BLOOD ORDERABLES Final Re sult Performing Organization Address [facility] Co de Phone Number [facility] [address] [place] [address] * Anti Xa Level Unfractionated Heparin (02/05/2025 3:21 AM EDT) Anti Xa Level Unfractionated Heparin <0.11 <1.00 IU/mL 02/05/2025 3:[address] [facility] Blood Venous blood specimen / Unknown Venipuncture / Unknown 02/05/2025 3:21 AM EDT 02/05/2025 3:27 AM EDT Narrative [facility] - 02/05/2025 3:48 AM EDT Therapeutic Range: UFH Full Dose and ACS/UT protocols*: 0.30 - 0.70 IU/mL UFH Low Dose protocol*: 0.25 - 0.50 IU/mL UFH prophylaxis: Not established us Herb Moreira MD LAB BLOOD ORDERABLES Final Re sult Performing Organization Address [facility] Co de Phone Number [facility] [address] [place] [address] * (ABNORMAL) Phosphorus (02/05/2025 3:21 AM EDT) Phosphorus, Plasma 2.2(L) 2.5 - 4.5 mg/dL 02/05/2025 4:03 AM EDT [facility] Blood Venous blood specimen / Unknown Venipuncture / Unknown 02/05/2025 3:21 AM EDT 02/05/2025 3:32 AM EDT us Herb oMreira MD LAB BLOOD ORDERABLES Final Re sult Performing Organization Address [facility] [place] [address] * Magnesium (02/05/2025 3:21 AM EDT) Magnesium, Plasma 2.0 1.9 - 2.4 mg/dL 02/05/2025 4:03 AM EDT [facility] Blood Venous blood specimen / Unknown Venipuncture / Unknown 02/05/2025 3:21 AM EDT 02/05/2025 3:32 AM EDT us Herb Moreira MD LAB BLOOD ORDERABLES Final Re sult Performing Organization Address [facility] [place] [place] [address] * EKG now - STAT (adult) (02/05/2025 3:04 AM EDT) EKG DIAGNOSIS CLASS Abnormal MUSE ECG Ventricular Rate 77 BPM MUSE ECG Atrial Rate 77 BPM MUSE ECG NC Interval 164 ms MUSE ECG QRSD Interval 84 ms MUSE ECG QT Interval 436 ms MUSE ECG QTC Interval 493 ms MUSE ECG P Seney 58 degrees MUSE ECG R Seney -15 degrees MUSE ECG T Wave Seney 7 degrees MUSE ECG Diagnosis Sinus rhythm [...] Herb Moreira MD ECG ORDERABLES Final Result MUSE ECG * CT THORACIC OUTSIDE IMAGES (02/04/2025 9:01 PM EDT) Anatomical Region Laterality Modality Computed Tomogra phy 02/04/2025 9:01 PM EDT us External Provider IMG CT PROCEDURES Final Result * CT OUTSIDE IMAGES (02/04/2025 8:15 PM EDT) Only the most recent of2 resultswithin the time period is included. Anatomical Region Laterality Modality Computed Tomogra phy 02/04/2025 8:15 PM EDT us External Provider IMG CT PROCEDURES Final Result * XR OUTSIDE IMAGES (02/04/2025 8:00 PM EDT) Anatomical Region Laterality Modality Radiographic Arianna ging 02/04/2025 8:00 PM EDT us External Provider IMG XR PROCEDURES Final Result * Bone Specific Alkaline Phosphatase (01/02/2025 2:08 PM EDT) Bone Specific Alkaline Phosphatase 11.8 ug/L 01/02/2025 6:40 PM EDT [facility] Comment: BSAP (Ostase) Reference Values, Female, age 18 years and up: Premenopausal: 4.5 to 16.9 ug/L Postmenopausal: 7.0 to 22.4 ug/L Blood Venous blood specimen / Unknown Venipuncture / Unknown 01/02/2025 2:08 PM EDT 01/02/2025 2:09 PM EDT Oscar Murphy MD LAB REF LAB BLOOD AND FLUID OR D Final Result [facility] [address] [place] [address] * C-Telopeptide (01/02/2025 2:08 PM EDT) C Telopeptide Beta Cross Linked Serum Result 618 pg/mL 01/04/2025 7:46 PM EDT [facility] ii[facility]b) Blood Venous blood specimen / Unknown Venipuncture / Unknown 01/02/2025 2:08 PM EDT 01/02/2025 2:09 PM EDT Narrative [facility] [employer] ISELA) - 01/04/2025 7:46 PM EDT Premenopausal Females: 136-689 pg/mL Postmenopausal Females: 177-1015 pg/mL REFERENCE INTERVAL: C-Telopeptide, Imio-Cvrrq-Jjevpc, Serum Access complete set of age- and/or gender-specific reference intervals for this test in the [facility] Test Directory ([employer]). Performed By: [facility] [address] [place] [address] Clamp Operator: Jack Rouse MD, PhD CLIA Number: [id number] Oscar Murphy MD LAB BLOOD ORDERABLES Final Res ult [facility] ii4b) [address] [place] [address] * N telopeptide, cross-linked, serum (01/02/2025 2:08 PM EDT) N-Telopeptide, Cross-Linked, Serum 31.9 nM BCE 01/05/2025 7:18 PM EDT [facility]) Blood Venous blood specimen / Unknown Venipuncture / Unknown 01/02/2025 2:08 PM EDT 01/02/2025 2:09 PM EDT Narrative [facility]) - 01/05/2025 7:18 PM EDT INTERPRETIVE INFORMATION: N-Telopeptide, Cross-Linked, Serum Adult Male.......................5.4 - 24.2 nM BCE Premenopausal Adult Female.......6.2 - 19.0 nM BCE The target value for treated post-menopausal adult females is the same as the premenopausal reference interval. BCE = Bone Collagen Equivalent Performed By: [facility] [address] [place] [address] Clamp Operator: Jack Rouse MD, PhD CLIA Number: [id number] Oscar Murphy MD LAB BLOOD ORDERABLES Final Res ult [facility] [employer]) [address] [place] [address] * Osteocalcin by ECIA (01/02/2025 2:08 PM EDT) [facility] OSTEOCALCIN BY ECIA 19 8 - 36 ng/mL 01/05/2025 5:17 PM EDT [facility]) Blood Venous blood specimen / Unknown Venipuncture / Unknown 01/02/2025 2:08 PM EDT 01/02/2025 2:09 PM EDT Narrative [facility]) - 01/05/2025 5:17 PM EDT INTERPRETIVE INFORMATION: Osteocalcin by ECIA In patients with renal failure, the osteocalcin result may be directly elevated, due to impaired clearance, and/or indirectly elevated due to renal osteodystrophy. Access complete set of age- and/or gender-specific reference intervals for this test in the [facility] Test Directory ([employer]). Performed By: [facility] [employer] [facility] [address] [place] [address] Clamp Operator: Jack Rouse MD, PhD CLIA Number: [id number] Oscar Murphy MD LAB BLOOD ORDERABLES Final Res ult [facility] (RAJAN) [address] [place] [address] * Vitamin D 25 Hydroxy (01/02/2025 2:08 PM EDT) Vitamin D 25 Hydroxy 26.4 20.0 - 80.0 ng/mL 01/02/2025 6:[address] [facility] Blood Venous blood specimen / Unknown Venipuncture / Unknown 01/02/2025 2:08 PM EDT 01/02/2025 2:09 PM EDT Narrative [facility] - 01/02/2025 6:43 PM EDT Testing performed on [employer] Morph[employer] Teacher, standardized against NIST SRM 2972. When testing samples from patients whose predominant form of vitamin D is vitamin D2, such as patients receiving vitamin D2 supplementation, results that are subtherapeutic should be confirmed with another method, such as LC-MS/MS, before being used for patient management. Vitamin D, 25-Hydroxy reference range, age 18 years and up: Deficiency: <12 ng/mL Insufficiency: 12 to 19 ng/mL Sufficiency: 20 to 80 ng/mL Possible toxicity: >100 ng/mL Oscar Murphy MD LAB BLOOD ORDERABLES Final Res ult [facility] [address] [place] [address] * (ABNORMAL) Renal Function Panel, Plasma (01/02/2025 2:08 PM EDT) Glucose, Plasma 99 74 - 99 mg/dL 01/02/2025 5:47 PM EDT [facility] BUN, Plasma 19 8 - 23 mg/dL 01/02/2025 5:47 PM EDT [facility] Creatinine, Plasma 1.45(H) 0.60 - 1.10 mg/dL 01/02/2025 5:47 PM EDT [facility] BUN/Creatinine Ratio 13 01/02/2025 5:47 PM EDT [facility] Sodium, Plasma 139 136 - 145 mmol/L 01/02/2025 5:47 PM EDT [facility] Potassium, Plasma 3.5(L) 3.6 - 4.9 mmol/L 01/02/2025 5:47 PM EDT [facility] Chloride, Plasma 105 97 - 107 mmol/L 01/02/2025 5:47 PM EDT [facility] CO2, Plasma 24 22 - 29 mmol/L 01/02/2025 5:47 PM EDT [facility] Anion Gap 10 6 - 16 mmol/L 01/02/2025 5:47 PM EDT [facility] Total Calcium, Plasma 8.6(L) 8.9 - 10.2 mg/dL 01/02/2025 5:47 PM EDT [facility] Phosphorus, Plasma 3.9 2.5 - 4.5 mg/dL 01/02/2025 5:47 PM EDT [facility] Albumin, Plasma 3.7 3.5 - 5.2 g/dL 01/02/2025 5:47 PM EDT [facility] eGFRcr 36.5 mL/min/1.7 3m*2 01/02/2025 5:47 PM EDT [facility] Comment:Reported eGFRcr in m L/min/1.73m2 is based the CKD-EPI 2020 equation that does not use a race coefficient. Blood Venous blood specimen / Unknown Venipuncture / Unknown 01/02/2025 2:08 PM EDT 01/02/2025 2:09 PM EDT us Oscar Murphy MD LAB BLOOD ORDERABLES Final Res ult [facility] [address] [place] [address] * (ABNORMAL) Hemoglobin A1c (07/24/2024 10:06 AM EST) External Glycosylated Hemoglobin (Hgb A1C) 6.7(H) 0.0 - 5.6 % 07/24/2024 11:03 AM EST [facility] External Estimated Average Glucose 146 mg/dL (calc) 07/24/2024 11:03 AM EST [facility] Comment: A1c values between 5.7% to 6.4% indicate prediabetes. Results 6.5% or greater is diagnostic of diabetes. [employer] (diabetes.org) Blood Venous blood specimen / Unknown 07/24/2024 10:06 AM EST 07/24/2024 10:47 AM EST us Sophia Horne MD LAB BLOOD ORDERABLES Final Res ult [facility] [address] [place] [address], * Dexa Bone Density (05/22/2024 3:53 PM EDT) Anatomical Region Laterality Modality L-spine Radio Fluoroscop y Narrative 05/29/2024 7:35 PM EDT [facility] [address] [address], [place] [address] DXA Bone Densitometry Report: [05/22/2024] BMD test performed using the CoolstuffXA DXA System (analysis version: 14.10) manufactured by [employer]. REFERRING PROVIDER: Dr. Oscar Murphy MD CLINICAL INFORMATION: osteoporosis PATIENT NAME: Stef Jimenez PATIENT AGE: 79 y.o. LEGAL SEX: female RADIOGRAPHIC VIEWS: Sites scanned: AP Spine, HIP Right , HIP Left, and TBS COMPARISON STUDY: DXA Axial 04/28/2023 and TBS 04/28/2023 FINDINGS: Based on WHO criteria (post-menopausal female) the diagnosis is Osteopenia The lowest T- score is -1.9 in the RFN There is decline in both total hips and stability at other sites compared to prior measurements The presence of arthritic or degenerative joint changes in the spine could artefactually increase measured BMD. TBS: The TBS L1-L4 of 1.321 indicates normal microarchitecture There is significant scoliotic deformity of the lumbar spine that can potentially interfere with measurement of both BMD and TBS TREATMENT RECOMMENDATIONS: Patient has received specific treatment for osteoporosis in the last year. Work up for secondary osteoporosis and metabolic bone disease could be considered based on clinical indications. Treatment decisions may be based on clinical considerations. Suggest VFA for complete evaluation. Suggest general measures to optimize calcium and vitamin D status, fall prevention measures and reduce fracture risk. Consider repeating this study in 1 year(s) or as clinically indicated to assess bone density change or response to treatment (should be performed on the same DXA scanner to allow for direct comparison and calculation of change in BMD). Oscar Murphy MD IMG DXA PROCEDURES Final Resul t from Last 3 Months or Most Recently Relevant to Health Maintenance Insurance [facility] MEDICARE Advance Directives * Full Code (Latest Code Status on File) Date Activated Date Inactivated Comments 02/05/2025 12:21 PM 02/07/2025 5:14 PM Question Answer Comments I have reviewed the capacity from the link above and, if needed, have updated to appropriate status: Yes * Full Code Date Activated Date Inactivated Comments 12/23/2022 6:50 AM 12/23/2022 4:15 PM Question Answer Comments Patient has decision-making capacity? Yes Care Teams Exhibit Specialist Relationship Specialty Start Date End Date Robb Cartagena MD [address] [place] [address] PCP - General 02/10/21 Sophia Horne MD [address] [place] [phone] Referring Physician Hematology and Oncology 04/15/21 Zheng Iglesias MD [address] [place] [address] [address] [place] [address] Cardiology 07/24/24 Kristian Prado MD [address] [facility] [address] [place] [phone] Consulting Physician Gynecologic Oncology 07/24/24 Antonio Camarillo MD [address] [place], [place] [id number] Nephrology 07/24/24 Meera Ruiz APRN [facility] [address] [place] [address] Nurse Practitioner Endocrinology 07/24/24 Asad Arevalo MD [address] [place] [address] [address] [place] [address] Referring Physician Gastroenterology 07/24/24 Oscar Murphy MD [address] [facility] [address] [place] [address] Consulting Physician Nephrology 07/24/24 Maria C Parra PA [address] [facility] [address] [place] [phone] Pulmonary Disease 07/24/24
--- OUTSIDE RECORDS SUMMARY | 2025-03-01 13:56 | XMS_ITS | Encounter Summary ---
Author Organization [facility] Address [address] [place] [address] Care Team Providers Care Supervisor [employer] Name Role Phone Robb Cartagena MD Primary Care Provider Sophia Horne MD Unavailable [phone] Zheng Iglesias MD Unavailable Kristian Prado MD Unavailable [phone] Antonio Camarillo MD Unavailable [phone] Meera Ruiz NUTRITION CONSULTANT Unavailable [phone] Asad Arevalo MD Unavailable [phone] Oscar Murphy MD Unavailable [phone] Maria C Parra Unavailable [phone] Encounter Details Date Type Department Care Team (Late st Contact Info) Description 01/25/2025 Orders Only [facility] [address] [facility], [address] [place] [address] Nicholas Shell, PharmD [address] [place] [address] Osteoporosis without current pathological fracture, unspecified osteoporosis type (Primary Dx) Social History Tobacco Use Types [...] Description 04/06/2025 9:20 AM EDT Office Visit [facility] Endocrinology [address] [place] [phone] (1), Chepe Cobian Fellow 04/17/2025 11:30 AM EDT Clinical Support [facility] [address] [facility], 1st [place] [address] 04/25/2025 12:00 PM EDT Appointment [facility] [address] [place] [address] 05/01/2025 11:40 AM EDT Office Visit [facility] [address] [facility], [address] [place] [address] Marla Hilton APRN [address] [facility] [address] [place] [address] 05/16/2025 1:10 PM EDT Office Visit [facility] Orthopaedic Surgery & Sports Medicine [address] [place] [address] Trent Moon MD [address] [facility] [address] [place] [address] Scheduled Orders Name Type Priority Associated Diagnoses Orde r Schedule Renal function panel Lab Routine Osteoporosis without current pathological fracture, unspecified osteoporosis type Expected: 01/25/2025 (Approximate), Expires: 07/29/2026 documented as of this encounter Visit Diagnoses Diagnosis Osteoporosis without current pathological fracture, unspecified osteoporosis type- Primary documented in this encounter Additional Health Concerns Assessment Noted Time A fall risk assessment has been complete d for the patient 01/17/2025 10:49 AM EDT A Body Mass Index follow-up plan has been documented for the patient 11/08/2024 12:04 PM EDT documented as of this encounter Care Teams Supervisor [employer] Relationship Specialty Start Date End Date Robb Cartagena MD [address] [place] [address] PCP - General 02/10/21 Sophia Horne MD [address] [place] [phone] Referring Physician Hematology and Oncology 04/15/21 [place] [address] [place] [address] [address] [place] [id number] Cardiology 07/24/24 Kristian Prado MD [address] [facility] [address] [place] [phone] Consulting Physician Gynecologic Oncology 07/24/24 Antonio Camarillo MD [address] [place], [place] [phone] Nephrology 07/24/24 Merea Ruiz APRN [address] [facility] [address] [place] [address] Nurse Practitioner Endocrinology 07/24/24 Asad Arevalo MD [address] [place] [address] [address] [place] [address] Referring Physician Gastroenterology 07/24/24 Oscar Murphy MD [address] [place] [address] Consulting Physician Nephrology 07/24/24 Maria C Parra PA [address] [place] [address] Pulmonary Disease 07/24/24 documented as of this encounter
--- OUTSIDE RECORDS SUMMARY | 2025-03-01 13:56 | XMS_ITS | Encounter Summary ---
Author Organization [facility] Address [address] [place] [address] Care Team Providers Care Cab Station Attendant Name Role Phone Robb Cartagena MD Primary Care Provider Sophia Horne MD Unavailable [phone] Zheng Iglesias MD Unavailable Kristian Prado MD Unavailable [phone] Antonio Camarillo MD Unavailable [phone] Meera Ruiz WILDLAND FIRE OPERATIONS SPECIALIST Unavailable [phone] Asad Arevalo MD Unavailable [phone] Oscar Murphy MD Unavailable [phone] Maria C Parra Unavailable [phone] Encounter Details Date Type Department Care Team (Latest Contact Info) Description 02/06/2025 Travel Social History Tobacco Use Types Packs/Day Years [...] any time in the past 12 m [facility], were you homeless or living in a [...] drink first t marycarmen in the morning (EYE-WATER SERVICE DISPATCHER) to steady your nerves or to get rid of a hangover? 0 02/05/2025 CAGE Questionnaire Score 0 025 Utilities Answer Date Recorded In the past 12 months has th e [employer] gas, oil, or water company threatened to [...] Date of Assessment Author No Risk Indicated 02/06/2025 8:00 PM EDT Stephanie Linn, RN * Question Answer Date of Assessment Author 1. Wish to be (Past 1 Month) No 025 8:00 PM EDT Stephanie Linn, RN 2. Non-Specific Active Suici tia Thoughts (Past 1 Month) No 02/06/2025 8:00 PM EDT Stephanie Linn, RN 6. Suicidal Behavior (Lifetime) No 8:00 PM EDT Stephanie Linn, RN documented as of this encounter Plan of Treatment Upcoming Encounters Date Type Department Care Team (Late st Contact Info) Description 04/06/2025 9:20 AM EDT [facility] [address] [place] [address] (1), Chepe Cobian Fellow 04/17/2025 11:30 AM EDT Clinical Support [facility] Laboratory Services [address] [facility], 1st [place] [address] 04/25/2025 12:00 PM EDT Appointment [facility] [address] [place] [address] 05/01/2025 11:40 AM EDT Office Visit [facility] Bone & Mineral Metabolism [address], [address] [place] [address] Marla Hilton APRN [address] [facility] [address] [place] [address] 05/16/2025 1:10 PM EDT Office Visit [facility] Orthopaedic Surgery & Sports Medicine [address], 1st Floor [address] [place] [address] Trent Moon MD [address] [facility] [address] [place] [address] documented as of this encounter Visit Diagnoses Not on filedocumented in this encounter Additional Health Concerns Assessment Noted Time A fall risk assessment has been complete d for the patient 01/17/2025 10:49 AM EDT A Body Mass Index follow-up plan has been documented for the patient 02/07/2025 2:23 PM EDT documented as of this encounter Care Teams Cab Station Attendant Relationship Specialty Start Date End Date Robb Cartagena MD [address] [place] [address] [id number] PCP - General 02/10/21 Sophia Horne MD [address] [place] [address] Referring Physician Hematology and Oncology 04/15/21 Zheng Iglesias MD [address] [facility] [address] [place], [place] [phone] Cardiology 07/24/24 Kristian Prado MD 800 [facility] [address] [place] [address] Consulting Physician Gynecologic Oncology 07/24/24 Antonio Camarillo MD [address] [place], [place] [phone] Nephrology 07/24/24 Meera Ruiz APRN [address] [place] [address] Nurse Practitioner Endocrinology 07/24/24 Asad Arevalo MD 991 [facility] [address] [place] [address] Referring Physician Gastroenterology 07/24/24 Oscar Murphy MD [address] [facility] [address] [place] [address] Consulting Physician Nephrology 07/24/24 Maria C Parra PA [address] [place] [address] Pulmonary Disease 07/24/24 documented as of this encounter
--- OUTSIDE RECORDS SUMMARY | 2025-03-01 13:56 | XMS_ITS | Encounter Summary ---
Author Organization [facility] Address [address] [place] [address] Care Team Providers Care Rn Case Management Name Role Phone Robb Cartagena MD Primary Care Provider [phone] Sophia Horne MD Unavailable [phone] Zheng Iglesias MD Unavailable Kristian Prado MD Unavailable [phone] Antonio Camarillo MD Unavailable [phone] Meera Ruiz PROJECT CONSTRUCTION MANAGER Unavailable [phone] Asad Arevalo MD Unavailable [phone] Oscar Murphy MD Unavailable [phone] Maria C Parra Unavailable [phone] Encounter Details Date Type Department Care Team (Latest Contact Info) Description 01/02/2025 Travel Social History Tobacco Use Types Packs/Day [...] Description 04/06/2025 9:20 AM EDT Office Visit [facility] Endocrinology [address] [place] [address] (1), Chepe Mango Fellow 04/17/2025 11:30 AM EDT Clinical Support [facility] Laboratory Services [address], 1st [place] [address] 04/25/2025 12:00 PM EDT Appointment [facility] [address] [place] [address] 05/01/2025 11:40 AM EDT Office Visit [facility] Bone & Mineral Metabolism [address] [facility], [address] [place] [address] Marla Hilton APRN [address] [place] [address] 05/16/2025 1:10 PM EDT [facility] Orth[facility]edic Surgery & Sports Medicine [address] [facility], 1st Floor [address] [place] [address] Trent Moon MD [address] [place] [address] documented as of this encounter Visit Diagnoses Not on filedocumented in this encounter Additional Health Concerns Assessment Noted Time A fall risk assessment has been complete d for the patient 11/08/2024 11:42 AM EDT A Body Mass Index follow-up plan has been documented for the patient 11/08/2024 12:04 PM EDT documented as of this encounter Care Teams Rn Case Management Relationship Specialty Start Date End Date Robb Cartagena MD [address] [place] [address] PCP - General 02/10/21 Sophia Horne MD [address] [place] [address] Referring Physician Hematology and Oncology 04/15/21 Zheng Iglesias MD 14[address] [facility] [address] [place], [place] [phone] Cardiology 07/24/24 Kristian Prado MD 800 [facility] Jennifer Ch[facility]la [facility] [address] [place] [address] Consulting Physician Gynecologic Oncology 07/24/24 Antonio Camarillo MD [address] [place] [address] Nephrology 07/24/24 Meera Ruiz APRN [address] [facility] [address] [place] [address] Nurse Practitioner Endocrinology 07/24/24 Asad Arevalo MD 991 [facility] 203 [place] [address] Referring Physician Gastroenterology 07/24/24 Oscar Murphy MD [address] [facility] [address] [place] [address] Consulting Physician Nephrology 07/24/24 Maria C Parra PA [address] [facility] [address] [place] [address] Pulmonary Disease 07/24/24 documented as of this encounter
--- OUTSIDE RECORDS SUMMARY | 2025-03-01 13:56 | XMS_ITS | Encounter Summary ---
Author Organization [facility] Address [address] [place] [address] Care Team Providers Care Hat Designer Name Role Phone Robb Cartagena MD Primary Care Provider [phone] Sophia Horne MD Unavailable [phone] Zheng Iglesias MD Unavailable Kristian Prado MD Unavailable [phone] Antonio Camarillo MD Unavailable [phone] Meera Ruiz LIGHT OUT EXAMINER Unavailable [phone] Asad Arevalo MD Unavailable [phone] Oscar Murphy MD Unavailable [phone] Maria C Parra Unavailable [phone] Encounter Details Date Type Department Care Team (Late st Contact Info) Description 01/30/2025 Telephone [facility] Special[facility] [address], 2nd [place] [address] Maria C Parra PA [address] [place] [address] Social History Tobacco Use Types Packs/Day Years Used Date Smoking Tobacco: Former Cigarettes 1 1 967 - 1991 Passive Smoke Exposure: [...] any time in the past 12 m [facility], were you homeless or living in a [...] drink first t marycarmen in the morning (EYE-CISTERN ROOM WORKING SUPERVISOR) to steady your nerves or to [...] Description 04/06/2025 9:20 AM EDT Office Visit [facility] Endocrinology [address] [place] [address] (1), Chepe Cobian Fellow 04/17/2025 11:30 AM EDT Clinical Support [facility] Laboratory Services [address] [facility], 1st [place] [address] 04/25/2025 12:00 PM EDT Appointment [facility] Infusion [address] [facility] [address] [place] [address] 05/01/2025 11:40 AM EDT Office Visit [facility] Bone & Mineral Metabolism [address] [facility], [address] [place] [address] Marla Hilton APRN [address] [place] [address] 05/16/2025 1:10 PM EDT Office Visit [facility] Orthopaedic Surgery & Sports Medicine [address], 1st Floor [address] [place] [address] Trent Moon MD [address] [facility] [address] [place] [address] documented as of this encounter Visit Diagnoses Not on filedocumented in this encounter Additional Health Concerns Assessment Noted Time A fall risk assessment has been complete d for the patient 01/17/2025 10:49 AM EDT A Body Mass Index follow-up plan has been documented for the patient 11/08/2024 12:04 PM EDT documented as of this encounter Care Teams Hat Designer Relationship Specialty Start Date End Date Robb Cartagena MD [address] [place] [address] PCP - General 02/10/21 Sophia Horne MD 800 [place] [address] Referring Physician Hematology and Oncology 04/15/21 Zheng Iglesias MD 14[address] [facility] [address] [place], [place] [phone] Cardiology 07/24/24 Kristian Prado MD [address] [facility] [address] [place] [address] Consulting Physician Gynecologic Oncology 07/24/24 Antonio Camarillo MD [address] [place] [address] Nephrology 07/24/24 Meera Ruiz APRN [address] [facility] [address] [place] [address] Nurse Practitioner Endocrinology 07/24/24 Asad Arevalo MD [address] [place] [address] 203 [place], [place] [address] Referring Physician Gastroenterology 07/24/24 Oscar Murphy MD 135 E [facility] 401 [place] [address] Consulting Physician Nephrology 07/24/24 Maria C Parra PA [address] [facility] [address] [place] [address] Pulmonary Disease 07/24/24 documented as of this encounter
--- OUTSIDE RECORDS SUMMARY | 2025-03-01 13:56 | XMS_ITS | Encounter Summary ---
Author Organization [facility] Address [address] [place] [address] Care Team Providers Care Sailor Name Role Phone Robb Cartagena MD Primary Care Provider Sophia Horne MD Unavailable [phone] Zheng Iglesias MD Unavailable Kristian Prado MD Unavailable [phone] Antonio Camarillo MD Unavailable [phone] Meera Ruiz BODY FITTER Unavailable [phone] Asad Arevalo MD Unavailable [phone] Oscar Murphy MD Unavailable [phone] Maria C Parra Unavailable [phone] Reason for Visit * Reason Comments Med Refill Encounter Details Date Type Department Care Team (Late st Contact Info) Description 01/14/2025 Refill [facility] [address] [place] [address] Sophia Horne MD [address] [address] Mixed hyperlipidemia Social History Tobacco Use Types Packs/Day Years Used Date Smoking Tobacco: Former Cigarettes 1 26 08 967 - 1991 Passive Smoke Exposure: Never [...] Office Visit [facility] Endocrinology [address] [place] [address] (1), Chepe Cobian Fellow 04/17/2025 11:30 AM EDT Clinical Support [facility] Laboratory Services [address] [facility], 1st [place] [address] 04/25/2025 12:00 PM EDT Appointment [facility] Infusion [address] [place] [address] 05/01/2025 11:40 AM EDT Office Visit [facility] Bone & Mineral Metabolism [address] [facility], [address] [place] [address] Marla Hilton APRN [address] [facility] [address] [place] [address] 05/16/2025 1:10 PM EDT Office Visit [facility] Orthopaedic Surgery & Sports Medicine [address], 1st Floor [address] [place] [address] Trent Moon MD [address] [facility] 201 [place] [address] documented as of this encounter Visit Diagnoses Diagnosis Mixed hyperlipidemia documented in this encounter Additional Health Concerns Assessment Noted Time A fall risk assessment has been complete d for the patient 11/08/2024 11:42 AM EDT A Body Mass Index follow-up plan has been documented for the patient 11/08/2024 12:04 PM EDT documented as of this encounter Care Teams Sailor Relationship Specialty Start Date End Date Robb Cartagena MD [address] [place] [address] PCP - General 02/10/21 Sophia Horne MD 800 [place] [address] Referring Physician Hematology and Oncology 04/15/21 Zheng Iglesias MD [address] [facility] [address] [place] [address] Cardiology 07/24/24 Kristian Prado MD [address] [facility] [address] [place] [address] Consulting Physician Gynecologic Oncology 07/24/24 Antonio Camarillo MD [address] [place] [address] Nephrology 07/24/24 Meera Ruiz APRN 2195 [facility] 125 [place] [address] Nurse Practitioner Endocrinology 07/24/24 Asad Arevalo MD 991 [facility] 203 [place], [place] [address] Referring Physician Gastroenterology 07/24/24 Oscar Murphy MD [address] [facility] 401 [place] [address] Consulting Physician Nephrology 07/24/24 Maria C Parra PA [address] [facility] [address] [place] [address] Pulmonary Disease 07/24/24 documented as of this encounter
--- OUTSIDE RECORDS SUMMARY | 2025-03-01 13:56 | XMS_ITS | Encounter Summary ---
Author Organization [facility] Address [address] [place] [address] Care Team Providers Care Physical Therapy Professor Name Role Phone Robb Cartagena MD Primary Care Provider Sophia Horne MD Unavailable [phone] Zheng Iglesias MD Unavailable Kristian Prado MD Unavailable [phone] Antonio Camarillo MD Unavailable [phone] Meera Ruiz HOSPICE MANAGER Unavailable [phone] Asad Arevalo MD Unavailable [phone] Oscar Murphy MD Unavailable [phone] Maria C Parra Unavailable [phone] Reason for Visit * Reason Comments Med Refill Encounter Details Date Type Department Care Team (Late st Contact Info) Description 01/22/2025 Refill [facility] [address] [place] [address] Sophia Horne MD [address] [address] Type 2 diabetes mellitus with diabetic neuropathy, with long-term current use of insulin ([facility]) Social History Tobacco Use Types Packs/Day Years [...] Description 04/06/2025 9:20 AM EDT Office Visit [facility] Endocrinology [address] [place] [address] (1), Chepe Cobian Fellow 04/17/2025 11:30 AM EDT Clinical Support [facility] Laboratory Services [address] [facility], 1st [place] [address] 04/25/2025 12:00 PM EDT Appointment [facility] Infusion [address] [place] [address] 05/01/2025 11:40 AM EDT Office Visit [facility] Bone & Mineral Metabolism [address] [facility], [address] [place] [address] Marla Hilton APRN [address] [facility] [address] [place] [address] 05/16/2025 1:10 PM EDT Office Visit [facility] Orthopaedic Surgery & Sports Medicine [address], 1st Floor [address] [place] [address] Trent Moon MD [address] [facility] 201 [place] [address] documented as of this encounter Visit Diagnoses Diagnosis Type 2 diabetes mellitus with diabetic neuropathy, with long-term current use of insulin (CMS/HCC) documented in this encounter Additional Health Concerns Assessment Noted Time A fall risk assessment has been complete d for the patient 01/17/2025 10:49 AM EDT A Body Mass Index follow-up plan has been documented for the patient 11/08/2024 12:04 PM EDT documented as of this encounter Care Teams Physical Therapy Professor Relationship Specialty Start Date End Date Robb Cartagena MD [address] [place], [place] [phone] PCP - General 02/10/21 Sophia Horne MD [address] [place] [address] Referring Physician Hematology and Oncology 04/15/21 Zheng Iglesias MD [address] [facility] [address] [place], [place] [phone] Cardiology 07/24/24 Kristian Prado MD 800 [facility] [address] [place] [address] Consulting Physician Gynecologic Oncology 07/24/24 Antonio Camarillo MD [address] [place], [place] [address] Nephrology 07/24/24 Meera Ruiz APRN [address] [facility] [address] [place] [address] Nurse Practitioner Endocrinology 07/24/24 Asad Arevalo MD 991 [facility] [address] [place] [address] Referring Physician Gastroenterology 07/24/[address] [facility] [address] [place] [address] Consulting Physician Nephrology 07/24/24 Maria C Parra PA [address] [place] [address] Pulmonary Disease 07/24/24 documented as of this encounter
--- OUTSIDE RECORDS SUMMARY | 2025-03-01 13:56 | XMS_ITS | Encounter Summary ---
Author Organization [facility] Address [address] [place] [address] Care Team Providers Care Chicken Cutter Name Role Phone Robb Cartagena MD Primary Care Provider Sophia Horne MD Unavailable [phone] Zheng Iglesias MD Unavailable Kristian Prado MD Unavailable [phone] Antonio Camarillo MD Unavailable [phone] Meera Ruiz COMMERCIAL COUNSEL Unavailable [phone] Asad Arevalo MD Unavailable [phone] Oscar Murphy MD Unavailable [phone] Maria C Parra Unavailable [phone] Encounter Details Date Type Department Care Team (Late st Contact Info) Description 01/01/2025 Telephone [facility] Bone & Mineral Metabolism [address] [facility], [address] [place] [address] Chepe Thomas Social History Tobacco Use Types Packs/Day Years Used Date Smoking Tobacco: Former Cigarettes 25 1 967 - 1991 Passive Smoke [...] encounter Miscellaneous Notes * Telephone Encounter - Chepe Thomas - 01/01/2025 4:27 PM EDT Pt called she states she wants to cancel appt for the 4th with ermias and wants to be seen the 12,MA notified double cut sawyer, pt states she well go do labs tomorrow. documented in this encounter Plan of Treatment Upcoming Encounters Date Type Department Care Team (Late st Contact Info) Description 04/06/2025 9:20 AM EDT Office Visit [facility] Endocrinology [address] [place] [address] (1), Chepe Cobian Fellow 04/17/2025 11:30 AM EDT Clinical Support [facility] Laboratory Services [address] [facility], 1st [place] [address] 04/25/2025 12:00 PM EDT Appointment [facility] Infusion [address] [place] [address] 05/01/2025 11:40 AM EDT Office Visit [facility] Bone & Mineral Metabolism [address] [facility], [address] [place] [address] Marla Hilton APRN [address] [facility] [address] [place] [address] 05/16/2025 1:10 PM EDT Office Visit [facility] Orthopaedic Surgery & Sports Medicine [address], 1st Floor [address] [place] [address] Trent Moon MD 125 [address] [facility] 201 [place] [address] documented as of this encounter Visit Diagnoses Not on filedocumented in this encounter Additional Health Concerns Assessment Noted Time A fall risk assessment has been complete d for the patient 11/08/2024 11:42 AM EDT A Body Mass Index follow-up plan has been documented for the patient 11/08/2024 12:04 PM EDT documented as of this encounter Care Teams Chicken Cutter Relationship Specialty Start Date End Date Robb Cartagena MD [address] [place] [address] PCP - General 02/10/21 Sophia Horne MD [address] [place] [address] Referring Physician Hematology and Oncology 04/15/21 [place] [address] [place] [address] [address] [place] [id number] Cardiology 07/24/24 Kristian Prado MD 800 [facility] [address] [place] [address] Consulting Physician Gynecologic Oncology 07/24/24 Antonio Camarillo MD [address] [place], [place] [address] Nephrology 07/24/24 Meera Ruiz APRN 2195 [facility] 125 [place] [address] Nurse Practitioner Endocrinology 07/24/24 Asad Arevalo MD [address] [place] [address] 203 [place] [address] Referring Physician Gastroenterology 07/24/24 Oscar Murphy MD [address] [place] [address] Consulting Physician Nephrology 07/24/24 Maria C Parra PA [address] [place] [address] Pulmonary Disease 07/24/24 documented as of this encounter
--- OUTSIDE RECORDS SUMMARY | 2025-03-01 13:56 | XMS_ITS | Encounter Summary ---
Author Organization [facility] Address [address] [place] [address] Care Team Providers Care Diploma Maker Name Role Phone Robb Cartagena MD Primary Care Provider [phone] Sophia Horne MD Unavailable [phone] Zheng Iglesias MD Unavailable Kristian Prado MD Unavailable [phone] Antonio Camarillo MD Unavailable [phone] Meera Ruiz MAINTENANCE ELECTRICIAN Unavailable [phone] Asad Arevalo MD Unavailable [phone] Oscar Murphy MD Unavailable [phone] Maria C Parra Unavailable [phone] Encounter Details Date Type Department Care Team (Late st Contact Info) Description 02/04/2025 Orders Only External Location [address] [place] [address] Provider, External Social History Tobacco Use Types [...] any time in the past 12 m [facility], were you homeless or living in a senior living (including now)? No 02/07/2025 CAGE ASSESSMENT Answer [...] drink first t marycarmen in the morning (EYE-TOOLMAKER GRADE THREE) to steady your nerves or to get [...] Description 04/06/2025 9:20 AM EDT Office Visit [facility] Endocrinology [address] [place] [phone] (1), Chepe Cobian Fellow 04/17/2025 11:30 AM EDT Clinical Support [facility] Laboratory Services [address], 1st [place] [address] 04/25/2025 12:00 PM EDT Appointment [facility] [address] [place] [address] 05/01/2025 11:40 AM EDT Office Visit [facility] Bone & Mineral Metabolism [address], [address] [place] [address] Marla Hilton APRN [address] [place] [address] 05/16/2025 1:10 PM EDT Office Visit [facility] Orthopaedic Surgery & Sports Medicine [address], 1st Floor [address] [place] [address] Trent Moon MD 125 [address] [facility] 201 [place] [address] documented as of this encounter Procedures Procedure Name Priority Date/Time Associated Diagnosis Comments CT OUTSIDE IMAGES 02/04/2025 8:12 PM EDT documented in this encounter Results * CT OUTSIDE IMAGES (02/04/2025 8:12 PM EDT) Anatomical Region Laterality Modality Computed Tomogra phy 02/04/2025 8:12 PM EDT External Provider IMG CT PROCEDURES [...] documented as of this encounter Care Teams Diploma Maker Relationship Specialty Start Date End Date Robb Cartagena MD [address] [place] [address] PCP - General 02/10/21 Sophia Horne MD [address] [place] [address] Referring Physician Hematology and Oncology 04/15/21 Zheng Iglesias MD 1401 [facility] [address] [place], [place] [phone] Cardiology 07/24/24 Kristian Prado MD 800 [facility] [address] [place] [address] Consulting Physician Gynecologic Oncology 07/24/24 Antonio Camarillo MD [address] [place] [address] Nephrology 07/24/24 Meera Ruiz APRN 2195 [facility] [address] [place] [address] Nurse Practitioner Endocrinology 07/24/24 Asad Arevalo MD 991 [facility] 203 [place], [place] [phone] Referring Physician Gastroenterology 07/24/24 Oscar Murphy MD 135 [address] [facility] [address] [place] [address] Consulting Physician Nephrology 07/24/24 Maria C Parra PA [address] [place] [address] Pulmonary Disease 07/24/24 documented as of this encounter
--- OUTSIDE RECORDS SUMMARY | 2025-03-01 13:57 | XMS_ITS | Encounter Summary ---
Author Organization [facility] Address [address] [place] [address] Care Team Providers Care Annual Greenhouse Manager Name Role Phone Robb Cartagena MD Primary Care Provider Sophia Horne MD Unavailable [phone] Zheng Iglesias MD Unavailable Kristian Prado MD Unavailable [phone] Antonio Camarillo MD Unavailable [phone] Meera Ruiz POLYMER CHEMIST Unavailable [phone] Asad Arevalo MD Unavailable [phone] Oscar Murphy MD Unavailable [phone] Maria C Parra Unavailable [phone] Encounter Details Date Type Department Care Team (Latest Contact Info) Description 02/04/2025 Travel Social History Tobacco Use Types Packs/Day Years Used Date Smoking Tobacco: Former Cigarettes 1 25 1 967 - 1991 Passive Smoke Exposure: Never Smokeless Tobacco: Never Alcohol Use Standard Drinks/Week Comments No 0 (1 standard drink = 0.6 oz pur e alcohol) PHQ-2 Answer Date Recorded Patient Health Questionnaire-2 Score 0 07/24/2024 CAGE ASSESSMENT Answer Date Recorded Cage unable [...] drink first t marycarmen in the morning (EYE-CHILD PSYCHIATRIST) to steady your nerves or to get rid of a hangover? 0 02/05/2025 CAGE Questionnaire Score 0 025 PHQ-2A Answer Date Recorded Depression Risk 0 [...] Description 04/06/2025 9:20 AM EDT Office Visit [facility] Endocrinology [address] [place] [phone] (1), Chepe Cobian Fellow 04/17/2025 11:30 AM EDT Clinical Support [facility] Laboratory Services [address] [facility], 1st [place] [address] 04/25/2025 12:00 PM EDT Appointment P[facility] G Infusion [address] [place] [address] 05/01/2025 11:40 AM EDT Office Visit [facility] Bone & Mineral Metabolism [address] [facility], [address] [place] [address] Marla Hilton APRN [address] [facility] [address] [place] [address] 05/16/2025 1:10 PM EDT Office Visit [facility] Orthopaedic Surgery & Sports Medicine [address], 1st Floor [address] [place] [address] Trent Moon MD [address] [facility] 201 [place] [address] documented as of this encounter Visit Diagnoses Not on filedocumented in this encounter Additional Health Concerns Assessment Noted Time A fall risk assessment has been complete d for the patient 01/17/2025 10:49 AM EDT A Body Mass Index follow-up plan has been documented for the patient 02/07/2025 2:23 PM EDT documented as of this encounter Care Teams Annual Greenhouse Manager Relationship Specialty Start Date End Date Robb Cartagena MD [address] [place] [address] PCP - General 02/10/21 Sophia Horne MD [address] [place] [phone] Referring Physician Hematology and Oncology 04/15/21 Zheng Iglesias MD 1401 [facility] [address] [place] [phone] Cardiology 07/24/24 Kristian Prado MD 800 [facility] [address] [place] [address] Consulting Physician Gynecologic Oncology 07/24/24 Antonio Camarillo MD [address] [place] [phone] Nephrology 07/24/24 Meera Ruiz APRN 2195 [facility] 125 [place] [address] Nurse Practitioner Endocrinology 07/24/24 Asad Arevalo MD [address] [place] [address] [address] [place] [address] Referring Physician Gastroenterology 07/24/24 Oscar Murphy MD 135 [address] [facility] [address] [place] [address] Consulting Physician Nephrology 07/24/24 Maria C Parra PA [address] [place] [address] Pulmonary Disease 07/24/24 documented as of this encounter
--- OUTSIDE RECORDS SUMMARY | 2025-03-01 13:57 | XMS_ITS | Encounter Summary ---
Author Organization [facility] Address [address] [place] [address] Care Team Providers Care Six Pack Packer Name Role Phone Robb Cartagena MD Primary Care Provider Sophia Horne MD Unavailable [phone] Kirby Kern MD Unavailable [phone] Zheng Iglesias MD Unavailable Kristian Prado MD Unavailable [phone] Antonio Camarillo MD Unavailable [phone] Meera Ruiz UTILITY APPRAISER Unavailable Asad Arevalo MD Unavailable Oscar Murphy MD Unavailable [phone] Maria C Parra Unavailable [phone] Reason for Visit * Reason Comments Med Refill Encounter Details Date Type Department Care Team (Late st Contact Info) Description 05/18/2023 Refill [facility] Nephrology, Bone & Mineral Metabolism [address] [facility], [address] [place] [address] Oscar Murphy MD [address] [place] [address] Age-related osteoporosis without current pathological fracture Social History Tobacco Use Types Packs/Day Years Used Date Smoking Tobacco: Former Cigarettes 1 26 08 967 - 1991 Smokeless Tobacco: Never Alcohol Use Standard Drinks/Week Comments No 0 (1 standard drink = 0.6 oz pur e alcohol) PHQ-2 Answer Date Recorded Patient Health Questionnaire-2 Score 0 04/28/2023 PHQ-2A Answer Date Recorded Patient Health Questionnaire-2 Score 0 04/28/2023 Comments No Sex and Gender Information Value Date Recorded Sex Assigned at Female 02/05/2025 4:17 PM EDT Legal Sex Female 8:16 PM EDT Gender Identity Female 02/05/2025 4:17 PM EDT Sexual Orientation Not on file documented as of this encounter Miscellaneous Notes * Telephone Encounter - Mary Dill LPN - 05/18/2023 2:20 PM EDT Medication cholecalciferol 25 mcg tablet once daily refilled per protocol. #90 with 0 refills sent to [facility]. Patient is pending a follow up to be scheduled. documented in this encounter Plan of Treatment Upcoming Encounters Date Type Department Care Team (Late st Contact Info) Description 04/06/2025 9:20 AM EDT Office Visit [facility] Endocrinology [address] [place] [phone] (1), Chepe Cobian Fellow 04/17/2025 11:30 AM EDT Clinical Support [facility] Laboratory Services [address] [facility], 1st [place] [address] 04/25/2025 12:00 PM EDT Appointment [facility] Infusion [address] [place] [address] 05/01/2025 11:40 AM EDT Office Visit [facility] Bone & Mineral Metabolism [address] [facility], [address] [place] [address] Marla Hilton APRN [address] [facility] [address] [place] [address] 05/16/2025 1:10 PM EDT Office Visit [facility] Orthopaedic Surgery & Sports Medicine [address], 1st Floor [address] [place] [address] Trent Moon MD [address] [facility] 201 [place] [address] documented as of this encounter Visit Diagnoses Diagnosis Age-related osteoporosis without current pathological fracture documented in this encounter Additional Health Concerns Assessment Noted Time A fall risk assessment has been complete d for the patient 05/13/2023 3:58 PM EDT A Body Mass Index follow-up plan has been documented for the patient 11/12/2022 9:59 AM EDT documented as of this encounter Care Teams Six Pack Packer Relationship Specialty Start Date End Date Robb Cartagena MD [address] [place] [phone] PCP - General 02/10/21 Sophia Horne MD [address] [place] [address] Referring Physician Hematology and Oncology 04/15/21 Kirby Kern MD 800 [facility] [address] [place] [address] Consulting Physician Radiation Oncology 03/24/2207/23 [place] [address] [place] [address] [address] [place] [address] Cardiology 07/24/24 Kristian Prado MD [address] [address] [place] [address] Consulting Physician Gynecologic Oncology 07/24/24 Antonio Camarillo MD 14[address] [place], [place] [phone] Nephrology 07/24/24 Meera Ruiz APRN 2195 [facility] 125 [place] [address] Nurse Practitioner Endocrinology 07/24/24 Asad Arevalo MD [address] [place] [address] 203 [place] [address] Referring Physician Gastroenterology 07/24/24 Oscar Murphy MD 135 [address] [facility] 401 [place] [address] Consulting Physician Nephrology 07/24/24 Maria C Parra PA [address] [place] [address] Pulmonary Disease 07/24/24 documented as of this encounter
--- OUTSIDE RECORDS SUMMARY | 2025-03-01 13:57 | XMS_ITS | Encounter Summary ---
Author Organization [facility] Address [address] [place] [address] Care Team Providers Care Latin Professor Name Role Phone Robb Cartagena MD Primary Care Provider Sophia Horne MD Unavailable [phone] Zheng Iglesias MD Unavailable Kristian Prado MD Unavailable [phone] Antonio Camarillo MD Unavailable [phone] Meera Ruiz BIOFUELS RESEARCH SCIENTIST Unavailable [phone] Asad Arevalo MD Unavailable [phone] Oscar Murphy MD Unavailable Maria C Parra Unavailable [phone] Encounter Details Date Type Department Care Team (Late st Contact Info) Description 02/04/2025 Orders Only External Location [address] [place] [address] Provider, External Social History Tobacco Use Types [...] any time in the past 12 m [facility], were you homeless or living [...] drink first t marycarmen in the morning (EYE-SSN/SSBN ASSISTANT NAVIGATOR) to steady your nerves or to get [...] EDT Office Visit [facility] Endocrinology [address] [place] [phone] (1), Chepe Cobian Fellow 04/17/2025 11:30 AM EDT Clinical Support [facility] Laboratory Services [address], 1st [place] [address] 04/25/2025 12:00 PM EDT Appointment P[facility] G Infusion [address] [place] [address] 05/01/2025 11:40 AM EDT Office Visit [facility] Bone & Mineral Metabolism [address], [address] [place] [address] Marla Hilton APRN [address] [place] [address] 05/16/2025 1:10 PM EDT Office Visit [facility] Orthopaedic Surgery & Sports Medicine [address], 1st Floor [address] [place] [address] Trent Moon MD [address] [facility] 201 [place] [address] documented as of this encounter Procedures Procedure Name Priority Date/Time Associated Diagnosis Comments CT THORACIC OUTSIDE IMAGES 02/04/2025 9:01 PM EDT documented in this encounter Results * CT THORACIC OUTSIDE IMAGES (02/04/2025 9:01 PM EDT) Anatomical Region Laterality Modality Computed Tomogra phy 02/04/2025 9:01 PM EDT External Provider IMG CT PROCEDURES [...] documented as of this encounter Care Teams Latin Professor Relationship Specialty Start Date End Date Robb Cartagena MD [address] [place] [address] PCP - General 02/10/21 Sophia Horne MD [address] [place] [address] Referring Physician Hematology and Oncology 04/15/21 Zheng Iglesias MD 1401 [facility] [address] [place], [place] [phone] Cardiology 07/24/24 Kristian Prado MD 800 [facility] [address] [place] [address] Consulting Physician Gynecologic Oncology 07/24/24 Antonio Camarillo MD 1451 [place] [address] Nephrology 07/24/24 Meera Ruiz APRN 2195 [facility] [address] [place] [address] Nurse Practitioner Endocrinology 07/24/24 Asad Arevalo MD 991 [facility] 203 [place], [place] [address] Referring Physician Gastroenterology 07/24/24 Oscar Murphy MD 135 [address] [facility] [address] [place] [address] Consulting Physician Nephrology 07/24/24 Maria C Parra PA [address] [place] [address] Pulmonary Disease 07/24/24 documented as of this encounter
--- OUTSIDE RECORDS SUMMARY | 2025-03-01 13:57 | XMS_ITS | Encounter Summary ---
Author Organization [facility] Address [address] [place] [address] Care Team Providers Care Hard Tile Setter Name Role Phone Robb Cartagena MD Primary Care Provider Sophia Horne MD Unavailable [phone] Zheng Iglesias MD Unavailable Kristian Prado MD Unavailable [phone] Antonio Camarillo MD Unavailable [phone] Meera Ruiz GUIDE VISITOR Unavailable [phone] Asad Arevalo MD Unavailable [phone] Oscar Murphy MD Unavailable Maria C Parra Unavailable [phone] Encounter Details Date Type Department Care Team (Latest Contact Info) Description 02/14/2025 Travel Social History Tobacco Use Types Packs/Day [...] time in the past 12 m [facility], were you homeless or living in a [facility] (including now)? No 02/07/2025 CAGE ASSESSMENT Answer [...] drink first t marycarmen in the morning (EYE-FINISHED GOODS PLANNER) to steady your nerves or to get rid of a hangover? 0 02/05/2025 CAGE Questionnaire Score 0 025 Utilities Answer Date Recorded In the past 12 months has th e [employer], gas, oil, or water company threatened to [...] Description 04/06/2025 9:20 AM EDT Office Visit [facility] Endocrinology [address] [place] [phone] (1), Chepe Cobian Fellow 04/17/2025 11:30 AM EDT Clinical Support [facility] Laboratory Services [address] [facility], 1st [place] [address] 04/25/2025 12:00 PM EDT Appointment P[facility] G Infusion [address] [place] [address] 05/01/2025 11:40 AM EDT Office [facility] Bone & Mineral Metabolism [address] [facility], [address] [place] [address] Marla Hilton APRN [address] [facility] [address] [place] [address] 05/16/2025 1:10 PM EDT Office Visit [facility] Orthopaedic Surgery & Sports Medicine [address], 1st Floor [address] [place] [address] Trent Moon MD [address] [facility] 201 [place] [address] documented as of this encounter Visit Diagnoses Not on filedocumented in this encounter Additional Health Concerns Assessment Noted Time A fall risk assessment has been complete d for the patient 02/14/2025 3:30 PM EDT A Body Mass Index follow-up plan has been documented for the patient 02/14/2025 4:01 PM EDT documented as of this encounter Care Teams Hard Tile Setter Relationship Specialty Start Date End Date Robb Cartagena MD [address] [place], [place] [phone] PCP - General 02/10/21 Sophia Horne MD 800 [place] [phone] Referring Physician Hematology and Oncology 04/15/21 Zheng Iglesias MD 1401 [facility] [address] [place] [address] Cardiology 07/24/24 Kristian Prado MD 800 [facility] [address] [place] [address] Consulting Physician Gynecologic Oncology 07/24/24 Antonio Camarillo MD 1451 [place] [address] Nephrology 07/24/24 Meera Ruiz APRN 2195 [facility] 125 [place] [address] Nurse Practitioner Endocrinology 07/24/24 Asad Arevalo MD 991 [facility] 203 [place] [address] Referring Physician Gastroenterology 07/24/24 Oscar Murphy MD 135 [address] [facility] 401 [place] [address] Consulting Physician Nephrology 07/24/24 Maria C Parra PA [address] [facility] [address] [facility] [address] [place] [address] Pulmonary Disease 07/24/24 documented as of this encounter
--- OUTSIDE RECORDS SUMMARY | 2025-03-01 13:57 | XMS_ITS | Encounter Summary ---
Author Organization [facility] Address [address] [address] Care Team Providers Care Cork Insulator Helper Name Role Phone Robb Cartagena MD Primary Care Provider Sophia Horne MD Unavailable [phone] Zheng Iglesias MD Unavailable Kristian Prado MD Unavailable [phone] Antonio Camarillo MD Unavailable [phone] Meera Ruiz DIRECTOR INTERNATIONAL Unavailable [phone] Asad Arevalo MD Unavailable [phone] Oscar Murphy MD Unavailable [phone] Maria C Parra Unavailable [phone] Encounter Details Date Type Department Care Team (Late st Contact Info) Description 02/04/2025 Orders Only External Location [address] [place] [address] Provider, External Social History Tobacco Use Types [...] any time in the past 12 m [facility], were you homeless or living in a [facility] (including now)? No 02/07/2025 CAGE ASSESSMENT Answer [...] drink first t marycarmen in the morning (EYE-RADIOLOGICAL TECHNOLOGIST) to steady your nerves or to get [...] Description 04/06/2025 9:20 AM EDT Office Visit [facility] Endocrinology [address] [place] [phone] (1), Chepe Cobian Fellow 04/17/2025 11:30 AM EDT Clinical Support [facility] Laboratory Services [address], 1st Floor [address] 04/25/2025 12:00 PM EDT Appointment PAV G Infusion [address] [address] 05/01/2025 11:40 AM EDT Office Visit [facility] Bone & Mineral Metabolism [address] [address] Marla Hilton APRN [address] [address] 05/16/2025 1:10 PM EDT Office Visit [facility] Orthopaedic Surgery & Sports Medicine [address], 1st Floor [address] [address] Trent Moon MD [address] [facility] 201 [address] documented as of this encounter Procedures Procedure Name Priority Date/Time Associated Diagnosis Comments CT OUTSIDE IMAGES 02/04/2025 8:15 PM EDT documented in this encounter Results * CT OUTSIDE IMAGES (02/04/2025 8:15 PM EDT) Anatomical Region Laterality Modality Computed Tomogra phy 02/04/2025 8:15 PM EDT External Provider IMG CT PROCEDURES [...] documented as of this encounter Care Teams Cork Insulator Helper Relationship Specialty Start Date End Date Robb Cartagena MD [address] [place] [address] PCP - General 02/10/21 Sophia Horne MD 800 [place] [address] Referring Physician Hematology and Oncology 04/15/21 Zheng Iglesias MD 1401 [facility] [address] [phone] Cardiology 07/24/24 Kristian Prado MD 800 [facility] [address] [address] Consulting Physician Gynecologic Oncology 07/24/24 Antonio Camarillo MD 1451 [place] [address] Nephrology 07/24/24 Meera Ruiz APRN 2195 [facility] [address] [address] Nurse Practitioner Endocrinology 07/24/24 Asad Arevalo MD 991 [facility] 203 [place], [place] [address] Referring Physician Gastroenterology 07/24/24 Oscar Murphy MD [address] [facility] [address] [address] Consulting Physician Nephrology 07/24/24 Maria C Parra PA [address] [address] Pulmonary Disease 07/24/24 documented as of this encounter
--- OUTSIDE RECORDS SUMMARY | 2025-03-01 13:57 | XMS_ITS | Encounter Summary ---
Author Organization [facility] Address [address] [place] [address] Care Team Providers Care Dean Of Admissions Name Role Phone Robb Cartagena MD Primary Care Provider Sophia Horne MD Unavailable [phone] Zheng Iglesias MD Unavailable Kristian Prado MD Unavailable [phone] Antonio Camarillo MD Unavailable [phone] Meera Ruiz ELECTRONIC IMAGER Unavailable [phone] Asad Arevalo MD Unavailable [phone] Oscar Murphy MD Unavailable [phone] Maria C Parra Unavailable [phone] Encounter Details Date Type Department Care Team (Latest Contact Info) Description 02/05/2025 Travel Social History Tobacco Use Types Packs/Day [...] drink first t marycarmen in the morning (EYE-TERRAZZO LABORER) to steady your nerves or to get [...] Date of Assessment Author No Risk Indicated 02/05/2025 8:00 PM EDT Claudette Mallory * Question Answer Date of Assessment Author 1. Wish to be (Past 1 Month) No 025 8:00 PM EDT Claudette Mallory 2. Non-Specific Active Suici tia Thoughts (Past 1 Month) No 02/05/2025 8:00 PM EDT Claudette Mallory 6. Suicidal Behavior (Lifetime) No 8:00 PM EDT Claudette Mallory documented as of this encounter Plan of Treatment Upcoming Encounters Date Type Department Care Team (Late st Contact Info) Description 04/06/2025 9:20 AM EDT Office Visit [facility] Endocrinology [address] [place] [id number] (1), Chepe Cobian Fellow 04/17/2025 11:30 AM EDT Clinical Support [facility] Laboratory Services [address] [facility], 1st [place] [address] 04/25/2025 12:00 PM EDT Appointment [facility]fusion [address] [place] [address] 05/01/2025 11:40 AM EDT Office Visit [facility] Bone & Mineral Metabolism [address] [facility], [address] [place] [address] Marla Hilton, ELECTRONIC IMAGER [address] [facility] [address] [place] [address] 05/16/2025 1:10 PM EDT Office Visit [facility] Orthopaedic Surgery & Sports Medicine [address], 1st Floor [address] [place] [address] Trent Moon MD [address] [facility] [address] [place] [address] documented as of this encounter Visit Diagnoses Not on filedocumented in this encounter Additional Health Concerns Assessment Noted Time A fall risk assessment has been complete d for the patient 01/17/2025 10:49 AM EDT A Body Mass Index follow-up plan has been documented for the patient 02/07/2025 2:23 PM EDT documented as of this encounter Care Teams Dean Of Admissions Relationship Specialty Start Date End Date Robb Cartagena MD [address] [place] [address] PCP - General 02/10/21 Sophia Horne MD [address] [place] [phone] Referring Physician Hematology and Oncology 04/15/21 Zheng Iglesias MD [address] [facility] [address] [place] [address] Cardiology 07/24/24 Kristian Prado MD 800 [facility] Jennifer Chawla [facility] [address] [place] [address] Consulting Physician Gynecologic Oncology 07/24/24 Antonio Camarillo MD [address] [place], [place] [id number] Nephrology 07/24/24 Meera Ruiz APRN [address] [facility] 125 [place] [address] Nurse Practitioner Endocrinology 07/24/24 Asad Arevalo MD [address] [place] [address] [address] [place] [address] Referring Physician Gastroenterology 07/24/24 Oscar Murphy MD [address] [facility] 401 [place] [address] Consulting Physician Nephrology 07/24/24 Maria C Parra PA [address] [place] [address] Pulmonary Disease 07/24/24 documented as of this encounter
--- OUTSIDE RECORDS SUMMARY | 2025-03-01 13:57 | XMS_ITS | Encounter Summary ---
Author Organization [facility] Address [address] [place] [address] Care Team Providers Care Pack Worker Name Role Phone Robb Cartagena MD Primary Care Provider Sophia Horne MD Unavailable [phone] Zheng Iglesias MD Unavailable Kristian Prado MD Unavailable [phone] Antonio Camarillo MD Unavailable [phone] Unavailable [phone] Asad Arevalo MD Unavailable [phone] Oscar Murphy MD Unavailable [phone] Maria C Parra Unavailable [phone] Encounter Details Date Type Department Care Team (Late st Contact Info) Description 02/08/2025 Telephone [facility] Bone & Mineral Metabolism [address] [facility], [address] [place] [address] Merlyn Oneil, PharmD [address] [place] [address] Social History Tobacco Use Types Packs/Day Years [...] any time in the past [address] [facility], were you homeless or living in a senior care (including now)? No 02/07/2025 CAGE ASSESSMENT Answer [...] drink first t marycarmen in the morning (EYE-DEPUTY CHIEF COUNSEL) to steady your nerves or to get [...] as of this encounter Miscellaneous Notes * Clinician Note - Nicholas Shell, PharmD - 02/27/2025 9:02 AM EDT Called patient's daughter to see if labs have been completed. She states they haven't had a chance to collect labs yet as patient fell and fractured her pelvis. She plans to go later this week to have collected. I will reach out to provider to ensure Boniva is still most appropriate therapy. Patient has barriers to anabolic therapy such as history of XRT and CAD. Will follow up with patient once lab results return. She expressed understanding of plan outlined above, encouraged to call clinic with any questions or concerns. Nicholas Shell, AlexD, BCACP Clinical Pharmacist Nephrology, Bone & Mineral Metabolism Clinic [facility] [place] [address] * Telephone Encounter - Merlyn Oneil, AlexD - 02/08/2025 2:14 PM EDT Discussed patient with Dr. Murphy. Spoke with patient's daughter over the phone to discuss patient's Calcium remains low at this time.Advised patient to take calcium 1200mg daily and will start calcitriol 0.[address] Murphy'srequest. Will plan to get repeat labs at [facility] in 2 weeks to reassess calcium. If calcium has improved, may then move forward with scheduling of Boniva. Merlyn Oneil, [place], BCACP Clinical Pharmacist Nephrology, Bone & Mineral Metabolism Clinic [address] [place] [address] documented in this encounter Plan of Treatment Upcoming Encounters Date Type Department Care Team (Late st Contact Info) Description 04/06/2025 9:20 AM EDT Office Visit [facility] Endocrinology [address] [place] [address] (1), Chepe Cobian Fellow 04/17/2025 11:30 AM EDT Clinical Support [facility] Laboratory Services [address] [facility], 1st [place] [address] 04/25/2025 12:00 PM EDT Appointment [facility] Infusion [address] [place] [address] 05/01/2025 11:40 AM EDT Office Visit [facility] Bone & Mineral Metabolism [address] [facility], [address] [place] [address] Marla Hilton APRN [address] [facility] [address] [place] [address] 05/16/2025 1:10 PM EDT Office Visit [facility] Orthopaedic Surgery & Sports Medicine [address], 1st Floor [address] [place] [address] Trent Moon MD [address] [facility] [address] [place] [address] Scheduled Orders Name Type Priority Associated Diagnoses Orde r Schedule Renal function panel Lab Routine Osteoporosis without current pathological fracture, unspecified osteoporosis type Expected: 02/20/2025 (Approximate), Expires: 08/12/2026 documented as of this encounter Visit Diagnoses [...] documented as of this encounter Care Teams Pack Worker Relationship Specialty Start Date End Date Robb Cartagena MD [address] [place], [place] [id number] PCP - General 02/10/21 Sophia Horne MD [address] [place] [address] Referring Physician Hematology and Oncology 04/15/21 Zheng Iglesias MD [address] [facility] [address] [place], [place] [phone] Cardiology 07/24/24 Kristian Prado MD [address] [facility] [address] [place] [address] Consulting Physician Gynecologic Oncology 07/24/24 Antonio Camarillo MD [address] [place], [place] [phone] Nephrology 07/24/24 Meera Ruiz APRN [address] [facility] [address] [place] [address] Nurse Practitioner Endocrinology 07/24/24 Asad Aervalo MD 1 [facility] [address] [place] [address] Referring Physician Gastroenterology 07/24/24 Oscar Murphy MD [address] [facility] [address] [place] [address] Consulting Physician Nephrology 07/24/24 Maria C Parra PA [address] [place] [address] Pulmonary Disease 07/24/24 documented as of this encounter
--- OUTSIDE RECORDS SUMMARY | 2025-03-01 13:57 | XMS_ITS | Encounter Summary ---
Author Organization [facility] Address [address] [place] [address] Care Team Providers Care Acoustical Installer Name Role Phone Robb Cartagena MD Primary Care Provider Sophia Horne MD Unavailable [phone] Zheng Iglesias MD Unavailable Kristian Prado MD Unavailable [phone] Antonio Camarillo MD Unavailable [phone] Meera Ruiz NARCOTICS AND VICE DETECTIVE Unavailable [phone] Asad Arevalo MD Unavailable [phone] Oscar Murphy MD Unavailable [phone] Maria C Parra Unavailable [phone] Reason for Visit * Reason Onset Date Comments [facility] Scheduling 02/08/2025 Encounter Details Date Type Department Care Team (Late st Contact Info) Description 02/08/2025 Telephone [facility] Infusion [address] [place] [address] Brian Brady, RN [facility] Scheduling Social History Tobacco Use Types Packs/Day Years [...] in the past 12 m [facility], were you homeless or living in a jail (including now)? No 02/07/2025 CAGE ASSESSMENT Answer [...] drink first t marycarmen in the morning (EYE-FUEL OIL CLERK) to steady your nerves or to get rid of a hangover? 0 02/05/2025 CAGE Questionnaire Score 0 025 Utilities Answer Date Recorded In the past 12 months has e electric, gas, oil, or water company [...] Description 04/06/2025 9:20 AM EDT Office Visit [facility] Endocrinology [facility] [place] [address] (1), Chepe Cobian Fellow 04/17/2025 11:30 AM EDT Clinical Support [facility] Laboratory Services [address] [facility], 1st [place] [address] 04/25/2025 12:00 PM EDT Appointment [facility] Infusion [address] [facility] [address] [place] [address] 05/01/2025 11:40 AM EDT Office Visit [facility] Bone & Mineral Metabolism [address] [facility], [address] [place] [address] Marla Hilton APRN [address] [facility] [address] [place] [address] 05/16/2025 1:10 PM EDT Office Visit [facility] Orthopaedic Surgery & Sports Medicine [address], 1st Floor [address] [place] [address] Trent Moon MD [address] [facility] [address] [place] [address] documented as of this encounter Visit Diagnoses Not on filedocumented in this encounter Additional Health Concerns Assessment Noted Time A fall risk assessment has been complete d for the patient 01/17/2025 10:49 AM EDT A Body Mass Index follow-up plan has been documented for the patient 02/07/2025 2:23 PM EDT documented as of this encounter Care Teams Acoustical Installer Relationship Specialty Start Date End Date Robb Cartagena MD [address] [place] [address] PCP - General 02/10/21 Sophia Horne MD [address] [place] [phone] Referring Physician Hematology and Oncology 04/15/21 [place] [address] [place] [address] [address] [place] [id number] Cardiology 07/24/24 Kristian Prado MD [address] [facility] [address] [place] [address] Consulting Physician Gynecologic Oncology 07/24/24 Antonio Camarillo MD [address] [place] [id number] Nephrology 07/24/24 Meera uRiz APRN [address] [facility] 125 [place] [address] Nurse Practitioner Endocrinology 07/24/24 Asad Arevalo MD 1 [facility] [address] [place], [place] [phone] Referring Physician Gastroenterology 07/24/24 Oscar Murphy MD [address] [facility] [address] [place] [address] Consulting Physician Nephrology 07/24/24 Maria C Parra PA [address] [place] [address] Pulmonary Disease 07/24/24 documented as of this encounter
[2025-03-01 15:26] LABS: Albumin Level 3.7 g/dl (3.5-5.0); Anion Gap 7.1 mEq/L (5-15); Blood Urea Nitrogen 21 mg/dl (7-17); Calcium 9.3 mg/dl (8.4-10.2); Carbon Dioxide 28 mmol/L (22.0-30.0); Chloride 105 mmol/L (98-107); Creatinine,Serum 1.40 mg/dl (0.52-1.04); Estimated Glomerular Filt Rate 36 ml/min (>60); GFR (African American) 44 ML/MIN (>60); Glucose 140 mg/dl (74-100); Phosphorous 3.0 mg/dl (2.5-4.5); Potassium 3.1 mmoL/L (3.5-5.1); Sodium 137 mmol/L (136-145)
== END 2025-03-01 23:59 | disposition home or self-care (01) ==
LOC: LAB 13:51
PROVIDERS: Visit Provider Internal Medicine
DX: M81.0 Age-related osteoporosis without current pathological fracture (principal)
CPT/HCPCS: 36415; 80069

== ENCOUNTER 2025-05-31 13:00 | Outpatient (RCR) | payer MEDICARE, SELFPAY | END 2025-05-31 23:59 | disposition home or self-care (01) | LOC: PT.CARL 13:00 | PROVIDERS: Visit Provider Neuromusculoskeletal Medicine, Sports Medicine | DX: R10.20 Pelvic and perineal pain unspecified side (principal) | CPT/HCPCS: 97110; 97162; 97530 ==

== ENCOUNTER 2025-06-05 13:01 | Outpatient (RCR) | payer MEDICARE, SELFPAY | END 2025-06-05 23:59 | disposition home or self-care (01) | LOC: PT.CARL 13:01 | PROVIDERS: Visit Provider Neuromusculoskeletal Medicine, Sports Medicine | DX: R10.22 Pelvic and perineal pain left side (principal) | CPT/HCPCS: 97110; 97530 ==